=== PATIENT | female | born 1950 | race Caucasian/White ===

== ENCOUNTER 2016-06-09 07:16 | Emergency (ER) | payer MEDICARE, BC ==
[2016-06-09] MEDS ORDERED: Ketorolac 30 MG/ML SDV IM ONE (07:44)
--- NOTE | 2016-06-09 07:50 | EDM.PDOC ---
ED HPI GENERAL MEDICAL PROBLEM - General Chief Complaint: Back Pain or Injury Stated Complaint: HEAD AND SHOULDER PAIN Time Seen by Provider: 06/09/16 07:23 - History of Present Illness INITIAL COMMENTS - FREE TEXT/NARRATIVE: History of present illness: [66 yo female with neck pain that radiates to left shoulder x 4 days. She woke up with neck pain. She did not fall or suffered injury. She denies numbness, tingling, parasthesia, chest pain, sob, palpitation, lower extremity swelling. sorethroat, headache, dizziness or other pertinent symptoms. She tried otc aleve without relief. ] Review of systems: As per history of present illness and below otherwise all systems reviewed and negative. Past medical history: HTN Surgical history: As per history of present illness and as reviewed below otherwise noncontributory. Social history: No reported history of drug or alcohol abuse. Family history: As per history of present illness and as reviewed below otherwise noncontributory. Physical exam: General: Well developed, well nourished in NAD HEENT: Atraumatic, normocephalic, pupils reactive, negative for conjunctival pallor or scleral icterus, mucous membranes moist, throat clear, neck supple, nontender, trachea midline. Lungs: Clear to auscultation, breath sounds equal bilaterally, chest nontender. Heart: S1S2, regular, negative for clicks, rubs, or JVD. Abdomen: Soft, nondistended, nontender. Negative for masses or hepatosplenomegaly. Negative for costovertebral tenderness. Pelvis: Stable nontender. Genitourinary: Deferred. Rectal: Deferred. Extremities: Atraumatic, negative for cords or calf pain. Neurovascular unremarkable. NECK: cervical midline tenderness. Brachiaradialis and triceps reflex intact. Neuro: Awake, alert, oriented. Cranial nerves II through XII unremarkable. Cerebellum unremarkable. Motor and sensory unremarkable throughout. Exam nonfocal. Diagnostics: [cervical spine xray: DJD changes. NO fracture or dislocations] Therapeutics: [toradol 30 IM] Impression: [cervical neck strain] Plan: [diclofenac 50 mg po bid x 10 days, flexeril 5 mg po tid prn. f/u with PCP this week. ] Definitive disposition and diagnosis as appropriate pending reevaluation and review of above. Bilateral Upper Back Pain Score (Numeric/FACES): 9 - Related Data Allergies Allergy/AdvReac Type Severity Reaction Status Date / Time Penicillins Allergy Rash Verified 06/27/15 14:11 Home Meds: Home Meds Aspirin [Halfprin] 81 mg PO DAILY 02/03/15 [History] Losartan/Hydrochlorothiazide [Losartan-HCTZ 100-25 MG] 1 each PO DAILY 03/02/15 [History] Multivitamin [Multivitamins] 1 each PO DAILY 03/02/15 [History] Past Medical History HEENT History: Reports: None, Impaired vision Cardiovascular History: Reports: Hypertension Respiratory History: Reports: None Gastrointestinal History: Reports: None Genitourinary History: Reports: None 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 History: Reports: Fracture Neurological History: Reports: None Psychiatric History: Reports: None Endocrine/Metabolic History: Reports: Obesity/BMI 30+ Hematologic History: Reports: None Immunologic History: Reports: None Oncologic (Cancer) History: Reports: None Dermatologic History: Reports: None - Infectious Disease History Infectious Disease History: Reports: Measles - Past Surgical History 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 Surgical History: Reports: Other (see below) Other 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 Surgeries/Procedures:: Right Wrist Social & Family History - Family History Family Medical History: Noncontributory Cardiac: Reports: None Respiratory: Reports: None GI: Reports: None : Reports: None OBGYN: Reports: None 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: Reports: None Neurological: Reports: None Psychiatric: Reports: None Endocrine/Metabolic: Reports: None Hematologic: Reports: None Immunologic: Reports: None Dermatologic: Reports: None Oncologic: Reports: None - Tobacco Use Smoking Status *Q: Never Smoker Second Hand Smoke Exposure: No - Caffeine Use Caffeine Use: Reports: None - Recreational Drug Use Recreational Drug Use: No ED ROS GENERAL - Review of Systems Review Of Systems: See Below (History of present illness) ED EXAM, GENERAL - Physical Exam Exam: See Below Course - Vital Signs Last Recorded V/S: Last Vital Signs Temp 97.6 F 06/09/16 07:24 Pulse 95 06/09/16 07:24 Resp 16 06/09/16 07:24 BP 167/131 H 06/09/16 07:24 Pulse Ox 96 06/09/16 07:24 - Orders/Labs/Meds Meds: Medications Discontinued Medications Generic Name Dose Route Start Last Admin Trade Name Freq PRN Reason Stop Dose Admin Ketorolac Tromethamine 30 mg 06/09/16 07:44 06/09/16 07:52 Toradol IM 06/09/16 07:45 30 mg ONETIME ONE Administration Departure - Departure Time of Disposition: 08:58 Disposition: Home, Self-Care 01 Condition: good Clinical Impression: Neck muscle strain Instructions: Muscle Strain, [id number] Referrals: PCP,None [Primary Care Provider] - Forms: ED Department Discharge Additional Instructions: The following information is given to patients seen in the emergency department who are being discharged to home. This information is to outline your options for follow-up care. We provide all patients seen in our emergency department with a follow-up referral. The need for follow-up, as well as the timing and circumstances, are variable depending upon the specifics of your emergency department visit. If you don't have a primary care physician on staff, we will provide you with a referral. We always advise you to contact your personal physician following an emergency department visit to inform them of the circumstance of the visit and for follow-up with them and/or the need for any referrals to a consulting specialist. The emergency department will also refer you to a specialist when appropriate. This referral assures that you have the opportunity for follow-up care with a specialist. All of these measure are taken in an effort to provide you with optimal care, which includes your follow-up. Under all circumstances we always encourage you to contact your private physician who remains a resource for coordinating your care. When calling for follow-up care, please make the office aware that this follow-up is from your recent emergency room visit. If for any reason you are refused follow-up, please contact the [facility] Emergency Department at and asked to speak to the emergency department charge nurse.
--- NOTE | 2016-06-09 08:51 | CR ---
EXAMINATION: Cervical spine HISTORY: Pain COMPARISON: CT dated 03/02/2015 TECHNIQUE: AP and lateral views of the cervical spine FINDINGS: There is straightening of the normal cervical lordosis. The vertebral body heights are chiquita ssly maintained. Disc space narrowing and osteophytes are noted at C5-C6 and C6-C7. The prevertebral soft tissues appear normal. Facet alignment is preserved. No acute osseous abnormalities demonstrat ed. IMPRESSION: Degenerative changes without acute findings.
[2016-06-09 09:10] VITALS: BP 124/77
--- NOTE | 2016-06-09 09:13 | EDM.PDOC ---
ED UPPER BACK/NECK PAIN/INJURY - General Chief Complaint: Back Pain or Injury Stated Complaint: HEAD AND SHOULDER PAIN Time Seen by Provider: 06/09/16 07:23 Source of Information: Reports: Patient History Limitations: Reports: No limitations - History of Present Illness INITIAL COMMENTS - FREE TEXT/NARRATIVE: HISTORY AND PHYSICAL: History of present illness: [66-year-old female complaining of posterior neck and upper back soreness since awakening 2 days ago patient did not suffer any injuries. He has no headache or stiff neck. Normal use of bilateral upper and lower extremities no numbness weakness or difficulty with gait. Patient has no spinal pain and clearly denies chest pain or shortness of breath] Review of systems: As per history of present illness and below otherwise all systems reviewed and negative. Past medical history: As per history of present illness and as reviewed below otherwise noncontributory. Surgical history: As per history of present illness and as reviewed below otherwise noncontributory. Social history: No reported history of drug or alcohol abuse. Family history: As per history of present illness and as reviewed below otherwise noncontributory. Physical exam: Bilateral posterior neck mild soft tissue tenderness but no skin changes also bilateral upper back soft tissue tenderness no scapular or spinal bony tenderness or skin changes. No midline bony T. step off or deformity HEENT: Atraumatic, normocephalic, pupils reactive, negative for conjunctival pallor or scleral icterus, mucous membranes moist, throat clear, neck supple, nontender, trachea midline. Lungs: Clear to auscultation, breath sounds equal bilaterally, chest nontender. Heart: S1S2, regular, negative for clicks, rubs, or JVD. Abdomen: Soft, nondistended, nontender. Negative for masses or hepatosplenomegaly. Negative for costovertebral tenderness. Pelvis: Stable nontender. Genitourinary: Deferred. Rectal: Deferred. Extremities: Atraumatic, negative for cords or calf pain. Neurovascular unremarkable. Neuro: Awake, alert, oriented. Cranial nerves II through XII unremarkable. Cerebellum unremarkable. Motor and sensory unremarkable throughout. Exam nonfocal. Diagnostics: [X-ray C-spine unremarkable interpreted by me a report reviewed] Therapeutics: [] Impression: [] Plan: [Patient with signs and symptoms consistent with cervical and dorsal strain. Well-appearing patient nonfocal neurologic exam no clinical evidence of radiculopathy. No further workup or treatment indicated. Patient agrees with outpatient followup. She will take NSAIDs and muscle relaxants as needed. Strict return precautions given.] Definitive disposition and diagnosis as appropriate pending reevaluation and review of above. - Related Data Allergies/ADRs: Allergies Allergy/AdvReac Type Severity Reaction Status Date / Time Penicillins Allergy Rash Verified 06/27/15 14:11 Home Meds: Home Meds Aspirin [Halfprin] 81 mg PO DAILY 02/03/15 [History] Losartan/Hydrochlorothiazide [Losartan-HCTZ 100-25 MG] 1 each PO DAILY 03/02/15 [History] Multivitamin [Multivitamins] 1 each PO DAILY 03/02/15 [History] Past Medical History HEENT History: Reports: None, Impaired vision Cardiovascular History: Reports: Hypertension Respiratory History: Reports: None Gastrointestinal History: Reports: None Genitourinary History: Reports: None 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 History: Reports: Fracture Neurological History: Reports: None Psychiatric History: Reports: None Endocrine/Metabolic History: Reports: Obesity/BMI 30+ Hematologic History: Reports: None Immunologic History: Reports: None Oncologic (Cancer) History: Reports: None Dermatologic History: Reports: None - Infectious Disease History Infectious Disease History: Reports: Measles - Past Surgical History 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 Surgical History: Reports: Other (see below) Other 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 Surgeries/Procedures:: Right Wrist Social & Family History - Family History Family Medical History: Noncontributory Cardiac: Reports: None Respiratory: Reports: None GI: Reports: None : Reports: None OBGYN: Reports: None 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: Reports: None Neurological: Reports: None Psychiatric: Reports: None Endocrine/Metabolic: Reports: None Hematologic: Reports: None Immunologic: Reports: None Dermatologic: Reports: None Oncologic: Reports: None - Tobacco Use Smoking Status *Q: Never Smoker Second Hand Smoke Exposure: No - Caffeine Use Caffeine Use: Reports: None - Recreational Drug Use Recreational Drug Use: No ED ROS GENERAL - Review of Systems Review Of Systems: See Below (Per history of present illness) ED EXAM, UPPER BACK/NECK PAIN - Physical Exam Exam: See Below (Per history of present illness) Course - Vital Signs Last Recorded V/S: Last Vital Signs Temp 36.9 C 06/09/16 09:09 Pulse 74 06/09/16 09:09 Resp 18 04/03/17 09:09 BP 124/77 06/09/16 09:09 Pulse Ox 95 06/09/16 09:09 - Orders/Labs/Meds Meds: Medications Discontinued Medications Generic Name Dose Route Start Last Admin Trade Name Lul PRN Reason Stop Dose Admin Ketorolac Tromethamine 30 mg 06/09/16 07:44 06/09/16 07:52 Toradol IM 06/09/16 07:45 30 mg ONETIME ONE Administration Departure - Departure Time of Disposition: 09:10 Disposition: Home, Self-Care 01 Condition: good Clinical Impression: Neck muscle strain Instructions: Muscle Strain, [id number] Referrals: PCP,None [Primary Care Provider] - Forms: ED Department Discharge Additional Instructions: The following information is given to patients seen in the emergency department who are being discharged to home. This information is to outline your options for follow-up care. We provide all patients seen in our emergency department with a follow-up referral. The need for follow-up, as well as the timing and circumstances, are variable depending upon the specifics of your emergency department visit. If you don't have a primary care physician on staff, we will provide you with a referral. We always advise you to contact your personal physician following an emergency department visit to inform them of the circumstance of the visit and for follow-up with them and/or the need for any referrals to a consulting specialist. The emergency department will also refer you to a specialist when appropriate. This referral assures that you have the opportunity for follow-up care with a specialist. All of these measure are taken in an effort to provide you with optimal care, which includes your follow-up. Under all circumstances we always encourage you to contact your private physician who remains a resource for coordinating your care. When calling for follow-up care, please make the office aware that this follow-up is from your recent emergency room visit. If for any reason you are refused follow-up, please contact the [facility] Emergency Department at and asked to speak to the emergency department charge nurse.
== END 2016-06-09 09:08 | disposition home or self-care (01) ==
LOC: MW.ED 07:16
DX: S16.1XXA Strain of muscle, fascia and tendon at neck level, initial encounter (principal); X58.XXXA Exposure to other specified factors, initial encounter; I10 Essential (primary) hypertension; E66.9 Obesity, unspecified; Z68.30 Body mass index [BMI] 30.0-30.9, adult; Z98.890 Other specified postprocedural states; Z79.82 Long term (current) use of aspirin; Z79.899 Other long term (current) drug therapy; Z88.0 Allergy status to penicillin
CPT/HCPCS: 72040; 96372; 99283; J1885

== ENCOUNTER 2016-11-04 09:38 | Emergency (ER) | payer MEDICARE, BC ==
[2016-11-04] MEDS ORDERED: Ketorolac 30 MG/ML SDV IM ONE (09:57)
--- NOTE | 2016-11-04 10:24 | EDM.PDOC ---
ED HPI GENERAL MEDICAL PROBLEM - General Chief Complaint: Back Pain or Injury Stated Complaint: BACK PAIN Time Seen by Provider: 11/04/16 09:40 - History of Present Illness INITIAL COMMENTS - FREE TEXT/NARRATIVE: HISTORY AND PHYSICAL: History of present illness: Patient's age 66-year-old white female was at a prior history of left-sided sciatica has not been frequent but did prompt a prior doctor visit she presents today with left lower back discomfort is primarily in her left buttock radiating down her left leg similar to her prior episodes but no numbness no weakness or incontinence or retention bowel or bladder no trauma or other concern Review of systems: As per history of present illness and below otherwise all systems reviewed and negative. Past medical history: As per history of present illness and as reviewed below otherwise noncontributory. Surgical history: As per history of present illness and as reviewed below otherwise noncontributory. Social history: No reported history of drug or alcohol abuse. Family history: As per history of present illness and as reviewed below otherwise noncontributory. Physical exam: HEENT: Atraumatic, normocephalic, pupils reactive, negative for conjunctival pallor or scleral icterus, mucous membranes moist, throat clear, neck supple, nontender, trachea midline. Lungs: Clear to auscultation, breath sounds equal bilaterally, chest nontender. Heart: S1S2, regular, negative for clicks, rubs, or JVD. Abdomen: Soft, nondistended, nontender. Negative for masses or hepatosplenomegaly. Negative for costovertebral tenderness. Pelvis: Stable nontender. Genitourinary: Deferred. Rectal: Deferred. Extremities: Atraumatic, negative for cords or calf pain. Neurovascular unremarkable. Neuro: Awake, alert, oriented. Cranial nerves II through XII unremarkable. Cerebellum unremarkable. Motor and sensory unremarkable throughout. Exam nonfocal. Back: Patient has tenderness over her left sciatic notch she is able stand on her toes back on her heels deep tendon reflexes motor and sensory are normal Diagnostics: None Therapeutics: Toradol 30 mg IM Impression: #1 left-sided sciatica Definitive disposition and diagnosis as appropriate pending reevaluation and review of above. Bilateral Lower Back Pain Score (Numeric/FACES): 10 - Related Data Allergies Allergy/AdvReac Type Severity Reaction Status Date / Time Penicillins Allergy Rash Verified 11/04/16 09:50 Home Meds: Home Meds Aspirin [Halfprin] 81 mg PO DAILY 02/03/15 [History] Multivitamin [Multivitamins] 1 each PO DAILY 03/02/15 [History] Metoprolol Succinate [Toprol XL] 1 tab PO DAILY 11/04/16 [History] atorvaSTATin [Lipitor] 1 tab PO DAILY 11/04/16 [History] Past Medical History HEENT History: Reports: None, Impaired Vision Cardiovascular History: Reports: Hypertension Respiratory History: Reports: None Gastrointestinal History: Reports: None Genitourinary History: Reports: None 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: 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 History: Reports: Fracture Neurological History: Reports: None Psychiatric History: Reports: None Endocrine/Metabolic History: Reports: Obesity/BMI 30+ Hematologic History: Reports: None Immunologic History: Reports: None Oncologic (Cancer) History: Reports: None Dermatologic History: Reports: None - Infectious Disease History Infectious Disease History: Reports: Measles - Past Surgical History 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 Surgical History: Reports: Other (See Below) Social & Family History - Family History Family Medical History: Noncontributory Cardiac: Reports: None Respiratory: Reports: None GI: Reports: None : Reports: None OBGYN: Reports: None 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: Reports: None Neurological: Reports: None Psychiatric: Reports: None Endocrine/Metabolic: Reports: None Hematologic: Reports: None Immunologic: Reports: None Dermatologic: Reports: None Oncologic: Reports: None - Tobacco Use Smoking Status *Q: Never Smoker Second Hand Smoke Exposure: No - Caffeine Use Caffeine Use: Reports: Soda - Recreational Drug Use Recreational Drug Use: No ED ROS GENERAL - Review of Systems Review Of Systems: ROS reveals no pertinent complaints other than HPI. ED EXAM, GENERAL - Physical Exam Exam: See Below (See dictation) Course - Vital Signs Last Recorded V/S: Last Vital Signs Temp 36.2 C 11/04/16 09:46 Pulse 66 11/04/16 09:46 Resp 20 11/04/16 09:46 BP 142/77 H 11/04/16 09:46 Pulse Ox 96 11/04/16 09:46 - Orders/Labs/Meds Meds: Medications Discontinued Medications Generic Name Dose Route Start Last Admin Trade Name Freq PRN Reason Stop Dose Admin Ketorolac Tromethamine 30 mg 11/04/16 09:57 11/04/16 10:15 Toradol IM 11/04/16 09:58 30 mg ONETIME ONE Administration Departure - Departure Time of Disposition: 10:23 Disposition: Home, Self-Care 01 Condition: Good Clinical Impression: Sciatica - Discharge Information Referrals: Gus Nassar MD [Primary Care Provider] - Additional Instructions: The following information is given to patients seen in the emergency department who are being discharged to home. This information is to outline your options for follow-up care. We provide all patients seen in our emergency department with a follow-up referral. The need for follow-up, as well as the timing and circumstances, are variable depending upon the specifics of your emergency department visit. If you don't have a primary care physician on staff, we will provide you with a referral. We always advise you to contact your personal physician following an emergency department visit to inform them of the circumstance of the visit and for follow-up with them and/or the need for any referrals to a consulting specialist. The emergency department will also refer you to a specialist when appropriate. This referral assures that you have the opportunity for followup care with a specialist. All of these measure are taken in an effort to provide you with optimal care, which includes your followup. Under all circumstances we always encourage you to contact your private physician who remains a resource for coordinating your care. When calling for followup care, please make the office aware that this follow-up is from your recent emergency room visit. If for any reason you are refused follow-up, please contact the [facility] emergency department at and asked to speak to the emergency department charge nurse. Follow-up private medical doctor as discussed Tylenol No. 3 Medrol Dosepak as prescribed return as needed as discussed
[2016-11-04 11:55] VITALS: BP 118/62
== END 2016-11-04 10:50 | disposition home or self-care (01) ==
LOC: MW.ED 09:38
DX: M54.42 Lumbago with sciatica, left side (principal); E66.9 Obesity, unspecified; I10 Essential (primary) hypertension; Z79.82 Long term (current) use of aspirin; Z79.899 Other long term (current) drug therapy; Z88.0 Allergy status to penicillin; Z68.33 Body mass index [BMI] 33.0-33.9, adult
CPT/HCPCS: 96372; 99283; J1885

== ENCOUNTER 2017-04-02 07:05 | Emergency (ER) | payer MEDICARE, BC ==
--- NOTE | 2017-04-02 07:28 | EDM.PDOC ---
ED HPI GENERAL MEDICAL PROBLEM - General Chief Complaint: Lower Extremity Injury/Pain Stated Complaint: PAIN IN RIGHT LEG Time Seen by Provider: 04/02/17 07:26 - History of Present Illness INITIAL COMMENTS - FREE TEXT/NARRATIVE: HISTORY AND PHYSICAL: History of present illness: Patient 66-year-old female presents with concern of right leg pain she denies trauma she's concerned about possible thromboembolism should denies any other concern is no chest pain shortness breath nausea vomiting fever chills Review of systems: As per history of present illness and below otherwise all systems reviewed and negative. Past medical history: As per history of present illness and as reviewed below otherwise noncontributory. Surgical history: As per history of present illness and as reviewed below otherwise noncontributory. Social history: No reported history of drug or alcohol abuse. Family history: As per history of present illness and as reviewed below otherwise noncontributory. Physical exam: HEENT: Atraumatic, normocephalic, pupils reactive, negative for conjunctival pallor or scleral icterus, mucous membranes moist, throat clear, neck supple, nontender, trachea midline. Lungs: Clear to auscultation, breath sounds equal bilaterally, chest nontender. Heart: S1S2, regular, negative for clicks, rubs, or JVD. Abdomen: Soft, nondistended, nontender. Negative for masses or hepatosplenomegaly. Negative for costovertebral tenderness. Pelvis: Stable nontender. Genitourinary: Deferred. Rectal: Deferred. Extremities: Atraumatic, negative for cords or calf pain. Neurovascular unremarkable. Neuro: Awake, alert, oriented. Cranial nerves II through XII unremarkable. Cerebellum unremarkable. Motor and sensory unremarkable throughout. Exam nonfocal. Diagnostics: Venous Doppler right lower extremity Therapeutics: None Impression: #1 right lower extremity pain Definitive disposition and diagnosis as appropriate pending reevaluation and review of above. Right Lower Leg Pain Score (Numeric/FACES): 10 - Related Data Allergies Allergy/AdvReac Type Severity Reaction Status Date / Time Penicillins Allergy Rash Verified 04/02/17 07:20 Home Meds: Home Meds Aspirin [Halfprin] 81 mg PO DAILY 02/03/15 [History] Multivitamin [Multivitamins] 1 each PO DAILY 03/02/15 [History] Metoprolol Succinate [Toprol XL] 50 mg PO DAILY 11/04/16 [History] atorvaSTATin [Lipitor] 10 mg PO DAILY 11/04/16 [History] Losartan/Hydrochlorothiazide [Losartan-HCTZ 100-25 MG] 1 tab PO DAILY 04/02/17 [ History] Past Medical History HEENT History: Reports: None, Impaired Vision Cardiovascular History: Reports: Hypertension Respiratory History: Reports: None Gastrointestinal History: Reports: None Genitourinary History: Reports: None [employer]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: 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 History: Reports: Fracture Neurological History: Reports: None Psychiatric History: Reports: None Endocrine/Metabolic History: Reports: Obesity/BMI 30+ Hematologic History: Reports: None Immunologic History: Reports: None Oncologic (Cancer) History: Reports: None Dermatologic History: Reports: None - Infectious Disease History Infectious Disease History: Reports: Chicken Pox, Measles, Mumps - Past Surgical History GI Surgical History: Reports: Appendectomy Female Surgical History: Reports: Hysterectomy Social & Family History - Family History Family Medical History: Noncontributory Cardiac: Reports: None Respiratory: Reports: None GI: Reports: None : Reports: None OBGYN: Reports: None 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: Reports: None Neurological: Reports: None Psychiatric: Reports: None Endocrine/Metabolic: Reports: None Hematologic: Reports: None Immunologic: Reports: None Dermatologic: Reports: None Oncologic: Reports: None - Tobacco Use Smoking Status *Q: Never Smoker Second Hand Smoke Exposure: No - Caffeine Use Caffeine Use: Reports: Soda - Recreational Drug Use Recreational Drug Use: No Review of Systems - Review of Systems Review Of Systems: ROS reveals no pertinent complaints other than HPI. ED EXAM, GENERAL - Physical Exam Exam: See Below (dictation) Course - Vital Signs Last Recorded V/S: Last Vital Signs Temp 36.7 C 04/02/17 07:17 Pulse 75 04/02/17 07:17 Resp 18 04/02/17 07:17 BP 117/72 04/02/17 07:17 Pulse Ox 95 04/02/17 07:17 Departure - Departure Time of Disposition: 07:27 Disposition: Home, Self-Care 01 Condition: Good Clinical Impression: Leg pain - Discharge Information Referrals: Gus Nassar MD [Primary Care Provider] - Additional Instructions: The following information is given to patients seen in the emergency department who are being discharged to home. This information is to outline your options for follow-up care. We provide all patients seen in our emergency department with a follow-up referral. The need for follow-up, as well as the timing and circumstances, are variable depending upon the specifics of your emergency department visit. If you don't have a primary care physician on staff, we will provide you with a referral. We always advise you to contact your personal physician following an emergency department visit to inform them of the circumstance of the visit and for follow-up with them and/or the need for any referrals to a consulting specialist. The emergency department will also refer you to a specialist when appropriate. This referral assures that you have the opportunity for followup care with a specialist. All of these measure are taken in an effort to provide you with optimal care, which includes your followup. Under all circumstances we always encourage you to contact your private physician who remains a resource for coordinating your care. When calling for followup care, please make the office aware that this follow-up is from your recent emergency room visit. If for any reason you are refused follow-up, please contact the [facility] emergency department at and asked to speak to the emergency department charge nurse. Follow-up primary medical doctor once a days Tylenol as directed return as needed as discussed
[2017-04-02 09:50] VITALS: BP 127/68
--- NOTE | 2017-04-02 16:24 | US ---
EXAM DATE: 04/02/17 PATIENT'S AGE: 66 Patient: JACIEL CONWAY Facility: [place], [place] Site . Site : 1950 Study: US Extremity Venous -04/02/2017 8:12:06 AM Ordering Physician: Francisco J Kowalski Final Report: INDICATION: Right leg pain COMPARISON: None. TECHNIQUE: A compression venous ultrasound exam was performed of the right lower extremity using crowder-scale imaging, color Doppler and spectral Doppler analysis. FINDINGS: Sonographic imaging of the right lower extremity demonstrates normal compressibility and color Doppler venous blood flow within the common femoral vein, deep femoral vein, and the proximal greater saphenous vein. Within the thigh, the femoral vein is patent and compressible. At a lower level, the popliteal and visualized posterior tibial veins show normal compressibility and color Doppler venous blood flow. Impression : No evidence of deep vein thrombosis within the right lower extremity. Dictated by Dex Reid MD @ Apr 02 2017 8:27AM (Electronic Signature) Report Signed by Proxy. ELLIS
== END 2017-04-02 08:59 | disposition home or self-care (01) ==
LOC: MW.ED 07:05
DX: M79.604 Pain in right leg (principal); I10 Essential (primary) hypertension; Z88.0 Allergy status to penicillin; Z79.82 Long term (current) use of aspirin; Z79.899 Other long term (current) drug therapy
CPT/HCPCS: 93971-26-RT; 93971-RT; 99283-25

== ENCOUNTER 2017-04-24 03:54 | Observation (INO) | payer MEDICARE, BC ==
[2017-04-24] MEDS ORDERED: Sodium Chloride 0.9% 2.5 ML Syringe FLUSH PRN (04:04)
[2017-04-24] MEDS ORDERED: Sodium Chloride 0.9% 10 ML Syringe FLUSH PRN (04:04)
[2017-04-24] MEDS ORDERED: Sodium Chloride 0.9% 1,000 ML IV ONE (04:04)
[2017-04-24] MEDS ORDERED: Aspirin 81 MG Tab.Chew PO ONE (04:04)
[2017-04-24] MEDS: Nitroglycerin 0.4 MG Tab.SL SL ONE ×2 (04:12→04:19)
--- NOTE | 2017-04-24 04:15 | EDM.PDOC ---
ED HPI GENERAL MEDICAL PROBLEM - General Stated Complaint: WEAKNESS ON LEFT SIDE, SOME CHEST PAIN Time Seen by Provider: 04/24/17 03:57 Source of Information: Reports: Patient - History of Present Illness INITIAL COMMENTS - FREE TEXT/NARRATIVE: HISTORY AND PHYSICAL: History of present illness: [66-year-old female presenting department with chief complaint of left-sided chest pain rating down her left arm with past medical history of hypertension and hyperlipidemia. Patient states that she has had intermittent chest pain for the past week. She states that it often wakes her up at night. This morning it woke her up 30-40 minutes ago and she proceeded to come the emergency department. It currently is 10 out of 10. Patient appears relaxed however. She describes the pain as left sided dull achy with tingling into the left arm. Patient has never had a myocardial infarction before. She denies any associated nausea, vomiting, or shortness of breath. The pain does not radiate into the jaw. Up until this past week she has been feeling her normal self. She denies any fever, chills, diarrhea, abdominal pain, sore throat, or leg pain. Dr. Nassar is her PCP. She has not reported this week of chest pain to him. On examination patient has no focal neurologic deficits however when asked she feels that she is weaker on her left arm. There is no pronator drift and cranial nerves II through XII are intact. 0415: EKG reveals normal sinus rhythm with no acute ischemic changes. Systolic 170's 0424: ASA given as well as nitroglycerin. Pain down to 7/10 Systolic 130's patient states that her pressure is normally in the 120s. 0432: CBC unremarkable. CXR unremarkable 0441: Normal troponin 0450: CMP unremarkable Patient feeling better 0505: Discussed case with Dr. Nicole, hospitalist who will accept patient observation atypical chest pain. Discussing with the patient she recently was switched from lisinopril to metoprolol. She states she took her last dose of lisinopril this last Thursday. She is currently on 50 mg of metoprolol XL. Patient did report that she was having chest pain for approximately one week which would somewhat correlate with the change of medication. In addition her blood pressure was in the 170s systolic when she presented to the emergency department and after nitroglycerin blood pressure was in the 120s which is what she reports her normal blood pressure is and her pain had improved. Suspect that her chest pain in more related to her increased blood pressure than ACS. Review of systems: As per history of present illness and below otherwise all systems reviewed and negative. Past medical history: As per history of present illness and as reviewed below otherwise noncontributory. Surgical history: As per history of present illness and as reviewed below otherwise noncontributory. Social history: No reported history of drug or alcohol abuse. Family history: As per history of present illness and as reviewed below otherwise noncontributory. Physical exam: HEENT: Atraumatic, normocephalic, pupils reactive, negative for conjunctival pallor or scleral icterus, mucous membranes moist, throat clear, neck supple, nontender, trachea midline. Lungs: Clear to auscultation, breath sounds equal bilaterally, chest nontender. Heart: S1S2, regular, negative for clicks, rubs, or JVD. Abdomen: Soft, nondistended, nontender. Negative for masses or hepatosplenomegaly. Negative for costovertebral tenderness. Pelvis: Stable nontender. Genitourinary: Deferred. Rectal: Deferred. Extremities: Atraumatic, negative for cords or calf pain. Neurovascular unremarkable. Neuro: Awake, alert, oriented. Cranial nerves II through XII unremarkable. Cerebellum unremarkable. Motor and sensory unremarkable throughout. Exam nonfocal. Diagnostics: [CBC, CMP, troponin, EKG, chest x-ray, UA] Therapeutics: [0.4 mg sublingual nitroglycerin, 324 mg ASA] Impression: [Atypical chest pain] Plan: [See above history of present illness] chest pain Pain Score (Numeric/FACES): 7 - Related Data Allergies Allergy/AdvReac Type Severity Reaction Status Date / Time Penicillins Allergy Rash Verified 04/24/17 04:01 Home Meds: Home Meds Aspirin [Halfprin] 81 mg PO DAILY 02/03/15 [History] Multivitamin [Multivitamins] 1 each PO DAILY 03/02/15 [History] Metoprolol Succinate [Toprol XL] 50 mg PO DAILY 11/04/16 [History] atorvaSTATin [Lipitor] 10 mg PO DAILY 11/04/16 [History] Valsartan/Hydrochlorothiazide [Valsartan-Hctz 320-12.5 mg Tab] 1 each PO DAILY 04/24/17 [History] Past Medical History HEENT History: Reports: None, Impaired Vision Cardiovascular History: Reports: Hypertension Respiratory History: Reports: None Gastrointestinal History: Reports: None Genitourinary History: Reports: 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 History: Reports: 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 Neurological History: Reports: None Psychiatric History: Reports: None Endocrine/Metabolic History: Reports: Obesity/BMI 30+ Hematologic History: Reports: None Immunologic History: Reports: None Oncologic (Cancer) History: Reports: None Dermatologic History: Reports: None - Infectious Disease History Infectious Disease History: Reports: Chicken Pox, Measles, Mumps - Past Surgical History GI Surgical History: Reports: Appendectomy Female Surgical History: Reports: Hysterectomy Social & Family History - Family History Family Medical History: Noncontributory Cardiac: Reports: None Respiratory: Reports: None GI: Reports: None : Reports: None OBGYN: Reports: None 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: Reports: None Neurological: Reports: None Psychiatric: Reports: None Endocrine/Metabolic: Reports: None Hematologic: Reports: None Immunologic: Reports: None Dermatologic: Reports: None Oncologic: Reports: None - Tobacco Use Smoking Status *Q: Never Smoker Second Hand Smoke Exposure: No - Caffeine Use Caffeine Use: Reports: Soda - Recreational Drug Use Recreational Drug Use: No ED ROS GENERAL - Review of Systems Review Of Systems: See Below ED EXAM, GENERAL - Physical Exam Exam: See Below Course - Vital Signs Last Recorded V/S: Last Vital Signs Temp 98.4 F 04/24/17 04:01 Pulse 77 04/24/17 04:29 Resp 18 04/24/17 04:29 BP 119/77 04/24/17 04:29 Pulse Ox 96 04/24/17 04:29 - Orders/Labs/Meds Orders: Active Orders 24 hr Category Date Time Status Cardiac Monitoring [RC] . DIRECTED Care 04/24/17 04:04 Active EKG Documentation Completion [RC] STAT Care 04/24/17 04:04 Active Oxygen Therapy [RC] ASDIRECTED Care 04/24/17 04:04 Active Pulse Oximetry [RC] ASDIRECTED Care 04/24/17 04:04 Active Chest 1V Frontal [CR] Stat Exams 04/24/17 04:04 Taken UA W/MICROSCOPIC [URIN] Stat Lab 04/24/17 04:05 Ordered Sodium Chloride 0.9% [Normal Saline] 1,000 ml Med 04/24/17 04:04 Active IV .Bolus Sodium Chloride 0.9% [Saline Flush] Med 04/24/17 04:04 Active 10 ml FLUSH ASDIRECTED PRN Sodium Chloride 0.9% [Saline Flush] Med 04/24/17 04:04 Active 2.5 ml FLUSH ASDIRECTED PRN Saline Lock Insert [OM.PC] Stat Oth 04/24/17 04:04 Ordered Medication Orders Sodium Chloride (Normal Saline) 1,000 mls @ 999 mls/hr IV .Bolus ONE Stop: 04/24/17 05:04 Last Admin: 04/24/17 04:14 Dose: 999 mls/hr Sodium Chloride (Saline Flush) 10 ml FLUSH ASDIRECTED PRN PRN Reason: Keep Vein Open Sodium Chloride (Saline Flush) 2.5 ml FLUSH ASDIRECTED PRN PRN Reason: Keep Vein Open Labs: Laboratory Tests 04/24/17 04/24/17 04/24/17 Range/Units 04:02 04:02 04:02 WBC 9.39 (4.0-11.0) K/uL RBC 4.32 (4.30-5.90) M/uL Hgb 13.3 (12.0-16.0) g/dL Hct 39.7 (36.0-46.0) % MCV 91.9 (80.0-98.0) fL MCH 30.8 (27.0-32.0) pg MCHC 33.5 (31.0-37.0) g/dL RDW Std Deviation 47.3 (28.0-62.0) fl RDW Coeff of Frank 14 (11.0-15.0) % Plt Count 292 (150-400) K/uL MPV 10.10 (7.40-12.00) fL Neut % (Auto) 50.8 (48.0-80.0) % Lymph % (Auto) 39.1 (16.0-40.0) % [place] % (Auto) 7.9 (0.0-15.0) % Eos % (Auto) 1.9 (0.0-7.0) % Baso % (Auto) 0.3 (0.0-1.5) % Neut # (Auto) 4.8 (1.4-5.7) K/uL Lymph # (Auto) 3.7 H (0.6-2.4) K/uL [place] # (Auto) 0.7 (0.0-0.8) K/uL Eos # (Auto) 0.2 (0.0-0.7) K/uL Baso # (Auto) 0.0 (0.0-0.1) K/uL Nucleated RBC % 0.0 /100WBC Nucleated RBCs # 0 K/uL INR 0.99 Sodium 142 (136-146) mmol/L Potassium 3.7 (3.5-5.1) mmol/L Chloride 107 (98-110) mmol/L Carbon Dioxide 25 (21-31) mmol/L BUN 13 (6.0-23.0) mg/dL Creatinine 0.7 (0.6-1.5) mg/dL Est Cr Clr Drug Dosing 73.01 mL/min Estimated GFR (MDRD) > 60.0 ml/min Glucose 133 H (60-110) mg/dL Calcium 9.5 (8.8-10.8) mg/dL Total Bilirubin 0.6 (0.1-1.5) mg/dL AST 15 (5-40) IU/L ALT 18 (8-54) IU/L Alkaline Phosphatase 95 (40-150) Troponin I < 0.10 (0.0-0.29) NG/ML Total Protein 7.5 (6.0-8.0) g/dL Albumin 4.0 (3.4-4.8) g/dL Globulin 3.5 (2.0-3.5) g/dL Albumin/Globulin Ratio 1.1 L (1.3-2.8) Meds: Medications Generic Name Dose Route Start Last Admin Trade Name Freq PRN Reason Stop Dose Admin Sodium Chloride 1,000 mls @ 999 mls/hr 04/24/17 04:04 04/24/17 04:14 Normal Saline IV 04/24/17 05:04 999 mls/hr .Bolus ONE Administration Sodium Chloride 10 ml 04/24/17 04:04 Saline Flush FLUSH ASDIRECTED PRN Keep Vein Open Sodium Chloride 2.5 ml 04/24/17 04:04 Saline Flush FLUSH ASDIRECTED PRN Keep Vein Open Discontinued Medications Generic Name Dose Route Start Last Admin Trade Name Freq PRN Reason Stop Dose Admin Aspirin 324 mg 04/24/17 04:04 04/24/17 04:12 Aspirin PO 04/24/17 04:05 324 mg ONETIME ONE Administration Nitroglycerin 0.4 mg 04/24/17 04:08 04/24/17 04:19 Nitrostat SL 04/24/17 04:09 0.4 mg ONETIME ONE Administration Departure - Departure Time of Disposition: 05:08 Disposition: Admitted As Inpatient 65 Condition: Good Clinical Impression: Atypical chest pain - Discharge Information Referrals: Gus Nassar MD [Primary Care Provider] - - My Orders Last 24 Hours: My Active Orders 04/24/17 04:04 Cardiac Monitoring [RC] . DIRECTED EKG Documentation Completion [RC] STAT Oxygen Therapy [RC] ASDIRECTED Pulse Oximetry [RC] ASDIRECTED Chest 1V Frontal [CR] Stat Sodium Chloride 0.9% [Normal Saline] 1,000 ml IV .Bolus Sodium Chloride 0.9% [Saline Flush] 10 ml FLUSH ASDIRECTED PRN Sodium Chloride 0.9% [Saline Flush] 2.5 ml FLUSH ASDIRECTED PRN Saline Lock Insert [OM.PC] Stat 04/24/17 04:05 UA W/MICROSCOPIC [URIN] Stat - Assessment/Plan Last 24 Hours: My Active Orders 04/24/17 04:04 Cardiac Monitoring [RC] . DIRECTED EKG Documentation Completion [RC] STAT Oxygen Therapy [RC] ASDIRECTED Pulse Oximetry [RC] ASDIRECTED Chest 1V Frontal [CR] Stat Sodium Chloride 0.9% [Normal Saline] 1,000 ml IV .Bolus Sodium Chloride 0.9% [Saline Flush] 10 ml FLUSH ASDIRECTED PRN Sodium Chloride 0.9% [Saline Flush] 2.5 ml FLUSH ASDIRECTED PRN Saline Lock Insert [OM.PC] Stat 04/24/17 04:05 UA W/MICROSCOPIC [URIN] Stat
[2017-04-24 04:33] LABS: CHLORIDE,CL 107 mmol/L (98-110); SODIUM,NA 142 mmol/L (136-146)
[2017-04-24] MEDS ORDERED: Ondansetron 4 MG/2 ML SDV IVPUSH PRN (05:09)
[2017-04-24] MEDS ORDERED: Morphine 10 MG/ML Syringe IVPUSH PRN (05:09)
[2017-04-24] MEDS ORDERED: Ondansetron 4 MG Tab.DIS PO PRN (05:09)
[2017-04-24] MEDS ORDERED: Heparin Sodium 5,000 Units/ML Vial SUBCUT SCH ×2 (05:15→17:00)
[2017-04-24] MEDS: Acetaminophen 325 MG Tab PO PRN ×2 (06:04→09:55)
--- NOTE | 2017-04-24 08:04 | PCM.HP ---
H&P History of Present Illness - General Date of Service: 04/24/17 Admit Problem/Dx: Admission Diagnosis/Problem Admission Diagnosis/Problem Atypical chest pain Source of Information: Patient History Limitations: Reports: No Limitations - History of Present Illness Initial Comments - Free Text/Narative: This 66 year old female with pmh of HTN, dyslipidemia and obesity presented tto the ED complaints of left-sided chest pain radiating down her left arm. She reports this pain started around Thursday evening, usually waking her up from sleep. Most times it has been tolerable and it goes away and she is able to rest. Nothing worsens it or necessarily makes it better. She reports associated tingling to bilateral finger tips and some lightheadedness. She reports he Losartan/HCTZ was stopped, Dr Nassar told her to finished her medication and then they were changing it due to insurance not paying. She then received Metoprolol 50 mg XL in the mail and started taking that on Thursday morning. She has not check BP since changing medications, but while on Losartan/HCTZ her BPs were always 120 SBP. She denies any associated nausea, vomiting, or shortness of breath. Up until this past week she has been feeling her normal self. She denies any fever, chills, diarrhea, abdominal pain, sore throat, or leg pain. In the ED labwork all WNL. Glucose slightly elevated, 133. Troponin negative. EKG SR, with no acute signs of ischemia. Ua negative. BP on arrival to ED was 170/100s, with HR in the 70s. She was given Nitro which lowered BP to 110/80s and helped chest pain. She will be admitted for atypical chest pain R/O ASC. PCP, Dr Nassar. 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 Denies: Afib, Blood Clots/VTE/DVT, CAD, [place] Respiratory History: Reports: None. Denies: COPD Gastrointestinal History: Reports: None. Denies: GERD, GI Bleed Genitourinary History: Reports: None. 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 Denies: CVA, TIA Psychiatric History: Reports: None Endocrine/Metabolic History: Reports: Obesity/BMI 30+ Hematologic History: Reports: None Immunologic History: Reports: None Oncologic (Cancer) History: Reports: None Dermatologic History: Reports: None - Infectious Disease History Infectious Disease History: Reports: Chicken Pox, Measles, Mumps - Past Surgical History HEENT Surgical History: Reports: Other (See Below) (mass removed from R ear 5-7 years ago.) GI Surgical History: Reports: Appendectomy Female Surgical History: Reports: Hysterectomy Social & Family History - Family History Family Medical History: Noncontributory Cardiac: Reports: None Respiratory: Reports: None GI: Reports: None : Reports: None OBGYN: Reports: None 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: Reports: None Neurological: Reports: None Psychiatric: Reports: None Endocrine/Metabolic: Reports: None Hematologic: Reports: None Immunologic: Reports: None Dermatologic: Reports: None Oncologic: Reports: None - Tobacco Use Smoking Status *Q: Never Smoker Second Hand Smoke Exposure: No - Caffeine Use Caffeine Use: Reports: Soda - Recreational Drug Use Recreational Drug Use: No - Living Situation & Occupation Living situation: Reports: , with Family Occupation: Retired H&P Review of Systems - Review of Systems: Review Of Systems: See Below General: Reports: No Symptoms. Denies: Fever, Chills, Malaise, Fatigue HEENT: Reports: Headaches (since receiving Nitro in ED.). Denies: Sinus Congestion, Sore Throat Pulmonary: Reports: No Symptoms. Denies: Shortness of Breath, Wheezing, Cough, Sputum Cardiovascular: Reports: No Symptoms, Chest Pain (dull achey, 03/18 currently.). Denies: Palpitations, Dyspnea on Exertion, Edema Gastrointestinal: Reports: No Symptoms. Denies: Abdominal Pain, Black Stool, Bloody Stool, Diarrhea, Nausea, Vomiting Genitourinary: Reports: No Symptoms. Denies: Dysuria, Frequency, Burning, Pain 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: Reports: No Symptoms Neurological: Reports: No Symptoms Immunologic: Reports: No Symptoms Exam - Exam Exam: See Below - Vital Signs Vital Signs: Last Vital Signs Temp 98.2 F 04/24/17 05:30 Pulse 68 04/24/17 05:30 Resp 18 04/24/17 05:30 BP 158/71 H 04/24/17 05:30 Pulse Ox 98 04/24/17 05:30 Weight: 105.052 kg - Exam General: Alert, Oriented, Cooperative HEENT: Conjunctiva Clear, Mucosa Moist & [place], Posterior Pharynx Clear, TMs Clear Neck: Supple, Trachea Midline, 2 Lungs: Clear to Auscultation, Normal Respiratory Effort, Other (no chest wall tenderness on palpation.) Cardiovascular: Regular Rate, Regular Rhythm, Normal S1, Normal S2 GI/Abdominal Exam: Normal Bowel Sounds, Soft, Non-Tender, No Organomegaly, No Distention, No Abnormal Bruit, No Mass, Pelvis Stable Back Exam: Normal Inspection, Full Range of Motion, NT Extremities: Normal Inspection, Normal Range of Motion, Non-Tender, No Pedal Edema, Normal Capillary Refill Neuro Extensive - Mental Status: Alert, Oriented x3, Normal Mood/Affect, Normal Cognition Neuro Extensive - Motor, Sensory, Reflexes: CN II-XII Intact, Normal Gait, Normal Reflexes Psychiatric: Alert, Normal Affect, Normal Mood - Patient Data Lab Results Last 24 hrs: Laboratory Results - last 24 hr 04/24/17 Range/Units 05:20 Urine Color YELLOW Urine Appearance CLEAR Urine pH 5.5 (5.0-8.0) Ur Specific [place] <= 1.005 (1.001-1.035) Urine Protein NEGATIVE (NEGATIVE) mg/dL Urine Glucose (UA) NEGATIVE (NEGATIVE) mg/dL Urine Ketones NEGATIVE (NEGATIVE) mg/dL Urine Occult Blood NEGATIVE (NEGATIVE) Urine Nitrite NEGATIVE (NEGATIVE) Urine Bilirubin NEGATIVE (NEGATIVE) Urine Urobilinogen 0.2 (<2.0) EU/dL Ur Leukocyte Esterase NEGATIVE (NEGATIVE) Urine RBC 0-1 (0-2/HPF) Urine WBC 0-2 (0-5/HPF) Ur Epithelial Cells FEW (NONE-FEW) Urine Bacteria FEW (NEGATIVE) Result Diagrams: 04/24/17 04:02 04/24/17 04:02 EKG INTERPRETATION EKG Date: 04/24/17 Rhythm: NSR P-Wave: Present QRS: Normal ST-T: Normal QT: Normal *Q Meaningful Use (ADM) - VTE *Q VTE Criteria *Q: - Stroke *Q Stroke Criteria *Q: - AMI *Q AMI Criteria *Q: - Problem List (1) Atypical chest pain SNOMED Code(s): 348084856 ICD Code: R07.89 - OTHER CHEST PAIN Status: Acute Current Visit: Yes (2) Borderline diabetes mellitus SNOMED Code(s): 482711183 ICD Code: R73.03 - PREDIABETES Status: Acute Current Visit: Yes (3) HTN (hypertension) SNOMED Code(s): 29316540 ICD Code: I10 - ESSENTIAL (PRIMARY) HYPERTENSION Status: Chronic Current Visit: Yes Qualifiers: Hypertension type: essential hypertension Qualified Code(s): I10 - Essential (primary) hypertension (4) Dyslipidemia SNOMED Code(s): 021093377 ICD Code: E78.5 - HYPERLIPIDEMIA, UNSPECIFIED Status: Chronic Current Visit: Yes (5) Obesity SNOMED Code(s): 678827562 ICD Code: E66.9 - OBESITY, UNSPECIFIED Status: Chronic Current Visit: Yes Qualifiers: Body mass index: BMI 37.0-37.9 Problem List Initiated/Reviewed/Updated: Yes Orders Last 24hrs: Active Orders 24 hr Category Date Time Status Telemetry Monitoring [Cardiac Monitoring] [RC] Q8H Care 04/24/17 05:11 Active GLYCOSYLATED HEMOGLOBIN,HGBA1C [CHEM] Routine Lab 04/24/17 07:59 Ordered LIPID PANEL [CHEM] Routine Lab 04/24/17 07:59 Ordered Heparin Sodium Med 04/24/17 17:00 Ordered 5,000 units SUBCUT Q12H atorvaSTATin [Lipitor] Med 04/24/17 09:00 Ordered 10 mg PO DAILY Medication Orders Acetaminophen (Tylenol) 650 mg PO Q4H PRN PRN Reason: Pain (Mild 1-3)/fever Last Admin: 04/24/17 06:04 Dose: 650 mg Atorvastatin Calcium (Lipitor) 10 mg PO DAILY [facility] Heparin Sodium (Porcine) (Heparin Sodium) 5,000 units SUBCUT Q12H [facility] Morphine Sulfate (Morphine) 2 mg IVPUSH Q2H PRN PRN Reason: Pain (severe 7-10) Stop: 04/25/17 05:11 Ondansetron HCl (Zofran Odt) 4 mg PO Q4H PRN PRN Reason: nausea, able to take PO Ondansetron HCl (Zofran) 4 mg IVPUSH Q4H PRN PRN Reason: Nausea Sodium Chloride (Saline Flush) 10 ml FLUSH ASDIRECTED PRN PRN Reason: Keep Vein Open Sodium Chloride (Saline Flush) 2.5 ml FLUSH ASDIRECTED PRN PRN Reason: Keep Vein Open Assessment/Plan Comment:: This 66 year old female admitted with atypical chest pain, R/O ACS 1. Chest pain: Will monitor on telemetry and trend troponins. Arrange for outpatient stress test. Pain currently 0-1/10. Troponins x 2 negative. Lipid panel obtained, and well controlled on Statin. A1c elevated at 6.3, educated patient on need for dietary and lifestyle changes to reduce A1c and weight. Will arrange consult with [employer] and plan for diet control and rechecking with PCP in 3 months. 2. HTN: Will stop Metoprolol, is not controlling BP well due to elevated BP on arrival to ED. Will restat valsartan and HCTZ but not combination tab and hopefully insurance will pay for. Patient educated about this and is in agreement to stop Metoprolol and restarting previous medications. Continue ASA daily. Discharge Plan: Restart Valsartan and HCTZ for HTN. All troponins negative, ACS ruled out. Will arrange outpatient stress test to evaluate for CAD and chest pain. Start ADA diet at home. She is to return to ED or clinic if concerns should arise.
[2017-04-24] MEDS ORDERED: atorvaSTATin 10 MG Tab PO SCH (09:00)
[2017-04-24] MEDS ORDERED: Hydrochlorothiazide 12.5 MG Cap PO SCH (12:30)
[2017-04-24 15:52] VITALS: BP 129/82
--- NOTE | 2017-04-24 17:04 | CR ---
EXAM DATE: 04/24/17 PATIENT'S AGE: 66 Patient: JACIEL CONWAY Facility: [place], [place] Site . Site : 1950 Study: XRay Chest [id number]/16/2018 4:23:30 AM Ordering Physician: Oumar Martinez Final Report: INDICATION: Chest pain TECHNIQUE: Chest radiograph 1 view COMPARISON: None FINDINGS: Moderate degradation of image quality noted due to body habitus. Mediastinum: The heart silhouette is normal in size and morphology. The mediastinum is normal in appearance. Lungs: Both lungs are unremarkable in appearance. A 3 mm granuloma is present in the right lung base. No sign of pleural effusion seen. No pneumothorax is identified. Bones and soft tissue: Unremarkable for age. IMPRESSION: 1. No acute cardiopulmonary disease is seen. Dictated by: Efrain Chaudhry MD @ 04/24/2017 04:28:05 (Electronic Signature) Report Signed by Proxy. ELLIS
== END 2017-04-24 17:44 | disposition home or self-care (01) ==
LOC: MW.ED 03:54 → MW.MS 05:09
PROVIDERS: ADMIT Internal Medicine; ATTEND Internal Medicine
DX: R07.89 Other chest pain (principal); I10 Essential (primary) hypertension; E78.5 Hyperlipidemia, unspecified; R73.03 Prediabetes; E66.9 Obesity, unspecified; Z88.0 Allergy status to penicillin; Z79.82 Long term (current) use of aspirin; Z79.899 Other long term (current) drug therapy; Z90.49 Acquired absence of other specified parts of digestive tract; Z90.710 Acquired absence of both cervix and uterus; Z68.37 Body mass index [BMI] 37.0-37.9, adult
CPT/HCPCS: 71045; 80053; 80061; 81001; 83036; 84484; 85025; 85610; 93005; 96360; 99285; A9270; J1644; J7040; 96372; 99284; G0378

== ENCOUNTER 2018-06-11 09:37 | Emergency (ER) | payer MEDICARE, BC ==
--- NOTE | 2018-06-11 09:39 | EDM.PDOC ---
ED HPI GENERAL MEDICAL PROBLEM - General Chief Complaint: Back Pain or Injury Stated Complaint: PAIN IN BACK AND HIPS Time Seen by Provider: 06/11/18 09:39 Source of Information: Reports: Patient History Limitations: Reports: No Limitations - History of Present Illness INITIAL COMMENTS - FREE TEXT/NARRATIVE: History of present illness: []Patient has a history of back pain with sciatica that occasionally flares up and she is having some pain in the past few days. She's been using a heating pad and taking Tylenol without relief. Patient denies any incontinence, numbness or tingling or difficulty with ambulation. She is requesting a shot of Toradol which she has had in the past and works well for her. Review of systems: As per history of present illness and below otherwise all systems reviewed and negative. Past medical history: As per history of present illness and as reviewed below otherwise noncontributory. Surgical history: As per history of present illness and as reviewed below otherwise noncontributory. Social history: No reported history of drug or alcohol abuse. Family history: As per history of present illness and as reviewed below otherwise noncontributory. Physical exam: General: Well developed, well nourished in NAD HEENT: Atraumatic, normocephalic, pupils reactive, negative for conjunctival pallor or scleral icterus, mucous membranes moist, throat clear, neck supple, nontender, trachea midline. Lungs: Clear to auscultation, breath sounds equal bilaterally, chest nontender. Heart: S1S2, regular, negative for clicks, rubs, or JVD. Abdomen: NABS, Soft, nondistended, nontender. Negative for masses or hepatosplenomegaly. Negative for costovertebral tenderness. Pelvis: Stable nontender. Genitourinary: Deferred. Rectal: Deferred. Extremities: Atraumatic, negative for cords or calf pain. Neurovascular unremarkable. Neuro: Awake, alert, oriented. Cranial nerves II through XII unremarkable. Cerebellum unremarkable. Motor and sensory unremarkable throughout. Exam nonfocal. Straight leg raise is negative Skin:warm and dry Diagnostics: None Therapeutics: Toradol IM ED Course: Stable Impression: Low back pain with right-sided sciatica Prescriptions: Flexeril, diclofenac Plan: Take meds as directed, follow up with your primary care physician, return to ER if symptoms worsen or change. Definitive disposition and diagnosis as appropriate pending reevaluation and review of above. right back/hip Pain Score (Numeric/FACES): 10 - Related Data Allergies Allergy/AdvReac Type Severity Reaction Status Date / Time Penicillins Allergy Rash Verified 01/24/18 20:45 Home Meds: Home Meds Aspirin [Halfprin] 81 mg PO DAILY 02/03/15 [History] Multivitamin [Multivitamins] 1 each PO DAILY 03/02/15 [History] atorvaSTATin [Lipitor] 10 mg PO DAILY 11/04/16 [History] Valsartan [Diovan] 320 mg PO DAILY #30 tablet 04/24/17 [Rx] hydroCHLOROthiazide [Hydrochlorothiazide] 12.5 mg PO DAILY #30 cap 04/24/17 [Rx] Losartan [Cozaar] 100 mg PO DAILY 01/24/18 [History] Potassium Chloride 10 meq PO DAILY #10 capsule.er 01/24/18 [Rx] Cyclobenzaprine [Flexeril] 10 mg PO BID PRN #12 tab 06/11/18 [Rx] Diclofenac Sodium [Voltaren] 75 mg PO BIDMEALS PRN #20 tab.cr 06/11/18 [Rx] Past Medical History HEENT History: Reports: None, Impaired Vision 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 Cardiovascular History: Reports: High Cholesterol, Hypertension Respiratory History: Reports: None Gastrointestinal History: Reports: None Genitourinary History: Reports: None 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: 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 History: Reports: Fracture Neurological History: Reports: None Psychiatric History: Reports: None Endocrine/Metabolic History: Reports: Obesity/BMI 30+ Hematologic History: Reports: None Immunologic History: Reports: None Oncologic (Cancer) History: Reports: None Dermatologic History: Reports: None - Infectious Disease History Infectious Disease History: Reports: Chicken Pox - Past Surgical History HEENT Surgical History: Reports: Other (See Below) GI Surgical History: Reports: Appendectomy Female Surgical History: Reports: Hysterectomy Social & Family History - Family History Family Medical History: Noncontributory Cardiac: Reports: None Respiratory: Reports: None GI: Reports: None : Reports: None OBGYN: Reports: None 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: Reports: None Neurological: Reports: None Psychiatric: Reports: None Endocrine/Metabolic: Reports: None Hematologic: Reports: None Immunologic: Reports: None Dermatologic: Reports: None Oncologic: Reports: None - Caffeine Use Caffeine Use: Reports: None - Living Situation & Occupation Living situation: Reports: , with Family Occupation: Retired ED ROS GENERAL - Review of Systems Review Of Systems: ROS reveals no pertinent complaints other than HPI. ED EXAM,LOWER BACK PAIN/INJURY - Physical Exam Exam: See Below (See history of present illness) Course - Vital Signs Last Recorded V/S: Last Vital Signs Temp 97.8 F 06/11/18 09:47 Pulse 78 06/11/18 09:47 Resp 18 06/11/18 09:47 BP 152/70 H 06/11/18 09:47 Pulse Ox 96 06/11/18 09:47 - Orders/Labs/Meds Meds: Medications Discontinued Medications Generic Name Dose Route Start Last Admin Trade Name Freagata PRN Reason Stop Dose Admin Ketorolac Tromethamine 30 mg 06/11/18 09:56 06/11/18 10:04 Toradol IM 06/11/18 09:57 30 mg ONETIME ONE Administration Ketorolac Tromethamine Confirm 06/11/18 10:02 Toradol Administered 06/11/18 10:03 Dose 30 mg .ROUTE .STK-MED ONE Departure - Departure Time of Disposition: 10:17 Disposition: Home, Self-Care 01 Condition: Good Clinical Impression: Low back pain with right-sided sciatica Qualifiers: Chronicity: acute Back pain laterality: right Qualified Code(s): M54.41 - Lumbago with sciatica, right side - Discharge Information *PRESCRIPTION DRUG MONITORING PROGRAM REVIEWED*: No *COPY OF PRESCRIPTION DRUG MONITORING REPORT IN PATIENT TRISTAN: No Prescriptions: Cyclobenzaprine [Flexeril] 10 mg PO BID PRN #12 tab PRN Reason: Pain Diclofenac Sodium [Voltaren] 75 mg PO BIDMEALS PRN #20 tab.cr PRN Reason: Pain Referrals: Gus Nassar MD [Primary Care Provider] - Forms: ED Department Discharge Additional Instructions: The following information is given to patients seen in the emergency department who are being discharged to home. This information is to outline your options for follow-up care. We provide all patients seen in our emergency department with a follow-up referral. The need for follow-up, as well as the timing and circumstances, are variable depending upon the specifics of your emergency department visit. If you don't have a primary care physician on staff, we will provide you with a referral. We always advise you to contact your personal physician following an emergency department visit to inform them of the circumstance of the visit and for follow-up with them and/or the need for any referrals to a consulting specialist. The emergency department will also refer you to a specialist when appropriate. This referral assures that you have the opportunity for follow-up care with a specialist. All of these measure are taken in an effort to provide you with optimal care, which includes your follow-up. Under all circumstances we always encourage you to contact your private physician who remains a resource for coordinating your care. When calling for follow-up care, please make the office aware that this follow-up is from your recent emergency room visit. If for any reason you are refused follow-up, please contact the [facility] Emergency Department at and asked to speak to the emergency department charge nurse. Take meds as directed, follow up with your primary care physician, return to ER if symptoms worsen or change. [facility] [address] [place] [id number]
[2018-06-11] MEDS ORDERED: Ketorolac 30 MG/ML SDV IM ONE (09:56)
[2018-06-11] MEDS ORDERED: Ketorolac 30 MG/ML SDV ONE (10:02)
[2018-06-11 10:35] VITALS: BP 148/69
== END 2018-06-11 10:30 | disposition home or self-care (01) ==
LOC: MW.ED 09:37
DX: M54.41 Lumbago with sciatica, right side (principal); I10 Essential (primary) hypertension; E66.9 Obesity, unspecified; Z88.0 Allergy status to penicillin; Z79.82 Long term (current) use of aspirin; Z79.899 Other long term (current) drug therapy; Z90.49 Acquired absence of other specified parts of digestive tract; Z90.710 Acquired absence of both cervix and uterus
CPT/HCPCS: 96372; 99283; J1885

== ENCOUNTER 2018-07-16 22:14 | Emergency (ER) | payer MEDICARE, BC ==
[2018-07-16] MEDS ORDERED: Ketorolac 60 MG/2 ML SDV IM ONE (22:56)
--- NOTE | 2018-07-16 23:00 | EDM.PDOC ---
ED HPI GENERAL MEDICAL PROBLEM - General Chief Complaint: Lower Extremity Injury/Pain Stated Complaint: LEFT LEG PAIN Time Seen by Provider: 07/16/18 22:52 - History of Present Illness INITIAL COMMENTS - FREE TEXT/NARRATIVE: HISTORY AND PHYSICAL: History of present illness: The patient is a 68-year-old female with multiple medical histories including being overweight who also has sciatica and presents with complaints of pain to the medial aspect of her left lower leg is been ongoing for a week. She says it is swollen and painful more with movement and she did not notice any redness or skin changes. She denies any trauma to the area and denies any distal ankle or foot pain and no proximal knee thigh or hip pain. She tells me that this pain is very different than her sciatica and she is concerned about a blood clot. She has no other systemic complaints and is not short of breath Review of systems: As per history of present illness and below otherwise all systems reviewed and negative. Past medical history: As per history of present illness and as reviewed below otherwise noncontributory. Surgical history: As per history of present illness and as reviewed below otherwise noncontributory. Social history: No reported history of drug or alcohol abuse. Family history: As per history of present illness and as reviewed below otherwise noncontributory. Physical exam: HEENT: Atraumatic, normocephalic, negative for conjunctival pallor or scleral icterus, mucous membranes moist, throat clear, neck supple, nontender, trachea midline. Lungs: Clear to auscultation, breath sounds equal bilaterally, chest nontender. Heart: S1S2, regular rate and rhythm no overt murmurs Abdomen: Soft, nondistended, nontender. NABS Pelvis: Stable nontender. Genitourinary: Deferred. Rectal: Deferred. Extremities: Atraumatic, there is full range of motion of all extremities including the left lower extremity and there are no palpable bony deformities noted in the hip femur knee tib-fib ankle or foot on the left. There is no deep calf tenderness or tenderness in the popliteal fossa but there is tenderness and some minimal soft tissue swelling at the medial aspect of the calf area without warmth or erythema. The patient can dorsi and plantar flex without discomfort. The legs are negative for cords or calf pain. Neurovascular unremarkable. Neuro: Awake, alert, oriented. Cranial nerves II through XII unremarkable. Cerebellum unremarkable. Motor and sensory unremarkable throughout. Exam nonfocal. Diagnostics: Venous Doppler of left lower extremity Therapeutics: toradol Impression: Left leg soft tissue pain stable Definitive disposition and diagnosis as appropriate pending reevaluation and review of above. Left Leg Pain Score (Numeric/FACES): 10 - Related Data Allergies Allergy/AdvReac Type Severity Reaction Status Date / Time Penicillins Allergy Rash Verified 07/16/18 22:27 Home Meds: Home Meds Aspirin [Halfprin] 81 mg PO DAILY 02/03/15 [History] Multivitamin [Multivitamins] 1 each PO DAILY 03/02/15 [History] atorvaSTATin [Lipitor] 10 mg PO DAILY 11/04/16 [History] Valsartan [Diovan] 320 mg PO DAILY #30 tablet 04/24/17 [Rx] hydroCHLOROthiazide [Hydrochlorothiazide] 12.5 mg PO DAILY #30 cap 04/24/17 [Rx] Losartan [Cozaar] 100 mg PO DAILY 01/24/18 [History] Potassium Chloride 10 meq PO DAILY #10 capsule.er 01/24/18 [Rx] Cyclobenzaprine [Flexeril] 10 mg PO BID PRN #12 tab 06/11/18 [Rx] Diclofenac Sodium [Voltaren] 75 mg PO BIDMEALS PRN #20 tab.cr 06/11/18 [Rx] Past Medical History HEENT History: Reports: None, Impaired Vision 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 Cardiovascular History: Reports: High Cholesterol, Hypertension Respiratory History: Reports: None Gastrointestinal History: Reports: None Genitourinary History: Reports: None 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: Reports: Fracture Neurological History: Reports: None Psychiatric History: Reports: None Endocrine/Metabolic History: Reports: Obesity/BMI 30+ Hematologic History: Reports: None Immunologic History: Reports: None Oncologic (Cancer) History: Reports: None Dermatologic History: Reports: None - Infectious Disease History Infectious Disease History: Reports: Chicken Pox, Measles, Mumps - Past Surgical History HEENT Surgical History: Reports: Other (See Below) GI Surgical History: Reports: Appendectomy Female Surgical History: Reports: Hysterectomy Social & Family History - Family History Family Medical History: Noncontributory Cardiac: Reports: None Respiratory: Reports: None GI: Reports: None : Reports: None OBGYN: Reports: None 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: Reports: None Neurological: Reports: None Psychiatric: Reports: None Endocrine/Metabolic: Reports: None Hematologic: Reports: None Immunologic: Reports: None Dermatologic: Reports: None Oncologic: Reports: None - Tobacco Use Smoking Status *Q: Never Smoker - Caffeine Use Caffeine Use: Reports: Soda - Recreational Drug Use Recreational Drug Use: No - Living Situation & Occupation Living situation: Reports: , with Family Occupation: Retired Review of Systems - Review of Systems Review Of Systems: ROS reveals no pertinent complaints other than HPI. ED EXAM, GENERAL - Physical Exam Exam: See Below (See dictation) Course - Vital Signs Last Recorded V/S: Last Vital Signs Temp 36.6 C 07/16/18 22:28 Pulse 86 07/16/18 22:28 Resp 18 07/16/18 22:28 BP 155/72 H 07/16/18 22:28 Pulse Ox 95 07/16/18 22:28 - Orders/Labs/Meds Meds: Medications Discontinued Medications Generic Name Dose Route Start Last Admin Trade Name Freq PRN Reason Stop Dose Admin Ketorolac Tromethamine 60 mg 07/16/18 22:56 07/16/18 23:12 Toradol IM 07/16/18 22:57 60 mg ONETIME ONE Administration Departure - Departure Time of Disposition: 00:08 Disposition: Home, Self-Care 01 Condition: Good Clinical Impression: Leg pain, left - Discharge Information Referrals: Gus Nassar MD [Primary Care Provider] - Forms: ED Department Discharge Additional Instructions: The following information is given to patients seen in the emergency department who are being discharged to home. This information is to outline your options for follow-up care. We provide all patients seen in our emergency department with a follow-up referral. The need for follow-up, as well as the timing and circumstances, are variable depending upon the specifics of your emergency department visit. If you don't have a primary care physician on staff, we will provide you with a referral. We always advise you to contact your personal physician following an emergency department visit to inform them of the circumstance of the visit and for follow-up with them and/or the need for any referrals to a consulting specialist. The emergency department will also refer you to a specialist when appropriate. This referral assures that you have the opportunity for followup care with a specialist. All of these measure are taken in an effort to provide you with optimal care, which includes your followup. Under all circumstances we always encourage you to contact your private physician who remains a resource for coordinating your care. When calling for followup care, please make the office aware that this follow-up is from your recent emergency room visit. If for any reason you are refused follow-up, please contact the [facility] emergency department at and ask to speak to the emergency department charge nurse. [facility] Primary care- Internal Medicine and Family [address] [address] Ice and elevate the area for swelling and use [id number] medications for discomfort. Please call and schedule a follow-up appointment with your provider in the clinic for reevaluation and further care next week and return to ER as needed and as discussed
--- NOTE | 2018-07-17 00:02 | US ---
INDICATION: Left leg pain and possible swelling x 1 week TECHNIQUE: Ultrasound venous duplex left lower extremity. COMPARISON: None. FINDINGS: The left common femoral, superficial femoral, deep femoral, popliteal, posterior tibial, and greater saphenous veins are fully compressible normal waveforms. IMPRESSION: Normal ultrasound of the left lower extremity veins. Dictated by: Simone Carcamo MD @ 07/17/2018 00:00:55 (Electronically Signed)
[2018-07-17 00:30] VITALS: BP 142/78
== END 2018-07-17 00:29 | disposition home or self-care (01) ==
LOC: MW.ED 22:14
DX: M79.605 Pain in left leg (principal); E78.00 Pure hypercholesterolemia, unspecified; I10 Essential (primary) hypertension; Z79.82 Long term (current) use of aspirin; Z79.899 Other long term (current) drug therapy; Z88.0 Allergy status to penicillin
CPT/HCPCS: 93971; 96372; 99283; J1885

== ENCOUNTER 2018-11-17 12:03 | Emergency (ER) | payer MEDICARE, BC ==
[2018-11-17] MEDS ORDERED: Ketorolac 30 MG/ML SDV IM ONE (12:27)
--- NOTE | 2018-11-17 12:33 | EDM.PDOC ---
ED HPI GENERAL MEDICAL PROBLEM - General Chief Complaint: Lower Extremity Injury/Pain Stated Complaint: HIP PAIN TO KNEE Time Seen by Provider: 11/17/18 12:05 Source of Information: Reports: Patient History Limitations: Reports: No Limitations - History of Present Illness INITIAL COMMENTS - FREE TEXT/NARRATIVE: HISTORY AND PHYSICAL: History of present illness: Patient is a 68-year-old female presents to the ED today with concern of right hip/low back pain that has a shooting sensation down to her right knee. Patient states she's had this symptom in the past down her left side but has been many years since this has happened. Patient denies any trauma or injury. Patient states that the pain does feel like it starts at the top of her buttock cheek and then when she moves shoots down to her right knee on the outside of her leg. Patient states she has not taken anything for her symptoms patient states she has a history of hypertension and hypercholesteremia. Patient denies any loss or retention of bowel and bladder function or saddle anesthesia. Patient denies any other symptoms or concerns at this time. Patient denies fever, chills, chest pain, shortness of breath, or cough. Denies headache, neck stiff ness, change in vision, syncope, or near syncope. Denies nausea, vomiting, abdominal pain, diarrhea, constipation, or dysuria. Has not noted any blood in urine or stool. Patient has been eating and drinking appropriately. Review of systems: As per history of present illness and below otherwise all systems reviewed and negative. Past medical history: As per history of present illness and as reviewed below otherwise noncontributory. Surgical history: As per history of present illness and as reviewed below otherwise noncontributory. Social history: See social history for further information Family history: As per history of present illness and as reviewed below otherwise noncontributory. Physical exam: General: Patient is alert, oriented, and in no acute distress. Patient sitting comfortably on exam table. HEENT: Atraumatic, normocephalic, pupils equal and reactive bilaterally, negative for conjunctival pallor or scleral icterus, mucous membranes moist, TMs normal bilaterally, throat clear, neck supple, nontender, trachea midline. No drooling or trismus noted. No meningeal signs. No hot potato voice noted. Lungs: Clear to auscultation, breath sounds equal bilaterally, chest nontender. Heart: S1S2, regular rate and rhythm without overt murmur Abdomen: Soft, nondistended, nontender. Negative for masses or hepatosplenomegaly. Negative for costovertebral tenderness. Pelvis: Stable nontender. Genitourinary: Deferred. Rectal: Deferred. Skin: Intact, warm, dry. No lesions or rashes noted. Extremities: Atraumatic, negative for cords or calf pain. Neurovascular unremarkable. No obvious deformities of the complete spine. No step-offs, or crepitus to palpation. Patient does have pain with palpation of the right-sided paraspinous muscle of the lumbar spine and radiation of pain with palpation over the right gluteal muscle. Patient does have full range of motion of the complete spine but does have pain with range of motion of the lumbar spine. Patient has full range of motion of the right and left lower extremity is without pain or difficulty. Tip toe gait intact. Heel-to-toe gait intact. Straight leg raise intact bilaterally. Patellar reflexes intact bilaterally. Neuro: Awake, alert, oriented. Cranial nerves II through XII unremarkable. Cerebellum unremarkable. Motor and sensory unremarkable throughout. Exam nonfocal. Notes: Discussed the importance for follow-up with a primary care provider. Voices understanding and is agreeable to plan of care. Denies any further questions or concerns at this time. 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 Rest, ice and or heat the affected area. You can apply ice and or heat 15 minutes on, 15 minutes off. 2. Tylenol and/or Ibuprofen as directed for pain management or discomfort. Take medication as prescribed. 3. Follow up with the primary care provider as discussed. Return to the ED as needed and as discussed. Definitive disposition and diagnosis as appropriate pending reevaluation and review of above. Right Hip Pain Score (Numeric/FACES): 10 - Related Data Allergies Allergy/AdvReac Type Severity Reaction Status Date / Time Penicillins Allergy Rash Verified 11/17/18 12:10 Home Meds: Home Meds Aspirin [Halfprin] 81 mg PO DAILY 02/03/15 [History] Multivitamin [Multivitamins] 1 each PO DAILY 03/02/15 [History] atorvaSTATin [Lipitor] 10 mg PO DAILY 11/04/16 [History] Valsartan [Diovan] 320 mg PO DAILY #30 tablet 04/24/17 [Rx] hydroCHLOROthiazide [Hydrochlorothiazide] 12.5 mg PO DAILY #30 cap 04/24/17 [Rx] Losartan [Cozaar] 100 mg PO DAILY 01/24/18 [History] Potassium Chloride 10 meq PO DAILY #10 capsule.er 01/24/18 [Rx] Cyclobenzaprine [Flexeril] 10 mg PO BID PRN #12 tab 06/11/18 [Rx] Diclofenac Sodium [Voltaren] 75 mg PO BIDMEALS PRN #20 tab.cr 06/11/18 [Rx] Cyclobenzaprine [Flexeril] 10 mg PO TID PRN #8 tab 11/17/18 [Rx] Diclofenac Sodium [Voltaren] 75 mg PO BIDMEALS PRN #15 tab.cr 11/17/18 [Rx] methylPREDNISolone [Medrol] 4 mg PO ASDIRECTED #1 dosepk 11/17/18 [Rx] Past Medical History HEENT History: Reports: None, Impaired Vision 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 Cardiovascular History: Reports: High Cholesterol, Hypertension Respiratory History: Reports: None Gastrointestinal History: Reports: None 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: Reports: Fracture Neurological History: Reports: None Psychiatric History: Reports: None Endocrine/Metabolic History: Reports: Obesity/BMI 30+ Hematologic History: Reports: None Immunologic History: Reports: None Oncologic (Cancer) History: Reports: None Dermatologic History: Reports: None - Infectious Disease History Infectious Disease History: Reports: Chicken Pox, Measles, Mumps - Past Surgical History HEENT Surgical History: Reports: Other (See Below) GI Surgical History: Reports: Appendectomy Female Surgical History: Reports: Hysterectomy Social & Family History - Family History Family Medical History: Noncontributory Cardiac: Reports: None Respiratory: Reports: None GI: Reports: None : Reports: None OBGYN: Reports: None 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: Reports: None Neurological: Reports: None Psychiatric: Reports: None Endocrine/Metabolic: Reports: None Hematologic: Reports: None Immunologic: Reports: None Dermatologic: Reports: None Oncologic: Reports: None - Tobacco Use Smoking Status *Q: Never Smoker Second Hand Smoke Exposure: No - Caffeine Use Caffeine Use: Reports: Coffee - Recreational Drug Use Recreational Drug Use: No - Living Situation & Occupation Living situation: Reports: , with Family Occupation: Retired Review of Systems - Review of Systems Review Of Systems: ROS reveals no pertinent complaints other than HPI. ED EXAM, GENERAL - Physical Exam Exam: See Below (See dictation) Course - Vital Signs Last Recorded V/S: Last Vital Signs Temp 36.3 C 11/17/18 12:11 Pulse 136 H 11/17/18 12:11 Resp 18 11/17/18 12:11 BP 136/81 11/17/18 12:11 Pulse Ox 95 11/17/18 12:11 - Orders/Labs/Meds Meds: Medications Discontinued Medications Generic Name Dose Route Start Last Admin Trade Name Freq PRN Reason Stop Dose Admin Ketorolac Tromethamine 30 mg 11/17/18 12:27 11/17/18 12:31 Toradol IM 11/17/18 12:28 30 mg ONETIME ONE Administration Orphenadrine Citrate 60 mg 11/17/18 12:27 11/17/18 12:32 Norflex IM 11/17/18 12:28 60 mg NOW STA Administration Departure - Departure Time of Disposition: 13:57 Disposition: Home, Self-Care 01 Clinical Impression: Arthritis of sacroiliac joint of both sides Low back pain Qualifiers: Chronicity: acute Back pain laterality: right Sciatica presence: with sciatica Sciatica laterality: sciatica of right side Qualified Code(s): M54.41 - Lumbago with sciatica, right side - Discharge Information Prescriptions: Cyclobenzaprine [Flexeril] 10 mg PO TID PRN #8 tab PRN Reason: Spasms Diclofenac Sodium [Voltaren] 75 mg PO BIDMEALS PRN #15 tab.cr PRN Reason: Pain methylPREDNISolone [Medrol] 4 mg PO ASDIRECTED #1 dosepk Referrals: PCP,None [Primary Care Provider] - Forms: ED Department Discharge Additional Instructions: The following information is given to patients seen in the emergency department who are being discharged to home. This information is to outline your options for follow-up care. We provide all patients seen in our emergency department with a follow-up referral. The need for follow-up, as well as the timing and circumstances, are variable depending upon the specifics of your emergency department visit. If you don't have a primary care physician on staff, we will provide you with a referral. We always advise you to contact your personal physician following an emergency department visit to inform them of the circumstance of the visit and for follow-up with them and/or the need for any referrals to a consulting specialist. The emergency department will also refer you to a specialist when appropriate. This referral assures that you have the opportunity for follow-up care with a specialist. All of these measure are taken in an effort to provide you with optimal care, which includes your follow-up. Under all circumstances we always encourage you to contact your private physician who remains a resource for coordinating your care. When calling for follow-up care, please make the office aware that this follow-up is from your recent emergency room visit. If for any reason you are refused follow-up, please contact the [facility] Emergency Department at and asked to speak to the emergency department charge nurse. [facility] [address] [place] [address] [place] [address] 1. Rest, ice and or heat the affected area. You can apply ice and or heat 15 minutes on, 15 minutes off. 2. Tylenol and/or Ibuprofen as directed for pain management or discomfort. Take medication as prescribed. 3. Follow up with the primary care provider as discussed. Return to the ED as needed and as discussed.
--- NOTE | 2018-11-17 13:55 | CR ---
INDICATION: Pain. TECHNIQUE: Weightbearing AP image of the pelvis as well as weightbearing AP image of right hip and lateral projection of the right hip. COMPARISON: None. FINDINGS: No fracture. Right hip joint space normal. No erosive change or chondrocalcinosis. Left hip negative. Advanced symphysis pubis osteoarthritis. At least mild osteoarthritis at the sacroiliac joints. IMPRESSION: 1. Negative right hip. 2. Advanced symphysis pubis osteoarthritis and a least mild osteoarthritis at the sacroiliac joints. Dictated by Rony Hathaway MD @ Nov 17 2018 1:50PM Signed by Dr. Rony Hathaway @ Nov 17 2018 1:52PM
--- NOTE | 2018-11-17 13:57 | CR ---
INDICATION: Pain. TECHNIQUE: Three upright views of the lumbar spine. COMPARISON: 05/30/2015. FINDINGS: Advanced degenerative changes from L2-L5, progressed since the previous examination. Degenerative grade 1 L4 anterolisthesis, increased from the previous study. Unchanged moderate degenerative changes at L1-2 and L5-S1. No fracture or bone destruction. IMPRESSION: Multilevel degenerative changes with some progression, as above. Dictated by Rony Hathaway MD @ Nov 17 2018 1:52PM Signed by Dr. Rony Hathaway @ Nov 17 2018 1:54PM
[2018-11-17 14:06] VITALS: BP 112/43; PULSE 85
== END 2018-11-17 14:18 | disposition home or self-care (01) ==
LOC: MW.ED 12:03
DX: M46.1 Sacroiliitis, not elsewhere classified (principal); M54.41 Lumbago with sciatica, right side; M16.11 Unilateral primary osteoarthritis, right hip; I10 Essential (primary) hypertension; E78.00 Pure hypercholesterolemia, unspecified; Z90.49 Acquired absence of other specified parts of digestive tract; Z90.710 Acquired absence of both cervix and uterus; Z88.0 Allergy status to penicillin; Z79.82 Long term (current) use of aspirin; Z79.899 Other long term (current) drug therapy
CPT/HCPCS: 72100; 73502; 96372; 99283; J1885; J2360

== ENCOUNTER 2018-11-23 15:25 | Emergency (ER) | payer MEDICARE, BC ==
[2018-11-23] MEDS ORDERED: Diclofenac Sodium 50 MG Tab.EC PO ONE ×2 (16:04→16:25)
--- NOTE | 2018-11-23 16:08 | EDM.PDOC ---
ED HPI GENERAL MEDICAL PROBLEM - General Chief Complaint: Back Pain or Injury Stated Complaint: PAIN IN LEG Time Seen by Provider: 11/23/18 15:41 Source of Information: Reports: Patient History Limitations: Reports: No Limitations - History of Present Illness INITIAL COMMENTS - FREE TEXT/NARRATIVE: History of present illness: []Patient was seen here last week and diagnosed with right-sided sciatica, she was treated with diclofenac and Flexeril which gave her relief but ran out. She has appointment with Dr. Gus Nassar in 3 days and is requesting a med refill. She has no new symptoms and denies any urinary or fecal incontinence. Review of systems: As per history of present illness and below otherwise all systems reviewed and negative. Past medical history: As per history of present illness and as reviewed below otherwise noncontributory. Surgical history: As per history of present illness and as reviewed below otherwise noncontributory. Social history: No reported history of drug or alcohol abuse. Family history: As per history of present illness and as reviewed below otherwise noncontributory. Physical exam: General: Well developed, well nourished in NAD HEENT: Atraumatic, normocephalic, pupils reactive, negative for conjunctival pallor or scleral icterus, mucous membranes moist, throat clear, neck supple, nontender, trachea midline. Lungs: Clear to auscultation, breath sounds equal bilaterally, chest nontender. Heart: S1S2, regular, negative for clicks, rubs, or JVD. Abdomen: NABS, Soft, nondistended, nontender. Negative for masses or hepatosplenomegaly. Negative for costovertebral tenderness. Pelvis: Stable nontender. Genitourinary: Deferred. Rectal: Deferred. Extremities: Atraumatic, negative for cords or calf pain. Neurovascular unremarkable. Neuro: Awake, alert, oriented. Cranial nerves II through XII unremarkable. Cerebellum unremarkable. Motor and sensory unremarkable throughout. Exam nonfocal. Straight leg raise negative, raises great toes, patellar and Achilles reflexes 1- bilaterally Skin:warm and dry Diagnostics: none Therapeutics: Diclofenac ED Course: Stable Impression: Med refill Prescriptions: Diclofenac, Flexeril Plan: Take meds as directed, follow up with your primary care physician, return to ER if symptoms worsen or change. Definitive disposition and diagnosis as appropriate pending reevaluation and review of above. lower back Pain Score (Numeric/FACES): 10 - Related Data Allergies Allergy/AdvReac Type Severity Reaction Status Date / Time Penicillins Allergy Rash Verified 11/23/18 15:52 Home Meds: Home Meds Aspirin [Halfprin] 81 mg PO DAILY 02/03/15 [History] Multivitamin [Multivitamins] 1 each PO DAILY 03/02/15 [History] atorvaSTATin [Lipitor] 10 mg PO DAILY 11/04/16 [History] Valsartan [Diovan] 320 mg PO DAILY #30 tablet 04/24/17 [Rx] hydroCHLOROthiazide [Hydrochlorothiazide] 12.5 mg PO DAILY #30 cap 04/24/17 [Rx] Losartan [Cozaar] 100 mg PO DAILY 01/24/18 [History] Potassium Chloride 10 meq PO DAILY #10 capsule.er 01/24/18 [Rx] Cyclobenzaprine [Flexeril] 10 mg PO BID PRN #12 tab 06/11/18 [Rx] Diclofenac Sodium [Voltaren] 75 mg PO BIDMEALS PRN #20 tab.cr 06/11/18 [Rx] Cyclobenzaprine [Flexeril] 10 mg PO TID PRN #8 tab 11/17/18 [Rx] Diclofenac Sodium [Voltaren] 75 mg PO BIDMEALS PRN #15 tab.cr 11/17/18 [Rx] methylPREDNISolone [Medrol] 4 mg PO ASDIRECTED #1 dosepk 11/17/18 [Rx] Cyclobenzaprine [Flexeril] 10 mg PO BID PRN #12 tab 11/23/18 [Rx] Diclofenac Sodium [Voltaren] 75 mg PO BIDMEALS PRN #20 tab.cr 11/23/18 [Rx] Past Medical History HEENT History: Reports: None, Impaired Vision 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 Cardiovascular History: Reports: High Cholesterol, Hypertension Respiratory History: Reports: None Gastrointestinal History: Reports: None Genitourinary History: Reports: None 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: 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 History: Reports: Fracture Neurological History: Reports: None Psychiatric History: Reports: None Endocrine/Metabolic History: Reports: Obesity/BMI 30+ Hematologic History: Reports: None Immunologic History: Reports: None Oncologic (Cancer) History: Reports: None Dermatologic History: Reports: None - Infectious Disease History Infectious Disease History: Reports: Chicken Pox, Measles, Mumps - Past Surgical History Head Surgeries/Procedures: Reports: None HEENT Surgical History: Reports: Other (See Below) GI Surgical History: Reports: Appendectomy Female Surgical History: Reports: Hysterectomy Social & Family History - Family History Family Medical History: Noncontributory Cardiac: Reports: None Respiratory: Reports: None GI: Reports: None : Reports: None OBGYN: Reports: None 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: Reports: None Neurological: Reports: None Psychiatric: Reports: None Endocrine/Metabolic: Reports: None Hematologic: Reports: None Immunologic: Reports: None Dermatologic: Reports: None Oncologic: Reports: None - Tobacco Use Smoking Status *Q: Never Smoker Second Hand Smoke Exposure: No - Caffeine Use Caffeine Use: Reports: Soda - Recreational Drug Use Recreational Drug Use: No - Living Situation & Occupation Living situation: Reports: , with Family Occupation: Retired ED ROS GENERAL - Review of Systems Review Of Systems: See Below ED EXAM,LOWER BACK PAIN/INJURY - Physical Exam Exam: See Below Course - Vital Signs Last Recorded V/S: Last Vital Signs Temp 98.1 F 11/23/18 15:52 Pulse 93 11/23/18 15:52 Resp 18 11/23/18 15:52 BP 135/89 11/23/18 15:52 Pulse Ox 94 L 11/23/18 15:52 - Orders/Labs/Meds Orders: Active Orders 24 hr Category Date Time Status Diclofenac Sodium [Voltaren] Med 11/23/18 16:04 Once 50 mg PO ONETIME ONE Medication Orders Diclofenac Sodium (Voltaren) 50 mg PO ONETIME ONE Stop: 11/23/18 16:05 Meds: Medications Generic Name Dose Route Start Last Admin Trade Name Freq PRN Reason Stop Dose Admin Diclofenac Sodium 50 mg 11/23/18 16:04 Voltaren PO 11/23/18 16:05 ONETIME ONE Departure - Departure Time of Disposition: 16:08 Disposition: Home, Self-Care 01 Condition: Good Clinical Impression: Right sided sciatica - Discharge Information *PRESCRIPTION DRUG MONITORING PROGRAM REVIEWED*: Not Applicable *COPY OF PRESCRIPTION DRUG MONITORING REPORT IN PATIENT TRISTAN: Not Applicable Prescriptions: Cyclobenzaprine [Flexeril] 10 mg PO BID PRN #12 tab PRN Reason: Pain Diclofenac Sodium [Voltaren] 75 mg PO BIDMEALS PRN #20 tab.cr PRN Reason: Pain Referrals: PCP,Unknown [Primary Care Provider] - Additional Instructions: The following information is given to patients seen in the emergency department who are being discharged to home. This information is to outline your options for follow-up care. We provide all patients seen in our emergency department with a follow-up referral. The need for follow-up, as well as the timing and circumstances, are variable depending upon the specifics of your emergency department visit. If you don't have a primary care physician on staff, we will provide you with a referral. We always advise you to contact your personal physician following an emergency department visit to inform them of the circumstance of the visit and for follow-up with them and/or the need for any referrals to a consulting specialist. The emergency department will also refer you to a specialist when appropriate. This referral assures that you have the opportunity for follow-up care with a specialist. All of these measure are taken in an effort to provide you with optimal care, which includes your follow-up. Under all circumstances we always encourage you to contact your private physician who remains a resource for coordinating your care. When calling for follow-up care, please make the office aware that this follow-up is from your recent emergency room visit. If for any reason you are refused follow-up, please contact the [facility] Emergency Department at and asked to speak to the emergency department charge nurse. Take meds as directed, follow up with your primary care physician, return to ER if symptoms worsen or change. [facility] [address] [place] [id number] - My Orders Last 24 Hours: My Active Orders 11/23/18 16:04 Diclofenac Sodium [Voltaren] 50 mg PO ONETIME ONE - Assessment/Plan Last 24 Hours: My Active Orders 11/23/18 16:04 Diclofenac Sodium [Voltaren] 50 mg PO ONETIME ONE
[2018-11-23 17:53] VITALS: BP 135/73; PULSE 91
== END 2018-11-23 16:26 | disposition home or self-care (01) ==
LOC: MW.ED 15:25
DX: M54.31 Sciatica, right side (principal); Z76.0 Encounter for issue of repeat prescription; I10 Essential (primary) hypertension; E78.00 Pure hypercholesterolemia, unspecified; E66.9 Obesity, unspecified; Z68.37 Body mass index [BMI] 37.0-37.9, adult; Z90.49 Acquired absence of other specified parts of digestive tract; Z90.710 Acquired absence of both cervix and uterus; Z88.0 Allergy status to penicillin; Z79.82 Long term (current) use of aspirin; Z79.899 Other long term (current) drug therapy
CPT/HCPCS: 99283; A9270; 99282

== ENCOUNTER 2019-01-21 10:33 | Observation (INO) | payer MEDICARE, BC ==
[2019-01-21] MEDS ORDERED: Ondansetron 4 MG/2 ML SDV IVPUSH ONE ×2 (10:39→11:45)
[2019-01-21] MEDS ORDERED: Morphine 2 MG/ML Syringe IVPUSH ONE (10:39)
[2019-01-21] MEDS ORDERED: Sodium Chloride 0.9% 1,000 ML IV ONE (10:39)
--- NOTE | 2019-01-21 10:49 | EDM.PDOC ---
ED HPI GENERAL MEDICAL PROBLEM - General Chief Complaint: Upper Extremity Injury/Pain Stated Complaint: EMS ARRIVAL Time Seen by Provider: 01/21/19 10:34 Source of Information: Reports: Patient History Limitations: Reports: No Limitations - History of Present Illness INITIAL COMMENTS - FREE TEXT/NARRATIVE: HISTORY AND PHYSICAL: Trauma Alert was called upon patient arrival due to fall and taking Aspirin. Dr Marx was directly involved in patient care. History of present illness: Patient is a 68-year-old female who presents to the emergency room with complaints of left shoulder pain after falling on the ice. Patient states she was walking outside and had slipped on the ice falling backwards onto her left shoulder. She states she did strike the back of her head although did not have any loss of consciousness. She was able to get up off the ground and called EMS as she felt she needed to be evaluated. Upon my evaluation she is complaining of left shoulder, elbow, and knee pain. Patient denies any fever, chills, headache, change in vision, syncope or near syncope. Denies any chest pain, back pain, shortness of breath or cough. Denies any GI or symptoms. Patient has been eating and drinking appropriately. She denies any numbness, tingling or saddle paresthesias. Review of systems: As per history of present illness and below otherwise all systems reviewed and negative. Past medical history: As per history of present illness and as reviewed below otherwise noncontributory. Surgical history: As per history of present illness and as reviewed below otherwise noncontributory. Social history: See social history for further information Family history: As per history of present illness and as reviewed below otherwise noncontributory. Physical exam: General: Well-developed and well-nourished 68-year-old female. Alert and oriented. Nontoxic appearing and in mild distress due to pain from fall. HEENT: Nontender with palpation. No obvious deformity or injury of scalp, normocephalic, pupils equal and reactive bilaterally, negative for conjunctival pallor or scleral icterus, mucous membranes moist, TMs normal bilaterally, throat clear, neck supple, nontender, trachea midline. No drooling or trismus noted. No meningeal signs. No hot potato voice noted. Lungs: Clear to auscultation, breath sounds equal bilaterally, chest nontender. Heart: S1S2, regular rate and rhythm without overt murmur Abdomen: Soft, nondistended, nontender. Negative for masses or hepatosplenomegaly. Negative for costovertebral tenderness. Pelvis: Stable nontender. Skin: Intact, warm, dry. No lesions or rashes noted. C-spine/Back: No pinpoint vertebral tenderness upon palpation. No crepitus, step -offs or obvious deformities. Pain with palpation of the left cervical spine. Able to pull her toes up towards her nose and pushed down with equal force bilaterally. Denies any urinary or fecal incontinence. Denies any numbness, tingling or saddle paresthesia. Extremities: Pain with palpation of the left shoulder/elbow. Limited ROM due to pain of the LUE. Pain with palpation of the left anterior knee, no knee instability, negative drawer test. Strong distal pulses bilaterally. Otherwise moves all extremities per self without difficulty or deficits, negative for cords or calf pain. Neurovascular unremarkable. Neuro: Awake, alert, oriented. Cranial nerves II through XII unremarkable. Cerebellum unremarkable. Motor and sensory unremarkable throughout. Exam nonfocal. Notes: Negative head and cervical spine CT. Negative left knee and left elbow x-ray with the exception of degenerative changes and osteopenia. The left shoulder fracture shows a proximal humerus involving the surgical neck as well as the humeral head fracture. Dislocation is seen which appears to be anterior and inferior. Again osteopenia is noted. Lab work is unremarkable. Patient did not previously get relief with the morphine that was given, she is currently comfortable with the Dilaudid. Dr Paul was consulted by Dr Marx. Dr Paul has been down here to see the patient. Patient last ate at 0830. Will take her to the OR this afternoon for reduction. Dr. Paul would like this patient admitted to the hospitalists as he is not able to do the closed reduction until after 3 PM. was consulted and agreeable. Diagnostics: CBC, CMP, Head CT, cervical spine x-ray, left shoulder/elbow/knee xray, pelvis Therapeutics: IV fluids, Morphine, Zofran Impression: Fall Left shoulder fracture Left knee injury Plan: To OR for procedure per Dr Paul Definitive disposition and diagnosis as appropriate pending reevaluation and review of above. Onset: Today left shoulder Pain Score (Numeric/FACES): 10 - Related Data Allergies Allergy/AdvReac Type Severity Reaction Status Date / Time Penicillins Allergy Rash Verified 11/23/18 15:52 Home Meds: Home Meds Aspirin [Halfprin] 81 mg PO DAILY 02/03/15 [History] Multivitamin [Multivitamins] 1 each PO DAILY 03/02/15 [History] atorvaSTATin [Lipitor] 10 mg PO DAILY 11/04/16 [History] Valsartan [Diovan] 320 mg PO DAILY #30 tablet 04/24/17 [Rx] hydroCHLOROthiazide [Hydrochlorothiazide] 12.5 mg PO DAILY #30 cap 04/24/17 [Rx] Losartan [Cozaar] 100 mg PO DAILY 01/24/18 [History] Potassium Chloride 10 meq PO DAILY #10 capsule.er 01/24/18 [Rx] Cyclobenzaprine [Flexeril] 10 mg PO BID PRN #12 tab 06/11/18 [Rx] Diclofenac Sodium [Voltaren] 75 mg PO BIDMEALS PRN #20 tab.cr 06/11/18 [Rx] Cyclobenzaprine [Flexeril] 10 mg PO TID PRN #8 tab 11/17/18 [Rx] Diclofenac Sodium [Voltaren] 75 mg PO BIDMEALS PRN #15 tab.cr 11/17/18 [Rx] methylPREDNISolone [Medrol] 4 mg PO ASDIRECTED #1 dosepk 11/17/18 [Rx] Cyclobenzaprine [Flexeril] 10 mg PO BID PRN #12 tab 11/23/18 [Rx] Diclofenac Sodium [Voltaren] 75 mg PO BIDMEALS PRN #20 tab.cr 11/23/18 [Rx] Past Medical History HEENT History: Reports: None, Impaired Vision 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 Cardiovascular History: Reports: High Cholesterol, Hypertension Respiratory History: Reports: None Gastrointestinal History: Reports: None Genitourinary History: Reports: None PROCEDURE 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 History: Reports: 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 History: Reports: Fracture Neurological History: Reports: None Psychiatric History: Reports: None Endocrine/Metabolic History: Reports: Obesity/BMI 30+ Hematologic History: Reports: None Immunologic History: Reports: None Oncologic (Cancer) History: Reports: None Dermatologic History: Reports: None - Infectious Disease History Infectious Disease History: Reports: Chicken Pox, Measles, Mumps - Past Surgical History Head Surgeries/Procedures: Reports: None HEENT Surgical History: Reports: Other (See Below) GI Surgical History: Reports: Appendectomy Female Surgical History: Reports: Hysterectomy Social & Family History - Family History Family Medical History: Noncontributory Cardiac: Reports: None Respiratory: Reports: None GI: Reports: None : Reports: None OBGYN: Reports: None 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: Reports: None Neurological: Reports: None Psychiatric: Reports: None Endocrine/Metabolic: Reports: None Hematologic: Reports: None Immunologic: Reports: None Dermatologic: Reports: None Oncologic: Reports: None - Caffeine Use Caffeine Use: Reports: Soda - Living Situation & Occupation Living situation: Reports: , with Family Occupation: Retired Review of Systems - Review of Systems Review Of Systems: Comprehensive ROS is negative, except as noted in HPI. ED EXAM, GENERAL - Physical Exam Exam: See Below (See dictation) Course - Vital Signs Last Recorded V/S: Last Vital Signs Temp 97.6 F 01/21/19 10:38 Pulse 74 01/21/19 10:38 Resp 20 01/21/19 10:38 BP 129/73 01/21/19 10:38 Pulse Ox 93 L 01/21/19 10:38 - Orders/Labs/Meds Orders: Active Orders 24 hr Category Date Time Status Admission Status [Patient Status] [ADT] Stat ADT 01/21/19 12:29 Ordered Notify Provider Consults [RC] ASDIRECTED Care 01/21/19 12:02 Active Consult to Physician [CONS] Stat Cons 01/21/19 12:02 Active Sodium Chloride 0.9% [Normal Saline] 1,000 ml Med 01/21/19 10:39 Active IV STAT Medication Orders Sodium Chloride (Normal Saline) 1,000 mls @ 100 mls/hr IV STAT ONE Stop: 01/21/19 20:38 Last Admin: 01/21/19 10:51 Dose: 100 mls/hr Labs: Laboratory Tests 01/21/19 01/21/19 Range/Units 10:40 10:40 WBC 8.92 (4.0-11.0) K/uL RBC 4.49 (4.30-5.90) M/uL Hgb 13.7 (12.0-16.0) g/dL Hct 41.0 (36.0-46.0) % MCV 91.3 (80.0-98.0) fL MCH 30.5 (27.0-32.0) pg MCHC 33.4 (31.0-37.0) g/dL RDW Std Deviation 46.9 (28.0-62.0) fl RDW Coeff of Frank 14 (11.0-15.0) % Plt Count 337 (150-400) K/uL MPV 10.80 (7.40-12.00) fL Neut % (Auto) 60.8 (48.0-80.0) % Lymph % (Auto) 29.7 (16.0-40.0) % [place] % (Auto) 7.6 (0.0-15.0) % Eos % (Auto) 1.7 (0.0-7.0) % Baso % (Auto) 0.2 (0.0-1.5) % Neut # (Auto) 5.4 (1.4-5.7) K/uL Lymph # (Auto) 2.7 H (0.6-2.4) K/uL [place] # (Auto) 0.7 (0.0-0.8) K/uL Eos # (Auto) 0.2 (0.0-0.7) K/uL Baso # (Auto) 0.0 (0.0-0.1) K/uL Nucleated RBC % 0.0 /100WBC Nucleated RBCs # 0 K/uL Sodium 140 (136-145) mmol/L Potassium 3.4 L (3.5-5.1) mmol/L Chloride 102 (98-107) mmol/L Carbon Dioxide 24.9 (21.0-32.0) mmol/L BUN 14 (7.0-18.0) mg/dL Creatinine 0.9 (0.6-1.0) mg/dL Est Cr Clr Drug Dosing 55.23 mL/min Estimated GFR (MDRD) > 60.0 ml/min Glucose 206 H (74-106) mg/dL Calcium 8.8 (8.5-10.1) mg/dL Total Bilirubin 0.5 (0.2-1.0) mg/dL AST 21 (15-37) IU/L ALT 24 (14-63) IU/L Alkaline Phosphatase 105 (46-116) U/L Total Protein 7.6 (6.4-8.2) g/dL Albumin 3.5 (3.4-5.0) g/dL Globulin 4.1 H (2.6-4.0) g/dL Albumin/Globulin Ratio 0.9 (0.9-1.6) Meds: Medications Generic Name Dose Route Start Last Admin Trade Name Freq PRN Reason Stop Dose Admin Sodium Chloride 1,000 mls @ 100 mls/hr 01/21/19 10:39 01/21/19 10:51 Normal Saline IV 01/21/19 20:38 100 mls/hr STAT ONE Administration Discontinued Medications Generic Name Dose Route Start Last Admin Trade Name Freq PRN Reason Stop Dose Admin Hydromorphone HCl 1 mg 01/21/19 11:31 01/21/19 11:40 Dilaudid IVPUSH 01/21/19 11:32 1 mg ONETIME ONE Administration Morphine Sulfate 2 mg 01/21/19 10:39 01/21/19 10:51 Morphine IVPUSH 01/21/19 10:40 2 mg ONETIME ONE Administration Morphine Sulfate 4 mg 01/21/19 10:52 01/21/19 11:29 Morphine IVPUSH 01/21/19 10:53 4 mg ONETIME ONE Administration Ondansetron HCl 4 mg 01/21/19 10:39 01/21/19 10:51 Zofran IVPUSH 01/21/19 10:40 4 mg ONETIME ONE Administration Ondansetron HCl 4 mg 01/21/19 11:45 01/21/19 11:47 Zofran IVPUSH 01/21/19 11:46 4 mg ONETIME ONE Administration Ondansetron HCl Confirm 01/21/19 11:45 Zofran Administered 01/21/19 11:46 Dose 4 mg .ROUTE .STK-MED ONE Departure - Departure Time of Disposition: 12:31 Disposition: Refer to Observation Clinical Impression: Shoulder fracture, left Qualifiers: Encounter type: initial encounter Fracture type: closed Qualified Code(s): S42.92XA - Fracture of left shoulder girdle, part unspecified, initial encounter for closed fracture Left knee injury Qualifiers: Encounter type: initial encounter Qualified Code(s): S89.92XA - Unspecified injury of left lower leg, initial encounter Fall Qualifiers: Encounter type: initial encounter Qualified Code(s): W19.XXXA - Unspecified fall, initial encounter - Discharge Information Referrals: Gus Nassar MD [Primary Care Provider] - Forms: ED Department Discharge - My Orders Last 24 Hours: My Active Orders 01/21/19 10:39 Sodium Chloride 0.9% [Normal Saline] 1,000 ml IV STAT 01/21/19 12:02 Notify Provider Consults [RC] ASDIRECTED Consult to Physician [CONS] Stat 01/21/19 12:29 Admission Status [Patient Status] [ADT] Stat - Assessment/Plan Last 24 Hours: My Active Orders 01/21/19 10:39 Sodium Chloride 0.9% [Normal Saline] 1,000 ml IV STAT 01/21/19 12:02 Notify Provider Consults [RC] ASDIRECTED Consult to Physician [CONS] Stat 01/21/19 12:29 Admission Status [Patient Status] [ADT] Stat
[2019-01-21] MEDS ORDERED: Morphine 4 MG/ML Syringe IVPUSH ONE (10:52)
[2019-01-21 11:26] LABS: BLOOD UREA NITROGEN,BUN 14 mg/dL (7.0-18.0); CARBON DIOXIDE,CO2 24.9 mmol/L (21.0-32.0); CHLORIDE,CL 102 mmol/L (98-107); GLUCOSE RANDOM 206 mg/dL (74-106); POTASSIUM,K 3.4 mmol/L (3.5-5.1); SODIUM,NA 140 mmol/L (136-145)
[2019-01-21] MEDS ORDERED: HYDROmorphone 1 MG/ML Syringe IVPUSH ONE ×2 (11:31→13:42)
--- NOTE | 2019-01-21 11:43 | CT ---
Head CT Technique: Multiple axial sections through the brain were obtained. Intravenous contrast was not utilized. Comparison: No prior intracranial imaging is available. Findings: Ventricles along with basal cisterns and sulci over convexities are mildly prominent. Calcification is noted within the anterior aspect of the interhemispheric falx which is felt to be incidental. No abnormal parenchymal densities are seen. No evidence of intracranial hemorrhage. No midline shift or mass effect is seen. Previous right mastoidectomy surgery is noted. Left mastoid sinus appears clear. Visualized paranasal sinuses shows nothing acute. No acute calvarial abnormality is appreciated. Impression: 1. Previous right mastoid surgery. 2. Mild generalized atrophy. 3. Nothing acute is appreciated on noncontrast head CT exam. Diagnostic code #2 MTDD
[2019-01-21] MEDS ORDERED: Ondansetron 4 MG/2 ML SDV ONE (11:45)
--- NOTE | 2019-01-21 12:18 | CT ---
CT cervical spine Note: I have received the entire exam at 11:08 AM [place] time Technique: Multiple axial sections were obtained from above C1 inferiorly to the bottom of T1. Reconstructed sagittal and coronal images were reviewed. Findings: Severe disc space narrowing C4-5, C5-6 and C6-7. Anterior osteophytes are seen at these same levels as well as posterior osteophytes at C5 -6 and C6-7. Slight spondylolisthesis by several millimeters is noted at C3-4 due to degenerative apophyseal change. Degenerative apophyseal change is also noted throughout the other levels of the cervical spine. Mild kyphosis is seen compatible with degenerative change. Degenerative change is also noted between the dens and anterior arch of C1. Moderate to severe left-sided neural foraminal stenosis noted at C5-C6. Mild right-sided neural foraminal stenosis noted at C56. Moderate left-sided neural foraminal stenosis noted at C6-7. Other neural foramina are patent. There is mild central canal stenosis at C6-7 due to posterior spurring. Moderate to severe central canal stenosis noted at C5-C6 due to posterior spurring. Osteopenia is noted. No fracture is identified. Posterior skull base is intact. Impression: 1. Diffuse degenerative change as described above. 2. No acute fracture is seen on CT study of the cervical spine. Diagnostic code #3 MTDD
--- NOTE | 2019-01-21 12:19 | CR ---
Left shoulder: Two views of left shoulder were obtained. Fracture is noted within the proximal humerus involving surgical neck as well as humeral head. Dislocation is seen which appears to be anterior and inferior. Osteopenia is noted. No additional abnormality is seen. Impression: Fracture and dislocation as noted above. Diagnostic code #5 MTDD
--- NOTE | 2019-01-21 12:20 | CR ---
Left knee: AP and lateral views left knee were obtained. Comparison: No prior knee exam. Medial joint space is mildly narrowed. Osteophytes are noted off the lateral joint. Detach bony density which appears old is seen off the superior patella. Patellar spurring is seen. Osteopenia is noted. No acute fracture is seen. Impression: 1. Degenerative change and osteopenia. 2. Nothing acute is appreciated on two-view left knee exam. Diagnostic code #2 MTDD
--- NOTE | 2019-01-21 12:22 | CR ---
Left elbow: Two views of the left elbow were obtained. Study is suboptimal in positioning due to the shoulder trauma. No discrete fracture or dislocation seen on this limited study. Impression: 1. Limited exam. 2. Nothing acute is definitely appreciated. Note: If patient remains symptomatic, recommend follow-up four-view left elbow study. Diagnostic code #2 MTDD
--- NOTE | 2019-01-21 12:22 | CR ---
Cervical spine: AP, lateral and crosstable lateral views of the cervical spine were obtained. Crosstable view shows significant artifact due to overlapping of the shoulders. Upper levels of the cervical spine appear maintained. No gross fracture is seen. Osteopenia is noted. Diffuse degenerative change is noted within the uncovertebral joints. Impression: 1. Suboptimal crosstable lateral view. Degenerative change is noted. 2. No gross fracture is seen. Note: Please see subsequent cervical spine CT study for further details. Diagnostic code #2 MTDD
--- NOTE | 2019-01-21 12:23 | CR ---
Pelvis: AP view of the pelvis was obtained. Comparison: No previous pelvis study. Disc space narrowing is seen within the visualized lumbar spine with endplate osteophytes. Osteopenia is seen. No discrete fracture or other abnormality is seen on AP pelvis study. Impression: 1. Degenerative change and osteopenia. 2. Nothing acute is seen on AP pelvis study. Diagnostic code #2 MTDD
[2019-01-21] MEDS ORDERED: Ondansetron 4 MG/2 ML SDV IVPUSH PRN (13:41)
[2019-01-21] MEDS ORDERED: Ondansetron 4 MG Tab.DIS PO PRN (13:41)
--- NOTE | 2019-01-21 13:47 | PCM.HP.2 ---
<Jj Culver - Last Filed: 01/21/19 16:15> H&P History of Present Illness - General Date of Service: 01/21/19 Admit Problem/Dx: Admission Diagnosis/Problem Admission Diagnosis/Problem Fracture dislocation of left shoulder joint - History of Present Illness Initial Comments - Free Text/Narative: 68 y/o female with history of hypertension, dyslipidemia who presented to the ER after she fell on ice today. Imaging showed fracture of humeral head and dislocation of shoulder. Patient will undergo surgical reduction by Dr. Paul. denies any chest pain, dyspnea, abdominal pain, dysuria, diarrhea. Pain tolerable with pain meds. left shoulder Pain Score (Numeric/FACES): 10 - Related Data Allergies/Adverse Reactions: Allergies Allergy/AdvReac Type Severity Reaction Status Date / Time Penicillins Allergy Rash Verified 01/22/19 06:02 Home Medications: Home Meds Cyclobenzaprine [Flexeril] 10 mg PO TID PRN #8 tab 11/17/18 [Rx] methylPREDNISolone [Medrol] 4 mg PO ASDIRECTED #1 dosepk 11/17/18 [Rx] Diclofenac Sodium [Voltaren] 75 mg PO BIDMEALS PRN #20 tab.cr 11/23/18 [Rx] Acetaminophen with Codeine [Acetaminophen-Cod #3] 1 each PO ASDIRECTED PRN 01/21 [History] Fluticasone Propionate [Flonase] 1 spray NASBOTH BID 01/21/19 [History] Past Medical History HEENT History: Reports: None, Impaired Vision 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 Cardiovascular History: Reports: High Cholesterol, Hypertension Respiratory History: Reports: None Gastrointestinal History: Reports: None Genitourinary History: Reports: None [employer] History: Reports: 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 History: Reports: Fracture Neurological History: Reports: None Psychiatric History: Reports: None Endocrine/Metabolic History: Reports: Obesity/BMI 30+ Hematologic History: Reports: None Immunologic History: Reports: None Oncologic (Cancer) History: Reports: None Dermatologic History: Reports: None - Infectious Disease History Infectious Disease History: Reports: Chicken Pox, Measles, Mumps - Past Surgical History Head Surgeries/Procedures: Reports: None HEENT Surgical History: Reports: Other (See Below) GI Surgical History: Reports: Appendectomy Female Surgical History: Reports: Hysterectomy Social & Family History - Family History Family Medical History: Noncontributory Cardiac: Reports: None Respiratory: Reports: None GI: Reports: None : Reports: None OBGYN: Reports: None 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: Reports: None Neurological: Reports: None Psychiatric: Reports: None Endocrine/Metabolic: Reports: None Hematologic: Reports: None Immunologic: Reports: None Dermatologic: Reports: None Oncologic: Reports: None - Tobacco Use Smoking Status *Q: Never Smoker - Caffeine Use Caffeine Use: Reports: Soda - Recreational Drug Use Recreational Drug Use: No - Living Situation & Occupation Living situation: Reports: , with Family Occupation: Retired H&P Review of Systems - Review of Systems: Review Of Systems: Comprehensive ROS is negative, except as noted in HPI. Exam - Exam Exam: See Below - Vital Signs Vital Signs: Last Vital Signs Temp 36.4 C 01/21/19 10:38 Pulse 74 01/21/19 10:38 Resp 20 01/21/19 10:38 BP 129/73 01/21/19 10:38 Pulse Ox 93 L 01/21/19 10:38 Weight: 104.326 kg - Exam General: Alert, Oriented, Cooperative Lungs: Clear to Auscultation, Normal Respiratory Effort Cardiovascular: Regular Rate, Tachycardia GI/Abdominal Exam: Normal Bowel Sounds, Soft, Non-Tender Extremities: No Pedal Edema Skin: Warm, Dry Neuro Extensive - Mental Status: Alert, Oriented x3 - Patient Data Lab Results Last 24 hrs: Laboratory Results - last 24 hr 01/21/19 01/21/19 Range/Units 10:40 10:40 WBC 8.92 (4.0-11.0) K/uL RBC 4.49 (4.30-5.90) M/uL Hgb 13.7 (12.0-16.0) g/dL Hct 41.0 (36.0-46.0) % MCV 91.3 (80.0-98.0) fL MCH 30.5 (27.0-32.0) pg MCHC 33.4 (31.0-37.0) g/dL RDW Std Deviation 46.9 (28.0-62.0) fl RDW Coeff of Frank 14 (11.0-15.0) % Plt Count 337 (150-400) K/uL MPV 10.80 (7.40-12.00) fL Neut % (Auto) 60.8 (48.0-80.0) % Lymph % (Auto) 29.7 (16.0-40.0) % Orange % (Auto) 7.6 (0.0-15.0) % Eos % (Auto) 1.7 (0.0-7.0) % Baso % (Auto) 0.2 (0.0-1.5) % Neut # (Auto) 5.4 (1.4-5.7) K/uL Lymph # (Auto) 2.7 H (0.6-2.4) K/uL Orange # (Auto) 0.7 (0.0-0.8) K/uL Eos # (Auto) 0.2 (0.0-0.7) K/uL Baso # (Auto) 0.0 (0.0-0.1) K/uL Nucleated RBC % 0.0 /100WBC Nucleated RBCs # 0 K/uL Sodium 140 (136-145) mmol/L Potassium 3.4 L (3.5-5.1) mmol/L Chloride 102 (98-107) mmol/L Carbon Dioxide 24.9 (21.0-32.0) mmol/L BUN 14 (7.0-18.0) mg/dL Creatinine 0.9 (0.6-1.0) mg/dL Est Cr Clr Drug Dosing 55.23 mL/min Estimated GFR (MDRD) > 60.0 ml/min Glucose 206 H (74-106) mg/dL Calcium 8.8 (8.5-10.1) mg/dL Total Bilirubin 0.5 (0.2-1.0) mg/dL AST 21 (15-37) IU/L ALT 24 (14-63) IU/L Alkaline Phosphatase 105 (46-116) U/L Total Protein 7.6 (6.4-8.2) g/dL Albumin 3.5 (3.4-5.0) g/dL Globulin 4.1 H (2.6-4.0) g/dL Albumin/Globulin Ratio 0.9 (0.9-1.6) Result Diagrams: 01/21/19 10:40 01/21/19 10:40 Problem List Initiated/Reviewed/Updated: Yes Orders Last 24hrs: Active Orders 24 hr Category Date Time Status Admission Status [Patient Status] [ADT] Stat ADT 01/21/19 12:29 Active Antiembolic Devices [RC] PER UNIT ROUTINE Care 01/21/19 13:43 Active Intake and Output [RC] QSHIFT Care 01/21/19 13:42 Active Notify Provider Consults [RC] ASDIRECTED Care 01/21/19 12:02 Active Oxygen Therapy [RC] PRN Care 01/21/19 13:41 Active Telemetry Monitoring [Cardiac Monitoring] [RC] . Care 01/21/19 13:09 Active DIRECTED Up ad Grace [RC] ASDIRECTED Care 01/21/19 13:41 Active VTE/DVT Education [RC] PER UNIT ROUTINE Care 01/21/19 13:41 Active Vital Signs [RC] Q4H Care 01/21/19 13:41 Active Consult to Physician [CONS] Stat Cons 01/21/19 12:02 Active Nothing per Oral Now Diet [DIET] Diet 01/21/19 Lunch Active Morphine Med 01/21/19 13:41 Active 2 mg IVPUSH Q2H PRN Ondansetron [Zofran ODT] Med 01/21/19 13:41 Active 4 mg PO Q4H PRN Ondansetron [Zofran] Med 01/21/19 13:41 Active 4 mg IVPUSH Q4H PRN Sodium Chloride 0.9% [Normal Saline] 1,000 ml Med 01/21/19 10:39 Active IV STAT Sequential Compression Device [OM.PC] Per Unit Routine Oth 01/21/19 13:42 Ordered Resuscitation Status Routine Resus Stat 01/21/19 13:41 Ordered Medication Orders Sodium Chloride (Normal Saline) 1,000 mls @ 100 mls/hr IV STAT ONE Stop: 01/21/19 20:38 Last Admin: 01/21/19 10:51 Dose: 100 mls/hr Morphine Sulfate (Morphine) 2 mg IVPUSH Q2H PRN PRN Reason: Pain (severe 7-10) Stop: 01/22/19 13:43 Ondansetron HCl (Zofran Odt) 4 mg PO Q4H PRN PRN Reason: nausea, able to take PO Ondansetron HCl (Zofran) 4 mg IVPUSH Q4H PRN PRN Reason: Nausea Assessment/Plan Comment:: A: 1. Fracture of left humeral head with dislocation 2. Paroxysmal runs of SVT s/p surgical reduction 3. Hypokalemia 4. PMH hypertension, dyslipidemia P: 1. Will monitor with telemetry for any arrhythmias. will replace electrolytes and hydrate. Will continue home medication for hypertension and dyslipidemia. Dispo: 1-2 days. <MohamudHamida - Last Filed: 01/22/19 21:30> H&P History of Present Illness - General Admit Problem/Dx: Admission Diagnosis/Problem Admission Diagnosis/Problem Fracture dislocation of left shoulder joint Exam - Vital Signs Vital Signs: Last Vital Signs Temp 36.5 C 01/22/19 19:24 Pulse 87 01/22/19 19:24 Resp 16 01/22/19 19:24 BP 108/57 L 01/22/19 19:24 Pulse Ox 92 L 01/22/19 19:24 - Patient Data Lab Results Last 24 hrs: Laboratory Results - last 24 hr 01/22/19 01/22/19 Range/Units 06:05 06:05 WBC 11.23 H (4.0-11.0) K/uL RBC 3.83 L (4.30-5.90) M/uL Hgb 11.6 L (12.0-16.0) g/dL Hct 35.6 L (36.0-46.0) % MCV 93.0 (80.0-98.0) fL MCH 30.3 (27.0-32.0) pg MCHC 32.6 (31.0-37.0) g/dL RDW Std Deviation 49.1 (28.0-62.0) fl RDW Coeff of Frank 14 (11.0-15.0) % Plt Count 271 (150-400) K/uL MPV 10.70 (7.40-12.00) fL Neut % (Auto) 75.1 (48.0-80.0) % Lymph % (Auto) 15.4 L (16.0-40.0) % Orange % (Auto) 9.0 (0.0-15.0) % Eos % (Auto) 0.4 (0.0-7.0) % Baso % (Auto) 0.1 (0.0-1.5) % Neut # (Auto) 8.4 H (1.4-5.7) K/uL Lymph # (Auto) 1.7 (0.6-2.4) K/uL Orange # (Auto) 1.0 H (0.0-0.8) K/uL Eos # (Auto) 0.0 (0.0-0.7) K/uL Baso # (Auto) 0.0 (0.0-0.1) K/uL Nucleated RBC % 0.0 /100WBC Nucleated RBCs # 0 K/uL Sodium 139 (136-145) mmol/L Potassium 3.5 (3.5-5.1) mmol/L Chloride 105 (98-107) mmol/L Carbon Dioxide 25.7 (21.0-32.0) mmol/L BUN 14 (7.0-18.0) mg/dL Creatinine 0.7 (0.6-1.0) mg/dL Est Cr Clr Drug Dosing 71.01 mL/min Estimated GFR (MDRD) > 60.0 ml/min Glucose 158 H (74-106) mg/dL Calcium 7.9 L (8.5-10.1) mg/dL Magnesium 2.1 (1.8-2.4) mg/dL Total Bilirubin 0.6 (0.2-1.0) mg/dL AST 21 (15-37) IU/L ALT 22 (14-63) IU/L Alkaline Phosphatase 75 (46-116) U/L Total Protein 6.3 L (6.4-8.2) g/dL Albumin 2.8 L (3.4-5.0) g/dL Globulin 3.5 (2.6-4.0) g/dL Albumin/Globulin Ratio 0.8 L (0.9-1.6) Result Diagrams: 01/22/19 06:05 01/22/19 06:05 Orders Last 24hrs: Active Orders 24 hr Category Date Time Status CBC WITH AUTO DIFF [HEME] AM Lab 01/23/19 05:11 Ordered COMPREHENSIVE METABOLIC PN,CMP [CHEM] AM Lab 01/23/19 05:11 Ordered Fluticasone Propionate [Flonase] Med 01/21/19 21:00 Active 0 gm NASBOTH BID Ibuprofen [Motrin] Med 01/22/19 12:00 Active 800 mg PO Q6H Medication Orders Hydrocodone Bitart/Acetaminophen ([place] 325-5 Mg) 1 - 2 tab PO Q4H PRN PRN Reason: Pain Last Admin: 01/22/19 19:26 Dose: 2 tab Admin: 01/22/19 10:26 Dose: 2 tab Admin: 01/22/19 06:08 Dose: 1 tab Admin: 01/21/19 18:43 Dose: 2 tab Enoxaparin Sodium (Lovenox) 40 mg SUBCUT Q24H [facility] Last Admin: 01/22/19 17:29 Dose: 40 mg Admin: 01/21/19 17:36 Dose: 40 mg Fentanyl (Sublimaze) 50 mcg IVPUSH Q5M PRN PRN Reason: Pain Last Admin: 01/21/19 15:30 Dose: 50 mcg Fluticasone Propionate (Flonase) 0 gm NASBOTH BID [facility] Last Admin: 01/22/19 20:56 Dose: 1 spray Admin: 01/22/19 08:37 Dose: 1 spray Admin: 01/21/19 22:28 Dose: 1 spray Sodium Chloride (Normal Saline) 1,000 mls @ 100 mls/hr IV ASDIRECTED [facility] Last Admin: 01/22/19 13:13 Dose: 100 mls/hr Infusion: 01/22/19 13:13 Dose: 100 mls/hr Admin: 01/22/19 04:30 Dose: 100 mls/hr Infusion: 01/22/19 02:49 Dose: 100 mls/hr Admin: 01/21/19 16:49 Dose: 100 mls/hr Ibuprofen (Motrin) 800 mg PO Q6H [facility] Last Admin: 01/22/19 17:31 Dose: 800 mg Admin: 01/22/19 13:00 Dose: 800 mg Ondansetron HCl (Zofran Odt) 4 mg PO Q4H PRN PRN Reason: nausea, able to take PO Ondansetron HCl (Zofran) 4 mg IVPUSH Q4H PRN PRN Reason: Nausea Assessment/Plan Comment:: I have performed history and physical and have discussed the patient management with the resident and agree with note above unless stated otherwise in my note.
--- NOTE | 2019-01-21 13:58 | PCM.PREANE ---
Preanesthetic Assessment - Anesthesia/Transfusion/Family Hx Anesthesia History: Prior Anesthesia Without Reaction Family History of Anesthesia Reaction: No Transfusion History: No Prior Transfusion(s) - Review of Systems General: No Symptoms Pulmonary: No Symptoms Cardiovascular: No Symptoms Gastrointestinal: No Symptoms Neurological: No Symptoms Other: Reports: None - Physical Assessment NPO Status Date: 01/21/19 NPO Status Time: 08:45 Vital Signs: Last Vital Signs Temp 97.6 F 01/21/19 10:38 Pulse 74 01/21/19 10:38 Resp 20 01/21/19 10:38 BP 129/73 01/21/19 10:38 Pulse Ox 93 L 01/21/19 10:38 Height: 5 ft 6 in Weight: 104.326 kg ASA Class: 2E Mental Status: Alert & Oriented x3 Airway Class: Mallampati = 2 Dentition: Reports: Dentures, Partial ROM/Head Extension: Full Lungs: Clear to Auscultation, Normal Respiratory Effort Cardiovascular: Regular Rate, Regular Rhythm - Lab Values: Laboratory Last Values WBC 8.92 K/uL (4.0-11.0) 01/21/19 10:40 RBC 4.49 M/uL (4.30-5.90) 01/21/19 10:40 Hgb 13.7 g/dL (12.0-16.0) 01/21/19 10:40 Hct 41.0 % (36.0-46.0) 01/21/19 10:40 MCV 91.3 fL (80.0-98.0) 01/21/19 10:40 MCH 30.5 pg (27.0-32.0) 01/21/19 10:40 MCHC 33.4 g/dL (31.0-37.0) 01/21/19 10:40 RDW Std Deviation 46.9 fl (28.0-62.0) 01/21/19 10:40 RDW Coeff of Frank 14 % (11.0-15.0) 01/21/19 10:40 Plt Count 337 K/uL (150-400) 01/21/19 10:40 MPV 10.80 fL (7.40-12.00) 01/21/19 10:40 Neut % (Auto) 60.8 % (48.0-80.0) 01/21/19 10:40 Lymph % (Auto) 29.7 % (16.0-40.0) 01/21/19 10:40 [place] % (Auto) 7.6 % (0.0-15.0) 01/21/19 10:40 Eos % (Auto) 1.7 % (0.0-7.0) 01/21/19 10:40 Baso % (Auto) 0.2 % (0.0-1.5) 01/21/19 10:40 Neut # (Auto) 5.4 K/uL (1.4-5.7) 01/21/19 10:40 Lymph # (Auto) 2.7 K/uL (0.6-2.4) H 01/21/19 10:40 [place] # (Auto) 0.7 K/uL (0.0-0.8) 01/21/19 10:40 Eos # (Auto) 0.2 K/uL (0.0-0.7) 01/21/19 10:40 Baso # (Auto) 0.0 K/uL (0.0-0.1) 01/21/19 10:40 Nucleated RBC % 0.0 /100WBC 01/21/19 10:40 Nucleated RBCs # 0 K/uL 01/21/19 10:40 Sodium 140 mmol/L (136-145) 01/21/19 10:40 Potassium 3.4 mmol/L (3.5-5.1) L 01/21/19 10:40 Chloride 102 mmol/L (98-107) 01/21/19 10:40 Carbon Dioxide 24.9 mmol/L (21.0-32.0) 01/21/19 10:40 BUN 14 mg/dL (7.0-18.0) 01/21/19 10:40 Creatinine 0.9 mg/dL (0.6-1.0) 01/21/19 10:40 Est Cr Clr Drug Dosing 55.23 mL/min 01/21/19 10:40 Estimated GFR (MDRD) > 60.0 ml/min 01/21/19 10:40 Glucose 206 mg/dL (74-106) H 01/21/19 10:40 Calcium 8.8 mg/dL (8.5-10.1) 01/21/19 10:40 Total Bilirubin 0.5 mg/dL (0.2-1.0) 01/21/19 10:40 AST 21 IU/L (15-37) 01/21/19 10:40 ALT 24 IU/L (14-63) 01/21/19 10:40 Alkaline Phosphatase 105 U/L (46-116) 01/21/19 10:40 Total Protein 7.6 g/dL (6.4-8.2) 01/21/19 10:40 Albumin 3.5 g/dL (3.4-5.0) 01/21/19 10:40 Globulin 4.1 g/dL (2.6-4.0) H 01/21/19 10:40 Albumin/Globulin Ratio 0.9 (0.9-1.6) 01/21/19 10:40 - Allergies Allergies/Adverse Reactions: Allergies Allergy/AdvReac Type Severity Reaction Status Date / Time Penicillins Allergy Rash Verified 11/23/18 15:52 - Blood Blood Available: No - Acknowledgements Anesthesia Type Planned: General Anesthesia Pt an Appropriate Candidate for the Planned Anesthesia: Yes Alternatives and Risks of Anesthesia Discussed w Pt/Guardian: Yes Pt/Guardian Understands and Agrees with Anesthesia Plan: Yes Additional Comments: PMH: htn, hld, npo 0845, but has dislocation, not just fx of humeral neck. 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 Cardiovascular History: Reports: High Cholesterol, Hypertension Respiratory History: Reports: None Gastrointestinal History: Reports: None Genitourinary History: Reports: None [employer] History: Reports: 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 History: Reports: Fracture Neurological History: Reports: None Psychiatric History: Reports: None Endocrine/Metabolic History: Reports: Obesity/BMI 30+ Hematologic History: Reports: None Immunologic History: Reports: None Oncologic (Cancer) History: Reports: None Dermatologic History: Reports: None - Infectious Disease History Infectious Disease History: Reports: Chicken Pox, Measles, Mumps - Past Surgical History Head Surgeries/Procedures: Reports: None HEENT Surgical History: Reports: Other (See Below) GI Surgical History: Reports: Appendectomy Female Surgical History: Reports: Hysterectomy - SUBSTANCE USE Smoking Status *Q: Never Smoker Recreational Drug Use History: No - HOME MEDS Home Medications: Home Meds Aspirin [Halfprin] 81 mg PO DAILY 02/03/15 [History] Multivitamin [Multivitamins] 1 each PO DAILY 03/02/15 [History] atorvaSTATin [Lipitor] 10 mg PO DAILY 11/04/16 [History] Valsartan [Diovan] 320 mg PO DAILY #30 tablet 04/24/17 [Rx] hydroCHLOROthiazide [Hydrochlorothiazide] 12.5 mg PO DAILY #30 cap 04/24/17 [Rx] Losartan [Cozaar] 100 mg PO DAILY 01/24/18 [History] Potassium Chloride 10 meq PO DAILY #10 capsule.er 01/24/18 [Rx] Cyclobenzaprine [Flexeril] 10 mg PO BID PRN #12 tab 06/11/18 [Rx] Diclofenac Sodium [Voltaren] 75 mg PO BIDMEALS PRN #20 tab.cr 06/11/18 [Rx] Cyclobenzaprine [Flexeril] 10 mg PO TID PRN #8 tab 11/17/18 [Rx] Diclofenac Sodium [Voltaren] 75 mg PO BIDMEALS PRN #15 tab.cr 11/17/18 [Rx] methylPREDNISolone [Medrol] 4 mg PO ASDIRECTED #1 dosepk 11/17/18 [Rx] Cyclobenzaprine [Flexeril] 10 mg PO BID PRN #12 tab 11/23/18 [Rx] Diclofenac Sodium [Voltaren] 75 mg PO BIDMEALS PRN #20 tab.cr 11/23/18 [Rx] - CURRENT (IN HOUSE) MEDS Current Meds: Current Medications Sodium Chloride (Normal Saline) 1,000 mls @ 100 mls/hr IV STAT ONE Stop: 01/21/19 20:38 Last Admin: 01/21/19 10:51 Dose: 100 mls/hr Morphine Sulfate (Morphine) 2 mg IVPUSH Q2H PRN PRN Reason: Pain (severe 7-10) Stop: 01/22/19 13:43 Ondansetron HCl (Zofran Odt) 4 mg PO Q4H PRN PRN Reason: nausea, able to take PO Ondansetron HCl (Zofran) 4 mg IVPUSH Q4H PRN PRN Reason: Nausea Discontinued Medications Hydromorphone HCl (Dilaudid) 1 mg IVPUSH ONETIME ONE Stop: 01/21/19 11:32 Last Admin: 01/21/19 11:40 Dose: 1 mg Hydromorphone HCl (Dilaudid) 0.5 mg IVPUSH ONETIME ONE Stop: 01/21/19 13:43 Last Admin: 01/21/19 13:50 Dose: 0.5 mg Morphine Sulfate (Morphine) 2 mg IVPUSH ONETIME ONE Stop: 01/21/19 10:40 Last Admin: 01/21/19 10:51 Dose: 2 mg Morphine Sulfate (Morphine) 4 mg IVPUSH ONETIME ONE Stop: 01/21/19 10:53 Last Admin: 01/21/19 11:29 Dose: 4 mg Ondansetron HCl (Zofran) 4 mg IVPUSH ONETIME ONE Stop: 01/21/19 10:40 Last Admin: 01/21/19 10:51 Dose: 4 mg Ondansetron HCl (Zofran) 4 mg IVPUSH ONETIME ONE Stop: 01/21/19 11:46 Last Admin: 01/21/19 11:47 Dose: 4 mg Ondansetron HCl (Zofran) Confirm Administered Dose 4 mg .ROUTE .STK-MED ONE Stop: 01/21/19 11:46 Last Admin: 01/21/19 13:04 Dose: Not Given
[2019-01-21] MEDS ORDERED: Lidocaine 2% 5 ML SDV ONE (14:02)
[2019-01-21] MEDS ORDERED: Propofol 200 MG/20 ML SDV ONE (14:03)
--- NOTE | 2019-01-21 14:26 | PCM.CONS ---
H&P History of Present Illness - General Date of Service: 01/21/19 Admit Problem/Dx: Admission Diagnosis/Problem Admission Diagnosis/Problem Fracture dislocation of left shoulder joint Source of Information: Other (x-ray review) History Limitations: Reports: No Limitations - History of Present Illness Initial Comments - Free Text/Narative: 68 year old right hand dominant female who slipped on the ice earlier today. She injured her left shoulder. X-rays in the ER demonstrate a left shoulder fracture dislocation with 3 part fracture including greater tuberosity. Acute pain managed with IV morphine. No prior shoulder problems. No other injuries. No left ahnd numbness. Onset of Symptoms: Reports: Sudden Symptom Onset Date: 01/21/19 Location: Reports: Upper Extremity, Left Severity: Severe Improves with: Reports: Medication Worsens with: Reports: Movement Context: Reports: Trauma left shoulder Pain Score (Numeric/FACES): 10 - Related Data Allergies/Adverse Reactions: Allergies Allergy/AdvReac Type Severity Reaction Status Date / Time Penicillins Allergy Rash Verified 11/23/18 15:52 Home Medications: Home Meds Cyclobenzaprine [Flexeril] 10 mg PO TID PRN #8 tab 11/17/18 [Rx] methylPREDNISolone [Medrol] 4 mg PO ASDIRECTED #1 dosepk 11/17/18 [Rx] Diclofenac Sodium [Voltaren] 75 mg PO BIDMEALS PRN #20 tab.cr 11/23/18 [Rx] Acetaminophen with Codeine [Acetaminophen-Cod #3] 1 each PO ASDIRECTED PRN 01/21 [History] Fluticasone Propionate [Flonase] 1 spray NASBOTH BID 01/21/19 [History] Past Medical History HEENT History: Reports: None, Impaired Vision 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 Cardiovascular History: Reports: High Cholesterol, Hypertension Respiratory History: Reports: None Gastrointestinal History: Reports: None Genitourinary History: Reports: None 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: Reports: 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 History: Reports: Fracture Neurological History: Reports: None Psychiatric History: Reports: None Endocrine/Metabolic History: Reports: Obesity/BMI 30+ Hematologic History: Reports: None Immunologic History: Reports: None Oncologic (Cancer) History: Reports: None Dermatologic History: Reports: None - Infectious Disease History Infectious Disease History: Reports: Chicken Pox, Measles, Mumps - Past Surgical History Head Surgeries/Procedures: Reports: None HEENT Surgical History: Reports: Other (See Below) GI Surgical History: Reports: Appendectomy Female Surgical History: Reports: Hysterectomy Social & Family History - Family History Family Medical History: Noncontributory Cardiac: Reports: None Respiratory: Reports: None GI: Reports: None : Reports: None OBGYN: Reports: None 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: Reports: None Neurological: Reports: None Psychiatric: Reports: None Endocrine/Metabolic: Reports: None Hematologic: Reports: None Immunologic: Reports: None Dermatologic: Reports: None Oncologic: Reports: None - Tobacco Use Smoking Status *Q: Never Smoker - Caffeine Use Caffeine Use: Reports: Soda - Recreational Drug Use Recreational Drug Use: No - Living Situation & Occupation Living situation: Reports: , with Family Occupation: Retired H&P Review of Systems - Review of Systems: Review Of Systems: See Below 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: Reports: Shoulder Pain Exam - Exam Exam: See Below - Vital Signs Vital Signs: Last Vital Signs Temp 97.6 F 01/21/19 10:38 Pulse 74 01/21/19 10:38 Resp 20 01/21/19 10:38 BP 129/73 01/21/19 10:38 Pulse Ox 93 L 01/21/19 10:38 Weight: 230 lb - Exam General: Alert, Oriented Extremities: Other (Shoulder stability, range of motion, strength, and palpation deferred due to farcture dislocation) Peripheral Pulses: 2+: Radial (L) Skin: Intact Neurological: Sensation Intact - Patient Data Lab Results Last 24 hrs: Laboratory Results - last 24 hr 01/21/19 01/21/19 Range/Units 10:40 10:40 WBC 8.92 (4.0-11.0) K/uL RBC 4.49 (4.30-5.90) M/uL Hgb 13.7 (12.0-16.0) g/dL Hct 41.0 (36.0-46.0) % MCV 91.3 (80.0-98.0) fL MCH 30.5 (27.0-32.0) pg MCHC 33.4 (31.0-37.0) g/dL RDW Std Deviation 46.9 (28.0-62.0) fl RDW Coeff of Frank 14 (11.0-15.0) % Plt Count 337 (150-400) K/uL MPV 10.80 (7.40-12.00) fL Neut % (Auto) 60.8 (48.0-80.0) % Lymph % (Auto) 29.7 (16.0-40.0) % [place] % (Auto) 7.6 (0.0-15.0) % Eos % (Auto) 1.7 (0.0-7.0) % Baso % (Auto) 0.2 (0.0-1.5) % Neut # (Auto) 5.4 (1.4-5.7) K/uL Lymph # (Auto) 2.7 H (0.6-2.4) K/uL [place] # (Auto) 0.7 (0.0-0.8) K/uL Eos # (Auto) 0.2 (0.0-0.7) K/uL Baso # (Auto) 0.0 (0.0-0.1) K/uL Nucleated RBC % 0.0 /100WBC Nucleated RBCs # 0 K/uL Sodium 140 (136-145) mmol/L Potassium 3.4 L (3.5-5.1) mmol/L Chloride 102 (98-107) mmol/L Carbon Dioxide 24.9 (21.0-32.0) mmol/L BUN 14 (7.0-18.0) mg/dL Creatinine 0.9 (0.6-1.0) mg/dL Est Cr Clr Drug Dosing 55.23 mL/min Estimated GFR (MDRD) > 60.0 ml/min Glucose 206 H (74-106) mg/dL Calcium 8.8 (8.5-10.1) mg/dL Total Bilirubin 0.5 (0.2-1.0) mg/dL AST 21 (15-37) IU/L ALT 24 (14-63) IU/L Alkaline Phosphatase 105 (46-116) U/L Total Protein 7.6 (6.4-8.2) g/dL Albumin 3.5 (3.4-5.0) g/dL Globulin 4.1 H (2.6-4.0) g/dL Albumin/Globulin Ratio 0.9 (0.9-1.6) Result Diagrams: 01/21/19 10:40 01/21/19 10:40 Consult PN Assessment/Plan Procedures: Procedures ASSAY OF AMYLASE (01/24/18) ASSAY OF LIPASE (01/24/18) ASSAY OF TROPONIN QUANT (01/24/18) COMPLETE CBC W/AUTO DIFF WBC (01/24/18) COMPREHEN METABOLIC PANEL (01/24/18) CT NECK SPINE W/O DYE (03/02/15) ELECTROCARDIOGRAM TRACING (01/24/18) EMERGENCY DEPT VISIT (11/23/18) EMERGENCY DEPT VISIT (01/24/18) EMERGENCY DEPT VISIT (04/02/17) EMERGENCY DEPT VISIT (06/27/15) EMERGENCY DEPT VISIT (05/30/15) EXTREMITY STUDY (07/16/18) GLYCOSYLATED HEMOGLOBIN TEST (04/24/17) HYDRATE IV INFUSION ADD-ON (01/24/18) HYDRATION IV INFUSION INIT (04/24/17) IMMUNIZATION ADMIN (02/03/15) LIPID PANEL (04/24/17) PROTHROMBIN TIME (01/24/18) PT EVALUATION (07/26/15) ROUTINE VENIPUNCTURE (01/24/18) TDAP VACCINE 7 YRS/> IM (02/03/15) THER/PROPH/DIAG INJ IV PUSH (01/24/18) THER/PROPH/DIAG INJ SC/IM (11/17/18) THERAPEUTIC EXERCISES (07/26/15) URINALYSIS AUTO W/SCOPE (01/24/18) X-RAY EXAM CHEST 1 VIEW (01/24/18) X-RAY EXAM HIP UNI 2-3 VIEWS (11/17/18) X-RAY EXAM L-S SPINE 2/3 VWS (11/17/18) X-RAY EXAM NECK SPINE 2-3 VW (06/09/16) (1) Closed fracture dislocation of left shoulder SNOMED Code(s): 987086129 Code(s): S42.92XA - FRACTURE OF LEFT SHOULDER GIRDLE, PART UNSP, INIT Priority: High Current Visit: Yes Problem List Initiated/Reviewed/Updated: Yes Plan: Take to OR for closed reduction. If able to reduce shoulder, plan managing fracture non-operatively. If unable to reduce dislocation, will need to transfer for reverse shoulder replacement. Requesting Provider: Dr Marx, ER Date Consult Requested: 01/21/19 Reason for Consult: Left shoulder fracture dislocation Patient History Reviewed: Yes Admission H&P Reviewed: Yes Notified Requestor: Yes
[2019-01-21] MEDS ORDERED: fentaNYL 100 MCG/2 ML SDV ONE ×2 (14:46→15:11)
--- NOTE | 2019-01-21 15:11 | PCM.OPNOTE ---
- General Post-Op/Procedure Note Date of Surgery/Procedure: 01/21/19 Operative Procedure(s): Closed reduction of left shoulder fracture dislocation Findings: Left shoulder anterior shoulder dislocation with 3 part proximal humerus fracture Pre Op Diagnosis: Left shoulder fracture dislocation Post-Op Diagnosis: Left shoulder fracture dislocation Anesthesia Technique: General ET Tube Primary Surgeon: Willy Paul Complications: None Free Text/Narrative:: Patient consented for closed reduction of left shoulder fracture dislocation. Patient received general anesthetic and was transferred to the OR table. Under C -arm visualization, longitudinal traction was applied and the shoulder reduced. There may have been an axillary nerve injury as the shoulder subluxed inferiorly without traction. The humeral head was impacted and the greater tuberosity fragment was superior to the humeral head. A shoulder immobilizer was applied and repeat C-arm views showed the shoulder remained reduced. Patient was accompanied to the PACU in stable condition. The 3 part proximal humerus fracture will be treated non-operatively. Oral pain medications 23 hour observation VTE prophylaxis not indicated for upper extremity fracture Shoulder immobilizer for 6 weeks Follow-up in 4 weeks in my clinic
[2019-01-21] MEDS ORDERED: HYDROmorphone 2 MG/ML Syringe IVPUSH ONE (15:14)
[2019-01-21] MEDS ORDERED: Labetalol 100 MG/20 ML MDV IVPUSH ONE (15:16)
[2019-01-21] MEDS ORDERED: fentaNYL 100 MCG/2 ML SDV IVPUSH PRN (15:39)
--- NOTE | 2019-01-21 15:45 | CR ---
Left shoulder: Two fluoroscopic spot views of the left shoulder were obtained. Humeral fracture again seen. Dislocation has been reduced. Fracture fragment within the humeral head shows displacement. Fluoroscopy time given as 11.95 seconds. Impression: Dislocation has been reduced. Displaced humeral fragment is noted. Diagnostic code #3 MTDD
[2019-01-21] MEDS ORDERED: Ketorolac 15 MG/ML SDV IVPUSH PRN (16:05)
[2019-01-21] MEDS: Morphine 10 MG/ML Syringe IVPUSH PRN ×2 (16:44→20:52)
[2019-01-21] MEDS: Sodium Chloride 0.9% 1,000 ML IV SCH (16:49)
[2019-01-21] MEDS ORDERED: Potassium Chloride 20 MEQ Tab.ER PO ONE (17:13)
[2019-01-21] MEDS ORDERED: Magnesium Sulfate/Water 2 GM in Premix Bag 1 BAG IV ONE (17:14)
[2019-01-21] MEDS: Enoxaparin 40 MG/0.4 ML Syringe SUBCUT SCH (17:36)
[2019-01-21] MEDS: Metoprolol Tartrate 25 MG Tab PO SCH (18:38)
[2019-01-21] MEDS: Acetaminophen/HYDROcodone 325-5 MG Tab PO PRN (18:43)
[2019-01-21] MEDS: Fluticasone Propionate Nasal Spray 16 GM Bottle NASBOTH SCH (22:28)
[2019-01-22] MEDS: Sodium Chloride 0.9% 1,000 ML IV SCH ×3 (04:30→23:13)
[2019-01-22] MEDS: Metoprolol Tartrate 25 MG Tab PO SCH (06:07)
[2019-01-22] MEDS: Acetaminophen/HYDROcodone 325-5 MG Tab PO PRN ×3 (06:08→19:26)
[2019-01-22 06:44] LABS: BLOOD UREA NITROGEN,BUN 14 mg/dL (7.0-18.0); CARBON DIOXIDE,CO2 25.7 mmol/L (21.0-32.0); CHLORIDE,CL 105 mmol/L (98-107); GLUCOSE RANDOM 158 mg/dL (74-106); POTASSIUM,K 3.5 mmol/L (3.5-5.1); SODIUM,NA 139 mmol/L (136-145)
[2019-01-22] MEDS ORDERED: Potassium Chloride 20 MEQ Tab.ER PO ONE (08:17)
[2019-01-22] MEDS: Fluticasone Propionate Nasal Spray 16 GM Bottle NASBOTH SCH ×2 (08:37→20:56)
[2019-01-22] MEDS ORDERED: Metoprolol Tartrate 25 MG Tab PO SCH (10:20)
--- NOTE | 2019-01-22 10:25 | PCM48HPAN ---
Post Anesthesia Note - EVALUATION WITHIN 48HRS OF ANESTHETIC Vital Signs in Normal Range: Yes Patient Participated in Evaluation: Yes Respiratory Function Stable: Yes Airway Patent: Yes Cardiovascular Function Stable: Yes Hydration Status Stable: Yes Pain Control Satisfactory: Yes Nausea and Vomiting Control Satisfactory: Yes Mental Status Recovered: Yes Vital Signs: Last Vital Signs Temp 36.2 C 01/22/19 07:41 Pulse 95 01/22/19 07:41 Resp 17 01/22/19 07:41 BP 100/50 L 01/22/19 07:41 Pulse Ox 95 01/22/19 07:41 - COMMENTS/OBSERVATIONS Free Text/Narrative:: Patient sitting up in chair. States pain about 7/10. Patient states she has not felt any palpitations or racing heart since yesterday after surgery. I asked if she has ever had anything like this feeling before and she goes on to tell me that this does happen to her once in a while. Generally, she notices it when it wakes her up in the middle of the night. She denies ever feeling dizzy or lightheaded. Encouraged patient to see her primary ocular care aide as they may suggest she see a counter caser should they deem necessary. As of now, she seems to be doing quite well otherwise and I see no anesthesia complications noted.
--- NOTE | 2019-01-22 11:15 | PCM.DCSUM1 ---
Discharge Summary - Discharge Data Discharge Disposition: Home, Self-Care 01 Condition: Good - Referral to Home Health Primary Care Physician: Gus Nassar MD - Patient Summary/Data Operative Procedure(s) Performed: Closed reduction of left shoulder fracture dislocation Consults: Consultations 01/21/19 12:02 Consult to Physician [CONS] Stat - Discharge Plan Home Medications: Home Meds Cyclobenzaprine [Flexeril] 10 mg PO TID PRN #8 tab 11/17/18 [Rx] methylPREDNISolone [Medrol] 4 mg PO ASDIRECTED #1 dosepk 11/17/18 [Rx] Diclofenac Sodium [Voltaren] 75 mg PO BIDMEALS PRN #20 tab.cr 11/23/18 [Rx] Acetaminophen with Codeine [Acetaminophen-Cod #3] 1 each PO ASDIRECTED PRN 01/21 [History] Fluticasone Propionate [Flonase] 1 spray NASBOTH BID 01/21/19 [History] Forms: ED Department Discharge Referrals: Gus Nassar MD [Primary Care Provider] - - Patient Data Vitals - Most Recent: Last Vital Signs Temp 36.2 C 01/22/19 07:41 Pulse 86 01/22/19 10:30 Resp 17 01/22/19 07:41 BP 100/50 L 01/22/19 07:41 Pulse Ox 90 L 01/22/19 10:30 Weight - Most Recent: 104.326 kg I&O - Last 24 hours: Intake & Output 01/21/19 01/22/19 01/22/19 22:59 06:59 14:59 Intake Total 1050 1400 Output Total 850 Balance 1050 550 Lab Results - Last 24 hrs: Laboratory Results - last 24 hr 01/21/19 01/21/19 01/22/19 Range/Units 10:40 10:40 06:05 WBC 11.23 H (4.0-11.0) K/uL RBC 3.83 L (4.30-5.90) M/uL Hgb 11.6 L (12.0-16.0) g/dL Hct 35.6 L (36.0-46.0) % MCV 93.0 (80.0-98.0) fL MCH 30.3 (27.0-32.0) pg MCHC 32.6 (31.0-37.0) g/dL RDW Std Deviation 49.1 (28.0-62.0) fl RDW Coeff of Frank 14 (11.0-15.0) % Plt Count 271 (150-400) K/uL MPV 10.70 (7.40-12.00) fL Neut % (Auto) 75.1 (48.0-80.0) % Lymph % (Auto) 15.4 L (16.0-40.0) % [place] % (Auto) 9.0 (0.0-15.0) % Eos % (Auto) 0.4 (0.0-7.0) % Baso % (Auto) 0.1 (0.0-1.5) % Neut # (Auto) 8.4 H (1.4-5.7) K/uL Lymph # (Auto) 1.7 (0.6-2.4) K/uL [place] # (Auto) 1.0 H (0.0-0.8) K/uL Eos # (Auto) 0.0 (0.0-0.7) K/uL Baso # (Auto) 0.0 (0.0-0.1) K/uL Nucleated RBC % 0.0 /100WBC Nucleated RBCs # 0 K/uL Sodium 140 (136-145) mmol/L Potassium 3.4 L (3.5-5.1) mmol/L Chloride 102 (98-107) mmol/L Carbon Dioxide 24.9 (21.0-32.0) mmol/L BUN 14 (7.0-18.0) mg/dL Creatinine 0.9 (0.6-1.0) mg/dL Est Cr Clr Drug Dosing 55.23 mL/min Estimated GFR (MDRD) > 60.0 ml/min Glucose 206 H (74-106) mg/dL Calcium 8.8 (8.5-10.1) mg/dL Magnesium 1.7 L (1.8-2.4) mg/dL Total Bilirubin 0.5 (0.2-1.0) mg/dL AST 21 (15-37) IU/L ALT 24 (14-63) IU/L Alkaline Phosphatase 105 (46-116) U/L Total Protein 7.6 (6.4-8.2) g/dL Albumin 3.5 (3.4-5.0) g/dL Globulin 4.1 H (2.6-4.0) g/dL Albumin/Globulin Ratio 0.9 (0.9-1.6) TSH 3rd Generation 2.92 (0.36-3.74) uIU/mL 01/22/19 Range/Units 06:05 WBC (4.0-11.0) K/uL RBC (4.30-5.90) M/uL Hgb (12.0-16.0) g/dL Hct (36.0-46.0) % MCV (80.0-98.0) fL MCH (27.0-32.0) pg MCHC (31.0-37.0) g/dL RDW Std Deviation (28.0-62.0) fl RDW Coeff of Frank (11.0-15.0) % Plt Count (150-400) K/uL MPV (7.40-12.00) fL Neut % (Auto) (48.0-80.0) % Lymph % (Auto) (16.0-40.0) % [place] % (Auto) (0.0-15.0) % Eos % (Auto) (0.0-7.0) % Baso % (Auto) (0.0-1.5) % Neut # (Auto) (1.4-5.7) K/uL Lymph # (Auto) (0.6-2.4) K/uL [place] # (Auto) (0.0-0.8) K/uL Eos # (Auto) (0.0-0.7) K/uL Baso # (Auto) (0.0-0.1) K/uL Nucleated RBC % /100WBC Nucleated RBCs # K/uL Sodium 139 (136-145) mmol/L Potassium 3.5 (3.5-5.1) mmol/L Chloride 105 (98-107) mmol/L Carbon Dioxide 25.7 (21.0-32.0) mmol/L BUN 14 (7.0-18.0) mg/dL Creatinine 0.7 (0.6-1.0) mg/dL Est Cr Clr Drug Dosing 71.01 mL/min Estimated GFR (MDRD) > 60.0 ml/min Glucose 158 H (74-106) mg/dL Calcium 7.9 L (8.5-10.1) mg/dL Magnesium 2.1 (1.8-2.4) mg/dL Total Bilirubin 0.6 (0.2-1.0) mg/dL AST 21 (15-37) IU/L ALT 22 (14-63) IU/L Alkaline Phosphatase 75 (46-116) U/L Total Protein 6.3 L (6.4-8.2) g/dL Albumin 2.8 L (3.4-5.0) g/dL Globulin 3.5 (2.6-4.0) g/dL Albumin/Globulin Ratio 0.8 L (0.9-1.6) TSH 3rd Generation (0.36-3.74) uIU/mL Med Orders - Current: Current Medications Hydrocodone Bitart/Acetaminophen ([place] 325-5 Mg) 1 - 2 tab PO Q4H PRN PRN Reason: Pain Last Admin: 01/22/19 10:26 Dose: 2 tab Enoxaparin Sodium (Lovenox) 40 mg SUBCUT Q24H [facility] Last Admin: 01/21/19 17:36 Dose: 40 mg Fentanyl (Sublimaze) 50 mcg IVPUSH Q5M PRN PRN Reason: Pain Last Admin: 01/21/19 15:30 Dose: 50 mcg Fluticasone Propionate (Flonase) 0 gm NASBOTH BID [facility] Last Admin: 01/22/19 08:37 Dose: 1 spray Sodium Chloride (Normal Saline) 1,000 mls @ 100 mls/hr IV ASDIRECTED [facility] Last Admin: 01/22/19 04:30 Dose: 100 mls/hr Ketorolac Tromethamine (Toradol) 15 mg IVPUSH Q6H PRN PRN Reason: Pain Stop: 01/26/19 16:05 Last Admin: 01/22/19 04:24 Dose: 15 mg Morphine Sulfate (Morphine) 2 mg IVPUSH Q2H PRN PRN Reason: Pain (severe 7-10) Stop: 01/22/19 13:43 Last Admin: 01/21/19 20:52 Dose: 2 mg Ondansetron HCl (Zofran Odt) 4 mg PO Q4H PRN PRN Reason: nausea, able to take PO Ondansetron HCl (Zofran) 4 mg IVPUSH Q4H PRN PRN Reason: Nausea Discontinued Medications Fentanyl (Sublimaze) Confirm Administered Dose 100 mcg .ROUTE .STK-MED ONE Stop: 01/21/19 14:47 Fentanyl (Sublimaze) Confirm Administered Dose 100 mcg .ROUTE .STK-MED ONE Stop: 01/21/19 15:12 Last Admin: 01/21/19 16:27 Dose: Not Given Hydromorphone HCl (Dilaudid) 1 mg IVPUSH ONETIME ONE Stop: 01/21/19 11:32 Last Admin: 01/21/19 11:40 Dose: 1 mg Hydromorphone HCl (Dilaudid) 0.5 mg IVPUSH ONETIME ONE Stop: 01/21/19 13:43 Last Admin: 01/21/19 13:50 Dose: 0.5 mg Hydromorphone HCl (Dilaudid) 2 mg IVPUSH ONETIME ONE Stop: 01/21/19 15:15 Last Admin: 01/21/19 16:27 Dose: Not Given Sodium Chloride (Normal Saline) 1,000 mls @ 100 mls/hr IV STAT ONE Stop: 01/21/19 20:38 Last Admin: 01/21/19 10:51 Dose: 100 mls/hr Magnesium Sulfate 2 gm/ Premix 50 mls @ 25 mls/hr IV ONETIME ONE Stop: 01/21/19 19:13 Last Admin: 01/21/19 17:28 Dose: 25 mls/hr Labetalol HCl (Normodyne) 20 mg IVPUSH ONETIME ONE; Protocol Stop: 01/21/19 15:17 Last Admin: 01/21/19 16:27 Dose: Not Given Lidocaine (Xylocaine-Mpf 2%) Confirm Administered Dose 5 ml .ROUTE .STK-MED ONE Stop: 01/21/19 14:03 Metoprolol Tartrate (Lopressor) 25 mg PO Q12H [facility] Last Admin: 01/22/19 06:07 Dose: 25 mg Metoprolol Tartrate (Lopressor) 12.5 mg PO Q12H [facility] Morphine Sulfate (Morphine) 2 mg IVPUSH ONETIME ONE Stop: 01/21/19 10:40 Last Admin: 01/21/19 10:51 Dose: 2 mg Morphine Sulfate (Morphine) 4 mg IVPUSH ONETIME ONE Stop: 01/21/19 10:53 Last Admin: 01/21/19 11:29 Dose: 4 mg Ondansetron HCl (Zofran) 4 mg IVPUSH ONETIME ONE Stop: 01/21/19 10:40 Last Admin: 01/21/19 10:51 Dose: 4 mg Ondansetron HCl (Zofran) 4 mg IVPUSH ONETIME ONE Stop: 01/21/19 11:46 Last Admin: 01/21/19 11:47 Dose: 4 mg Ondansetron HCl (Zofran) Confirm Administered Dose 4 mg .ROUTE .STK-MED ONE Stop: 01/21/19 11:46 Last Admin: 01/21/19 13:04 Dose: Not Given Potassium Chloride (Klor-Con M20) 40 meq PO ONETIME ONE Stop: 01/21/19 17:14 Last Admin: 01/21/19 17:26 Dose: 40 meq Potassium Chloride (Klor-Con M20) 40 meq PO ONETIME ONE Stop: 01/22/19 08:18 Last Admin: 01/22/19 08:36 Dose: 40 meq Propofol (Diprivan 20 Ml) Confirm Administered Dose 200 mg .ROUTE .STK-MED ONE Stop: 01/21/19 14:04 Succinylcholine Chloride (Succinylcholine Chloride) Confirm Administered Dose 200 mg .ROUTE .STK-MED ONE Stop: 01/21/19 14:03
[2019-01-22] MEDS: Ibuprofen 800 MG Tab PO SCH ×3 (13:00→23:14)
--- NOTE | 2019-01-22 14:19 | PCM.SN ---
- Free Text/Narrative Note: Ortho Note POD#1 from closed reduction of left shoulder fracture dislocation Pain managed PE: Axillary, median, ulnar, and ulnar nerves intact to light touch Moves fingers Assessment: Left shoulder anterior dislocation with 3 part proximal humerus fracture Plan: Switched to oral ibuprofen and Vicodin today Discharge tomorrow if pain managed Plan non-operative fracture care and patient agrees with plan Continue shoulder immobilizer for 2-4 weeks and switch to sling when patient more comfortable Follow-up with me in clinic in 4 weeks
--- NOTE | 2019-01-22 15:33 | PCM.PN ---
<Jj Culver - Last Filed: 01/22/19 15:56> - General Info Date of Service: 01/22/19 Subjective Update: Doing well this morning, however, still complaining of pain. No nausea or vomiting. No chest pain, dyspnea, abdominal pain, dysuria, diarrhea. - Patient Data Vitals - Most Recent: Last Vital Signs Temp 36.4 C 01/22/19 14:00 Pulse 76 01/22/19 14:00 Resp 16 01/22/19 14:00 BP 98/53 L 01/22/19 14:00 Pulse Ox 92 L 01/22/19 14:00 Weight - Most Recent: 104.326 kg I&O - Last 24 Hours: Intake & Output 01/22/19 01/22/19 01/22/19 06:59 14:59 22:59 Intake Total 1400 Output Total 850 Balance 550 Lab Results Last 24 Hours: Laboratory Results - last 24 hr 01/21/19 01/22/19 01/22/19 Range/Units 10:40 06:05 06:05 WBC 11.23 H (4.0-11.0) K/uL RBC 3.83 L (4.30-5.90) M/uL Hgb 11.6 L (12.0-16.0) g/dL Hct 35.6 L (36.0-46.0) % MCV 93.0 (80.0-98.0) fL MCH 30.3 (27.0-32.0) pg MCHC 32.6 (31.0-37.0) g/dL RDW Std Deviation 49.1 (28.0-62.0) fl RDW Coeff of Frank 14 (11.0-15.0) % Plt Count 271 (150-400) K/uL MPV 10.70 (7.40-12.00) fL Neut % (Auto) 75.1 (48.0-80.0) % Lymph % (Auto) 15.4 L (16.0-40.0) % [place] % (Auto) 9.0 (0.0-15.0) % Eos % (Auto) 0.4 (0.0-7.0) % Baso % (Auto) 0.1 (0.0-1.5) % Neut # (Auto) 8.4 H (1.4-5.7) K/uL Lymph # (Auto) 1.7 (0.6-2.4) K/uL [place] # (Auto) 1.0 H (0.0-0.8) K/uL Eos # (Auto) 0.0 (0.0-0.7) K/uL Baso # (Auto) 0.0 (0.0-0.1) K/uL Nucleated RBC % 0.0 /100WBC Nucleated RBCs # 0 K/uL Sodium 139 (136-145) mmol/L Potassium 3.5 (3.5-5.1) mmol/L Chloride 105 (98-107) mmol/L Carbon Dioxide 25.7 (21.0-32.0) mmol/L BUN 14 (7.0-18.0) mg/dL Creatinine 0.7 (0.6-1.0) mg/dL Est Cr Clr Drug Dosing 71.01 mL/min Estimated GFR (MDRD) > 60.0 ml/min Glucose 158 H (74-106) mg/dL Calcium 7.9 L (8.5-10.1) mg/dL Magnesium 1.7 L 2.1 (1.8-2.4) mg/dL Total Bilirubin 0.6 (0.2-1.0) mg/dL AST 21 (15-37) IU/L ALT 22 (14-63) IU/L Alkaline Phosphatase 75 (46-116) U/L Total Protein 6.3 L (6.4-8.2) g/dL Albumin 2.8 L (3.4-5.0) g/dL Globulin 3.5 (2.6-4.0) g/dL Albumin/Globulin Ratio 0.8 L (0.9-1.6) TSH 3rd Generation 2.92 (0.36-3.74) uIU/mL Med Orders - Current: Current Medications Hydrocodone Bitart/Acetaminophen ([place] 325-5 Mg) 1 - 2 tab PO Q4H PRN PRN Reason: Pain Last Admin: 01/22/19 10:26 Dose: 2 tab Enoxaparin Sodium (Lovenox) 40 mg SUBCUT Q24H [facility] Last Admin: 01/21/19 17:36 Dose: 40 mg Fentanyl (Sublimaze) 50 mcg IVPUSH Q5M PRN PRN Reason: Pain Last Admin: 01/21/19 15:30 Dose: 50 mcg Fluticasone Propionate (Flonase) 0 gm NASBOTH BID [facility] Last Admin: 01/22/19 08:37 Dose: 1 spray Sodium Chloride (Normal Saline) 1,000 mls @ 100 mls/hr IV ASDIRECTED [facility] Last Admin: 01/22/19 13:13 Dose: 100 mls/hr Ibuprofen (Motrin) 800 mg PO Q6H [facility] Last Admin: 01/22/19 13:00 Dose: 800 mg Ondansetron HCl (Zofran Odt) 4 mg PO Q4H PRN PRN Reason: nausea, able to take PO Ondansetron HCl (Zofran) 4 mg IVPUSH Q4H PRN PRN Reason: Nausea Discontinued Medications Fentanyl (Sublimaze) Confirm Administered Dose 100 mcg .ROUTE .STK-MED ONE Stop: 01/21/19 14:47 Fentanyl (Sublimaze) Confirm Administered Dose 100 mcg .ROUTE .STK-MED ONE Stop: 01/21/19 15:12 Last Admin: 01/21/19 16:27 Dose: Not Given Hydromorphone HCl (Dilaudid) 1 mg IVPUSH ONETIME ONE Stop: 01/21/19 11:32 Last Admin: 01/21/19 11:40 Dose: 1 mg Hydromorphone HCl (Dilaudid) 0.5 mg IVPUSH ONETIME ONE Stop: 01/21/19 13:43 Last Admin: 01/21/19 13:50 Dose: 0.5 mg Hydromorphone HCl (Dilaudid) 2 mg IVPUSH ONETIME ONE Stop: 01/21/19 15:15 Last Admin: 01/21/19 16:27 Dose: Not Given Sodium Chloride (Normal Saline) 1,000 mls @ 100 mls/hr IV STAT ONE Stop: 01/21/19 20:38 Last Admin: 01/21/19 10:51 Dose: 100 mls/hr Magnesium Sulfate 2 gm/ Premix 50 mls @ 25 mls/hr IV ONETIME ONE Stop: 01/21/19 19:13 Last Admin: 01/21/19 17:28 Dose: 25 mls/hr Ketorolac Tromethamine (Toradol) 15 mg IVPUSH Q6H PRN PRN Reason: Pain Stop: 01/26/19 16:05 Last Admin: 01/22/19 04:24 Dose: 15 mg Labetalol HCl (Normodyne) 20 mg IVPUSH ONETIME ONE; Protocol Stop: 01/21/19 15:17 Last Admin: 01/21/19 16:27 Dose: Not Given Lidocaine (Xylocaine-Mpf 2%) Confirm Administered Dose 5 ml .ROUTE .STK-MED ONE Stop: 01/21/19 14:03 Metoprolol Tartrate (Lopressor) 25 mg PO Q12H [facility] Last Admin: 01/22/19 06:07 Dose: 25 mg Metoprolol Tartrate (Lopressor) 12.5 mg PO Q12H [facility] Morphine Sulfate (Morphine) 2 mg IVPUSH ONETIME ONE Stop: 01/21/19 10:40 Last Admin: 01/21/19 10:51 Dose: 2 mg Morphine Sulfate (Morphine) 4 mg IVPUSH ONETIME ONE Stop: 01/21/19 10:53 Last Admin: 01/21/19 11:29 Dose: 4 mg Morphine Sulfate (Morphine) 2 mg IVPUSH Q2H PRN PRN Reason: Pain (severe 7-10) Stop: 01/22/19 13:43 Last Admin: 01/21/19 20:52 Dose: 2 mg Ondansetron HCl (Zofran) 4 mg IVPUSH ONETIME ONE Stop: 01/21/19 10:40 Last Admin: 01/21/19 10:51 Dose: 4 mg Ondansetron HCl (Zofran) 4 mg IVPUSH ONETIME ONE Stop: 01/21/19 11:46 Last Admin: 01/21/19 11:47 Dose: 4 mg Ondansetron HCl (Zofran) Confirm Administered Dose 4 mg .ROUTE .STK-MED ONE Stop: 01/21/19 11:46 Last Admin: 01/21/19 13:04 Dose: Not Given Potassium Chloride (Klor-Con M20) 40 meq PO ONETIME ONE Stop: 01/21/19 17:14 Last Admin: 01/21/19 17:26 Dose: 40 meq Potassium Chloride (Klor-Con M20) 40 meq PO ONETIME ONE Stop: 01/22/19 08:18 Last Admin: 01/22/19 08:36 Dose: 40 meq Propofol (Diprivan 20 Ml) Confirm Administered Dose 200 mg .ROUTE .STK-MED ONE Stop: 01/21/19 14:04 Succinylcholine Chloride (Succinylcholine Chloride) Confirm Administered Dose 200 mg .ROUTE .STK-MED ONE Stop: 01/21/19 14:03 - Exam General: Alert, Oriented, Cooperative, No Acute Distress HEENT: Pupils Equal, Pupils Reactive Lungs: Clear to Auscultation, Normal Respiratory Effort. No: Crackles, Wheezing Cardiovascular: Regular Rate, Regular Rhythm GI/Abdominal Exam: Normal Bowel Sounds, Soft, Non-Tender, No Distention Extremities: Other (left arm in sling,warm and able to move fingers) Skin: Warm, Dry - Problem List Review Problem List Initiated/Reviewed/Updated: Yes - My Orders Last 24 Hours: My Active Orders 01/21/19 17:30 Enoxaparin [Lovenox] 40 mg SUBCUT Q24H 01/21/19 21:00 Fluticasone Propionate [Flonase] 0 gm NASBOTH BID 01/21/19 Dinner Regular Diet [DIET] 01/23/19 05:11 CBC WITH AUTO DIFF [HEME] AM COMPREHENSIVE METABOLIC PN,CMP [CHEM] AM - Plan Plan:: A: 1. Fracture of left humeral head s/p closed reduction POD #1 2. PMH hypertension, dyslipidemia P: 1. No runs of SVT overnight. Will go down on metoprolol to 12.5 mg PO q12H due to low BP overnight. Will stay today for pain management and transition to PO pain meds. Will plan to discharge home tomorrow. Per Ortho: Continue shoulder immobilizer for 2-4 weeks and switch to sling when patient more comfortable Follow-up with Dr. Paul in 4 weeks. <Hamida Mallory - Last Filed: 01/24/19 19:41> - Patient Data Vitals - Most Recent: Last Vital Signs Temp 36.3 C 01/23/19 12:00 Pulse 77 01/23/19 12:00 Resp 18 01/23/19 12:00 BP 140/66 01/23/19 12:00 Pulse Ox 96 01/23/19 13:00 Med Orders - Current: Current Medications Discontinued Medications Hydrocodone Bitart/Acetaminophen ([place] 325-5 Mg) 1 - 2 tab PO Q4H PRN PRN Reason: Pain Last Admin: 01/23/19 11:50 Dose: 1 tab Enoxaparin Sodium (Lovenox) 40 mg SUBCUT Q24H [facility] Last Admin: 01/22/19 17:29 Dose: 40 mg Fentanyl (Sublimaze) Confirm Administered Dose 100 mcg .ROUTE .STK-MED ONE Stop: 01/21/19 14:47 Fentanyl (Sublimaze) Confirm Administered Dose 100 mcg .ROUTE .STK-MED ONE Stop: 01/21/19 15:12 Last Admin: 01/21/19 16:27 Dose: Not Given Fentanyl (Sublimaze) 50 mcg IVPUSH Q5M PRN PRN Reason: Pain Last Admin: 01/21/19 15:30 Dose: 50 mcg Fluticasone Propionate (Flonase) 0 gm NASBOTH BID [facility] Last Admin: 01/23/19 08:22 Dose: 1 spray Hydromorphone HCl (Dilaudid) 1 mg IVPUSH ONETIME ONE Stop: 01/21/19 11:32 Last Admin: 01/21/19 11:40 Dose: 1 mg Hydromorphone HCl (Dilaudid) 0.5 mg IVPUSH ONETIME ONE Stop: 01/21/19 13:43 Last Admin: 01/21/19 13:50 Dose: 0.5 mg Hydromorphone HCl (Dilaudid) 2 mg IVPUSH ONETIME ONE Stop: 01/21/19 15:15 Last Admin: 01/21/19 16:27 Dose: Not Given Sodium Chloride (Normal Saline) 1,000 mls @ 100 mls/hr IV STAT ONE Stop: 01/21/19 20:38 Last Admin: 01/21/19 10:51 Dose: 100 mls/hr Sodium Chloride (Normal Saline) 1,000 mls @ 100 mls/hr IV ASDIRECTED [facility] Last Admin: 01/23/19 08:32 Dose: 100 mls/hr Magnesium Sulfate 2 gm/ Premix 50 mls @ 25 mls/hr IV ONETIME ONE Stop: 01/21/19 19:13 Last Admin: 01/21/19 17:28 Dose: 25 mls/hr Ibuprofen (Motrin) 800 mg PO Q6H [facility] Last Admin: 01/23/19 11:51 Dose: 800 mg Ketorolac Tromethamine (Toradol) 15 mg IVPUSH Q6H PRN PRN Reason: Pain Stop: 01/26/19 16:05 Last Admin: 01/22/19 04:24 Dose: 15 mg Labetalol HCl (Normodyne) 20 mg IVPUSH ONETIME ONE; Protocol Stop: 01/21/19 15:17 Last Admin: 01/21/19 16:27 Dose: Not Given Lidocaine (Xylocaine-Mpf 2%) Confirm Administered Dose 5 ml .ROUTE .STK-MED ONE Stop: 01/21/19 14:03 Metoprolol Tartrate (Lopressor) 25 mg PO Q12H [facility] Last Admin: 01/22/19 06:07 Dose: 25 mg Metoprolol Tartrate (Lopressor) 12.5 mg PO Q12H [facility] Last Admin: 01/22/19 16:13 Dose: Not Given Morphine Sulfate (Morphine) 2 mg IVPUSH ONETIME ONE Stop: 01/21/19 10:40 Last Admin: 01/21/19 10:51 Dose: 2 mg Morphine Sulfate (Morphine) 4 mg IVPUSH ONETIME ONE Stop: 01/21/19 10:53 Last Admin: 01/21/19 11:29 Dose: 4 mg Morphine Sulfate (Morphine) 2 mg IVPUSH Q2H PRN PRN Reason: Pain (severe 7-10) Stop: 01/22/19 13:43 Last Admin: 01/21/19 20:52 Dose: 2 mg Ondansetron HCl (Zofran) 4 mg IVPUSH ONETIME ONE Stop: 01/21/19 10:40 Last Admin: 01/21/19 10:51 Dose: 4 mg Ondansetron HCl (Zofran) 4 mg IVPUSH ONETIME ONE Stop: 01/21/19 11:46 Last Admin: 01/21/19 11:47 Dose: 4 mg Ondansetron HCl (Zofran) Confirm Administered Dose 4 mg .ROUTE .STK-MED ONE Stop: 01/21/19 11:46 Last Admin: 01/21/19 13:04 Dose: Not Given Ondansetron HCl (Zofran Odt) 4 mg PO Q4H PRN PRN Reason: nausea, able to take PO Ondansetron HCl (Zofran) 4 mg IVPUSH Q4H PRN PRN Reason: Nausea Potassium Chloride (Klor-Con M20) 40 meq PO ONETIME ONE Stop: 01/21/19 17:14 Last Admin: 01/21/19 17:26 Dose: 40 meq Potassium Chloride (Klor-Con M20) 40 meq PO ONETIME ONE Stop: 01/22/19 08:18 Last Admin: 01/22/19 08:36 Dose: 40 meq Propofol (Diprivan 20 Ml) Confirm Administered Dose 200 mg .ROUTE .STK-MED ONE Stop: 01/21/19 14:04 Succinylcholine Chloride (Succinylcholine Chloride) Confirm Administered Dose 200 mg .ROUTE .STK-MED ONE Stop: 01/21/19 14:03 Tramadol HCl (Ultram) 50 mg PO ONETIME ONE Stop: 01/23/19 12:48 Last Admin: 01/23/19 13:22 Dose: 50 mg - Problem List & Annotations (1) Closed fracture dislocation of left shoulder SNOMED Code(s): 203409410 Code(s): S42.92XA - FRACTURE OF LEFT SHOULDER GIRDLE, PART UNSP, INIT Status: Acute Priority: High - Plan Plan:: I have seen and evaluated the patient and agree with the residents note unless specified in my note
[2019-01-22] MEDS: Enoxaparin 40 MG/0.4 ML Syringe SUBCUT SCH (17:29)
[2019-01-23] MEDS: Acetaminophen/HYDROcodone 325-5 MG Tab PO PRN ×3 (00:38→11:50)
[2019-01-23] MEDS: Ibuprofen 800 MG Tab PO SCH ×2 (06:06→11:51)
[2019-01-23 06:23] LABS: BLOOD UREA NITROGEN,BUN 12 mg/dL (7.0-18.0); CARBON DIOXIDE,CO2 25.6 mmol/L (21.0-32.0); CHLORIDE,CL 108 mmol/L (98-107); GLUCOSE RANDOM 137 mg/dL (74-106); POTASSIUM,K 3.7 mmol/L (3.5-5.1); SODIUM,NA 141 mmol/L (136-145)
[2019-01-23] MEDS: Fluticasone Propionate Nasal Spray 16 GM Bottle NASBOTH SCH (08:22)
[2019-01-23] MEDS: Sodium Chloride 0.9% 1,000 ML IV SCH (08:32)
[2019-01-23 12:28] VITALS: BP 140/66; PULSE 77
[2019-01-23] MEDS ORDERED: traMADol 50 MG Tab PO ONE (12:47)
--- NOTE | 2019-01-23 13:42 | PCM.DCSUM1 ---
Discharge Summary - Hospital Course HPI Initial Comments: 68 year old right hand dominant female who slipped on the ice earlier today. She injured her left shoulder. X-rays in the ER demonstrate a left shoulder fracture dislocation with 3 part fracture including greater tuberosity. Acute pain managed with IV morphine. No other injuries, no hand numbness. Orthopedic surgeon performed closed reduction of left shoulder fracture dislocation. Patient was started on Narco and NSAIDs for pain. Today patient is tolerating pain well. Ambulating and eating. Ready for d/c and has f/u appt with Dr Paul in few weeks Diagnosis: Stroke: No - Discharge Data Discharge Date: 01/23/19 Discharge Disposition: Home, Self-Care 01 Condition: Good - Referral to Home Health Primary Care Physician: Gus Nassar MD - Discharge Diagnosis/Problem(s) (1) Closed fracture dislocation of left shoulder SNOMED Code(s): 379708313 ICD Code: S42.92XA - FRACTURE OF LEFT SHOULDER GIRDLE, PART UNSP, INIT Status: Acute Priority: High Current Visit: Yes - Patient Summary/Data Operative Procedure(s) Performed: Closed reduction of left shoulder fracture dislocation Consults: Consultations 01/21/19 12:02 Consult to Physician [CONS] Stat - Patient Instructions Diet: Regular Diet as Tolerated Activity: As Tolerated Driving: Do Not Drive Showering/Bathing: Shower in AM Notify Provider of: Fever, Increased Pain, Swelling and Redness, Drainage - Discharge Plan *PRESCRIPTION DRUG MONITORING PROGRAM REVIEWED*: No *COPY OF PRESCRIPTION DRUG MONITORING REPORT IN PATIENT TRISTAN: No Prescriptions/Med Rec: Acetaminophen/HYDROcodone [[place] 325-5 MG] 1 - 2 tab PO Q6H PRN #20 tablet PRN Reason: Pain (Severe 7-10) Ibuprofen [Motrin] 800 mg PO Q6H #20 tablet Pantoprazole [ProTONIX] 40 mg PO DAILY #20 tab.cr Home Medications: Home Meds Cyclobenzaprine [Flexeril] 10 mg PO TID PRN #8 tab 11/17/18 [Rx] Fluticasone Propionate [Flonase] 1 spray NASBOTH BID 01/21/19 [History] Acetaminophen/HYDROcodone [[place] 325-5 MG] 1 - 2 tab PO Q6H PRN #20 tablet 01/23 [Rx] Ibuprofen [Motrin] 800 mg PO Q6H #20 tablet 01/23/19 [Rx] Pantoprazole [ProTONIX] 40 mg PO DAILY #20 tab.cr 01/23/19 [Rx] Oxygen Therapy Mode: Room Air Patient Handouts: Acetaminophen; Hydrocodone tablets or capsules, Shoulder Dislocation, Ibuprofen tablets and capsules, Pantoprazole tablets Referrals: Willy Paul MD [Physician] - (Call the clinic on Thursday to make an appointment in 4 weeks. This was not able to be done for you, due to it being the weekend.) Gus Nassar MD [Primary Care Provider] - (Call the clinic on Thursday to make a hospital follow-up. This was not done for you due to it being the weekend) - Discharge Summary/Plan Comment DC Time >30 min.: No - Patient Data Vitals - Most Recent: Last Vital Signs Temp 36.3 C 01/23/19 12:00 Pulse 77 01/23/19 12:00 Resp 18 01/23/19 12:00 BP 140/66 01/23/19 12:00 Pulse Ox 96 01/23/19 13:00 Weight - Most Recent: 104.326 kg I&O - Last 24 hours: Intake & Output 01/22/19 01/23/19 01/23/19 22:59 06:59 14:59 Intake Total 2636 1937 Output Total 300 750 Balance 2336 1187 Lab Results - Last 24 hrs: Laboratory Results - last 24 hr 01/23/19 01/23/19 Range/Units 05:55 05:55 WBC 8.47 (4.0-11.0) K/uL RBC 3.64 L (4.30-5.90) M/uL Hgb 11.0 L (12.0-16.0) g/dL Hct 34.3 L (36.0-46.0) % MCV 94.2 (80.0-98.0) fL MCH 30.2 (27.0-32.0) pg MCHC 32.1 (31.0-37.0) g/dL RDW Std Deviation 49.8 (28.0-62.0) fl RDW Coeff of Frank 15 (11.0-15.0) % Plt Count 249 (150-400) K/uL MPV 10.50 (7.40-12.00) fL Neut % (Auto) 60.2 (48.0-80.0) % Lymph % (Auto) 28.0 (16.0-40.0) % [place] % (Auto) 9.0 (0.0-15.0) % Eos % (Auto) 2.4 (0.0-7.0) % Baso % (Auto) 0.4 (0.0-1.5) % Neut # (Auto) 5.1 (1.4-5.7) K/uL Lymph # (Auto) 2.4 (0.6-2.4) K/uL [place] # (Auto) 0.8 (0.0-0.8) K/uL Eos # (Auto) 0.2 (0.0-0.7) K/uL Baso # (Auto) 0.0 (0.0-0.1) K/uL Nucleated RBC % 0.0 /100WBC Nucleated RBCs # 0 K/uL Sodium 141 (136-145) mmol/L Potassium 3.7 (3.5-5.1) mmol/L Chloride 108 H (98-107) mmol/L Carbon Dioxide 25.6 (21.0-32.0) mmol/L BUN 12 (7.0-18.0) mg/dL Creatinine 0.7 (0.6-1.0) mg/dL Est Cr Clr Drug Dosing 71.01 mL/min Estimated GFR (MDRD) > 60.0 ml/min Glucose 137 H (74-106) mg/dL Calcium 7.9 L (8.5-10.1) mg/dL Total Bilirubin 0.4 (0.2-1.0) mg/dL AST 34 (15-37) IU/L ALT 23 (14-63) IU/L Alkaline Phosphatase 69 (46-116) U/L Total Protein 6.1 L (6.4-8.2) g/dL Albumin 2.6 L (3.4-5.0) g/dL Globulin 3.5 (2.6-4.0) g/dL Albumin/Globulin Ratio 0.7 L (0.9-1.6) Med Orders - Current: Current Medications Hydrocodone Bitart/Acetaminophen ([place] 325-5 Mg) 1 - 2 tab PO Q4H PRN PRN Reason: Pain Last Admin: 01/23/19 11:50 Dose: 1 tab Fluticasone Propionate (Flonase) 0 gm NASBOTH BID [facility] Last Admin: 01/23/19 08:22 Dose: 1 spray Ibuprofen (Motrin) 800 mg PO Q6H [facility] Last Admin: 01/23/19 11:51 Dose: 800 mg Ondansetron HCl (Zofran Odt) 4 mg PO Q4H PRN PRN Reason: nausea, able to take PO Ondansetron HCl (Zofran) 4 mg IVPUSH Q4H PRN PRN Reason: Nausea Discontinued Medications Enoxaparin Sodium (Lovenox) 40 mg SUBCUT Q24H [facility] Last Admin: 01/22/19 17:29 Dose: 40 mg Fentanyl (Sublimaze) Confirm Administered Dose 100 mcg .ROUTE .STK-MED ONE Stop: 01/21/19 14:47 Fentanyl (Sublimaze) Confirm Administered Dose 100 mcg .ROUTE .STK-MED ONE Stop: 01/21/19 15:12 Last Admin: 01/21/19 16:27 Dose: Not Given Fentanyl (Sublimaze) 50 mcg IVPUSH Q5M PRN PRN Reason: Pain Last Admin: 01/21/19 15:30 Dose: 50 mcg Hydromorphone HCl (Dilaudid) 1 mg IVPUSH ONETIME ONE Stop: 01/21/19 11:32 Last Admin: 01/21/19 11:40 Dose: 1 mg Hydromorphone HCl (Dilaudid) 0.5 mg IVPUSH ONETIME ONE Stop: 01/21/19 13:43 Last Admin: 01/21/19 13:50 Dose: 0.5 mg Hydromorphone HCl (Dilaudid) 2 mg IVPUSH ONETIME ONE Stop: 01/21/19 15:15 Last Admin: 01/21/19 16:27 Dose: Not Given Sodium Chloride (Normal Saline) 1,000 mls @ 100 mls/hr IV STAT ONE Stop: 01/21/19 20:38 Last Admin: 01/21/19 10:51 Dose: 100 mls/hr Sodium Chloride (Normal Saline) 1,000 mls @ 100 mls/hr IV ASDIRECTED [facility] Last Admin: 01/23/19 08:32 Dose: 100 mls/hr Magnesium Sulfate 2 gm/ Premix 50 mls @ 25 mls/hr IV ONETIME ONE Stop: 01/21/19 19:13 Last Admin: 01/21/19 17:28 Dose: 25 mls/hr Ketorolac Tromethamine (Toradol) 15 mg IVPUSH Q6H PRN PRN Reason: Pain Stop: 01/26/19 16:05 Last Admin: 01/22/19 04:24 Dose: 15 mg Labetalol HCl (Normodyne) 20 mg IVPUSH ONETIME ONE; Protocol Stop: 01/21/19 15:17 Last Admin: 01/21/19 16:27 Dose: Not Given Lidocaine (Xylocaine-Mpf 2%) Confirm Administered Dose 5 ml .ROUTE .STK-MED ONE Stop: 01/21/19 14:03 Metoprolol Tartrate (Lopressor) 25 mg PO Q12H [facility] Last Admin: 01/22/19 06:07 Dose: 25 mg Metoprolol Tartrate (Lopressor) 12.5 mg PO Q12H [facility] Last Admin: 01/22/19 16:13 Dose: Not Given Morphine Sulfate (Morphine) 2 mg IVPUSH ONETIME ONE Stop: 01/21/19 10:40 Last Admin: 01/21/19 10:51 Dose: 2 mg Morphine Sulfate (Morphine) 4 mg IVPUSH ONETIME ONE Stop: 01/21/19 10:53 Last Admin: 01/21/19 11:29 Dose: 4 mg Morphine Sulfate (Morphine) 2 mg IVPUSH Q2H PRN PRN Reason: Pain (severe 7-10) Stop: 01/22/19 13:43 Last Admin: 01/21/19 20:52 Dose: 2 mg Ondansetron HCl (Zofran) 4 mg IVPUSH ONETIME ONE Stop: 01/21/19 10:40 Last Admin: 01/21/19 10:51 Dose: 4 mg Ondansetron HCl (Zofran) 4 mg IVPUSH ONETIME ONE Stop: 01/21/19 11:46 Last Admin: 01/21/19 11:47 Dose: 4 mg Ondansetron HCl (Zofran) Confirm Administered Dose 4 mg .ROUTE .STK-MED ONE Stop: 01/21/19 11:46 Last Admin: 01/21/19 13:04 Dose: Not Given Potassium Chloride (Klor-Con M20) 40 meq PO ONETIME ONE Stop: 01/21/19 17:14 Last Admin: 01/21/19 17:26 Dose: 40 meq Potassium Chloride (Klor-Con M20) 40 meq PO ONETIME ONE Stop: 01/22/19 08:18 Last Admin: 01/22/19 08:36 Dose: 40 meq Propofol (Diprivan 20 Ml) Confirm Administered Dose 200 mg .ROUTE .STK-MED ONE Stop: 01/21/19 14:04 Succinylcholine Chloride (Succinylcholine Chloride) Confirm Administered Dose 200 mg .ROUTE .STK-MED ONE Stop: 01/21/19 14:03 Tramadol HCl (Ultram) 50 mg PO ONETIME ONE Stop: 01/23/19 12:48 Last Admin: 01/23/19 13:22 Dose: 50 mg
== END 2019-01-23 14:20 | disposition home or self-care (01) ==
LOC: MW.ED 10:33 → MW.MS 13:01
PROVIDERS: ADMIT Student in an Organized Health Care Education/Training Program; ATTEND Student in an Organized Health Care Education/Training Program
DX: S42.252A Displaced fracture of greater tuberosity of left humerus, initial encounter for closed fracture (principal); I47.1 Supraventricular tachycardia; E87.6 Hypokalemia; E78.5 Hyperlipidemia, unspecified; I10 Essential (primary) hypertension; E66.9 Obesity, unspecified; W00.0XXA Fall on same level due to ice and snow, initial encounter; Z88.0 Allergy status to penicillin; Z91.81 History of falling
CPT/HCPCS: 24505; 36415; 70450; 72040; 72125; 72170; 73030; 73070; 73560; 76000; 80053; 83735; 84443; 85025; 93005; 96361; 96374; 96375; 96376; 99285; A9270; G0378; J0330; J1170; J1650; J1885; J2001; J2270; J2405; J2704; J3010; J3475; J7040; 01620; 99283; J7030

== ENCOUNTER 2019-02-01 02:46 | Inpatient (IN) | payer MEDICARE, BC ==
[2019-02-01] MEDS ORDERED: Ketorolac 30 MG/ML SDV IM ONE (03:00)
[2019-02-01] MEDS ORDERED: Ketorolac 30 MG/ML SDV ONE (03:06)
[2019-02-01] MEDS ORDERED: Fluticasone Propionate Nasal Spray 16 GM Bottle NASBOTH PRN (05:38)
[2019-02-01] MEDS ORDERED: Sodium Chloride 0.9% 10 ML SDV IV PRN (05:50)
[2019-02-01] MEDS ORDERED: Sodium Chloride 0.9% 10 ML Syringe FLUSH PRN (05:50)
[2019-02-01] MEDS ORDERED: Sodium Chloride 0.9% 2.5 ML Syringe FLUSH PRN (05:50)
[2019-02-01] MEDS ORDERED: Clindamycin Phosphate in D5W 900 MG in Premix Bag 1 BAG IV PRN ×2 (05:57)
[2019-02-01] MEDS ORDERED: Pantoprazole 40 MG Tab.CR PO ONE (06:00)
[2019-02-01] MEDS: Acetaminophen/HYDROcodone 325-5 MG Tab PO PRN ×4 (06:24→20:04)
--- NOTE | 2019-02-01 06:42 | CR ---
INDICATION: Preoperative chest x-ray COMPARISON: Portable chest dated 01/24/2018. TECHNIQUE: Two view chest. FINDINGS: The lungs are clear. The heart, mediastinum and pulmonary vessels are of normal size. There is no evidence of pleural fluid. IMPRESSION: Negative chest. Dictated by Dex Reid MD @ Feb 01 2019 6:41AM Signed by Dr. Dex Reid @ Feb 01 2019 6:41AM
[2019-02-01] MEDS: Cyclobenzaprine 10 MG Tab PO PRN ×2 (09:23→19:25)
--- NOTE | 2019-02-01 09:25 | PCM.HP.2 ---
<Akhil Franco M - Last Filed: 02/01/19 16:04> H&P History of Present Illness - General Date of Service: 02/01/19 Admit Problem/Dx: Admission Diagnosis/Problem Admission Diagnosis/Problem Closed fracture of head of humerus Source of Information: Patient History Limitations: Reports: No Limitations - History of Present Illness Initial Comments - Free Text/Narative: 68-year-old female admitted to orthopedic service for left shoulder fracture and dislocation. Patient will be going for left shoulder arthroplasty by orthopedic surgery tomorrow. Patient reports falling on her left shoulder approximately 1 week ago. She was admitted to the hospital last week where joint reduction was done by orthopedic surgery and patient was discharged. Patient reports that for the past week she has been having persistent pain and decided to come back to the ER for further evaluation. X-ray showed left humeral fracture. Medicine was consulted for surgical clearance as patient has PMH of hypertension and hyperlipidemia. On review of systems, patient denies any fevers, chills, shortness of breath, chest pain, nausea, vomiting, diarrhea , blood in stool or blood in urine. left shoulder Pain Score (Numeric/FACES): 8 - Related Data Allergies/Adverse Reactions: Allergies Allergy/AdvReac Type Severity Reaction Status Date / Time Penicillins Allergy Rash Verified 02/01/19 07:42 Home Medications: Home Meds Cyclobenzaprine [Flexeril] 10 mg PO TID PRN #8 tab 11/17/18 [Rx] Acetaminophen/HYDROcodone [Seneca 325-5 MG] 1 - 2 tab PO Q6H PRN #20 tablet 01/23 [Rx] Ibuprofen [Motrin] 800 mg PO Q6H PRN 02/01/19 [History] Losartan/Hydrochlorothiazide [Losartan-HCTZ 100-25 MG] 1 tab PO DAILY 02/01/19 [ History] Potassium Chloride 20 meq PO DAILY 02/01/19 [History] atorvaSTATin [Lipitor] 10 mg PO DAILY 02/01/19 [History] Past Medical History HEENT History: Reports: None, Impaired Vision 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 Cardiovascular History: Reports: High Cholesterol, Hypertension Respiratory History: Reports: None Gastrointestinal History: Reports: None Genitourinary History: Reports: None HOUSING INSPECTOR History: Reports: 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 History: Reports: Fracture Neurological History: Reports: None Psychiatric History: Reports: None Endocrine/Metabolic History: Reports: Obesity/BMI 30+ 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 Personal Security Specialist: None Hematologic History: Reports: None Immunologic History: Reports: None Oncologic (Cancer) History: Reports: None Dermatologic History: Reports: None - Infectious Disease History Infectious Disease History: Reports: None - Past Surgical History Head Surgeries/Procedures: Reports: None HEENT Surgical History: Reports: Other (See Below) GI Surgical History: Reports: Appendectomy Female Surgical History: Reports: Hysterectomy Social & Family History - Family History Family Medical History: Noncontributory Cardiac: Reports: None Respiratory: Reports: None GI: Reports: None : Reports: None OBGYN: Reports: None 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: Reports: None Neurological: Reports: None Psychiatric: Reports: None Endocrine/Metabolic: Reports: None Hematologic: Reports: None Immunologic: Reports: None Dermatologic: Reports: None Oncologic: Reports: None - Tobacco Use Smoking Status *Q: Never Smoker - Caffeine Use Caffeine Use: Reports: Soda - Recreational Drug Use Recreational Drug Use: No - Living Situation & Occupation Living situation: Reports: , with Family Occupation: Retired H&P Review of Systems - Review of Systems: Review Of Systems: Comprehensive ROS is negative, except as noted in HPI. Exam - Exam Exam: See Below - Vital Signs Vital Signs: Last Vital Signs Temp 98.1 F 02/01/19 07:40 Pulse 84 02/01/19 07:40 Resp 16 02/01/19 07:40 BP 134/63 02/01/19 07:40 Pulse Ox 94 L 02/01/19 07:40 Weight: 104.326 kg - Exam General: Alert, Oriented, Cooperative HEENT: Conjunctiva Clear, EOMI, Hearing Intact, Mucosa Moist & [place], Posterior Pharynx Clear Neck: Supple, Trachea Midline, Full Range of Motion Lungs: Clear to Auscultation, Normal Respiratory Effort Cardiovascular: Regular Rate, Regular Rhythm GI/Abdominal Exam: Normal Bowel Sounds, Soft, Non-Tender, No Distention Extremities: Normal Inspection, No Pedal Edema, Other (Left shoulder in sling) Peripheral Pulses: 2+: Posterior Tibial (L), Posterior Tibial (R) Skin: Warm, Dry, Intact Neurological: Cranial Nerves Intact, Normal Speech, Normal Tone Neuro Extensive - Mental Status: Alert, Oriented x3, Normal Mood/Affect - Patient Data Lab Results Last 24 hrs: Laboratory Results - last 24 hr 11/26/19 Range/Units 06:00 WBC 10.79 (4.0-11.0) K/uL RBC 4.02 L (4.30-5.90) M/uL Hgb 12.2 (12.0-16.0) g/dL Hct 37.0 (36.0-46.0) % MCV 92.0 (80.0-98.0) fL MCH 30.3 (27.0-32.0) pg MCHC 33.0 (31.0-37.0) g/dL RDW Std Deviation 47.7 (28.0-62.0) fl RDW Coeff of Frank 14 (11.0-15.0) % Plt Count 331 (150-400) K/uL MPV 10.50 (7.40-12.00) fL Neut % (Auto) 76.2 (48.0-80.0) % Lymph % (Auto) 14.0 L (16.0-40.0) % [place] % (Auto) 8.2 (0.0-15.0) % Eos % (Auto) 1.3 (0.0-7.0) % Baso % (Auto) 0.3 (0.0-1.5) % Neut # (Auto) 8.2 H (1.4-5.7) K/uL Lymph # (Auto) 1.5 (0.6-2.4) K/uL [place] # (Auto) 0.9 H (0.0-0.8) K/uL Eos # (Auto) 0.1 (0.0-0.7) K/uL Baso # (Auto) 0.0 (0.0-0.1) K/uL Nucleated RBC % 0.0 /100WBC Nucleated RBCs # 0 K/uL Result Diagrams: 02/01/19 06:00 02/01/19 06:47 Problem List Initiated/Reviewed/Updated: Yes Orders Last 24hrs: Active Orders 24 hr Category Date Time Status Patient Status [ADT] Routine ADT 02/01/19 05:32 Active Antiembolic Devices [RC] PER UNIT ROUTINE Care 02/01/19 05:37 Active Notify Provider Consults [RC] ASDIRECTED Care 02/01/19 05:48 Active Peripheral IV Care [RC] Q4H Care 02/01/19 05:50 Active Consult to Physician [CONS] Stat Cons 02/01/19 05:47 Active NPO After Midnight [Nothing per Oral After Midnight Diet 02/01/19 Dinner Active Diet] [DIET] Regular Diet [DIET] Diet 02/01/19 Breakfast Active Shoulder wo Cont Lt [CT] Stat Exams 02/01/19 03:00 Taken TYPE AND SCREEN [BBK] Routine Lab 02/01/19 06:47 Received Acetaminophen/HYDROcodone [Seneca 325-5 MG] Med 02/01/19 05:32 Active 1 tab PO Q4H PRN Clindamycin Phosphate in D5W [Cleocin in D5W] 900 mg Med 02/01/19 05:57 Active Premix Bag 1 bag IV ONCALL Cyclobenzaprine [Flexeril] Med 02/01/19 05:38 Active 10 mg PO TID PRN Fluticasone Propionate [Flonase] Med 02/01/19 05:38 Active 0 gm NASBOTH BID PRN Lactated Ringers [Ringers, Lactated] 1,000 ml Med 02/02/19 00:00 Active IV ASDIRECTED Pantoprazole [ProTONIX] Med 02/02/19 07:30 Active 40 mg PO ACBREAKFAST Sodium Chloride 0.9% [Normal Saline] Med 02/01/19 05:50 Active 10 ml IV ASDIRECTED PRN Sodium Chloride 0.9% [Saline Flush] Med 02/01/19 05:50 Active 10 ml FLUSH ASDIRECTED PRN Sodium Chloride 0.9% [Saline Flush] Med 02/01/19 05:50 Active 2.5 ml FLUSH ASDIRECTED PRN Peripheral IV Insertion Adult [OM.PC] Stat Oth 02/01/19 05:50 Ordered Sequential Compression Device [OM.PC] Routine Oth 02/01/19 05:36 Ordered Code Status [Resuscitation Status] Routine Resus Stat 02/01/19 05:32 Ordered Medication Orders Hydrocodone Bitart/Acetaminophen (Seneca 325-5 Mg) 1 tab PO Q4H PRN PRN Reason: Pain Last Admin: 02/01/19 06:24 Dose: 1 tab Cyclobenzaprine HCl (Flexeril) 10 mg PO TID PRN PRN Reason: Spasms Fluticasone Propionate (Flonase) 0 gm NASBOTH BID PRN PRN Reason: Allergies Clindamycin Phosphate 900 mg/ (Premix) 50 mls @ 50 mls/hr IV ONCALL PRN PRN Reason: identity management consultant to [place] Stop: 02/02/19 05:58 Lactated Ringer's (Ringers, Lactated) 1,000 mls @ 75 mls/hr IV ASDIRECTED QUIRINO Pantoprazole Sodium (Protonix) 40 mg PO ACBREAKFAST QUIRINO Sodium Chloride (Saline Flush) 10 ml FLUSH ASDIRECTED PRN PRN Reason: Keep Vein Open Sodium Chloride (Saline Flush) 2.5 ml FLUSH ASDIRECTED PRN PRN Reason: Keep Vein Open Sodium Chloride (Normal Saline) 10 ml IV ASDIRECTED PRN PRN Reason: IV Use Assessment/Plan Comment:: Assessment: 1. Left shoulder fracture, pre-operative evaluation. 2. Hypertension. 3. Hyperlipidemia. Plan: 1. Patient is undergoing a low risk surgery. Her ASA classification is class II due to her history of hypertension. She is a non-smoker. Patient's CBC, BMP, lipid panel and TSH were unremarkable. Mallampati score class I. Normal ROM of neck. She has no history of CAD, bleeding disorders or kidney disease. No recent history of corticosteroid use or diabetes mellitus. No further recommendations at this time. 2. For hypertension and hyperlipidemia, continue home medications. <Hamida Mallory - Last Filed: 02/02/19 20:25> H&P History of Present Illness - General Admit Problem/Dx: Admission Diagnosis/Problem Admission Diagnosis/Problem Closed fracture of head of humerus Exam - Vital Signs Vital Signs: Last Vital Signs Temp 35.8 C 02/02/19 19:00 Pulse 94 02/02/19 19:00 Resp 20 02/02/19 18:00 BP 107/59 L 02/02/19 19:00 Pulse Ox 94 L 02/02/19 19:00 - Patient Data Result Diagrams: 02/01/19 06:00 02/01/19 06:47 Orders Last 24hrs: Active Orders 24 hr Category Date Time Status Activity as Tolerated [RC] .Routine Care 02/02/19 15:10 Active Communication Order [RC] PRN Care 02/02/19 15:02 Active Insert Zimmerman Catheter [Insert Urinary Catheter] [OM.PC] Care 02/02/19 15:34 Ordered Stat Neurovascular Check [RC] Q2HR Care 02/02/19 15:02 Active Notify Provider Vital Signs [RC] ASDIRECTED Care 02/02/19 15:02 Active RT Incentive Spirometry [RC] Q1HWA Care 02/02/19 15:02 Active Remove Zimmerman Catheter [Urinary Catheter Removal] [RC] Care 02/02/19 19:39 Active Per Unit Routine Urinary Catheter Assessment [RC] ASDIRECTED Care 02/02/19 15:34 Active Vital Signs [RC] PER UNIT ROUTINE Care 02/02/19 15:02 Active Wound Care [RC] DAILY Care 02/02/19 15:02 Active PT Evaluation and Treatment [CONS] Routine Cons 02/02/19 15:02 Active Regular Diet [DIET] Diet 02/02/19 Dinner Active BMP [BASIC METABOLIC PANEL,BMP] [CHEM] AM Lab 02/03/19 05:11 Ordered HEMOGLOBIN/HEMATOCRIT,HH [HEME] DAILY Lab 02/03/19 06:00 Ordered HEMOGLOBIN/HEMATOCRIT,HH [HEME] DAILY Lab 02/04/19 06:00 Ordered UA W/MICROSCOPIC [URIN] Routine Lab 02/02/19 16:30 Ordered Acetaminophen/oxyCODONE [Percocet 325-5 MG] Med 02/02/19 15:08 Active 1 tab PO QID PRN Alum Hydrox/Mag Hydrox/Simeth [Mag-Al Plus] Med 02/02/19 15:02 Active 30 ml PO Q4H PRN Aspirin Med 02/03/19 09:00 Active 325 mg PO DAILY Bisacodyl [Dulcolax] Med 02/02/19 12:27 Active 10 mg RECTAL DAILY PRN Bisacodyl [Dulcolax] Med 02/02/19 15:02 Active 10 mg RECTAL DAILY PRN Clindamycin Phosphate in D5W [Cleocin in D5W] 600 mg Med 02/02/19 12:00 Active Premix Bag 1 bag IV ONCALL Clindamycin Phosphate in D5W [Cleocin in D5W] 600 mg Med 02/02/19 21:00 Active Premix Bag 1 bag IV Q8H Docusate Sodium [Colace] Med 02/02/19 21:00 Active 100 mg PO BID Docusate Sodium [Colace] Med 02/02/19 15:02 Active 100 mg PO BID PRN Famotidine [Pepcid] Med 02/03/19 09:00 Active 40 mg PO DAILY Lactated Ringers [Ringers, Lactated] 1,000 ml Med 02/02/19 00:00 Active IV ASDIRECTED Morphine Med 02/02/19 15:08 Active 1 - 2 mg IVPUSH Q3H PRN Ondansetron [Zofran] Med 02/02/19 13:33 Active 4 mg IVPUSH Q4H PRN Ondansetron [Zofran] Med 02/02/19 15:02 Active 4 mg IVPUSH Q6H PRN Pantoprazole [ProTONIX] Med 02/02/19 07:30 Active 40 mg PO ACBREAKFAST Polyethylene Glycol 3350 [MiraLAX] Med 02/03/19 09:00 Active 17 gm PO DAILY Polyethylene Glycol 3350 [MiraLAX] Med 02/02/19 12:27 Active 17 gm PO DAILY PRN Sodium Chloride 0.9% [Saline Flush] Med 02/02/19 15:02 Active 10 ml FLUSH ASDIRECTED PRN Sodium Chloride 0.9% [Saline Flush] Med 02/02/19 15:02 Active 2.5 ml FLUSH ASDIRECTED PRN diphenhydrAMINE [Benadryl] Med 02/02/19 15:02 Active 25 - 50 mg PO Q6H PRN fentaNYL [Sublimaze] Med 02/02/19 13:32 Active 50 mcg IVPUSH Q5M PRN Convert IV to Saline Lock [OM.PC] PRN Oth 02/02/19 15:15 Ordered Convert IV to Saline Lock [OM.PC] PRN Oth 02/03/19 15:15 Ordered Ice Therapy [OM.PC] Routine Oth 02/02/19 15:02 Ordered Medication Orders Hydrocodone Bitart/Acetaminophen ([place] 325-5 Mg) 1 tab PO Q4H PRN PRN Reason: Pain Last Admin: 02/02/19 09:23 Dose: 1 tab Admin: 02/02/19 04:39 Dose: 1 tab Admin: 02/02/19 00:04 Dose: 1 tab Admin: 02/01/19 20:04 Dose: 1 tab Admin: 02/01/19 15:56 Dose: 1 tab Admin: 02/01/19 11:08 Dose: 1 tab Admin: 02/01/19 06:24 Dose: 1 tab Al Hydroxide/Mg Hydroxide (Mag-Al Plus) 30 ml PO Q4H PRN PRN Reason: Indigestion Aspirin (Aspirin) 325 mg PO DAILY COUNT INCLUDES THE [facility] Atorvastatin Calcium (Lipitor) 10 mg PO DAILY COUNT INCLUDES THE [facility] Last Admin: 02/02/19 09:23 Dose: 10 mg Admin: 02/01/19 11:49 Dose: 10 mg Bisacodyl (Dulcolax) 10 mg RECTAL DAILY PRN PRN Reason: Constipation Bisacodyl (Dulcolax) 10 mg RECTAL DAILY PRN PRN Reason: Constipation Cyclobenzaprine HCl (Flexeril) 10 mg PO TID PRN PRN Reason: Spasms Last Admin: 02/01/19 19:25 Dose: 10 mg Admin: 02/01/19 09:23 Dose: 10 mg Diphenhydramine HCl (Benadryl) 25 - 50 mg PO Q6H PRN PRN Reason: Itching Docusate Sodium (Colace) 100 mg PO BID QUIRINO Docusate Sodium (Colace) 100 mg PO BID PRN PRN Reason: Constipation Famotidine (Pepcid) 40 mg PO DAILY COUNT INCLUDES THE [facility] Fentanyl (Sublimaze) 50 mcg IVPUSH Q5M PRN PRN Reason: Pain Last Admin: 02/02/19 15:11 Dose: 50 mcg Fluticasone Propionate (Flonase) 0 gm NASBOTH BID PRN PRN Reason: Allergies HCTZ/Losartan Potassium (Hyzaar 50-12.5 Mg) 2 tab PO DAILY COUNT INCLUDES THE [facility] Last Admin: 02/02/19 09:23 Dose: 2 tab Admin: 02/01/19 11:48 Dose: 2 tab Lactated Ringer's (Ringers, Lactated) 1,000 mls @ 75 mls/hr IV ASDIRECTED QUIRINO Last Admin: 02/02/19 16:12 Dose: 75 mls/hr Infusion: 02/02/19 13:21 Dose: 75 mls/hr Admin: 02/02/19 00:01 Dose: 75 mls/hr Clindamycin Phosphate 600 mg/ (Premix) 50 mls @ 150 mls/hr IV ONCALL QUIRINO Clindamycin Phosphate 600 mg/ (Premix) 50 mls @ 100 mls/hr IV Q8H QUIRINO Stop: 02/03/19 05:29 Morphine Sulfate (Morphine) 1 - 2 mg IVPUSH Q3H PRN PRN Reason: Pain Ondansetron HCl (Zofran) 4 mg IVPUSH Q4H PRN PRN Reason: Nausea Ondansetron HCl (Zofran) 4 mg IVPUSH Q6H PRN PRN Reason: Nausea/Vomiting Oxycodone/Acetaminophen (Percocet 325-5 Mg) 1 tab PO QID PRN PRN Reason: Pain Pantoprazole Sodium (Protonix) 40 mg PO ACBREAKFAST COUNT INCLUDES THE [facility] Last Admin: 02/02/19 06:53 Dose: 40 mg Polyethylene Glycol (Miralax) 17 gm PO DAILY PRN PRN Reason: Constipation Polyethylene Glycol (Miralax) 17 gm PO DAILY COUNT INCLUDES THE [facility] Sodium Chloride (Saline Flush) 10 ml FLUSH ASDIRECTED PRN PRN Reason: Keep Vein Open Sodium Chloride (Saline Flush) 2.5 ml FLUSH ASDIRECTED PRN PRN Reason: Keep Vein Open Sodium Chloride (Normal Saline) 10 ml IV ASDIRECTED PRN PRN Reason: IV Use Sodium Chloride (Saline Flush) 10 ml FLUSH ASDIRECTED PRN PRN Reason: Keep Vein Open Sodium Chloride (Saline Flush) 2.5 ml FLUSH ASDIRECTED PRN PRN Reason: Keep Vein Open Assessment/Plan Comment:: I have seen and evaluated the patient and agree with the residents note unless specified in my note
--- NOTE | 2019-02-01 10:17 | CT ---
EXAM DATE: 02/01/19 PATIENT'S AGE: 68 Patient: JACIEL CONWAY Facility: [facility] Site : 1950 Study: CT-Shoulder Left -02/01/2019 3:24:35 AM Ordering Physician: Dr Dex Marx Final Report: Indication: Left shoulder pain, recent dislocation. Technique: Noncontrast axial images were obtained through the left shoulder with coronal and sagittal reformatted images performed in the scanner. Comparison: None Findings: There is a comminuted fracture of the left proximal humerus. Fracture plane extends through the surgical neck with comminution of the greater trochanter. Fracture plane also extends through the posterior margin of the articular surface with a significant component of the articular surface rotated more horizontally relative to the glenoid. There is associated inferior subluxation of the humeral head with a large left shoulder effusion. Edema and a small amount of hematoma also surround the left shoulder. Waviness of the supraspinatus musculature consistent with the patient`s fracture extension to the greater tuberosity. No pneumothorax. No scapular fracture seen. Prominent osteophytes at the acromioclavicular joint with some inferior spurring from the acromial arch. Impression: Comminuted proximal left humeral fracture with inferior subluxation and large shoulder effusion as above. Please note that all CT scans at this facility use dose modulation, iterative reconstruction, and/or weight-based dosing when appropriate to reduce radiation dose to as low as reasonably achievable. Dictated by Bhavesh Cordon MD @ Feb 01 2019 3:32AM Signed by: Bhavesh Cordon MD @02/01/2019 3:40:06 AM (Electronic Signature) Report Signed by Proxy. ELLIS
[2019-02-01] MEDS: Hydrochlorothiazide/Losartan 12.5-50 mg Tab PO SCH (11:48)
[2019-02-01] MEDS: atorvaSTATin 10 MG Tab PO SCH (11:49)
[2019-02-01 12:20] LABS: BLOOD UREA NITROGEN,BUN 17 mg/dL (7.0-18.0); CARBON DIOXIDE,CO2 26.9 mmol/L (21.0-32.0); CHLORIDE,CL 103 mmol/L (98-107); GLUCOSE RANDOM 163 mg/dL (74-106); POTASSIUM,K 3.8 mmol/L (3.5-5.1); SODIUM,NA 139 mmol/L (136-145)
--- NOTE | 2019-02-01 13:07 | PCM.CONS ---
H&P History of Present Illness - General Date of Service: 02/01/19 Admit Problem/Dx: Admission Diagnosis/Problem Admission Diagnosis/Problem Closed fracture of head of humerus Source of Information: Patient, Old Records, Provider, RN History Limitations: Reports: No Limitations - History of Present Illness Onset of Symptoms: Reports: Today, Sudden Symptom Onset Date: 02/01/19 Symptom Onset Time: 03:00 Duration of Symptoms: Reports: Hour(s): Location: Reports: Upper Extremity, Left Quality: Reports: Ache, Burning, Pressure, Throbbing Severity: Moderate Improves with: Reports: Immobilization Worsens with: Reports: Movement Associated Symptoms: Reports: No Other Symptoms left shoulder Pain Score (Numeric/FACES): 8 - Related Data Allergies/Adverse Reactions: Allergies Allergy/AdvReac Type Severity Reaction Status Date / Time Penicillins Allergy Rash Verified 02/01/19 07:42 Home Medications: Home Meds Cyclobenzaprine [Flexeril] 10 mg PO TID PRN #8 tab 11/17/18 [Rx] Acetaminophen/HYDROcodone [[place] 325-5 MG] 1 - 2 tab PO Q6H PRN #20 tablet 01/23 [Rx] Ibuprofen [Motrin] 800 mg PO Q6H PRN 02/01/19 [History] Losartan/Hydrochlorothiazide [Losartan-HCTZ 100-25 MG] 1 tab PO DAILY 02/01/19 [ History] Potassium Chloride 20 meq PO DAILY 02/01/19 [History] atorvaSTATin [Lipitor] 10 mg PO DAILY 02/01/19 [History] Past Medical History HEENT History: Reports: None, Impaired Vision Other HEENT History: corrected with glasses Cardiovascular History: Reports: High Cholesterol, Hypertension Respiratory History: Reports: None Gastrointestinal History: Reports: None Genitourinary History: Reports: None 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 OB/BYN History: fatty tissue removed right breast 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 History: Reports: Fracture Other 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 History: right wrist fx Neurological History: Reports: None Psychiatric History: Reports: None Endocrine/Metabolic History: Reports: Obesity/BMI 30+ 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 Hematologic History: Reports: None Immunologic History: Reports: None Oncologic (Cancer) History: Reports: None Dermatologic History: Reports: None - Infectious Disease History Infectious Disease History: Reports: Chicken Pox, Mumps - Past Surgical History Head Surgeries/Procedures: Reports: None HEENT Surgical History: Reports: Other (See Below) Other HEENT Surgeries/Procedures: tumor removed right ear Cardiovascular Surgical History: Reports: None GI Surgical History: Reports: Appendectomy Female Surgical History: Reports: Hysterectomy Neurological Surgical History: Reports: None 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 Surgical History: Reports: Other (See Below) Other 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 Surgeries/Procedures:: surgery right wrist fx Social & Family History - Family History Family Medical History: Noncontributory Cardiac: Reports: None Respiratory: Reports: None GI: Reports: None : Reports: None OBGYN: Reports: None 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: Reports: None Neurological: Reports: None Psychiatric: Reports: None Endocrine/Metabolic: Reports: None Hematologic: Reports: None Immunologic: Reports: None Dermatologic: Reports: None Oncologic: Reports: None - Tobacco Use Smoking Status *Q: Never Smoker Second Hand Smoke Exposure: No - Caffeine Use Caffeine Use: Reports: Soda - Recreational Drug Use Recreational Drug Use: No - Living Situation & Occupation Living situation: Reports: , with Family Occupation: Retired H&P Review of Systems - Review of Systems: Review Of Systems: See Below General: Reports: No Symptoms HEENT: Reports: No Symptoms Pulmonary: Reports: No Symptoms Cardiovascular: Reports: No Symptoms Gastrointestinal: Reports: No Symptoms Genitourinary: Reports: No Symptoms 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: Reports: Shoulder Pain, Joint Pain, Joint Swelling, Muscle Pain , Muscle Stiffness Skin: Reports: No Symptoms Psychiatric: Reports: No Symptoms Neurological: Reports: No Symptoms Hematologic/Lymphatic: Reports: No Symptoms Immunologic: Reports: No Symptoms Exam - Exam Exam: See Below - Vital Signs Vital Signs: Last Vital Signs Temp 36.3 C 02/01/19 11:50 Pulse 73 02/01/19 11:50 Resp 16 02/01/19 11:50 BP 123/63 02/01/19 11:50 Pulse Ox 95 02/01/19 11:50 Weight: 105.6 kg - Exam General: Alert, Oriented, Cooperative HEENT: Conjunctiva Clear, EOMI, Hearing Intact, Mucosa Moist & [place] Neck: Supple, Trachea Midline Lungs: Normal Respiratory Effort Extremities: Joint Swelling, Limited Range of Motion Peripheral Pulses: 2+: Radial (L) Skin: Warm, Dry, Intact Neurological: Cranial Nerves Intact Neuro Extensive - Mental Status: Alert, Oriented x3, Normal Mood/Affect, Normal Cognition, Memory Intact Psychiatric: Alert, Normal Affect, Normal Mood - Patient Data Lab Results Last 24 hrs: Laboratory Results - last 24 hr 02/01/19 02/01/19 02/01/19 Range/Units 06:00 06:47 11:14 WBC 10.79 (4.0-11.0) K/uL RBC 4.02 L (4.30-5.90) M/uL Hgb 12.2 (12.0-16.0) g/dL Hct 37.0 (36.0-46.0) % MCV 92.0 (80.0-98.0) fL MCH 30.3 (27.0-32.0) pg MCHC 33.0 (31.0-37.0) g/dL RDW Std Deviation 47.7 (28.0-62.0) fl RDW Coeff of Frank 14 (11.0-15.0) % Plt Count 331 (150-400) K/uL MPV 10.50 (7.40-12.00) fL Neut % (Auto) 76.2 (48.0-80.0) % Lymph % (Auto) 14.0 L (16.0-40.0) % [place] % (Auto) 8.2 (0.0-15.0) % Eos % (Auto) 1.3 (0.0-7.0) % Baso % (Auto) 0.3 (0.0-1.5) % Neut # (Auto) 8.2 H (1.4-5.7) K/uL Lymph # (Auto) 1.5 (0.6-2.4) K/uL [place] # (Auto) 0.9 H (0.0-0.8) K/uL Eos # (Auto) 0.1 (0.0-0.7) K/uL Baso # (Auto) 0.0 (0.0-0.1) K/uL Nucleated RBC % 0.0 /100WBC Nucleated RBCs # 0 K/uL Sodium 139 (136-145) mmol/L Potassium 3.8 (3.5-5.1) mmol/L Chloride 103 (98-107) mmol/L Carbon Dioxide 26.9 (21.0-32.0) mmol/L BUN 17 (7.0-18.0) mg/dL Creatinine 0.8 (0.6-1.0) mg/dL Est Cr Clr Drug Dosing 62.13 mL/min Estimated GFR (MDRD) > 60.0 ml/min Glucose 163 H (74-106) mg/dL Calcium 9.1 (8.5-10.1) mg/dL Triglycerides 71 (0-200) mg/dL Cholesterol 137 (50-200) mg/dL LDL Cholesterol, Calc 70 (60-180) mg/dL VLDL Cholesterol 14 (5-55) mg/dL HDL Cholesterol 53 (40-60) mg/dL Cholesterol/HDL Ratio 2.6 L (3.3-6.0) TSH 3rd Generation 1.99 (0.36-3.74) uIU/mL Urine Color YELLOW Urine Appearance CLOUDY Urine pH 6.0 (5.0-8.0) Ur Specific [place] 1.020 (1.001-1.035) Urine Protein NEGATIVE (NEGATIVE) mg/dL Urine Glucose (UA) NEGATIVE (NEGATIVE) mg/dL Urine Ketones NEGATIVE (NEGATIVE) mg/dL Urine Occult Blood NEGATIVE (NEGATIVE) Urine Nitrite NEGATIVE (NEGATIVE) Urine Bilirubin NEGATIVE (NEGATIVE) Urine Urobilinogen 0.2 (<2.0) EU/dL Ur Leukocyte Esterase TRACE H (NEGATIVE) Urine RBC NONE SEEN (0-2/HPF) Urine WBC 4-8 (0-5/HPF) Ur Epithelial Cells MANY (NONE-FEW) Amorphous Sediment LIGHT (NEGATIVE) Urine Bacteria 2+ H (NEGATIVE) Urine Mucus MODERATE (NONE-MOD) Result Diagrams: 02/01/19 06:00 02/01/19 06:47 Consult PN Assessment/Plan POD#: 0 Procedures: Procedures ASSAY OF AMYLASE (01/24/18) ASSAY OF LIPASE (01/24/18) ASSAY OF MAGNESIUM (01/21/19) ASSAY OF TROPONIN QUANT (01/24/18) ASSAY THYROID STIM HORMONE (01/21/19) COMPLETE CBC W/AUTO DIFF WBC (01/21/19) COMPREHEN METABOLIC PANEL (01/21/19) CT HEAD/BRAIN W/O DYE (01/21/19) CT NECK SPINE W/O DYE (01/21/19) ELECTROCARDIOGRAM TRACING (01/21/19) EMERGENCY DEPT VISIT (01/21/19) EMERGENCY DEPT VISIT (11/23/18) EMERGENCY DEPT VISIT (01/24/18) EMERGENCY DEPT VISIT (04/02/17) EMERGENCY DEPT VISIT (06/27/15) EMERGENCY DEPT VISIT (05/30/15) EXTREMITY STUDY (07/16/18) FLUOROSCOPY <1 HR PHYS/QHP (01/21/19) GLYCOSYLATED HEMOGLOBIN TEST (04/24/17) HYDRATE IV INFUSION ADD-ON (01/21/19) HYDRATION IV INFUSION INIT (04/24/17) IMMUNIZATION ADMIN (02/03/15) LIPID PANEL (04/24/17) PROTHROMBIN TIME (01/24/18) PT EVALUATION (07/26/15) ROUTINE VENIPUNCTURE (01/21/19) TDAP VACCINE 7 YRS/> IM (02/03/15) THER/PROPH/DIAG INJ IV PUSH (01/21/19) THER/PROPH/DIAG INJ SC/IM (11/17/18) THERAPEUTIC EXERCISES (07/26/15) TREAT HUMERUS FRACTURE (01/21/19) TX/PRO/DX INJ NEW DRUG ADDON (01/21/19) TX/PRO/DX INJ SAME DRUG ROUTE RELIEF DRIVER (01/21/19) URINALYSIS AUTO W/SCOPE (01/24/18) X-RAY EXAM CHEST 1 VIEW (01/24/18) X-RAY EXAM HIP UNI 2-3 VIEWS (11/17/18) X-RAY EXAM L-S SPINE 2/3 VWS (11/17/18) X-RAY EXAM NECK SPINE 2-3 VW (01/21/19) X-RAY EXAM OF ELBOW (01/21/19) X-RAY EXAM OF KNEE 1 OR 2 (01/21/19) X-RAY EXAM OF PELVIS (01/21/19) X-RAY EXAM OF SHOULDER (01/21/19) (1) Closed fracture dislocation of left shoulder SNOMED Code(s): 757409973 Code(s): S42.92XA - FRACTURE OF LEFT SHOULDER GIRDLE, PART UNSP, INIT Priority: High Current Visit: No Qualifiers: Encounter type: initial encounter Qualified Code(s): S42.92XA - Fracture of left shoulder girdle, part unspecified, initial encounter for closed fracture Problem List Initiated/Reviewed/Updated: Yes My Orders Last 24 Hours: My Active Orders 02/01/19 05:32 Patient Status [ADT] Routine Acetaminophen/HYDROcodone [[place] 325-5 MG] 1 tab PO Q4H PRN Code Status [Resuscitation Status] Routine 02/01/19 05:36 Sequential Compression Device [OM.PC] Routine 02/01/19 05:37 Antiembolic Devices [RC] PER UNIT ROUTINE 02/01/19 05:38 Cyclobenzaprine [Flexeril] 10 mg PO TID PRN Fluticasone Propionate [Flonase] 0 gm NASBOTH BID PRN 02/01/19 05:47 Consult to Physician [CONS] Stat 02/01/19 05:48 Notify Provider Consults [RC] ASDIRECTED 02/01/19 05:50 Peripheral IV Care [RC] Q4H Sodium Chloride 0.9% [Normal Saline] 10 ml IV ASDIRECTED PRN Sodium Chloride 0.9% [Saline Flush] 10 ml FLUSH ASDIRECTED PRN Sodium Chloride 0.9% [Saline Flush] 2.5 ml FLUSH ASDIRECTED PRN Peripheral IV Insertion Adult [OM.PC] Stat 02/01/19 06:47 TYPE AND SCREEN [BBK] Routine 02/01/19 Breakfast Regular Diet [DIET] 02/01/19 Dinner NPO After Midnight [Nothing per Oral After Midnight Diet] [DIET] 02/02/19 00:00 Lactated Ringers [Ringers, Lactated] 1,000 ml IV ASDIRECTED 02/02/19 07:30 Pantoprazole [ProTONIX] 40 mg PO ACBREAKFAST assessment: 68-year-old female recurrent dislocation with humeral head fracture left shoulder, closed Plan: CT showed multiple fracture fragments of the humeral head extending into the neck. I explained to the patient and her that we could relocate this again but it would most likely sublux. It is now subluxed with the posterior head on the anterior glenoid. I did recommend a reverse total shoulder arthroplasty. They agreed to go ahead with the procedure. Risks and goals of the procedure explained to the patient and her and informed consent was obtained. We'll plan on doing surgery tomorrow following my other cases. She'll be nothing by mouth at midnight. I have asked the hospitalist service to clear and provide management of hypertension.
[2019-02-02] MEDS: Lactated Ringers 1,000 ML IV SCH ×2 (00:01→16:12)
[2019-02-02] MEDS: Acetaminophen/HYDROcodone 325-5 MG Tab PO PRN ×4 (00:04→21:24)
[2019-02-02] MEDS: Pantoprazole 40 MG Tab.CR PO SCH (06:53)
[2019-02-02] MEDS ORDERED: Propofol 200 MG/20 ML SDV ONE (08:26)
[2019-02-02] MEDS ORDERED: Midazolam 1 MG/ML 2 ML SDV ONE ×2 (08:27)
[2019-02-02] MEDS ORDERED: fentaNYL 100 MCG/2 ML SDV ONE ×2 (08:27→13:37)
[2019-02-02] MEDS ORDERED: Rocuronium 100 MG/10 ML Syringe ONE (08:28)
[2019-02-02] MEDS ORDERED: Glycopyrrolate 0.2 MG/ML SDV ONE (08:28)
[2019-02-02] MEDS ORDERED: Dexamethasone 4 MG/ML 5 ML MDV ONE (08:28)
[2019-02-02] MEDS ORDERED: Lidocaine 2% 5 ML SDV ONE (08:28)
[2019-02-02] MEDS ORDERED: Ondansetron 4 MG/2 ML SDV ONE (08:28)
[2019-02-02] MEDS ORDERED: Ketorolac 30 MG/ML SDV ONE (08:28)
[2019-02-02] MEDS ORDERED: Sugammadex Sodium 200 MG/2 ML VIAL ONE (08:31)
[2019-02-02] MEDS ORDERED: Ropivacaine 0.5% 5 MG/ML 30 ML SDV ONE ×2 (08:31→08:35)
--- NOTE | 2019-02-02 08:37 | PCM.PN ---
- General Info Date of Service: 02/02/19 Admission Dx/Problem (Free Text): Admission Diagnosis/Problem Admission Diagnosis/Problem Closed fracture of head of humerus Subjective Update: Doing ok this morning, having some pain to L arm. No chest pain or SOB. No other concerns. Functional Status: Reports: Pain Controlled, Tolerating Diet, Ambulating, Urinating - Review of Systems HEENT: Reports: No Symptoms Pulmonary: Reports: No Symptoms. Denies: Shortness of Breath Cardiovascular: Reports: No Symptoms. Denies: Chest Pain Gastrointestinal: Reports: No Symptoms. Denies: Abdominal Pain, Nausea, Vomiting Genitourinary: Reports: No Symptoms. Denies: Dysuria, Frequency 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: Reports: No Symptoms Skin: Reports: No Symptoms Neurological: Reports: No Symptoms Psychiatric: Reports: No Symptoms - Patient Data Vitals - Most Recent: Last Vital Signs Temp 97.1 F 02/02/19 08:00 Pulse 71 02/02/19 04:00 Resp 16 02/02/19 08:00 BP 115/55 L 02/02/19 08:00 Pulse Ox 92 L 02/02/19 08:00 Weight - Most Recent: 104.326 kg I&O - Last 24 Hours: Intake & Output 02/01/19 02/02/19 02/02/19 22:59 06:59 14:59 Intake Total 400 647 Output Total 400 500 Balance 0 147 Lab Results Last 24 Hours: Laboratory Results - last 24 hr 02/01/19 02/01/19 02/01/19 Range/Units 06:47 06:47 11:14 Sodium 139 (136-145) mmol/L Potassium 3.8 (3.5-5.1) mmol/L Chloride 103 (98-107) mmol/L Carbon Dioxide 26.9 (21.0-32.0) mmol/L BUN 17 (7.0-18.0) mg/dL Creatinine 0.8 (0.6-1.0) mg/dL Est Cr Clr Drug Dosing 62.13 mL/min Estimated GFR (MDRD) > 60.0 ml/min Glucose 163 H (74-106) mg/dL Calcium 9.1 (8.5-10.1) mg/dL Triglycerides 71 (0-200) mg/dL Cholesterol 137 (50-200) mg/dL LDL Cholesterol, Calc 70 (60-180) mg/dL VLDL Cholesterol 14 (5-55) mg/dL HDL Cholesterol 53 (40-60) mg/dL Cholesterol/HDL Ratio 2.6 L (3.3-6.0) TSH 3rd Generation 1.99 (0.36-3.74) uIU/mL Urine Color YELLOW Urine Appearance CLOUDY Urine pH 6.0 (5.0-8.0) Ur Specific [place] 1.020 (1.001-1.035) Urine Protein NEGATIVE (NEGATIVE) mg/dL Urine Glucose (UA) NEGATIVE (NEGATIVE) mg/dL Urine Ketones NEGATIVE (NEGATIVE) mg/dL Urine Occult Blood NEGATIVE (NEGATIVE) Urine Nitrite NEGATIVE (NEGATIVE) Urine Bilirubin NEGATIVE (NEGATIVE) Urine Urobilinogen 0.2 (<2.0) EU/dL Ur Leukocyte Esterase TRACE H (NEGATIVE) Urine RBC NONE SEEN (0-2/HPF) Urine WBC 4-8 (0-5/HPF) Ur Epithelial Cells MANY (NONE-FEW) Amorphous Sediment LIGHT (NEGATIVE) Urine Bacteria 2+ H (NEGATIVE) Urine Mucus MODERATE (NONE-MOD) Blood Type A POSITIVE Antibody Screen POSITIVE Antibody Identification Anti-M Crossmatch See Detail Med Orders - Current: Current Medications Hydrocodone Bitart/Acetaminophen ([place] 325-5 Mg) 1 tab PO Q4H PRN PRN Reason: Pain Last Admin: 02/02/19 04:39 Dose: 1 tab Atorvastatin Calcium (Lipitor) 10 mg PO DAILY [facility] Last Admin: 02/01/19 11:49 Dose: 10 mg Cyclobenzaprine HCl (Flexeril) 10 mg PO TID PRN PRN Reason: Spasms Last Admin: 02/01/19 19:25 Dose: 10 mg Fluticasone Propionate (Flonase) 0 gm NASBOTH BID PRN PRN Reason: Allergies HCTZ/Losartan Potassium (Hyzaar 50-12.5 Mg) 2 tab PO DAILY [facility] Last Admin: 02/01/19 11:48 Dose: 2 tab Lactated Ringer's (Ringers, Lactated) 1,000 mls @ 75 mls/hr IV ASDIRECTED [facility]IRINO Last Admin: 02/02/19 00:01 Dose: 75 mls/hr Pantoprazole Sodium (Protonix) 40 mg PO ACBREAKFAST [facility] Last Admin: 02/02/19 06:53 Dose: 40 mg Sodium Chloride (Saline Flush) 10 ml FLUSH ASDIRECTED PRN PRN Reason: Keep Vein Open Sodium Chloride (Saline Flush) 2.5 ml FLUSH ASDIRECTED PRN PRN Reason: Keep Vein Open Sodium Chloride (Normal Saline) 10 ml IV ASDIRECTED PRN PRN Reason: IV Use Discontinued Medications Dexamethasone (Dexamethasone) Confirm Administered Dose 20 mg .ROUTE .STK-MED ONE Stop: 02/02/19 08:29 Fentanyl (Sublimaze) Confirm Administered Dose 100 mcg .ROUTE .STK-MED ONE Stop: 02/02/19 08:28 Glycopyrrolate (Robinul) Confirm Administered Dose 0.2 mg .ROUTE .STK-MED ONE Stop: 02/02/19 08:29 Clindamycin Phosphate 900 mg/ (Sodium Chloride) 56 mls @ 100 mls/hr IV ONCALL QUIRINO Clindamycin Phosphate 900 mg/ (Premix) 50 mls @ 50 mls/hr IV ONCALL PRN PRN Reason: rn chronic to OR Stop: 02/02/19 05:58 Ketorolac Tromethamine (Toradol) 30 mg IM ONETIME ONE Stop: 02/01/19 03:01 Last Admin: 02/01/19 03:25 Dose: 30 mg Ketorolac Tromethamine (Toradol) Confirm Administered Dose 30 mg .ROUTE .STK- MED ONE Stop: 02/01/19 03:07 Last Admin: 02/01/19 09:54 Dose: Not Given Ketorolac Tromethamine (Toradol) Confirm Administered Dose 30 mg .ROUTE .STK- MED ONE Stop: 02/02/19 08:29 Lidocaine (Xylocaine-Mpf 2%) Confirm Administered Dose 5 ml .ROUTE .STK-MED ONE Stop: 02/02/19 08:29 Midazolam HCl (Versed 1 Mg/Ml) Confirm Administered Dose 2 mg .ROUTE .STK-MED ONE Stop: 02/02/19 08:28 Midazolam HCl (Versed 1 Mg/Ml) Confirm Administered Dose 2 mg .ROUTE .STK-MED ONE Stop: 02/02/19 08:28 Ondansetron HCl (Zofran) Confirm Administered Dose 4 mg .ROUTE .STK-MED ONE Stop: 02/02/19 08:29 Pantoprazole Sodium (Protonix) 40 mg PO ONETIME ONE Stop: 02/01/19 06:01 Last Admin: 02/01/19 06:23 Dose: 40 mg Propofol (Diprivan 20 Ml) Confirm Administered Dose 200 mg .ROUTE .STK-MED ONE Stop: 02/02/19 08:27 Rocuronium [place] (Zemuron) Confirm Administered Dose 100 mg .ROUTE .STK-MED ONE Stop: 02/02/19 08:29 Ropivacaine (Naropin 0.5%) Confirm Administered Dose 30 ml .ROUTE .STK-MED ONE Stop: 02/02/19 08:32 Ropivacaine (Naropin 0.5%) Confirm Administered Dose 30 ml .ROUTE .STK-MED ONE Stop: 02/02/19 08:36 Sugammadex Sodium ([place]) Confirm Administered Dose 200 mg .ROUTE .STK-MED ONE Stop: 02/02/19 08:32 - Exam General: Alert, Oriented, Cooperative, No Acute Distress Lungs: Clear to Auscultation, Normal Respiratory Effort Cardiovascular: Regular Rate, Regular Rhythm GI/Abdominal Exam: Normal Bowel Sounds, Soft, Non-Tender Extremities: Normal Inspection, Normal Range of Motion, Non-Tender, No Pedal Edema Neurological: No New Focal Deficit Psy/Mental Status: Alert, Normal Affect, Normal Mood - Problem List & Annotations (1) Fall SNOMED Code(s): 6305765, 225694400 Code(s): W19.XXXA - UNSPECIFIED FALL, INITIAL ENCOUNTER Status: Acute Current Visit: No Qualifiers: Encounter type: initial encounter Qualified Code(s): W19.XXXA - Unspecified fall, initial encounter (2) Shoulder fracture, left SNOMED Code(s): 27247771153118570, [id number] Code(s): S42.92XA - FRACTURE OF LEFT SHOULDER GIRDLE, PART UNSP, INIT Status: Acute Current Visit: No Qualifiers: Encounter type: initial encounter Fracture type: closed Qualified Code(s) : S42.92XA - Fracture of left shoulder girdle, part unspecified, initial encounter for closed fracture (3) Dyslipidemia SNOMED Code(s): 970103183 Code(s): E78.5 - HYPERLIPIDEMIA, UNSPECIFIED Status: Chronic Current Visit: No (4) HTN (hypertension) SNOMED Code(s): 35154754 Code(s): I10 - ESSENTIAL (PRIMARY) HYPERTENSION Status: Chronic Current Visit: No Qualifiers: Hypertension type: essential hypertension Qualified Code(s): I10 - Essential (primary) hypertension (5) Obesity SNOMED Code(s): 413723536, 235385373 Code(s): E66.9 - OBESITY, UNSPECIFIED Status: Chronic Current Visit: No Qualifiers: Body mass index: BMI 37.0-37.9 - Problem List Review Problem List Initiated/Reviewed/Updated: Yes - Plan Plan:: Assessment:This 68 year old female admitted with L shoulder fracture, Orthopedics consulted. 1. Left shoulder fracture: To OR today with Dr Gill. Add bowel regimen due to narcotic use. UA looked like a dirty sample, will repeat. Patient denies symptoms of UTI. 2. Hypertension: Stable, continue home medications. No chest pain. 3. Hyperlipidemia: Stable, continue Atorvastatin. VTE prophylaxis: recommend when Orthopedics deems appropriate.
[2019-02-02] MEDS: atorvaSTATin 10 MG Tab PO SCH (09:23)
[2019-02-02] MEDS: Hydrochlorothiazide/Losartan 12.5-50 mg Tab PO SCH (09:23)
--- NOTE | 2019-02-02 10:00 | PCM.PREANE ---
Preanesthetic Assessment - Anesthesia/Transfusion/Family Hx Anesthesia History: Prior Anesthesia Without Reaction Family History of Anesthesia Reaction: No Transfusion History: No Prior Transfusion(s) - Physical Assessment NPO Status Date: 02/02/19 NPO Status Time: 00:05 Vital Signs: Last Vital Signs Temp 36.2 C 02/02/19 08:00 Pulse 71 02/02/19 04:00 Resp 16 02/02/19 08:00 BP 115/55 L 02/02/19 08:00 Pulse Ox 92 L 02/02/19 08:00 Height: 1.68 m Weight: 104.326 kg ASA Class: 2 - Lab Values: Laboratory Last Values WBC 10.79 K/uL (4.0-11.0) 02/01/19 06:00 RBC 4.02 M/uL (4.30-5.90) L 02/01/19 06:00 Hgb 12.2 g/dL (12.0-16.0) 02/01/19 06:00 Hct 37.0 % (36.0-46.0) 02/01/19 06:00 MCV 92.0 fL (80.0-98.0) 02/01/19 06:00 MCH 30.3 pg (27.0-32.0) 02/01/19 06:00 MCHC 33.0 g/dL (31.0-37.0) 02/01/19 06:00 RDW Std Deviation 47.7 fl (28.0-62.0) 02/01/19 06:00 RDW Coeff of Frank 14 % (11.0-15.0) 02/01/19 06:00 Plt Count 331 K/uL (150-400) 02/01/19 06:00 MPV 10.50 fL (7.40-12.00) 02/01/19 06:00 Neut % (Auto) 76.2 % (48.0-80.0) 02/01/19 06:00 Lymph % (Auto) 14.0 % (16.0-40.0) L 02/01/19 06:00 [place] % (Auto) 8.2 % (0.0-15.0) 02/01/19 06:00 Eos % (Auto) 1.3 % (0.0-7.0) 02/01/19 06:00 Baso % (Auto) 0.3 % (0.0-1.5) 02/01/19 06:00 Neut # (Auto) 8.2 K/uL (1.4-5.7) H 02/01/19 06:00 Lymph # (Auto) 1.5 K/uL (0.6-2.4) 02/01/19 06:00 [place] # (Auto) 0.9 K/uL (0.0-0.8) H 02/01/19 06:00 Eos # (Auto) 0.1 K/uL (0.0-0.7) 02/01/19 06:00 Baso # (Auto) 0.0 K/uL (0.0-0.1) 02/01/19 06:00 Nucleated RBC % 0.0 /100WBC 02/01/19 06:00 Nucleated RBCs # 0 K/uL 02/01/19 06:00 Sodium 139 mmol/L (136-145) 02/01/19 06:47 Potassium 3.8 mmol/L (3.5-5.1) 02/01/19 06:47 Chloride 103 mmol/L (98-107) 02/01/19 06:47 Carbon Dioxide 26.9 mmol/L (21.0-32.0) 02/01/19 06:47 BUN 17 mg/dL (7.0-18.0) 02/01/19 06:47 Creatinine 0.8 mg/dL (0.6-1.0) 02/01/19 06:47 Est Cr Clr Drug Dosing 62.13 mL/min 02/01/19 06:47 Estimated GFR (MDRD) > 60.0 ml/min 02/01/19 06:47 Glucose 163 mg/dL (74-106) H 02/01/19 06:47 Calcium 9.1 mg/dL (8.5-10.1) 02/01/19 06:47 Triglycerides 71 mg/dL (0-200) 02/01/19 06:47 Cholesterol 137 mg/dL (50-200) 02/01/19 06:47 LDL Cholesterol, Calc 70 mg/dL (60-180) 02/01/19 06:47 VLDL Cholesterol 14 mg/dL (5-55) 02/01/19 06:47 HDL Cholesterol 53 mg/dL (40-60) 02/01/19 06:47 Cholesterol/HDL Ratio 2.6 (3.3-6.0) L 02/01/19 06:47 TSH 3rd Generation 1.99 uIU/mL (0.36-3.74) 02/01/19 06:47 Urine Color YELLOW 02/01/19 11:14 Urine Appearance CLOUDY 02/01/19 11:14 Urine pH 6.0 (5.0-8.0) 02/01/19 11:14 Ur Specific [place] 1.020 (1.001-1.035) 02/01/19 11:14 Urine Protein NEGATIVE mg/dL (NEGATIVE) 02/01/19 11:14 Urine Glucose (UA) NEGATIVE mg/dL (NEGATIVE) 02/01/19 11:14 Urine Ketones NEGATIVE mg/dL (NEGATIVE) 02/01/19 11:14 Urine Occult Blood NEGATIVE (NEGATIVE) 02/01/19 11:14 Urine Nitrite NEGATIVE (NEGATIVE) 02/01/19 11:14 Urine Bilirubin NEGATIVE (NEGATIVE) 02/01/19 11:14 Urine Urobilinogen 0.2 EU/dL (<2.0) 02/01/19 11:14 Ur Leukocyte Esterase TRACE (NEGATIVE) H 02/01/19 11:14 Urine RBC NONE SEEN (0-2/HPF) 02/01/19 11:14 Urine WBC 4-8 (0-5/HPF) 02/01/19 11:14 Ur Epithelial Cells MANY (NONE-FEW) 02/01/19 11:14 Amorphous Sediment LIGHT (NEGATIVE) 02/01/19 11:14 Urine Bacteria 2+ (NEGATIVE) H 02/01/19 11:14 Urine Mucus MODERATE (NONE-MOD) 02/01/19 11:14 Blood Type A POSITIVE 02/01/19 06:47 Antibody Screen POSITIVE 02/01/19 06:47 Antibody Identification Anti-M 02/01/19 06:47 Crossmatch See Detail 02/01/19 06:47 - Allergies Allergies/Adverse Reactions: Allergies Allergy/AdvReac Type Severity Reaction Status Date / Time Penicillins Allergy Rash Verified 02/01/19 07:42 - Acknowledgements Anesthesia Type Planned: General Anesthesia, Regional Block Pt an Appropriate Candidate for the Planned Anesthesia: Yes Alternatives and Risks of Anesthesia Discussed w Pt/Guardian: Yes Pt/Guardian Understands and Agrees with Anesthesia Plan: Yes PreAnesthesia Questionnaire HEENT History: Reports: None, Impaired Vision 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 Cardiovascular History: Reports: High Cholesterol, Hypertension Respiratory History: Reports: None Gastrointestinal History: Reports: None Genitourinary History: Reports: None COTTON TIER History: Reports: Other OB/BYN History: fatty tissue removed right breast 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 History: Reports: Fracture Other 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 History: right wrist fx Neurological History: Reports: None Psychiatric History: Reports: None Endocrine/Metabolic History: Reports: Obesity/BMI 30+ Hematologic History: Reports: None Immunologic History: Reports: None Oncologic (Cancer) History: Reports: None Dermatologic History: Reports: None - Infectious Disease History Infectious Disease History: Reports: None - Past Surgical History Head Surgeries/Procedures: Reports: None HEENT Surgical History: Reports: Other (See Below) GI Surgical History: Reports: Appendectomy Female Surgical History: Reports: Hysterectomy - SUBSTANCE USE Smoking Status *Q: Never Smoker Second Hand Smoke Exposure: No Recreational Drug Use History: No - HOME MEDS Home Medications: Home Meds Cyclobenzaprine [Flexeril] 10 mg PO TID PRN #8 tab 11/17/18 [Rx] Acetaminophen/HYDROcodone [[place] 325-5 MG] 1 - 2 tab PO Q6H PRN #20 tablet 01/23 [Rx] Ibuprofen [Motrin] 800 mg PO Q6H PRN 02/01/19 [History] Losartan/Hydrochlorothiazide [Losartan-HCTZ 100-25 MG] 1 tab PO DAILY 02/01/19 [ History] Potassium Chloride 20 meq PO DAILY 02/01/19 [History] atorvaSTATin [Lipitor] 10 mg PO DAILY 02/01/19 [History] - CURRENT (IN HOUSE) MEDS Current Meds: Current Medications Hydrocodone Bitart/Acetaminophen ([place] 325-5 Mg) 1 tab PO Q4H PRN PRN Reason: Pain Last Admin: 02/02/19 09:23 Dose: 1 tab Atorvastatin Calcium (Lipitor) 10 mg PO DAILY QUIRINO Last Admin: 02/02/19 09:23 Dose: 10 mg Cyclobenzaprine HCl (Flexeril) 10 mg PO TID PRN PRN Reason: Spasms Last Admin: 02/01/19 19:25 Dose: 10 mg Fluticasone Propionate (Flonase) 0 gm NASBOTH BID PRN PRN Reason: Allergies HCTZ/Losartan Potassium (Hyzaar 50-12.5 Mg) 2 tab PO DAILY [facility] Last Admin: 02/02/19 09:23 Dose: 2 tab Lactated Ringer's (Ringers, Lactated) 1,000 mls @ 75 mls/hr IV ASDIRECTED QUIRINO Last Admin: 02/02/19 00:01 Dose: 75 mls/hr Pantoprazole Sodium (Protonix) 40 mg PO ACBREAKFAST [facility] Last Admin: 02/02/19 06:53 Dose: 40 mg Sodium Chloride (Saline Flush) 10 ml FLUSH ASDIRECTED PRN PRN Reason: Keep Vein Open Sodium Chloride (Saline Flush) 2.5 ml FLUSH ASDIRECTED PRN PRN Reason: Keep Vein Open Sodium Chloride (Normal Saline) 10 ml IV ASDIRECTED PRN PRN Reason: IV Use Discontinued Medications Dexamethasone (Dexamethasone) Confirm Administered Dose 20 mg .ROUTE .STK-MED ONE Stop: 02/02/19 08:29 Fentanyl (Sublimaze) Confirm Administered Dose 100 mcg .ROUTE .STK-MED ONE Stop: 02/02/19 08:28 Glycopyrrolate (Robinul) Confirm Administered Dose 0.2 mg .ROUTE .STK-MED ONE Stop: 02/02/19 08:29 Clindamycin Phosphate 900 mg/ (Sodium Chloride) 56 mls @ 100 mls/hr IV ONCALL [facility] Clindamycin Phosphate 900 mg/ (Premix) 50 mls @ 50 mls/hr IV ONCALL PRN PRN 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: 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 OR Stop: 02/02/19 05:58 Ketorolac Tromethamine (Toradol) 30 mg IM ONETIME ONE Stop: 02/01/19 03:01 Last Admin: 02/01/19 03:25 Dose: 30 mg Ketorolac Tromethamine (Toradol) Confirm Administered Dose 30 mg .ROUTE .STK- MED ONE Stop: 02/01/19 03:07 Last Admin: 02/01/19 09:54 Dose: Not Given Ketorolac Tromethamine (Toradol) Confirm Administered Dose 30 mg .ROUTE .STK- MED ONE Stop: 02/02/19 08:29 Lidocaine (Xylocaine-Mpf 2%) Confirm Administered Dose 5 ml .ROUTE .STK-MED ONE Stop: 02/02/19 08:29 Midazolam HCl (Versed 1 Mg/Ml) Confirm Administered Dose 2 mg .ROUTE .STK-MED ONE Stop: 02/02/19 08:28 Midazolam HCl (Versed 1 Mg/Ml) Confirm Administered Dose 2 mg .ROUTE .STK-MED ONE Stop: 02/02/19 08:28 Ondansetron HCl (Zofran) Confirm Administered Dose 4 mg .ROUTE .STK-MED ONE Stop: 02/02/19 08:29 Pantoprazole Sodium (Protonix) 40 mg PO ONETIME ONE Stop: 02/01/19 06:01 Last Admin: 02/01/19 06:23 Dose: 40 mg Propofol (Diprivan 20 Ml) Confirm Administered Dose 200 mg .ROUTE .STK-MED ONE Stop: 02/02/19 08:27 Rocuronium [place] (Zemuron) Confirm Administered Dose 100 mg .ROUTE .STK-MED ONE Stop: 02/02/19 08:29 Ropivacaine (Naropin 0.5%) Confirm Administered Dose 30 ml .ROUTE .STK-MED ONE Stop: 02/02/19 08:32 Ropivacaine (Naropin 0.5%) Confirm Administered Dose 30 ml .ROUTE .STK-MED ONE Stop: 02/02/19 08:36 Sugammadex Sodium ([place]) Confirm Administered Dose 200 mg .ROUTE .STK-MED ONE Stop: 02/02/19 08:32
[2019-02-02] MEDS ORDERED: ePHEDrine 50 MG/ML SDV ONE (10:29)
[2019-02-02] MEDS ORDERED: Phenylephrine 1% 10 MG/ML SDV ONE (10:29)
[2019-02-02] MEDS ORDERED: Clindamycin Phosphate in D5W 600 MG in Premix Bag 1 BAG IV SCH ×2 (12:00)
[2019-02-02] MEDS ORDERED: Bisacodyl 10 MG Supp RECTAL PRN ×2 (12:27→15:02)
[2019-02-02] MEDS ORDERED: fentaNYL 100 MCG/2 ML SDV IVPUSH PRN (13:32)
[2019-02-02] MEDS ORDERED: Ondansetron 4 MG/2 ML SDV IVPUSH PRN ×2 (13:33→15:02)
[2019-02-02] MEDS ORDERED: Desflurane 240 ML Bottle ONE (13:39)
[2019-02-02] MEDS ORDERED: diphenhydrAMINE 25 MG Cap PO PRN (15:02)
[2019-02-02] MEDS ORDERED: Docusate Sodium 100 MG Cap PO PRN (15:02)
[2019-02-02] MEDS ORDERED: Sodium Chloride 0.9% 10 ML Syringe FLUSH PRN (15:02)
[2019-02-02] MEDS ORDERED: Aluminum Hydroxide/Magnesium Hydroxide/Simethicone Susp 30 ML Cup PO PRN (15:02)
[2019-02-02] MEDS ORDERED: Sodium Chloride 0.9% 2.5 ML Syringe FLUSH PRN (15:02)
--- NOTE | 2019-02-02 15:12 | PCM.PRNOTE ---
- Free Text/Narrative Note: Anes Note Interscalene Block for Post Op Pain Management per request of Dr Gill. Charleen was Id'd and consent was obtained. Supine position with head turned to right side. Sterile technique. Chloraprep scrube to left neck. Sterile fenestrated drape applied. L IS groove identified. Local 1 cc 1% lido. Using a 22 stimuplex needle the insterscalene nerves were easily identified single attempt, and an excellent forarm twitch was noted at 0.6 mA. 30 cc 0.5% ropivicaine with 8 mg decadron was slowly and cautiously injected No side effects noted. No parasthesia during procedure or during injection. Roopa well. Excellent analgesia of left should was noted within minutes of injection. Time with patient [id number]. Jose Torres HAM STRINGER
--- NOTE | 2019-02-02 15:12 | PCM.OPNOTE ---
- General Post-Op/Procedure Note Date of Surgery/Procedure: 02/02/19 Operative Procedure(s): left shoulder rtsa Pre Op Diagnosis: left proximal humerus fracture, 3 part, closed Post-Op Diagnosis: Same Anesthesia Technique: General ET Tube Primary Surgeon: Kumar Gill Graduate Teaching Associate: Idania Castelan EBL in mLs: 250 Complications: None Condition: Fair Free Text/Narrative:: Intake & Output 02/02/19 02/02/19 02/02/19 06:59 14:59 22:59 Intake Total 647 Output Total 500 Balance 147
--- NOTE | 2019-02-02 15:40 | CR ---
EXAM DATE: 02/01/19 PATIENT'S AGE: 68 Left shoulder: Single AP view of the left shoulder was obtained. Comparison: Prior fluoroscopic study of 01/21/19. Reverse left shoulder prosthesis is seen. Components are aligned. Skin lane are present. Underlying bony structure show nothing acute. Impression: 1. Recently placed left shoulder prosthesis. Diagnostic code #2 This report was dictated in [place] Standard Time Report Signed by Proxy. ELLIS
--- NOTE | 2019-02-02 15:48 | PCM.POSTAN ---
POST ANESTHESIA ASSESSMENT - MENTAL STATUS Mental Status: Alert - VITAL SIGNS Vital Signs: Last Vital Signs Temp 36.5 C 02/02/19 14:45 Pulse 91 02/02/19 15:41 Resp 14 02/02/19 15:41 BP 107/60 02/02/19 15:41 Pulse Ox 92 L 02/02/19 15:41 - RESPIRATORY Respiratory Status: Respiratory Rate WNL - CARDIOVASCULAR CV Status: Pulse Rate WNL - GASTROINTESTINAL GI Status: No Symptoms - POST OP HYDRATION Hydration Status: Adequate & Stable
--- NOTE | 2019-02-02 20:47 | OR ---
SURGEON: Kumar Gill DATE OF PROCEDURE: 02/02/2019 PREOPERATIVE DIAGNOSIS: Left proximal humerus fracture, 3-part, closed. POSTOPERATIVE DIAGNOSIS: Left proximal humerus fracture, 3-part, closed. PROCEDURE: Left reverse total shoulder arthroplasty. PRIMARY SURGEON: Kumar Gill DO DOOR FRAME BUILDER: MYRA Atkins Nurse practitioner, MYRA Atkins, played an essential role in assisting in this case, helping to position the patient, retract structures as needed, as well as suturing and cutting sutures as indicated. Her presence improved patient's safety and decreased operative time. FLUID: Lactated Ringer solution. ESTIMATED BLOOD LOSS: 250 mL. COMPLICATIONS: None. SPECIMEN: None. DISCHARGE DISPOSITION: Stable to PACU. INSTRUMENTATION: Linsey reverse shoulder. HISTORY AND INDICATION FOR THE PROCEDURE: The patient is well known to the clinic. A couple of weeks ago, she was evaluated in the ER and found to have a fracture dislocation, for which Dr. Paul relocated her and was going to treat her nonoperatively. She came to the emergency department 2 nights ago and had not really done anything, but it subluxed her shoulder with the fracture fragments lying on the anterior portion of the glenoid based on CT exam. I explained to the patient and her that most likely this will continue given that she had no mechanism for the dislocation. I explained that I recommended a reverse total shoulder arthroplasty. Risks and benefits of the procedure were explained to the patient, and informed consent was obtained. DETAILS OF PROCEDURE: The patient was seen preoperatively by me and anesthesia staff in the preoperative holding area where the operative site was marked. She was brought to a different preop area for a regional block performed by the anesthesia staff. They then administered general endotracheal intubation. She was positioned in a beachchair position. All extremities were found to be well padded. The left upper extremity was then prepped and draped in a sterile manner. Timeout was called to identify the correct patient, the correct procedure, the correct site, and that antibiotics had been given in an appropriate period of time. An incision was made just proximal to the coracoid, down to the axillary fold. Bleeding at the end of the case was controlled with Bovie electrocautery. Gelpi was used for retraction. Metzenbaum was used to get down to the area of the cephalic vein which was identified and preserved and taken medially. However, later in the case, this was damaged, and we had to cauterize it. The deltopectoral interval was identified, and I went to that bluntly. Bleeding again was controlled by Bovie electrocautery. The conjoint tendon was seen, and the clavipectoral fascia was visualized. I removed the superior 1 cm of pectoralis from the humerus to increase her mobilization. I then went through the clavipectoral fascia at the level of the biceps tendon which was still attached and went to the glenoid. I followed this all the way up and detached it from the glenoid and then tagged it. I then used an elevator and rotated the humerus to remove the fracture fragments from the capsule. There were 3 large fragments of the humerus present. Only 1 had rotator cuff attached to it, which I did tag. I tagged the subscapularis when I went to the clavipectoral fascia and into the capsule. After the fracture fragments were removed, I worked on visualization of the glenoid. I removed part of the labrum and then used retractors at 3, 9, and 12 o'clock for visualization initially and then used 1 at 6 o'clock. After clearing of all the soft tissue, and I used some rongeurs to do that, I then used my guide and placed my central pin. Then I removed my guide and pin and measured this. I think it measured 24. I then had my pin present and then used a reamer until I had bleeding bone circumferentially. I then placed my regular base plate with a 24 screw and tightened this with superior hole in line with the base of the coracoid for better cortical tightening of the screw. I then placed my superior and inferior screws. I did not place anterior and posterior screws. I then placed my glenosphere which was concentric at +4. I then focused on humeral preparation. We used a Rosado for positioning and then used hand reamers up to a 9. I then inserted a fracture stem broach which was an 8, and then expanded it, which provided a good idea of how large the canal was. I then trialed. I found that it provided excellent mobility and stability. I believe this is a +4 as well. I then removed my trial stem. I then irrigated multiple times with Betadine-infused irrigation throughout the case. I then placed a constrictor distally in the canal and then cemented distally, placed my stem, and then let it set up with the cement. This was done in approximately 30 degrees of retroversion. After it set, I actually inserted my stem with the cup attached. I then irrigated again with Betadine- infused irrigation and then relocated the shoulder. It provided excellent stability through our range of motion with no shuck. I then irrigated again and then placed about 0.5 g of vancomycin deep in the joint. I attached my rotator cuff back to the fracture stem, both what I believe were supra and infraspinatus footprints as well as the subscapularis footprint. I also attached my biceps tendon back to the fracture stem. I then closed what I could of the capsule and then closed the deltopectoral layer with an interlocking 0-Stratafix, irrigated again, placed the other 0.5 g of vancomycin, and then subcutaneously had my first coat operator close with 0-Stratafix, then lane, then Betadine-soaked Adaptic, sponges, and Medipore tape. The patient was then allowed to go to the PACU in stable condition. [id number] / MODL /[id number]
[2019-02-02] MEDS: Docusate Sodium 100 MG Cap PO SCH (21:24)
[2019-02-02] MEDS: Clindamycin Phosphate in D5W 600 MG in Premix Bag 1 BAG IV SCH ×2 (21:27)
[2019-02-03] MEDS: Clindamycin Phosphate in D5W 600 MG in Premix Bag 1 BAG IV SCH ×2 (04:00)
[2019-02-03] MEDS: Pantoprazole 40 MG Tab.CR PO SCH (06:35)
[2019-02-03] MEDS: Acetaminophen/HYDROcodone 325-5 MG Tab PO PRN ×4 (06:36→20:05)
[2019-02-03 06:40] LABS: BLOOD UREA NITROGEN,BUN 17 mg/dL (7.0-18.0); CARBON DIOXIDE,CO2 26.8 mmol/L (21.0-32.0); CHLORIDE,CL 102 mmol/L (98-107); GLUCOSE RANDOM 179 mg/dL (74-106); POTASSIUM,K 3.8 mmol/L (3.5-5.1); SODIUM,NA 139 mmol/L (136-145)
--- NOTE | 2019-02-03 06:47 | PCM48HPAN ---
Post Anesthesia Note - EVALUATION WITHIN 48HRS OF ANESTHETIC Vital Signs in Normal Range: Yes Patient Participated in Evaluation: Yes Respiratory Function Stable: Yes Airway Patent: Yes Cardiovascular Function Stable: Yes Hydration Status Stable: Yes Pain Control Satisfactory: Yes Nausea and Vomiting Control Satisfactory: Yes Mental Status Recovered: Yes Vital Signs: Last Vital Signs Temp 36.5 C 02/03/19 04:57 Pulse 76 02/03/19 04:57 Resp 17 02/03/19 04:57 BP 103/57 L 02/03/19 04:57 Pulse Ox 92 L 02/03/19 04:57 - COMMENTS/OBSERVATIONS Free Text/Narrative:: No anesthesia problems
[2019-02-03] MEDS: Morphine 2 MG/ML Syringe IVPUSH PRN ×5 (08:37→21:44)
[2019-02-03] MEDS ORDERED: Polyethylene Glycol 3350 Powder 17 GM Packet PO SCH (09:00)
[2019-02-03] MEDS: atorvaSTATin 10 MG Tab PO SCH (10:24)
[2019-02-03] MEDS: Aspirin 325 MG Tab PO SCH (10:24)
[2019-02-03] MEDS: Famotidine 20 MG Tab PO SCH (10:25)
[2019-02-03] MEDS: Docusate Sodium 100 MG Cap PO SCH ×2 (10:25→20:07)
[2019-02-03] MEDS: Hydrochlorothiazide/Losartan 12.5-50 mg Tab PO SCH (10:31)
--- NOTE | 2019-02-03 11:16 | PCM.PN ---
- General Info Date of Service: 02/03/19 Admission Dx/Problem (Free Text): Admission Diagnosis/Problem Admission Diagnosis/Problem Closed fracture of head of humerus Functional Status: Reports: Pain Controlled, Tolerating Diet, Ambulating, Urinating - Review of Systems General: Reports: No Symptoms HEENT: Reports: No Symptoms Pulmonary: Reports: No Symptoms Cardiovascular: Reports: No Symptoms Gastrointestinal: Reports: No Symptoms Genitourinary: Reports: No Symptoms 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: Reports: Shoulder Pain, Arm Pain Skin: Reports: No Symptoms Neurological: Reports: No Symptoms Psychiatric: Reports: No Symptoms - Patient Data Vitals - Most Recent: Last Vital Signs Temp 36.6 C 02/03/19 07:55 Pulse 79 02/03/19 07:55 Resp 18 02/03/19 07:55 BP 133/66 02/03/19 07:55 Pulse Ox 96 02/03/19 07:55 Weight - Most Recent: 104.326 kg I&O - Last 24 Hours: Intake & Output 02/02/19 02/03/19 02/03/19 22:59 06:59 14:59 Intake Total 2450 987 Output Total 850 550 Balance 1600 437 Lab Results Last 24 Hours: Laboratory Results - last 24 hr 02/03/19 02/03/19 02/03/19 Range/Units 06:02 06:05 06:05 Hgb 10.9 L (12.0-16.0) g/dL Hct 33.0 L (36.0-46.0) % Sodium 139 (136-145) mmol/L Potassium 3.8 (3.5-5.1) mmol/L Chloride 102 (98-107) mmol/L Carbon Dioxide 26.8 (21.0-32.0) mmol/L BUN 17 (7.0-18.0) mg/dL Creatinine 0.8 (0.6-1.0) mg/dL Est Cr Clr Drug Dosing 62.13 mL/min Estimated GFR (MDRD) > 60.0 ml/min Glucose 179 H (74-106) mg/dL Calcium 8.6 (8.5-10.1) mg/dL Urine Color YELLOW Urine Appearance CLEAR Urine pH 5.5 (5.0-8.0) Ur Specific [place] 1.025 (1.001-1.035) Urine Protein NEGATIVE (NEGATIVE) mg/dL Urine Glucose (UA) 500 H (NEGATIVE) mg/dL Urine Ketones NEGATIVE (NEGATIVE) mg/dL Urine Occult Blood TRACE-INTACT H (NEGATIVE) Urine Nitrite NEGATIVE (NEGATIVE) Urine Bilirubin NEGATIVE (NEGATIVE) Urine Urobilinogen 0.2 (<2.0) EU/dL Ur Leukocyte Esterase NEGATIVE (NEGATIVE) Urine RBC 1-3 (0-2/HPF) Urine WBC 0-2 (0-5/HPF) Ur Epithelial Cells FEW (NONE-FEW) Urine Bacteria FEW (NEGATIVE) Urine Mucus LIGHT (NONE-MOD) Med Orders - Current: Current Medications Hydrocodone Bitart/Acetaminophen ([place] 325-5 Mg) 1 tab PO Q4H PRN PRN Reason: Pain Last Admin: 02/03/19 10:51 Dose: 1 tab Al Hydroxide/Mg Hydroxide (Mag-Al Plus) 30 ml PO Q4H PRN PRN Reason: Indigestion Aspirin (Aspirin) 325 mg PO DAILY [facility] Last Admin: 02/03/19 10:24 Dose: 325 mg Atorvastatin Calcium (Lipitor) 10 mg PO DAILY [facility] Last Admin: 02/03/19 10:24 Dose: 10 mg Bisacodyl (Dulcolax) 10 mg RECTAL DAILY PRN PRN Reason: Constipation Bisacodyl (Dulcolax) 10 mg RECTAL DAILY PRN PRN Reason: Constipation Cyclobenzaprine HCl (Flexeril) 10 mg PO TID PRN PRN Reason: Spasms Last Admin: 02/01/19 19:25 Dose: 10 mg Diphenhydramine HCl (Benadryl) 25 - 50 mg PO Q6H PRN PRN Reason: Itching Docusate Sodium (Colace) 100 mg PO BID [facility] Last Admin: 02/03/19 10:25 Dose: 100 mg Docusate Sodium (Colace) 100 mg PO BID PRN PRN Reason: Constipation Famotidine (Pepcid) 40 mg PO DAILY [facility] Last Admin: 02/03/19 10:25 Dose: 40 mg Fentanyl (Sublimaze) 50 mcg IVPUSH Q5M PRN PRN Reason: Pain Last Admin: 02/02/19 15:11 Dose: 50 mcg Fluticasone Propionate (Flonase) 0 gm NASBOTH BID PRN PRN Reason: Allergies HCTZ/Losartan Potassium (Hyzaar 50-12.5 Mg) 2 tab PO DAILY [facility] Last Admin: 02/03/19 10:31 Dose: 2 tab Lactated Ringer's (Ringers, Lactated) 1,000 mls @ 75 mls/hr IV ASDIRECTED [facility] Last Admin: 02/02/19 16:12 Dose: 75 mls/hr Clindamycin Phosphate 600 mg/ (Premix) 50 mls @ 150 mls/hr IV ONCALL [facility] Morphine Sulfate (Morphine) 1 - 2 mg IVPUSH Q3H PRN PRN Reason: Pain Last Admin: 02/03/19 08:37 Dose: 2 mg Ondansetron HCl (Zofran) 4 mg IVPUSH Q4H PRN PRN Reason: Nausea Ondansetron HCl (Zofran) 4 mg IVPUSH Q6H PRN PRN Reason: Nausea/Vomiting Oxycodone/Acetaminophen (Percocet 325-5 Mg) 1 tab PO QID PRN PRN Reason: Pain Pantoprazole Sodium (Protonix) 40 mg PO ACBREAKFAST [facility] Last Admin: 02/03/19 06:35 Dose: 40 mg Polyethylene Glycol (Miralax) 17 gm PO DAILY PRN PRN Reason: Constipation Polyethylene Glycol (Miralax) 17 gm PO DAILY [facility] Last Admin: 02/03/19 10:24 Dose: 17 gm Sodium Chloride (Saline Flush) 10 ml FLUSH ASDIRECTED PRN PRN Reason: Keep Vein Open Sodium Chloride (Saline Flush) 2.5 ml FLUSH ASDIRECTED PRN PRN Reason: Keep Vein Open Sodium Chloride (Normal Saline) 10 ml IV ASDIRECTED PRN PRN Reason: IV Use Sodium Chloride (Saline Flush) 10 ml FLUSH ASDIRECTED PRN PRN Reason: Keep Vein Open Sodium Chloride (Saline Flush) 2.5 ml FLUSH ASDIRECTED PRN PRN Reason: Keep Vein Open Discontinued Medications Desflurane (Suprane) Confirm Administered Dose 480 ml .ROUTE .STK-MED ONE Stop: 02/02/19 13:40 Dexamethasone (Dexamethasone) Confirm Administered Dose 20 mg .ROUTE .STK-MED ONE Stop: 02/02/19 08:29 Ephedrine Sulfate (Ephedrine Sulfate) Confirm Administered Dose 50 mg .ROUTE .STK-MED ONE Stop: 02/02/19 10:30 Fentanyl (Sublimaze) Confirm Administered Dose 100 mcg .ROUTE .STK-MED ONE Stop: 02/02/19 08:28 Fentanyl (Sublimaze) Confirm Administered Dose 100 mcg .ROUTE .STK-MED ONE Stop: 02/02/19 13:38 Glycopyrrolate (Robinul) Confirm Administered Dose 0.2 mg .ROUTE .STK-MED ONE Stop: 02/02/19 08:29 Clindamycin Phosphate 900 mg/ (Sodium Chloride) 56 mls @ 100 mls/hr IV ONCALL [facility] Clindamycin Phosphate 900 mg/ (Premix) 50 mls @ 50 mls/hr IV ONCALL PRN 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[place] Stop: 02/02/19 05:58 Clindamycin Phosphate 600 mg/ (Premix) 50 mls @ 100 mls/hr IV Q8H [facility] Stop: 02/03/19 05:29 Last Admin: 02/03/19 04:00 Dose: 100 mls/hr Ketorolac Tromethamine (Toradol) 30 mg IM ONETIME ONE Stop: 02/01/19 03:01 Last Admin: 02/01/19 03:25 Dose: 30 mg Ketorolac Tromethamine (Toradol) Confirm Administered Dose 30 mg .ROUTE .STK- MED ONE Stop: 02/01/19 03:07 Last Admin: 02/01/19 09:54 Dose: Not Given Ketorolac Tromethamine (Toradol) Confirm Administered Dose 30 mg .ROUTE .STK- MED ONE Stop: 02/02/19 08:29 Lidocaine (Xylocaine-Mpf 2%) Confirm Administered Dose 5 ml .ROUTE .STK-MED ONE Stop: 02/02/19 08:29 Midazolam HCl (Versed 1 Mg/Ml) Confirm Administered Dose 2 mg .ROUTE .STK-MED ONE Stop: 02/02/19 08:28 Midazolam HCl (Versed 1 Mg/Ml) Confirm Administered Dose 2 mg .ROUTE .STK-MED ONE Stop: 02/02/19 08:28 Ondansetron HCl (Zofran) Confirm Administered Dose 4 mg .ROUTE .STK-MED ONE Stop: 02/02/19 08:29 Pantoprazole Sodium (Protonix) 40 mg PO ONETIME ONE Stop: 02/01/19 06:01 Last Admin: 02/01/19 06:23 Dose: 40 mg Phenylephrine HCl (Paulo-Synephrine) Confirm Administered Dose 10 mg .ROUTE .STK- MED ONE Stop: 02/02/19 10:30 Propofol (Diprivan 20 Ml) Confirm Administered Dose 200 mg .ROUTE .STK-MED ONE Stop: 02/02/19 08:27 Rocuronium [place] (Zemuron) Confirm Administered Dose 100 mg .ROUTE .STK-MED ONE Stop: 02/02/19 08:29 Ropivacaine (Naropin 0.5%) Confirm Administered Dose 30 ml .ROUTE .STK-MED ONE Stop: 02/02/19 08:32 Ropivacaine (Naropin 0.5%) Confirm Administered Dose 30 ml .ROUTE .STK-MED ONE Stop: 02/02/19 08:36 Sugammadex Sodium (Bridion) Confirm Administered Dose 200 mg .ROUTE .STK-MED ONE Stop: 02/02/19 08:32 Tranexamic Acid (Cyklokapron) Confirm Administered Dose 2,000 mg .ROUTE .STK- MED ONE Stop: 02/02/19 11:23 - Exam Quality Assessment: DVT Prophylaxis General: Alert, Oriented, Cooperative, No Acute Distress HEENT: Pupils Equal, Pupils Reactive, Mucous Membr. Moist/[place] Neck: Supple, Trachea Midline Lungs: Clear to Auscultation, Normal Respiratory Effort GI/Abdominal Exam: No Distention Peripheral Pulses: 2+: Radial (L) Skin: Warm, Dry, Intact Wound/Incisions: Healing Well, Dressing Dry and Intact, No Drainage, Drainage Neurological: No New Focal Deficit Psy/Mental Status: Alert, Normal Affect, Normal Mood - Problem List & Annotations (1) Closed fracture dislocation of left shoulder SNOMED Code(s): 345592069 Code(s): S42.92XA - FRACTURE OF LEFT SHOULDER GIRDLE, PART UNSP, INIT Status: Acute Priority: High Current Visit: No Qualifiers: Encounter type: initial encounter Qualified Code(s): S42.92XA - Fracture of left shoulder girdle, part unspecified, initial encounter for closed fracture - Problem List Review Problem List Initiated/Reviewed/Updated: Yes - My Orders Last 24 Hours: My Active Orders 02/02/19 12:00 Clindamycin Phosphate in D5W [Cleocin in D5W] 600 mg Premix Bag 1 bag IV ONCALL 02/02/19 15:34 Insert Zimmerman Catheter [Insert Urinary Catheter] [OM.PC] Stat Urinary Catheter Assessment [RC] ASDIRECTED 02/02/19 19:39 Remove Zimmerman Catheter [Urinary Catheter Removal] [RC] Per Unit Routine - Plan Plan:: A: 68 yo female POD 1 left rtsa P: pain control, dvt prophylaxis, iv abx 24 hours, pt/ot
[2019-02-03] MEDS: Insulin Aspart 100 Units/ML 3 ML Pen SUBCUT SCH ×2 (12:51→17:53)
[2019-02-03] MEDS: Acetaminophen/oxyCODONE 325-5 MG Tab PO PRN ×2 (14:10→21:43)
--- NOTE | 2019-02-03 17:16 | PCM.PN ---
- General Info Date of Service: 02/03/19 Subjective Update: Reports pain well-controlled and tolerating PO diet. No shortness of breath. - Patient Data Vitals - Most Recent: Last Vital Signs Temp 98.3 F 02/03/19 12:00 Pulse 125 H 02/03/19 12:00 Resp 16 02/03/19 12:00 BP 133/66 02/03/19 07:55 Pulse Ox 92 L 02/03/19 12:00 Weight - Most Recent: 230 lb I&O - Last 24 Hours: Intake & Output 02/03/19 02/03/19 02/03/19 06:59 14:59 22:59 Intake Total 987 Output Total 550 Balance 437 Lab Results Last 24 Hours: Laboratory Results - last 24 hr 02/03/19 02/03/19 02/03/19 Range/Units 06:02 06:05 06:05 Hgb 10.9 L (12.0-16.0) g/dL Hct 33.0 L (36.0-46.0) % Sodium 139 (136-145) mmol/L Potassium 3.8 (3.5-5.1) mmol/L Chloride 102 (98-107) mmol/L Carbon Dioxide 26.8 (21.0-32.0) mmol/L BUN 17 (7.0-18.0) mg/dL Creatinine 0.8 (0.6-1.0) mg/dL Est Cr Clr Drug Dosing 62.13 mL/min Estimated GFR (MDRD) > 60.0 ml/min Glucose 179 H (74-106) mg/dL POC Glucose (60-110) mg/dL Calcium 8.6 (8.5-10.1) mg/dL Urine Color YELLOW Urine Appearance CLEAR Urine pH 5.5 (5.0-8.0) Ur Specific [place] 1.025 (1.001-1.035) Urine Protein NEGATIVE (NEGATIVE) mg/dL Urine Glucose (UA) 500 H (NEGATIVE) mg/dL Urine Ketones NEGATIVE (NEGATIVE) mg/dL Urine Occult Blood TRACE-INTACT H (NEGATIVE) Urine Nitrite NEGATIVE (NEGATIVE) Urine Bilirubin NEGATIVE (NEGATIVE) Urine Urobilinogen 0.2 (<2.0) EU/dL Ur Leukocyte Esterase NEGATIVE (NEGATIVE) Urine RBC 1-3 (0-2/HPF) Urine WBC 0-2 (0-5/HPF) Ur Epithelial Cells FEW (NONE-FEW) Urine Bacteria FEW (NEGATIVE) Urine Mucus LIGHT (NONE-MOD) 02/03/19 02/03/19 Range/Units 12:20 16:27 Hgb (12.0-16.0) g/dL Hct (36.0-46.0) % Sodium (136-145) mmol/L Potassium (3.5-5.1) mmol/L Chloride (98-107) mmol/L Carbon Dioxide (21.0-32.0) mmol/L BUN (7.0-18.0) mg/dL Creatinine (0.6-1.0) mg/dL Est Cr Clr Drug Dosing mL/min Estimated GFR (MDRD) ml/min Glucose (74-106) mg/dL POC Glucose 160 H 160 H (60-110) mg/dL Calcium (8.5-10.1) mg/dL Urine Color Urine Appearance Urine pH (5.0-8.0) Ur Specific [place] (1.001-1.035) Urine Protein (NEGATIVE) mg/dL Urine Glucose (UA) (NEGATIVE) mg/dL Urine Ketones (NEGATIVE) mg/dL Urine Occult Blood (NEGATIVE) Urine Nitrite (NEGATIVE) Urine Bilirubin (NEGATIVE) Urine Urobilinogen (<2.0) EU/dL Ur Leukocyte Esterase (NEGATIVE) Urine RBC (0-2/HPF) Urine WBC (0-5/HPF) Ur Epithelial Cells (NONE-FEW) Urine Bacteria (NEGATIVE) Urine Mucus (NONE-MOD) Med Orders - Current: Current Medications Hydrocodone Bitart/Acetaminophen ([place] 325-5 Mg) 1 tab PO Q4H PRN PRN Reason: Pain Last Admin: 02/03/19 15:52 Dose: 1 tab Al Hydroxide/Mg Hydroxide (Mag-Al Plus) 30 ml PO Q4H PRN PRN Reason: Indigestion Aspirin (Aspirin) 325 mg PO DAILY [facility] Last Admin: 02/03/19 10:24 Dose: 325 mg Atorvastatin Calcium (Lipitor) 10 mg PO DAILY [facility] Last Admin: 02/03/19 10:24 Dose: 10 mg Bisacodyl (Dulcolax) 10 mg RECTAL DAILY PRN PRN Reason: Constipation Cyclobenzaprine HCl (Flexeril) 10 mg PO TID PRN PRN Reason: Spasms Last Admin: 02/01/19 19:25 Dose: 10 mg Diphenhydramine HCl (Benadryl) 25 - 50 mg PO Q6H PRN PRN Reason: Itching Docusate Sodium (Colace) 100 mg PO BID [facility] Last Admin: 02/03/19 10:25 Dose: 100 mg Famotidine (Pepcid) 40 mg PO DAILY [facility] Last Admin: 02/03/19 10:25 Dose: 40 mg Fentanyl (Sublimaze) 50 mcg IVPUSH Q5M PRN PRN Reason: Pain Last Admin: 02/02/19 15:11 Dose: 50 mcg Fluticasone Propionate (Flonase) 0 gm NASBOTH BID PRN PRN Reason: Allergies HCTZ/Losartan Potassium (Hyzaar 50-12.5 Mg) 2 tab PO DAILY [facility] Last Admin: 02/03/19 10:31 Dose: 2 tab Lactated Ringer's (Ringers, Lactated) 1,000 mls @ 75 mls/hr IV ASDIRECTED [facility] Last Admin: 02/02/19 16:12 Dose: 75 mls/hr Clindamycin Phosphate 600 mg/ (Premix) 50 mls @ 150 mls/hr IV ONCALL [facility] Insulin Aspart (Novolog) 0 unit SUBCUT TIDAC [facility]; Protocol Last Admin: 02/03/19 12:51 Dose: 1 unit Morphine Sulfate (Morphine) 1 - 2 mg IVPUSH Q3H PRN PRN Reason: Pain Last Admin: 02/03/19 15:08 Dose: 2 mg Ondansetron HCl (Zofran) 4 mg IVPUSH Q4H PRN PRN Reason: Nausea Ondansetron HCl (Zofran) 4 mg IVPUSH Q6H PRN PRN Reason: Nausea/Vomiting Oxycodone/Acetaminophen (Percocet 325-5 Mg) 1 tab PO QID PRN PRN Reason: Pain Last Admin: 02/03/19 14:10 Dose: 1 tab Pantoprazole Sodium (Protonix) 40 mg PO ACBREAKFAST [facility] Last Admin: 02/03/19 06:35 Dose: 40 mg Polyethylene Glycol (Miralax) 17 gm PO DAILY PRN PRN Reason: Constipation Sodium Chloride (Saline Flush) 10 ml FLUSH ASDIRECTED PRN PRN Reason: Keep Vein Open Sodium Chloride (Saline Flush) 2.5 ml FLUSH ASDIRECTED PRN PRN Reason: Keep Vein Open Sodium Chloride (Normal Saline) 10 ml IV ASDIRECTED PRN PRN Reason: IV Use Sodium Chloride (Saline Flush) 10 ml FLUSH ASDIRECTED PRN PRN Reason: Keep Vein Open Sodium Chloride (Saline Flush) 2.5 ml FLUSH ASDIRECTED PRN PRN Reason: Keep Vein Open Discontinued Medications Bisacodyl (Dulcolax) 10 mg RECTAL DAILY PRN PRN Reason: Constipation Desflurane (Suprane) Confirm Administered Dose 480 ml .ROUTE .STK-MED ONE Stop: 02/02/19 13:40 Dexamethasone (Dexamethasone) Confirm Administered Dose 20 mg .ROUTE .STK-MED ONE Stop: 02/02/19 08:29 Docusate Sodium (Colace) 100 mg PO BID PRN PRN Reason: Constipation Ephedrine Sulfate (Ephedrine Sulfate) Confirm Administered Dose 50 mg .ROUTE .STK-MED ONE Stop: 02/02/19 10:30 Fentanyl (Sublimaze) Confirm Administered Dose 100 mcg .ROUTE .STK-MED ONE Stop: 02/02/19 08:28 Fentanyl (Sublimaze) Confirm Administered Dose 100 mcg .ROUTE .STK-MED ONE Stop: 02/02/19 13:38 Glycopyrrolate (Robinul) Confirm Administered Dose 0.2 mg .ROUTE .STK-MED ONE Stop: 02/02/19 08:29 Clindamycin Phosphate 900 mg/ (Sodium Chloride) 56 mls @ 100 mls/hr IV ONCALL [facility] Clindamycin Phosphate 900 mg/ (Premix) 50 mls @ 50 mls/hr IV ONCALL PRN 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[place] Stop: 02/02/19 05:58 Clindamycin Phosphate 600 mg/ (Premix) 50 mls @ 100 mls/hr IV Q8H [facility] Stop: 02/03/19 05:29 Last Admin: 02/03/19 04:00 Dose: 100 mls/hr Ketorolac Tromethamine (Toradol) 30 mg IM ONETIME ONE Stop: 02/01/19 03:01 Last Admin: 02/01/19 03:25 Dose: 30 mg Ketorolac Tromethamine (Toradol) Confirm Administered Dose 30 mg .ROUTE .STK- MED ONE Stop: 02/01/19 03:07 Last Admin: 02/01/19 09:54 Dose: Not Given Ketorolac Tromethamine (Toradol) Confirm Administered Dose 30 mg .ROUTE .[facility]- MED ONE Stop: 02/02/19 08:29 Lidocaine (Xylocaine-Mpf 2%) Confirm Administered Dose 5 ml .ROUTE .ST-MED ONE Stop: 02/02/19 08:29 Midazolam HCl (Versed 1 Mg/Ml) Confirm Administered Dose 2 mg .ROUTE .[facility]-MED ONE Stop: 02/02/19 08:28 Midazolam HCl (Versed 1 Mg/Ml) Confirm Administered Dose 2 mg .ROUTE .ST-MED ONE Stop: 02/02/19 08:28 Ondansetron HCl (Zofran) Confirm Administered Dose 4 mg .ROUTE .[facility]-MED ONE Stop: 02/02/19 08:29 Pantoprazole Sodium (Protonix) 40 mg PO ONETIME ONE Stop: 02/01/19 06:01 Last Admin: 02/01/19 06:23 Dose: 40 mg Phenylephrine HCl (Paulo-Synephrine) Confirm Administered Dose 10 mg .ROUTE .[facility]- MED ONE Stop: 02/02/19 10:30 Polyethylene Glycol (Miralax) 17 gm PO DAILY [facility] Last Admin: 02/03/19 10:24 Dose: 17 gm Propofol (Diprivan 20 Ml) Confirm Administered Dose 200 mg .ROUTE .[facility]-MED ONE Stop: 02/02/19 08:27 Rocuronium [place] (Zemuron) Confirm Administered Dose 100 mg .ROUTE .[facility]-MED ONE Stop: 02/02/19 08:29 Ropivacaine (Naropin 0.5%) Confirm Administered Dose 30 ml .ROUTE .ST-MED ONE Stop: 02/02/19 08:32 Ropivacaine (Naropin 0.5%) Confirm Administered Dose 30 ml .ROUTE .[facility]-MED ONE Stop: 02/02/19 08:36 Sugammadex Sodium (Bridion) Confirm Administered Dose 200 mg .ROUTE .ST-MED ONE Stop: 02/02/19 08:32 Tranexamic Acid (Cyklokapron) Confirm Administered Dose 2,000 mg .ROUTE .[facility]- MED ONE Stop: 02/02/19 11:23 - Exam General: Alert, Oriented, Cooperative, No Acute Distress Lungs: Clear to Auscultation, Normal Respiratory Effort Cardiovascular: Regular Rate, Regular Rhythm Skin: Warm, Dry, Intact - Problem List Review Problem List Initiated/Reviewed/Updated: Yes - My Orders Last 24 Hours: My Active Orders 02/03/19 11:29 Accu Check [Blood Glucose Check, Bedside] [RC] TIDAC 02/03/19 11:30 Insulin Aspart [NovoLOG] See Protocol SUBCUT TIDAC - Plan Plan:: Assessment: 1. Left shoulder fracture s/p left shoulder arthroplasty POD #1. 2. Hypertension, stable. 3. Pre-diabetes. 4. Hyperlipidemia. Plan: 1. For hypertension, continue current medication. 2. For pre-diabetes, will start patient on sliding scale insulin for better glucose control. Would recommend starting patient on metformin 500mg BID once patient is discharged. 3. For hyperlipidemia, continue home medications. 4. As patient is medically stable, will sign off for now. We are more than happy to see patient again if the need arises. Thank you for the opportunity to take part in the care of this patient.
[2019-02-03] MEDS: Polyethylene Glycol 3350 Powder 17 GM Packet PO PRN (20:07)
[2019-02-04] MEDS: Acetaminophen/HYDROcodone 325-5 MG Tab PO PRN ×4 (01:04→22:18)
[2019-02-04] MEDS: Morphine 2 MG/ML Syringe IVPUSH PRN ×7 (01:05→22:19)
[2019-02-04] MEDS: Acetaminophen/oxyCODONE 325-5 MG Tab PO PRN ×2 (04:02→11:04)
[2019-02-04] MEDS: Pantoprazole 40 MG Tab.CR PO SCH (06:36)
[2019-02-04] MEDS: Insulin Aspart 100 Units/ML 3 ML Pen SUBCUT SCH ×3 (06:37→18:57)
[2019-02-04] MEDS: Aspirin 325 MG Tab PO SCH (08:59)
[2019-02-04] MEDS: Famotidine 20 MG Tab PO SCH (08:59)
[2019-02-04] MEDS: Docusate Sodium 100 MG Cap PO SCH ×2 (09:00→20:39)
[2019-02-04] MEDS: atorvaSTATin 10 MG Tab PO SCH (09:00)
[2019-02-04] MEDS: Hydrochlorothiazide/Losartan 12.5-50 mg Tab PO SCH (09:02)
--- NOTE | 2019-02-04 15:19 | PCM.DCSUM1 ---
Discharge Summary - Hospital Course HPI Initial Comments: 68 yo female sp fall with left proximal humerus fracture, closed Diagnosis: Stroke: Yes Modified Leonardo Scale: Mod.Disablility Requiring Some Help,Able to Walk Without Assistance Modified Leonardo Scale Score: 3 - Discharge Data Discharge Date: 02/04/19 Discharge Disposition: Home, Self-Care 01 Condition: Fair - Referral to Home Health Primary Care Physician: PCP None - Discharge Diagnosis/Problem(s) (1) Closed fracture dislocation of left shoulder SNOMED Code(s): 761474753 ICD Code: S42.92XA - FRACTURE OF LEFT SHOULDER GIRDLE, PART UNSP, INIT Status: Acute Priority: High Current Visit: No Qualifiers: Encounter type: initial encounter Qualified Code(s): S42.92XA - Fracture of left shoulder girdle, part unspecified, initial encounter for closed fracture - Patient Summary/Data Operative Procedure(s) Performed: left shoulder rtsa Consults: Consultations 02/01/19 05:47 Consult to Physician [CONS] Stat 02/02/19 15:02 PT Evaluation and Treatment [CONS] Routine - Patient Instructions Diet: Usual Diet as Tolerated Activity: Apply Ice, Non Weight Bearing, Rest and Relax Today Driving: Do Not Drive Showering/Bathing: May Shower Wound/Incision Care: Keep Operative Site/Wound Site Clean and Dry Wound/Incision, Other: change dressing every other day with sponge and tape Notify Provider of: Fever, Increased Pain, Swelling and Redness, Drainage, Nausea and/or Vomiting - Discharge Plan *PRESCRIPTION DRUG MONITORING PROGRAM REVIEWED*: Yes *COPY OF PRESCRIPTION DRUG MONITORING REPORT IN PATIENT TRISTAN: No Prescriptions/Med Rec: Acetaminophen/oxyCODONE [Percocet 325-5 MG] 1 tab PO QID PRN #56 tablet PRN Reason: Pain Aspirin 325 mg PO DAILY #21 tablet Dextromethorphan/guaiFENesin [Robitussin DM] 10 ml PO Q4H PRN #2 cup PRN Reason: Pain Home Medications: Home Meds Cyclobenzaprine [Flexeril] 10 mg PO TID PRN #8 tab 11/17/18 [Rx] Acetaminophen/HYDROcodone [[place] 325-5 MG] 1 - 2 tab PO Q6H PRN #20 tablet 01/23 [Rx] Ibuprofen [Motrin] 800 mg PO Q6H PRN 02/01/19 [History] Losartan/Hydrochlorothiazide [Losartan-HCTZ 100-25 MG] 1 tab PO DAILY 02/01/19 [ History] Potassium Chloride 20 meq PO DAILY 02/01/19 [History] atorvaSTATin [Lipitor] 10 mg PO DAILY 02/01/19 [History] Acetaminophen/oxyCODONE [Percocet 325-5 MG] 1 tab PO QID PRN #56 tablet [Rx] Aspirin 325 mg PO DAILY #21 tablet 02/06/19 [Rx] Dextromethorphan/guaiFENesin [Robitussin DM] 10 ml PO Q4H PRN #2 cup 02/06/19 [ Rx] Referrals: Idania Castelan NP [Nurse Practitioner] - (follow-up in 2 weeks ) Gus Nassar MD [Physician] - - Discharge Summary/Plan Comment DC Time >30 min.: No - General Info Date of Service: 02/06/19 Admission Dx/Problem (Free Text: Admission Diagnosis/Problem Admission Diagnosis/Problem Closed fracture of head of humerus Functional Status: Reports: Pain Controlled, Tolerating Diet, Ambulating, Urinating - Review of Systems General: Reports: No Symptoms HEENT: Reports: No Symptoms Pulmonary: Reports: No Symptoms Cardiovascular: Reports: No Symptoms Gastrointestinal: Reports: No Symptoms Genitourinary: Reports: No Symptoms 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: Reports: Shoulder Pain, Joint Pain, Joint Swelling Skin: Reports: No Symptoms Neurological: Reports: No Symptoms Psychiatric: Reports: No Symptoms - Patient Data Vitals - Most Recent: Last Vital Signs Temp 36.2 C 02/04/19 08:00 Pulse 68 02/04/19 08:00 Resp 17 02/04/19 08:00 BP 114/53 L 02/04/19 08:00 Pulse Ox 95 02/04/19 08:00 Weight - Most Recent: 104.326 kg I&O - Last 24 hours: Intake & Output 02/04/19 02/04/19 02/04/19 06:59 14:59 22:59 Intake Total 590 Output Total 550 Balance 40 Lab Results - Last 24 hrs: Laboratory Results - last 24 hr 02/03/19 02/04/19 02/04/19 Range/Units 16:27 06:15 06:16 Hgb 9.9 L (12.0-16.0) g/dL Hct 30.5 L (36.0-46.0) % POC Glucose 160 H 116 H (60-110) mg/dL 02/04/19 Range/Units 11:49 Hgb (12.0-16.0) g/dL Hct (36.0-46.0) % POC Glucose 123 H (60-110) mg/dL Med Orders - Current: Current Medications Hydrocodone Bitart/Acetaminophen ([place] 325-5 Mg) 1 tab PO Q4H PRN PRN Reason: Pain Last Admin: 02/04/19 13:52 Dose: 1 tab Al Hydroxide/Mg Hydroxide (Mag-Al Plus) 30 ml PO Q4H PRN PRN Reason: Indigestion Aspirin (Aspirin) 325 mg PO DAILY [facility] Last Admin: 02/04/19 08:59 Dose: 325 mg Atorvastatin Calcium (Lipitor) 10 mg PO DAILY [facility] Last Admin: 02/04/19 09:00 Dose: 10 mg Bisacodyl (Dulcolax) 10 mg RECTAL DAILY PRN PRN Reason: Constipation Cyclobenzaprine HCl (Flexeril) 10 mg PO TID PRN PRN Reason: Spasms Last Admin: 02/01/19 19:25 Dose: 10 mg Diphenhydramine HCl (Benadryl) 25 - 50 mg PO Q6H PRN PRN Reason: Itching Docusate Sodium (Colace) 100 mg PO BID [facility] Last Admin: 02/04/19 09:00 Dose: 100 mg Famotidine (Pepcid) 40 mg PO DAILY [facility] Last Admin: 02/04/19 08:59 Dose: 40 mg Fentanyl (Sublimaze) 50 mcg IVPUSH Q5M PRN PRN Reason: Pain Last Admin: 02/02/19 15:11 Dose: 50 mcg Fluticasone Propionate (Flonase) 0 gm NASBOTH BID PRN PRN Reason: Allergies HCTZ/Losartan Potassium (Hyzaar 50-12.5 Mg) 2 tab PO DAILY [facility] Last Admin: 02/04/19 09:02 Dose: 2 tab Lactated Ringer's (Ringers, Lactated) 1,000 mls @ 75 mls/hr IV ASDIRECTED [facility] Last Admin: 02/02/19 16:12 Dose: 75 mls/hr Clindamycin Phosphate 600 mg/ (Premix) 50 mls @ 150 mls/hr IV ONCALL [facility] Insulin Aspart (Novolog) 0 unit SUBCUT TIDAC [facility]; Protocol Last Admin: 02/04/19 12:45 Dose: Not Given Morphine Sulfate (Morphine) 1 - 2 mg IVPUSH Q3H PRN PRN Reason: Pain Last Admin: 02/04/19 12:46 Dose: 2 mg Ondansetron HCl (Zofran) 4 mg IVPUSH Q4H PRN PRN Reason: Nausea Ondansetron HCl (Zofran) 4 mg IVPUSH Q6H PRN PRN Reason: Nausea/Vomiting Oxycodone/Acetaminophen (Percocet 325-5 Mg) 1 tab PO QID PRN PRN Reason: Pain Last Admin: 02/04/19 11:04 Dose: 1 tab Pantoprazole Sodium (Protonix) 40 mg PO ACBREAKFAST [facility] Last Admin: 02/04/19 06:36 Dose: 40 mg Polyethylene Glycol (Miralax) 17 gm PO DAILY PRN PRN Reason: Constipation Last Admin: 02/03/19 20:07 Dose: 17 gm Sodium Chloride (Saline Flush) 10 ml FLUSH ASDIRECTED PRN PRN Reason: Keep Vein Open Sodium Chloride (Saline Flush) 2.5 ml FLUSH ASDIRECTED PRN PRN Reason: Keep Vein Open Sodium Chloride (Normal Saline) 10 ml IV ASDIRECTED PRN PRN Reason: IV Use Sodium Chloride (Saline Flush) 10 ml FLUSH ASDIRECTED PRN PRN Reason: Keep Vein Open Sodium Chloride (Saline Flush) 2.5 ml FLUSH ASDIRECTED PRN PRN Reason: Keep Vein Open Discontinued Medications Bisacodyl (Dulcolax) 10 mg RECTAL DAILY PRN PRN Reason: Constipation Desflurane (Suprane) Confirm Administered Dose 480 ml .ROUTE .STK-MED ONE Stop: 02/02/19 13:40 Dexamethasone (Dexamethasone) Confirm Administered Dose 20 mg .ROUTE .STK-MED ONE Stop: 02/02/19 08:29 Docusate Sodium (Colace) 100 mg PO BID PRN PRN Reason: Constipation Ephedrine Sulfate (Ephedrine Sulfate) Confirm Administered Dose 50 mg .ROUTE .STK-MED ONE Stop: 02/02/19 10:30 Fentanyl (Sublimaze) Confirm Administered Dose 100 mcg .ROUTE .STK-MED ONE Stop: 02/02/19 08:28 Fentanyl (Sublimaze) Confirm Administered Dose 100 mcg .ROUTE .STK-MED ONE Stop: 02/02/19 13:38 Glycopyrrolate (Robinul) Confirm Administered Dose 0.2 mg .ROUTE .STK-MED ONE Stop: 02/02/19 08:29 Clindamycin Phosphate 900 mg/ (Sodium Chloride) 56 mls @ 100 mls/hr IV ONCALL [facility] Clindamycin Phosphate 900 mg/ (Premix) 50 mls @ 50 mls/hr IV ONCALL PRN 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 [place] Stop: 02/02/19 05:58 Clindamycin Phosphate 600 mg/ (Premix) 50 mls @ 100 mls/hr IV Q8H [facility] Stop: 02/03/19 05:29 Last Admin: 02/03/19 04:00 Dose: 100 mls/hr Ketorolac Tromethamine (Toradol) 30 mg IM ONETIME ONE Stop: 02/01/19 03:01 Last Admin: 02/01/19 03:25 Dose: 30 mg Ketorolac Tromethamine (Toradol) Confirm Administered Dose 30 mg .ROUTE .STK- MED ONE Stop: 02/01/19 03:07 Last Admin: 02/01/19 09:54 Dose: Not Given Ketorolac Tromethamine (Toradol) Confirm Administered Dose 30 mg .ROUTE .STK- MED ONE Stop: 02/02/19 08:29 Lidocaine (Xylocaine-Mpf 2%) Confirm Administered Dose 5 ml .ROUTE .STK-MED ONE Stop: 02/02/19 08:29 Midazolam HCl (Versed 1 Mg/Ml) Confirm Administered Dose 2 mg .ROUTE .STK-MED ONE Stop: 02/02/19 08:28 Midazolam HCl (Versed 1 Mg/Ml) Confirm Administered Dose 2 mg .ROUTE .STK-MED ONE Stop: 02/02/19 08:28 Ondansetron HCl (Zofran) Confirm Administered Dose 4 mg .ROUTE .STK-MED ONE Stop: 02/02/19 08:29 Pantoprazole Sodium (Protonix) 40 mg PO ONETIME ONE Stop: 02/01/19 06:01 Last Admin: 02/01/19 06:23 Dose: 40 mg Phenylephrine HCl (Paulo-Synephrine) Confirm Administered Dose 10 mg .ROUTE .STK- MED ONE Stop: 02/02/19 10:30 Polyethylene Glycol (Miralax) 17 gm PO DAILY [facility] Last Admin: 02/03/19 10:24 Dose: 17 gm Propofol (Diprivan 20 Ml) Confirm Administered Dose 200 mg .ROUTE .STK-MED ONE Stop: 02/02/19 08:27 Rocuronium [place] (Zemuron) Confirm Administered Dose 100 mg .ROUTE .STK-MED ONE Stop: 02/02/19 08:29 Ropivacaine (Naropin 0.5%) Confirm Administered Dose 30 ml .ROUTE .STK-MED ONE Stop: 02/02/19 08:32 Ropivacaine (Naropin 0.5%) Confirm Administered Dose 30 ml .ROUTE .STK-MED ONE Stop: 02/02/19 08:36 Sugammadex Sodium (Bridion) Confirm Administered Dose 200 mg .ROUTE .STK-MED ONE Stop: 02/02/19 08:32 Tranexamic Acid (Cyklokapron) Confirm Administered Dose 2,000 mg .ROUTE .STK- MED ONE Stop: 02/02/19 11:23 - Exam Quality Assessment: Reports: DVT Prophylaxis General: Reports: Alert, Oriented, Cooperative, No Acute Distress HEENT: Reports: Pupils Equal, Pupils Reactive, EOMI, Mucous Membr. Moist/[place] Neck: Reports: Supple, Trachea Midline Lungs: Reports: Normal Respiratory Effort GI/Abdominal Exam: No Distention Extremities: Joint Swelling, Limited Range of Motion Skin: Reports: Warm, Dry, Intact Wound/Incisions: Reports: Healing Well, Dressing Dry and Intact, No Drainage Neurological: Reports: No New Focal Deficit Psy/Mental Status: Reports: Alert, Normal Affect, Normal Mood Discharge Operative/Procedures - Procedures Performed Operations: left shoulder rtsa LP Indication: CSF analysis Arterial Line Indication: hemodynamic monitoring Chest Tube Indication: pneumothorax Thoracentesis Indication: pleural effusion Paracentesis Indication: ascites
[2019-02-04] MEDS: Gabapentin 300 MG Cap PO SCH ×2 (18:11→22:17)
[2019-02-04] MEDS: Polyethylene Glycol 3350 Powder 17 GM Packet PO PRN (20:39)
[2019-02-05] MEDS: Acetaminophen/HYDROcodone 325-5 MG Tab PO PRN ×3 (03:17→14:11)
[2019-02-05] MEDS: Pantoprazole 40 MG Tab.CR PO SCH (06:34)
[2019-02-05] MEDS: Morphine 2 MG/ML Syringe IVPUSH PRN (06:34)
[2019-02-05] MEDS: Gabapentin 300 MG Cap PO SCH ×3 (06:34→21:54)
[2019-02-05] MEDS: Insulin Aspart 100 Units/ML 3 ML Pen SUBCUT SCH ×3 (07:11→18:41)
[2019-02-05] MEDS: Hydrochlorothiazide/Losartan 12.5-50 mg Tab PO SCH (09:02)
[2019-02-05] MEDS: Docusate Sodium 100 MG Cap PO SCH ×2 (09:03→21:54)
[2019-02-05] MEDS: Famotidine 20 MG Tab PO SCH (09:03)
[2019-02-05] MEDS: atorvaSTATin 10 MG Tab PO SCH (09:03)
[2019-02-05] MEDS: Aspirin 325 MG Tab PO SCH (09:04)
[2019-02-05] MEDS ORDERED: guaiFENesin/Dextromethorphan 100-10 MG/5 ML Soln 10 ML Cup PO PRN (09:38)
--- NOTE | 2019-02-05 09:40 | PCM.PN ---
- General Info Date of Service: 02/05/19 Admission Dx/Problem (Free Text): Admission Diagnosis/Problem Admission Diagnosis/Problem Closed fracture of head of humerus Functional Status: Reports: Tolerating Diet, Ambulating, Urinating - Review of Systems General: Reports: No Symptoms HEENT: Reports: No Symptoms Pulmonary: Reports: No Symptoms Cardiovascular: Reports: No Symptoms Gastrointestinal: Reports: No Symptoms Genitourinary: Reports: No Symptoms 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: Reports: Shoulder Pain, Arm Pain, Joint Pain, Joint Swelling Skin: Reports: No Symptoms Neurological: Reports: No Symptoms Psychiatric: Reports: No Symptoms - Patient Data Vitals - Most Recent: Last Vital Signs Temp 36.6 C 02/05/19 08:00 Pulse 80 02/05/19 08:00 Resp 18 02/05/19 08:00 BP 116/85 02/05/19 08:00 Pulse Ox 95 02/05/19 08:00 Weight - Most Recent: 104.326 kg I&O - Last 24 Hours: Intake & Output 02/04/19 02/05/19 02/05/19 22:59 06:59 14:59 Intake Total 800 800 Output Total 1100 1200 Balance -300 -400 Lab Results Last 24 Hours: Laboratory Results - last 24 hr 02/01/19 02/04/19 02/04/19 Range/Units 06:47 11:49 17:30 POC Glucose 123 H 124 H (60-110) mg/dL Crossmatch See Detail 02/05/19 Range/Units 06:04 POC Glucose 111 H (60-110) mg/dL Crossmatch Med Orders - Current: Current Medications Hydrocodone Bitart/Acetaminophen ([place] 325-5 Mg) 1 tab PO Q4H PRN PRN Reason: Pain Last Admin: 02/05/19 09:04 Dose: 1 tab Al Hydroxide/Mg Hydroxide (Mag-Al Plus) 30 ml PO Q4H PRN PRN Reason: Indigestion Aspirin (Aspirin) 325 mg PO DAILY [facility] Last Admin: 02/05/19 09:04 Dose: 325 mg Atorvastatin Calcium (Lipitor) 10 mg PO DAILY [facility] Last Admin: 02/05/19 09:03 Dose: 10 mg Bisacodyl (Dulcolax) 10 mg RECTAL DAILY PRN PRN Reason: Constipation Cyclobenzaprine HCl (Flexeril) 10 mg PO TID PRN PRN Reason: Spasms Last Admin: 02/01/19 19:25 Dose: 10 mg Diphenhydramine HCl (Benadryl) 25 - 50 mg PO Q6H PRN PRN Reason: Itching Docusate Sodium (Colace) 100 mg PO BID COUNTS [facility]CLUDE 234 BEDS AT [facility] Last Admin: 02/05/19 09:03 Dose: 100 mg Famotidine (Pepcid) 40 mg PO DAILY COUNTS INCLUDE 234 BEDS AT THE [facility] Last Admin: 02/05/19 09:03 Dose: 40 mg Fentanyl (Sublimaze) 50 mcg IVPUSH Q5M PRN PRN Reason: Pain Last Admin: 02/02/19 15:11 Dose: 50 mcg Fluticasone Propionate (Flonase) 0 gm NASBOTH BID PRN PRN Reason: Allergies Gabapentin (Neurontin) 300 mg PO TID COUNTS INCLUDE 234 BEDS AT THE [facility] Last Admin: 02/05/19 06:34 Dose: 300 mg Guaifenesin/Dextromethorphan (Robitussin Dm) 10 ml PO Q4H PRN PRN Reason: Pain HCTZ/Losartan Potassium (Hyzaar 50-12.5 Mg) 2 tab PO DAILY COUNTS INCLUDE 234 BEDS AT THE [facility] Last Admin: 02/05/19 09:02 Dose: 2 tab Lactated Ringer's (Ringers, Lactated) 1,000 mls @ 75 mls/hr IV ASDIRECTED COUNTS INCLUDE 234 BEDS AT THE [facility] Last Admin: 02/02/19 16:12 Dose: 75 mls/hr Clindamycin Phosphate 600 mg/ (Premix) 50 mls @ 150 mls/hr IV ONCALL COUNTS INCLUDE 234 BEDS AT THE [facility] Insulin Aspart (Novolog) 0 unit SUBCUT TIDAC COUNTS INCLUDE 234 BEDS AT THE [facility]; Protocol Last Admin: 02/05/19 07:11 Dose: Not Given Ondansetron HCl (Zofran) 4 mg IVPUSH Q4H PRN PRN Reason: Nausea Ondansetron HCl (Zofran) 4 mg IVPUSH Q6H PRN PRN Reason: Nausea/Vomiting Oxycodone/Acetaminophen (Percocet 325-5 Mg) 1 tab PO QID PRN PRN Reason: Pain Last Admin: 02/04/19 11:04 Dose: 1 tab Pantoprazole Sodium (Protonix) 40 mg PO ACBREAKFAST COUNTS INCLUDE 234 BEDS AT THE [facility] Last Admin: 02/05/19 06:34 Dose: 40 mg Polyethylene Glycol (Miralax) 17 gm PO DAILY PRN PRN Reason: Constipation Last Admin: 02/04/19 20:39 Dose: 17 gm Sodium Chloride (Saline Flush) 10 ml FLUSH ASDIRECTED PRN PRN Reason: Keep Vein Open Sodium Chloride (Saline Flush) 2.5 ml FLUSH ASDIRECTED PRN PRN Reason: Keep Vein Open Sodium Chloride (Normal Saline) 10 ml IV ASDIRECTED PRN PRN Reason: IV Use Sodium Chloride (Saline Flush) 10 ml FLUSH ASDIRECTED PRN PRN Reason: Keep Vein Open Sodium Chloride (Saline Flush) 2.5 ml FLUSH ASDIRECTED PRN PRN Reason: Keep Vein Open Discontinued Medications Bisacodyl (Dulcolax) 10 mg RECTAL DAILY PRN PRN Reason: Constipation Desflurane (Suprane) Confirm Administered Dose 480 ml .ROUTE .STK-MED ONE Stop: 02/02/19 13:40 Dexamethasone (Dexamethasone) Confirm Administered Dose 20 mg .ROUTE .STK-MED ONE Stop: 02/02/19 08:29 Docusate Sodium (Colace) 100 mg PO BID PRN PRN Reason: Constipation Ephedrine Sulfate (Ephedrine Sulfate) Confirm Administered Dose 50 mg .ROUTE .STK-MED ONE Stop: 02/02/19 10:30 Fentanyl (Sublimaze) Confirm Administered Dose 100 mcg .ROUTE .STK-MED ONE Stop: 02/02/19 08:28 Fentanyl (Sublimaze) Confirm Administered Dose 100 mcg .ROUTE .STK-MED ONE Stop: 02/02/19 13:38 Glycopyrrolate (Robinul) Confirm Administered Dose 0.2 mg .ROUTE .STK-MED ONE Stop: 02/02/19 08:29 Clindamycin Phosphate 900 mg/ (Sodium Chloride) 56 mls @ 100 mls/hr IV ONCALL [facility] Clindamycin Phosphate 900 mg/ (Premix) 50 mls @ 50 mls/hr IV ONCALL PRN PRN 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 [place] Stop: 02/02/19 05:58 Clindamycin Phosphate 600 mg/ (Premix) 50 mls @ 100 mls/hr IV Q8H COUNTS INCLUDE 234 BEDS AT THE [facility] Stop: 02/03/19 05:29 Last Admin: 02/03/19 04:00 Dose: 100 mls/hr Ketorolac Tromethamine (Toradol) 30 mg IM ONETIME ONE Stop: 02/01/19 03:01 Last Admin: 02/01/19 03:25 Dose: 30 mg Ketorolac Tromethamine (Toradol) Confirm Administered Dose 30 mg .ROUTE .STK- MED ONE Stop: 02/01/19 03:07 Last Admin: 02/01/19 09:54 Dose: Not Given Ketorolac Tromethamine (Toradol) Confirm Administered Dose 30 mg .ROUTE .STK- MED ONE Stop: 02/02/19 08:29 Lidocaine (Xylocaine-Mpf 2%) Confirm Administered Dose 5 ml .ROUTE .STK-MED ONE Stop: 02/02/19 08:29 Midazolam HCl (Versed 1 Mg/Ml) Confirm Administered Dose 2 mg .ROUTE .STK-MED ONE Stop: 02/02/19 08:28 Midazolam HCl (Versed 1 Mg/Ml) Confirm Administered Dose 2 mg .ROUTE .STK-MED ONE Stop: 02/02/19 08:28 Morphine Sulfate (Morphine) 1 - 2 mg IVPUSH Q3H PRN PRN Reason: Pain Last Admin: 02/05/19 06:34 Dose: 2 mg Ondansetron HCl (Zofran) Confirm Administered Dose 4 mg .ROUTE .STK-MED ONE Stop: 02/02/19 08:29 Pantoprazole Sodium (Protonix) 40 mg PO ONETIME ONE Stop: 02/01/19 06:01 Last Admin: 02/01/19 06:23 Dose: 40 mg Phenylephrine HCl (Paulo-Synephrine) Confirm Administered Dose 10 mg .ROUTE .STK- MED ONE Stop: 02/02/19 10:30 Polyethylene Glycol (Miralax) 17 gm PO DAILY [facility] Last Admin: 02/03/19 10:24 Dose: 17 gm Propofol (Diprivan 20 Ml) Confirm Administered Dose 200 mg .ROUTE .STK-MED ONE Stop: 02/02/19 08:27 Rocuronium [place] (Zemuron) Confirm Administered Dose 100 mg .ROUTE .STK-MED ONE Stop: 02/02/19 08:29 Ropivacaine (Naropin 0.5%) Confirm Administered Dose 30 ml .ROUTE .STK-MED ONE Stop: 02/02/19 08:32 Ropivacaine (Naropin 0.5%) Confirm Administered Dose 30 ml .ROUTE .STK-MED ONE Stop: 02/02/19 08:36 Sugammadex Sodium (Bridion) Confirm Administered Dose 200 mg .ROUTE .STK-MED ONE Stop: 02/02/19 08:32 Tranexamic Acid (Cyklokapron) Confirm Administered Dose 2,000 mg .ROUTE .STK- MED ONE Stop: 02/02/19 11:23 - Exam General: Alert, Oriented, Cooperative, Mild Distress HEENT: Pupils Equal, Pupils Reactive, EOMI, Mucous Membr. Moist/[place] Neck: Supple, Trachea Midline Lungs: Normal Respiratory Effort Extremities: Joint Swelling, Arm Pain, Limited Range of Motion Peripheral Pulses: 2+: Radial (L) Skin: Warm, Dry, Intact Wound/Incisions: Healing Well, Dressing Dry and Intact, No Drainage Neurological: No New Focal Deficit Psy/Mental Status: Alert, Normal Affect, Normal Mood - Problem List & Annotations (1) Closed fracture dislocation of left shoulder SNOMED Code(s): 854116588 Code(s): S42.92XA - FRACTURE OF LEFT SHOULDER GIRDLE, PART UNSP, INIT Status: Acute Priority: High Current Visit: No Qualifiers: Encounter type: initial encounter Qualified Code(s): S42.92XA - Fracture of left shoulder girdle, part unspecified, initial encounter for closed fracture - Problem List Review Problem List Initiated/Reviewed/Updated: Yes - My Orders Last 24 Hours: My Active Orders 02/04/19 17:00 Gabapentin [Neurontin] 300 mg PO TID 02/05/19 09:38 Dextromethorphan/guaiFENesin [Robitussin DM] 10 ml PO Q4H PRN - Plan Plan:: A: POD 3 left rtsa P: dvt prophylaxis, pain control, pt/ot plan to dc tomorrow to home dc morphine iv, start robitussin dm qid
[2019-02-05] MEDS: Acetaminophen/oxyCODONE 325-5 MG Tab PO PRN ×2 (11:37→18:42)
[2019-02-06] MEDS: Acetaminophen/HYDROcodone 325-5 MG Tab PO PRN (00:11)
[2019-02-06] MEDS: Pantoprazole 40 MG Tab.CR PO SCH (06:40)
[2019-02-06] MEDS: Gabapentin 300 MG Cap PO SCH (06:40)
[2019-02-06] MEDS: Insulin Aspart 100 Units/ML 3 ML Pen SUBCUT SCH ×2 (08:17→11:59)
[2019-02-06] MEDS: Acetaminophen/oxyCODONE 325-5 MG Tab PO PRN (08:34)
[2019-02-06] MEDS: Aspirin 325 MG Tab PO SCH (08:35)
[2019-02-06] MEDS: Hydrochlorothiazide/Losartan 12.5-50 mg Tab PO SCH (08:35)
[2019-02-06] MEDS: Famotidine 20 MG Tab PO SCH (08:35)
[2019-02-06] MEDS: Docusate Sodium 100 MG Cap PO SCH (08:35)
[2019-02-06] MEDS: atorvaSTATin 10 MG Tab PO SCH (08:36)
[2019-02-06 11:58] VITALS: BP 129/59; PULSE 80
== END 2019-02-06 12:45 | disposition home or self-care (01) | DRG 483 ==
LOC: MW.ED 02:46 → MW.MS 05:32
PROVIDERS: ADMIT Orthopaedic Surgery; ATTEND Orthopaedic Surgery
PROC: 0RRK00Z Replacement of Left Shoulder Joint with Reverse Ball and Socket Synthetic Substitute, Open Approach (ICD-10-PCS; principal; 2019-02-01)
DX: S42.202A Unspecified fracture of upper end of left humerus, initial encounter for closed fracture (principal); X58.XXXA Exposure to other specified factors, initial encounter; I10 Essential (primary) hypertension; E78.5 Hyperlipidemia, unspecified; H54.7 Unspecified visual loss; E78.00 Pure hypercholesterolemia, unspecified; E66.9 Obesity, unspecified; Z90.49 Acquired absence of other specified parts of digestive tract; Z90.710 Acquired absence of both cervix and uterus; Z79.899 Other long term (current) drug therapy; Z79.82 Long term (current) use of aspirin; Z88.0 Allergy status to penicillin; W19.XXXA Unspecified fall, initial encounter; Z68.37 Body mass index [BMI] 37.0-37.9, adult
CPT/HCPCS: 73200; 96372; 99284; J1885; 36415; 71046; 71046-26; 73020-26-LT; 73020-LT; 80048; 80061; 81001; 82962; 84443; 85014; 85018; 85025; 86850; 86870; 86900; 86901; 86920; 86921; 86922; 93005; 97161-GP; 99283; A9270-GY; J1100; J1815-GY; J2001; J2250; J2270; J2370; J2405; J2704; J2795; J3010; J3490; J7120

== ENCOUNTER 2019-02-19 08:52 | Emergency (ER) | payer MEDICARE, BC ==
--- NOTE | 2019-02-19 08:56 | EDM.PDOC ---
ED HPI GENERAL MEDICAL PROBLEM - General Stated Complaint: WRIST SWOLLEN Time Seen by Provider: 02/19/19 08:56 Source of Information: Reports: Patient - History of Present Illness INITIAL COMMENTS - FREE TEXT/NARRATIVE: HISTORY AND PHYSICAL: History of present illness: [pt w h/o left shoulder surgery in last month post fall, presents with left hand pain no other injury or fall, no trauma per patient Review of systems: As per history of present illness and below otherwise all systems reviewed and negative. Past medical history: As per history of present illness and as reviewed below otherwise noncontributory. Surgical history: As per history of present illness and as reviewed below otherwise noncontributory. Social history: No reported history of drug or alcohol abuse. Family history: As per history of present illness and as reviewed below otherwise noncontributory. Physical exam: HEENT: Atraumatic, normocephalic, pupils reactive, negative for conjunctival pallor or scleral icterus, mucous membranes moist, throat clear, neck supple, nontender, trachea midline. Lungs: Clear to auscultation, breath sounds equal bilaterally, chest nontender. Heart: S1S2, regular, negative for clicks, rubs, or JVD. Abdomen: Soft, nondistended, nontender. Negative for masses or hepatosplenomegaly. Negative for costovertebral tenderness. Pelvis: Stable nontender. Genitourinary: Deferred. Rectal: Deferred. Extremities: Atraumatic, negative for cords or calf pain. Neurovascular unremarkable. left hand: tender along wrist and dorsum, neurovascular in tact, cap refill 3 seconds, no pallor, no parasthesia Neuro: Awake, alert, oriented. Cranial nerves II through XII unremarkable. Cerebellum unremarkable. Motor and sensory unremarkable throughout. Exam nonfocal. Diagnostics: [left hand 3 v ] Therapeutics: [continue ortho recommendations ] Impression: left hand pain [h/o fall left shoulder prosthetic ] Definitive disposition and diagnosis as appropriate pending reevaluation and review of above. - Related Data Allergies Allergy/AdvReac Type Severity Reaction Status Date / Time Penicillins Allergy Rash Verified 02/19/19 09:08 Home Meds: Home Meds Cyclobenzaprine [Flexeril] 10 mg PO TID PRN #8 tab 11/17/18 [Rx] Acetaminophen/HYDROcodone [[place] 325-5 MG] 1 - 2 tab PO Q6H PRN #20 tablet 01/23 [Rx] Ibuprofen [Motrin] 800 mg PO Q6H PRN 02/01/19 [History] Losartan/Hydrochlorothiazide [Losartan-HCTZ 100-25 MG] 1 tab PO DAILY 02/01/19 [ History] Potassium Chloride 20 meq PO DAILY 02/01/19 [History] atorvaSTATin [Lipitor] 10 mg PO DAILY 02/01/19 [History] Acetaminophen/oxyCODONE [Percocet 325-5 MG] 1 tab PO QID PRN #56 tablet [Rx] Aspirin 325 mg PO DAILY #21 tablet 02/06/19 [Rx] Dextromethorphan/guaiFENesin [Robitussin DM] 10 ml PO Q4H PRN #2 cup 02/06/19 [ Rx] Gabapentin [Neurontin] 300 mg PO TID #90 cap 02/06/19 [Rx] traMADol [Ultram] 50 mg PO Q4H PRN #84 tab 02/06/19 [Rx] Past Medical History HEENT History: Reports: None, Impaired Vision 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 Cardiovascular History: Reports: High Cholesterol, Hypertension Respiratory History: Reports: None Gastrointestinal History: Reports: None Genitourinary History: Reports: None 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: fatty tissue 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 right breast 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 History: Reports: Fracture Other 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 History: right wrist fx Neurological History: Reports: None Psychiatric History: Reports: None Endocrine/Metabolic History: Reports: Obesity/BMI 30+ 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 Hematologic History: Reports: None Immunologic History: Reports: None Oncologic (Cancer) History: Reports: None Dermatologic History: Reports: None - Infectious Disease History Infectious Disease History: Reports: None - Past Surgical History Head Surgeries/Procedures: Reports: None HEENT Surgical History: Reports: Other (See Below) GI Surgical History: Reports: Appendectomy Female Surgical History: Reports: Hysterectomy Social & Family History - Family History Family Medical History: Noncontributory Cardiac: Reports: None Respiratory: Reports: None GI: Reports: None : Reports: None OBGYN: Reports: None 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: Reports: None Neurological: Reports: None Psychiatric: Reports: None Endocrine/Metabolic: Reports: None Hematologic: Reports: None Immunologic: Reports: None Dermatologic: Reports: None Oncologic: Reports: None - Caffeine Use Caffeine Use: Reports: Soda - Living Situation & Occupation Living situation: Reports: , with Family Occupation: Retired ED ROS GENERAL - Review of Systems Review Of Systems: See Below ED EXAM, GENERAL - Physical Exam Exam: See Below Course - Vital Signs Last Recorded V/S: Last Vital Signs Temp 97.5 F 02/19/19 09:10 Pulse 91 02/19/19 09:10 Resp 16 02/19/19 09:10 BP 155/60 H 02/19/19 09:10 Pulse Ox 95 02/19/19 09:10 - Orders/Labs/Meds Orders: Active Orders 24 hr Category Date Time Status Hand Comp Min 3V Lt [CR] Stat Exams 02/19/19 09:02 Taken Departure - Departure Time of Disposition: 09:52 Disposition: Home, Self-Care 01 Condition: Good Clinical Impression: Wrist swelling - Discharge Information Referrals: Gus Nassar MD [Primary Care Provider] - Additional Instructions: The following information is given to patients seen in the emergency department who are being discharged to home. This information is to outline your options for follow-up care. We provide all patients seen in our emergency department with a follow-up referral. The need for follow-up, as well as the timing and circumstances, are variable depending upon the specifics of your emergency department visit. If you don't have a primary care physician on staff, we will provide you with a referral. We always advise you to contact your personal physician following an emergency department visit to inform them of the circumstance of the visit and for follow-up with them and/or the need for any referrals to a consulting specialist. The emergency department will also refer you to a specialist when appropriate. This referral assures that you have the opportunity for follow-up care with a specialist. All of these measure are taken in an effort to provide you with optimal care, which includes your follow-up. Under all circumstances we always encourage you to contact your private physician who remains a resource for coordinating your care. When calling for follow-up care, please make the office aware that this follow-up is from your recent emergency room visit. If for any reason you are refused follow-up, please contact the [facility] emergency department at and asked to speak to the emergency department charge nurse. Sepsis Event Note - Focused Exam Vital Signs: Vital Signs Temp Pulse Resp BP Pulse Ox 02/19/19 09:10 97.5 F 91 16 155/60 H 95 Date Exam was Performed: 02/19/19 Time Exam was Performed: 09:52 - My Orders Last 24 Hours: My Active Orders 02/19/19 09:02 Hand Comp Min 3V Lt [CR] Stat - Assessment/Plan Last 24 Hours: My Active Orders 02/19/19 09:02 Hand Comp Min 3V Lt [CR] Stat
[2019-02-19 09:14] VITALS: BP 155/60; PULSE 91
--- NOTE | 2019-02-19 09:55 | CR ---
HISTORY: Left hand pain. Findings: 3-views of the left hand. There is normal alignment.oblique nondisplaced fracture at the base of the 5th meta carpal. Soft tissue swelling. Ulna minus. Dictated by Kristen Crespo MD @ Feb 19 2019 9:53AM Signed by Dr. Kristen Crespo @ Feb 19 2019 9:54AM
== END 2019-02-19 10:00 | disposition home or self-care (01) ==
LOC: MW.ED 08:52
DX: S62.347D Nondisplaced fracture of base of fifth metacarpal bone, left hand, subsequent encounter for fracture with routine healing (principal); M79.89 Other specified soft tissue disorders; Z96.619 Presence of unspecified artificial shoulder joint; I10 Essential (primary) hypertension; E78.00 Pure hypercholesterolemia, unspecified; E66.9 Obesity, unspecified; Z68.37 Body mass index [BMI] 37.0-37.9, adult; Z88.0 Allergy status to penicillin; Z79.899 Other long term (current) drug therapy; Z79.82 Long term (current) use of aspirin; W19.XXXD Unspecified fall, subsequent encounter
CPT/HCPCS: 73130-26-LT; 73130-LT; 99283-25

== ENCOUNTER 2019-02-23 10:14 | Emergency (ER) | payer MEDICARE, BC ==
[2019-02-23] MEDS ORDERED: Acetaminophen 325 MG Tab PO ONE (10:42)
--- NOTE | 2019-02-23 10:53 | EDM.PDOC ---
ED HPI GENERAL MEDICAL PROBLEM - General Chief Complaint: Lower Extremity Injury/Pain Stated Complaint: LFT KNEE PAIN Time Seen by Provider: 02/23/19 10:30 Source of Information: Reports: Patient - History of Present Illness INITIAL COMMENTS - FREE TEXT/NARRATIVE: Patient is a 68-year-old female with a past medical history of morbid obesity, hypertension, recent shoulder surgery presenting with chief complaint of left lower extremity pain. Pain was gradual in onset about 4 days ago. Pain is primarily in the left calf but does complain of some mild pain in the right lower extremity as well. Pain is worse with ambulation. Patient states she was unable to walk today due to the degree of pain. Patient denies associated fevers, shortness of breath, pain, nausea, vomiting. Patient has not noted any lower extremity swelling or redness. Patient not taking any medications and has not had any relief. Patient has history of DVT PE. Patient had recent 4- day admission around Thanksgiving time after the shoulder surgery. left leg Pain Score (Numeric/FACES): 10 - Related Data Allergies Allergy/AdvReac Type Severity Reaction Status Date / Time Penicillins Allergy Rash Verified 02/23/19 10:17 Home Meds: Home Meds Cyclobenzaprine [Flexeril] 10 mg PO TID PRN #8 tab 11/17/18 [Rx] Acetaminophen/HYDROcodone [[place] 325-5 MG] 1 - 2 tab PO Q6H PRN #20 tablet 01/23 [Rx] Ibuprofen [Motrin] 800 mg PO Q6H PRN 02/01/19 [History] Losartan/Hydrochlorothiazide [Losartan-HCTZ 100-25 MG] 1 tab PO DAILY 02/01/19 [ History] Potassium Chloride 20 meq PO DAILY 02/01/19 [History] atorvaSTATin [Lipitor] 10 mg PO DAILY 02/01/19 [History] Acetaminophen/oxyCODONE [Percocet 325-5 MG] 1 tab PO QID PRN #56 tablet [Rx] Aspirin 325 mg PO DAILY #21 tablet 02/06/19 [Rx] Dextromethorphan/guaiFENesin [Robitussin DM] 10 ml PO Q4H PRN #2 cup 02/06/19 [ Rx] Gabapentin [Neurontin] 300 mg PO TID #90 cap 02/06/19 [Rx] traMADol [Ultram] 50 mg PO Q4H PRN #84 tab 02/06/19 [Rx] Past Medical History HEENT History: Reports: None, Impaired Vision 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 Cardiovascular History: Reports: High Cholesterol, Hypertension Respiratory History: Reports: None Gastrointestinal History: Reports: None Genitourinary History: Reports: None 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 removed right breast 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 History: Reports: None Other 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 History: right wrist fx Neurological History: Reports: None Psychiatric History: Reports: None Endocrine/Metabolic History: Reports: Obesity/BMI 30+ 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 Hematologic History: Reports: None Immunologic History: Reports: None Oncologic (Cancer) History: Reports: None Dermatologic History: Reports: None - Infectious Disease History Infectious Disease History: Reports: None - Past Surgical History Head Surgeries/Procedures: Reports: None HEENT Surgical History: Reports: Other (See Below) Cardiovascular Surgical History: Reports: None Respiratory Surgical History: Reports: None GI Surgical History: Reports: Appendectomy Female Surgical History: Reports: Hysterectomy 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 Surgical History: Reports: Shoulder Surgery Social & Family History - Family History Family Medical History: Noncontributory Cardiac: Reports: None Respiratory: Reports: None GI: Reports: None : Reports: None OBGYN: Reports: None 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: Reports: None Neurological: Reports: None Psychiatric: Reports: None Endocrine/Metabolic: Reports: None Hematologic: Reports: None Immunologic: Reports: None Dermatologic: Reports: None Oncologic: Reports: None - Tobacco Use Smoking Status *Q: Never Smoker Second Hand Smoke Exposure: No - Caffeine Use Caffeine Use: Reports: None - Recreational Drug Use Recreational Drug Use: No - Living Situation & Occupation Living situation: Reports: , with Family Occupation: Retired Review of Systems - Review of Systems Review Of Systems: Comprehensive ROS is negative, except as noted in HPI. ED EXAM, GENERAL - Physical Exam Exam: See Below Exam Limited By: No Limitations General Appearance: Alert, No Apparent Distress, Obese Throat/Mouth: Normal Voice, No Airway Compromise Head: Atraumatic, Normocephalic Neck: Normal Inspection Respiratory/Chest: No Respiratory Distress, Lungs Clear, Normal Breath Sounds Cardiovascular: Regular Rate, Rhythm GI/Abdominal: Soft, Non-Tender Extremities: Other (Left calf tenderness palpation with possible mild swelling. Lower extremity 4-5 strength bilaterally due to pain. Left upper extremity is in a sling.) Neurological: Oriented, No Motor/Sensory Deficits Psychiatric: Normal Affect, Anxious Course - Vital Signs Last Recorded V/S: Last Vital Signs Temp 37.4 C 02/23/19 10:17 Pulse 90 02/23/19 10:17 Resp 18 02/23/19 10:17 BP 144/66 H 02/23/19 10:17 Pulse Ox 98 02/23/19 10:17 - Orders/Labs/Meds Labs: Laboratory Tests 02/23/19 02/23/19 02/23/19 Range/Units 11:12 11:12 11:12 WBC 10.26 (4.0-11.0) K/uL RBC 3.81 L (4.30-5.90) M/uL Hgb 11.3 L (12.0-16.0) g/dL Hct 34.7 L (36.0-46.0) % MCV 91.1 (80.0-98.0) fL MCH 29.7 (27.0-32.0) pg MCHC 32.6 (31.0-37.0) g/dL RDW Std Deviation 46.5 (28.0-62.0) fl RDW Coeff of Frank 14 (11.0-15.0) % Plt Count 336 (150-400) K/uL MPV 9.90 (7.40-12.00) fL Neut % (Auto) 82.9 H (48.0-80.0) % Lymph % (Auto) 8.7 L (16.0-40.0) % Mccormick % (Auto) 6.3 (0.0-15.0) % Eos % (Auto) 1.8 (0.0-7.0) % Baso % (Auto) 0.3 (0.0-1.5) % Neut # (Auto) 8.5 H (1.4-5.7) K/uL Lymph # (Auto) 0.9 (0.6-2.4) K/uL Mccormick # (Auto) 0.7 (0.0-0.8) K/uL Eos # (Auto) 0.2 (0.0-0.7) K/uL Baso # (Auto) 0.0 (0.0-0.1) K/uL Nucleated RBC % 0.0 /100WBC Nucleated RBCs # 0 K/uL INR 1.03 Sodium 141 (136-145) mmol/L Potassium 3.4 L (3.5-5.1) mmol/L Chloride 102 (98-107) mmol/L Carbon Dioxide 28.8 (21.0-32.0) mmol/L BUN 11 (7.0-18.0) mg/dL Creatinine 0.7 (0.6-1.0) mg/dL Est Cr Clr Drug Dosing 71.01 mL/min Estimated GFR (MDRD) > 60.0 ml/min Glucose 133 H (74-106) mg/dL Calcium 9.4 (8.5-10.1) mg/dL Meds: Medications Discontinued Medications Generic Name Dose Route Start Last Admin Trade Name Freq PRN Reason Stop Dose Admin Acetaminophen 650 mg 02/23/19 10:42 02/23/19 11:00 Tylenol PO 02/23/19 10:43 650 mg NOW ONE Administration Hydrocodone Bitart/Acetaminophen 1 tab 02/23/19 12:04 02/23/19 12:18 [place] 325-5 Mg PO 02/23/19 12:05 1 tab ONETIME ONE Administration Potassium Chloride 40 meq 02/23/19 12:29 Potassium Chloride PO 02/23/19 12:30 ONETIME ONE Departure - Departure Time of Disposition: 12:38 Disposition: Home, Self-Care 01 Clinical Impression: Leg pain, left - Discharge Information Instructions: 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 Pain Referrals: Gus Nassar MD [Primary Care Provider] - Forms: ED Department Discharge Sepsis Event Note - Evaluation Sepsis Screening Result: No Definite Risk - Focused Exam Vital Signs: Vital Signs Temp Pulse Resp BP Pulse Ox 02/23/19 10:17 37.4 C 90 18 144/66 H 98 Date Exam was Performed: 02/23/19 Time Exam was Performed: 12:38 - Assessment/Plan Assessment:: Patient is a 68-year-old female history of recent surgery. Ultrasound of lower extremity did not demonstrate DVT. However, there is evidence of popliteal cyst and some edema. This may be the etiology of her pain. In addition, patient may have early infection however given a normal white blood cell count and no other signs of cellulitis such as redness, erythema, warmth patient was given return precautions and instructed to observe. Patient agrees with plan as his pain is now much better controlled after being in the hospital. All questions addressed and answered
[2019-02-23 12:01] LABS: BLOOD UREA NITROGEN,BUN 11 mg/dL (7.0-18.0); CARBON DIOXIDE,CO2 28.8 mmol/L (21.0-32.0); CHLORIDE,CL 102 mmol/L (98-107); GLUCOSE RANDOM 133 mg/dL (74-106); POTASSIUM,K 3.4 mmol/L (3.5-5.1); SODIUM,NA 141 mmol/L (136-145)
[2019-02-23] MEDS ORDERED: Acetaminophen/HYDROcodone 325-5 MG Tab PO ONE (12:04)
--- NOTE | 2019-02-23 12:25 | US ---
Bilateral lower extremity deep venous ultrasound: Duplex and color Doppler imaging was obtained of the right or left common femoral, superficial femoral, popliteal, posterior tibial and anterior tibial veins. Comparison: No prior venous imaging is available Popliteal cyst noted on the left side measuring at least 4.4 cm in dimension. Mild subcutaneous edema is seen within the right calf. Normal compression and Doppler flow is seen within the deep veins. Impression: 1. Popliteal cyst and subcutaneous edema as noted above. 2. No evidence of deep venous thrombosis is seen within either the right or left lower extremities. Diagnostic code #3 This report was dictated in [place] Standard Time
[2019-02-23] MEDS ORDERED: Potassium Chloride 10% 20 MEQ/15 ML Soln 30 ML UD Cup PO ONE (12:29)
[2019-02-23 12:52] VITALS: BP 148/70; PULSE 96
== END 2019-02-23 12:49 | disposition home or self-care (01) ==
LOC: MW.ED 10:14
DX: M79.662 Pain in left lower leg (principal); M79.661 Pain in right lower leg; E66.01 Morbid (severe) obesity due to excess calories; I10 Essential (primary) hypertension; E78.00 Pure hypercholesterolemia, unspecified; Z79.82 Long term (current) use of aspirin; Z79.899 Other long term (current) drug therapy; Z88.0 Allergy status to penicillin; Z68.37 Body mass index [BMI] 37.0-37.9, adult
CPT/HCPCS: 36415; 80048; 85025; 85610; 93970; 99284; A9270

== ENCOUNTER 2019-03-29 15:29 | Emergency (ER) | payer MEDICARE, BC ==
[2019-03-29 16:04] VITALS: BP 141/85; PULSE 106
--- NOTE | 2019-03-29 17:01 | CR ---
Chest: 2 views of the chest were obtained. Comparison: Prior chest x-ray of 02/01/19. Stable nodule within the right lung base is seen compatible with granuloma. Lungs otherwise are clear. Left shoulder prosthesis is noted. Mild scoliosis is noted within the spine with scattered disc space narrowing and endplate spurring. Impression: 1. Nothing acute is seen on 2 view chest x-ray. 2. Other findings as noted above. Diagnostic code #2 This report was dictated in [place] Standard Time
--- NOTE | 2019-03-29 17:01 | CR ---
Right shoulder: 3 views right shoulder obtained. Comparison: No prior right shoulder exam. Prominent inferior hook is noted off the acromion process as well as inferior spurring and bony projection off the acromioclavicular joint involving the distal clavicle. Acromioclavicular joint is also narrowed. Inferior spurring noted off the medial humeral head. No fracture or other bony abnormality is appreciated. Nodule is noted within the right mid chest which has the appearance of a granuloma. Impression: 1. Degenerative change as noted above. 2. No acute osseous finding is seen on right shoulder study. Diagnostic code #2 This report was dictated in [place] Standard Time
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
== END 2019-03-29 17:20 | disposition home or self-care (01) ==
LOC: MW.ED 15:29
DX: M25.511 Pain in right shoulder (principal); R07.89 Other chest pain; I10 Essential (primary) hypertension; E78.00 Pure hypercholesterolemia, unspecified; E66.9 Obesity, unspecified; Z68.35 Body mass index [BMI] 35.0-35.9, adult; Z88.0 Allergy status to penicillin; Z79.899 Other long term (current) drug therapy; Z79.82 Long term (current) use of aspirin; V89.2XXA Person injured in unspecified motor-vehicle accident, traffic, initial encounter; Y92.481 Parking lot as the place of occurrence of the external cause
CPT/HCPCS: 71046; 71046-26; 73030-26-RT; 73030-RT; 99284-25

== ENCOUNTER 2019-08-16 15:55 | Emergency (ER) | payer MEDICARE, BC ==
[2019-08-16] MEDS ORDERED: Ketorolac 60 MG/2 ML SDV IM ONE (16:47)
--- NOTE | 2019-08-16 16:54 | EDM.PDOC ---
ED HPI GENERAL MEDICAL PROBLEM - General Chief Complaint: Back Pain or Injury Stated Complaint: NEED TO SEE A DOCTOR Time Seen by Provider: 08/16/19 16:09 Source of Information: Reports: Patient History Limitations: Reports: No Limitations - History of Present Illness INITIAL COMMENTS - FREE TEXT/NARRATIVE: Presents reporting lumbar back pain. The patient states that today she encountered unprovoked low back pain. She has had the same pain before about 2 years ago. An injection of Toradol "worked wonderfully". She characterizes the pain as a "shooting". It radiates to the right buttock and down the thigh into the lower leg. Denies injury, saddle anesthesia, cancer history, fever, bowel or bladder dysfunction, travel outside the [place]. right back/hip Pain Score (Numeric/FACES): 10 - Related Data Allergies Allergy/AdvReac Type Severity Reaction Status Date / Time ibuprofen [From Motrin] Allergy Facial Verified 08/16/19 16:32 Swelling Penicillins Allergy Rash Verified 08/16/19 16:32 Home Meds: Home Meds Cyclobenzaprine [Flexeril] 10 mg PO TID PRN #8 tab 11/17/18 [Rx] Acetaminophen/HYDROcodone [[place] 325-5 MG] 1 - 2 tab PO Q6H PRN #20 tablet 01/23 [Rx] Ibuprofen [Motrin] 800 mg PO Q6H PRN 02/01/19 [History] Losartan/Hydrochlorothiazide [Losartan-HCTZ 100-25 MG] 1 tab PO DAILY 02/01/19 [ History] Potassium Chloride 20 meq PO DAILY 02/01/19 [History] atorvaSTATin [Lipitor] 10 mg PO DAILY 02/01/19 [History] Acetaminophen/oxyCODONE [Percocet 325-5 MG] 1 tab PO QID PRN #56 tablet [Rx] Aspirin 325 mg PO DAILY #21 tablet 02/06/19 [Rx] Dextromethorphan/guaiFENesin [Robitussin DM] 10 ml PO Q4H PRN #2 cup 02/06/19 [ Rx] Gabapentin [Neurontin] 300 mg PO TID #90 cap 02/06/19 [Rx] traMADol [Ultram] 50 mg PO Q4H PRN #84 tab 02/06/19 [Rx] Cyclobenzaprine [Flexeril] 10 mg PO TID PRN #21 tab 03/29/19 [Rx] Past Medical History HEENT History: Reports: None, Impaired Vision 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 Cardiovascular History: Reports: High Cholesterol, Hypertension Respiratory History: Reports: None Gastrointestinal History: Reports: None Genitourinary History: Reports: None ASSORTER LAUNDRY History: Reports: Other ASSORTER LAUNDRY History: fatty tissue removed right breast 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 History: Reports: None Other 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 History: right wrist fx Neurological History: Reports: None Psychiatric History: Reports: None Endocrine/Metabolic History: Reports: Obesity/BMI 30+ 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 Coining Press Operator: None Hematologic History: Reports: None Immunologic History: Reports: None Oncologic (Cancer) History: Reports: None Dermatologic History: Reports: None - Infectious Disease History Infectious Disease History: Reports: Chicken Pox, Measles - Past Surgical History Head Surgeries/Procedures: Reports: None HEENT Surgical History: Reports: Other (See Below) Cardiovascular Surgical History: Reports: None Respiratory Surgical History: Reports: None GI Surgical History: Reports: Appendectomy Female Surgical History: Reports: Hysterectomy Neurological Surgical History: Reports: None Oncologic Surgical History: Reports: None Dermatological Surgical History: Reports: None Social & Family History - Family History Family Medical History: Noncontributory Cardiac: Reports: None Respiratory: Reports: None GI: Reports: None : Reports: None OBGYN: Reports: None 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: Reports: None Neurological: Reports: None Psychiatric: Reports: None Endocrine/Metabolic: Reports: None Hematologic: Reports: None Immunologic: Reports: None Dermatologic: Reports: None Oncologic: Reports: None - Tobacco Use Smoking Status *Q: Never Smoker Second Hand Smoke Exposure: No - Caffeine Use Caffeine Use: Reports: None - Recreational Drug Use Recreational Drug Use: No - Living Situation & Occupation Living situation: Reports: , with Family Occupation: Retired ED ROS GENERAL - Review of Systems Review Of Systems: Comprehensive ROS is negative, except as noted in HPI. ED EXAM,LOWER BACK PAIN/INJURY - Physical Exam Exam: See Below Exam Limited By: No Limitations General Appearance: Alert, No Apparent Distress Ears: Normal External Exam Nose: Normal Inspection Throat/Mouth: Normal Inspection Head: Atraumatic, Normocephalic Neck: Normal Inspection Respiratory/Chest: No Respiratory Distress, Lungs Clear, Normal Breath Sounds Cardiovascular: Normal Peripheral Pulses, Regular Rate, Rhythm Back Exam: Normal Inspection Extremities: Normal Inspection, Normal Range of Motion Neurological: Alert, Normal Mood/Affect, Normal Dorsiflexion, Normal Plantar Flexion Psychiatric: Normal Affect, Normal Mood Skin Exam: Warm, Dry, Intact, Normal Color, No Rash Lymphatic: No Adenopathy Course - Vital Signs Last Recorded V/S: Last Vital Signs Temp 35.8 C L 08/16/19 16:28 Pulse 91 08/16/19 16:28 Resp 16 08/16/19 16:28 BP 149/76 H 08/16/19 16:28 Pulse Ox 96 08/16/19 16:28 - Orders/Labs/Meds Orders: Active Orders 24 hr Category Date Time Status Ketorolac [Toradol] Med 08/16/19 16:47 Once 60 mg IM ONETIME ONE - Re-Assessments/Exams Free Text/Narrative Re-Assessment/Exam: 08/16/19 16:54 The patient indicates that she has had Toradol previously and despite her stated allergy to ibuprofen, she had no reaction. Departure - Departure Time of Disposition: 16:53 Disposition: Home, Self-Care 01 Condition: Good Clinical Impression: Sciatica Qualifiers: Laterality: right Qualified Code(s): M54.31 - Sciatica, right side - Discharge Information Referrals: Gus Nassar MD [Primary Care Provider] - Additional Instructions: The following information is given to patients seen in the emergency department who are being discharged to home. This information is to outline your options for follow-up care. We provide all patients seen in our emergency department with a follow-up referral. The need for follow-up, as well as the timing and circumstances, are variable depending upon the specifics of your emergency department visit. If you don't have a primary care physician on staff, we will provide you with a referral. We always advise you to contact your personal physician following an emergency department visit to inform them of the circumstance of the visit and for follow-up with them and/or the need for any referrals to a consulting specialist. The emergency department will also refer you to a specialist when appropriate. This referral assures that you have the opportunity for follow-up care with a specialist. All of these measure are taken in an effort to provide you with optimal care, which includes your follow-up. Under all circumstances we always encourage you to contact your private physician who remains a resource for coordinating your care. When calling for follow-up care, please make the office aware that this follow-up is from your recent emergency room visit. If for any reason you are refused follow-up, please contact the [facility] Emergency Department at and asked to speak to the emergency department charge nurse. 1. Follow-up with Dr. Nassar in the clinic. Sepsis Event Note (ED) - Evaluation Sepsis Screening Result: No Definite Risk - Focused Exam Vital Signs: Vital Signs Temp Pulse Resp BP Pulse Ox 08/16/19 16:28 35.8 C L 91 16 149/76 H 96 - My Orders Last 24 Hours: My Active Orders 08/16/19 16:47 Ketorolac [Toradol] 60 mg IM ONETIME ONE - Assessment/Plan Last 24 Hours: My Active Orders 08/16/19 16:47 Ketorolac [Toradol] 60 mg IM ONETIME ONE
[2019-08-16 17:09] VITALS: BP 136/69; PULSE 85
== END 2019-08-16 17:29 | disposition home or self-care (01) ==
LOC: MW.ED 15:55
DX: M54.41 Lumbago with sciatica, right side (principal); E78.00 Pure hypercholesterolemia, unspecified; I10 Essential (primary) hypertension; E66.9 Obesity, unspecified; Z68.35 Body mass index [BMI] 35.0-35.9, adult; Z88.6 Allergy status to analgesic agent; Z88.0 Allergy status to penicillin; Z79.899 Other long term (current) drug therapy
CPT/HCPCS: 96372; 99283; J1885

== ENCOUNTER 2020-01-11 11:18 | Emergency (ER) | payer MEDICARE, BC ==
[2020-01-11] MEDS ORDERED: Sodium Chloride 0.9% 10 ML Syringe FLUSH PRN (11:44)
[2020-01-11] MEDS ORDERED: Acetaminophen 325 MG/10.15 ML ML PO ONE (11:44)
[2020-01-11] MEDS ORDERED: Sodium Chloride 0.9% 2.5 ML Syringe FLUSH PRN (11:44)
[2020-01-11] MEDS ORDERED: traMADol 50 MG Tab PO ONE (11:51)
[2020-01-11] MEDS ORDERED: Acetaminophen 500 MG Tab ONE (12:11)
[2020-01-11 13:11] LABS: BLOOD UREA NITROGEN,BUN 13 mg/dL (7.0-18.0); CARBON DIOXIDE,CO2 27.1 mmol/L (21.0-32.0); CHLORIDE,CL 101 mmol/L (98-107); GLUCOSE RANDOM 187 mg/dL (74-106); POTASSIUM,K 3.5 mmol/L (3.5-5.1); SODIUM,NA 138 mmol/L (136-145)
--- NOTE | 2020-01-11 13:45 | EDM.PDOC ---
ED HPI GENERAL MEDICAL PROBLEM - General Chief Complaint: General Stated Complaint: PAIN LEFT SIDE Time Seen by Provider: 01/11/20 11:30 - History of Present Illness INITIAL COMMENTS - FREE TEXT/NARRATIVE: HISTORY AND PHYSICAL: History of present illness: This is a 69-year-old female who presents ER today complaining of pain to her left chest wall, left hip, left thigh laterally. Patient ports to pains been constant for the last 2 to 3 days. Patient called her primary care physician today for an appointment but was referred here secondary to coronavirus concerns. Patient denies any recent fevers, shakes, chills, nausea, vomiting, diarrhea, dysuria, frequency, urgency, chest pain, shortness of breath, hemoptysis. Patient presented pain in her left lateral chest wall increases with movement and deep inspiration. Patient reports that her pain in her side also increases with flexion rotation of her torso and with ambulation. Patient denies any history of PE/DVT. Patient denies any sedentary lifestyle. Patient denies any cough cold or rhinorrhea. Patient denies any lower extremity swelling. Review of systems: As per history of present illness and below otherwise all systems reviewed and negative. Past medical history: As per history of present illness and as reviewed below otherwise noncontributory. Surgical history: As per history of present illness and as reviewed below otherwise noncontribut ory. Social history: No reported history of drug or alcohol abuse. Family history: As per history of present illness and as reviewed below otherwise noncontributory. Physical exam: Constitutional: Patient is oriented to person, place, and time. Appears well- developed and well-nourished. No distress. HEENT: Moist mucous membranes Head: Normocephalic and atraumatic Eyes: Right eye exhibits no discharge. Left eye exhibits no discharge. No scleral icterus Neck: Normal range of motion. No tracheal deviation present. Cardiovascular: Normal rate and regular rhythm. Pulmonary: Effort normal, no respiratory distress. Abdominal: No distention 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: Normal range of motion Neurologic: Alert and oriented to person, place and time. Skin: [place], warm and dry. Psychiatric: Normal mood and affect. Behavior is normal. Judgment and thought content normal. Nursing note and vital signs have been reviewed Patient is ER physical exam significant for tenderness to palpation to her left lateral chest wall as well as her left hip and lateral upper thigh and knee. Patient has pain with flexion and rotation of her hip and pelvis. Patient has reproducible tenderness with movement of her shoulder. Diagnostics: CBC, CMP within normal limits. Patient's D-dimer 0.52. Chest Xray: Normal cardiac silhouette No infiltrates or effusions identified. No PTX No evidence of acute bony fracture. As interpreted by ER MD: Keke EKG: Normal sinus rhythm heart rate of [address]-T wave abnormalities Normal axis No evidence of ST elevation [place] As interpreted by ER physician: [employer]: Patient received tramadol and Tylenol in the ED with significant improvement in her symptoms. Patient reports her pain is completely resolved after the medication that she was given. Assessment and plan: This is a 69-year-old female who presents ER today with what appears to be mechanical pain to her left lateral chest hips and thigh. Patient's risk is extremely low risk for DVT. Patient's D-dimer 0.52. After consultation with the patient, CTA does not appear to be indicated. Patient be discharged home with acetaminophen and Ultram to assist with her pain. Patient will be instructed to follow-up with her primary care physician in the next 1 to 2 days for reevaluation. Reassessment at the time of disposition demonstrates that the patient is in no acute distress. The patient has remained stable throughout the entire ED visit and is without objective evidence for acute process requiring urgent intervention or hospitalization. The patient is stable for discharge, counseling is provided as documented above, discussed symptomatic treatment and specific conditions for return. I have spoken with the patient/caregiver and discussed todays findings, in addition to providing specific details for the plan of care. Questions are answered and there is agreement with the plan. Definitive disposition and diagnosis as appropriate pending reevaluation and review of above. left side pain Pain Score (Numeric/FACES): 10 - Related Data Allergies Allergy/AdvReac Type Severity Reaction Status Date / Time ibuprofen [From Motrin] Allergy Facial Verified 08/16/19 16:32 Swelling Penicillins Allergy Rash Verified 08/16/19 16:32 Home Meds: Home Meds Cyclobenzaprine [Flexeril] 10 mg PO TID PRN #8 tab 11/17/18 [Rx] Acetaminophen/HYDROcodone [[place] 325-5 MG] 1 - 2 tab PO Q6H PRN #20 tablet 01/23/19 [Rx] Losartan/Hydrochlorothiazide [Losartan-HCTZ 100-25 MG] 1 tab PO DAILY 02/01/19 [History] Potassium Chloride 20 meq PO DAILY 02/01/19 [History] atorvaSTATin [Lipitor] 10 mg PO DAILY 02/01/19 [History] Acetaminophen/oxyCODONE [Percocet 325-5 MG] 1 tab PO QID PRN #56 tablet 02/06/19 [Rx] Aspirin 325 mg PO DAILY #21 tablet 02/06/19 [Rx] Dextromethorphan/guaiFENesin [Robitussin DM] 10 ml PO Q4H PRN #2 cup 02/06/19 [Rx] traMADol [Ultram] 50 mg PO Q4H PRN #84 tab 02/06/19 [Rx] Cyclobenzaprine [Flexeril] 10 mg PO TID PRN #21 tab 03/29/19 [Rx] traMADol [Ultram] 50 mg PO Q6H PRN #12 tab 01/11/20 [Rx] Past Medical History HEENT History: Reports: None, Impaired Vision 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 Cardiovascular History: Reports: High Cholesterol, Hypertension Respiratory History: Reports: None Gastrointestinal History: Reports: None Genitourinary History: Reports: None CELL TENDER History: Reports: Other CELL TENDER History: fatty tissue removed right breast 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 History: Reports: None Other 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 History: right wrist fx Neurological History: Reports: None Psychiatric History: Reports: None Endocrine/Metabolic History: Reports: Obesity/BMI 30+ 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 Fund Raiser: None Hematologic History: Reports: None Immunologic History: Reports: None Oncologic (Cancer) History: Reports: None Dermatologic History: Reports: None - Infectious Disease History Infectious Disease History: Reports: Chicken Pox, Measles - Past Surgical History Head Surgeries/Procedures: Reports: None HEENT Surgical History: Reports: Other (See Below) Cardiovascular Surgical History: Reports: None Respiratory Surgical History: Reports: None GI Surgical History: Reports: Appendectomy Female Surgical History: Reports: Hysterectomy Neurological Surgical History: Reports: None Oncologic Surgical History: Reports: None Dermatological Surgical History: Reports: None Social & Family History - Family History Family Medical History: Noncontributory Cardiac: Reports: None Respiratory: Reports: None GI: Reports: None : Reports: None OBGYN: Reports: None 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: Reports: None Neurological: Reports: None Psychiatric: Reports: None Endocrine/Metabolic: Reports: None Hematologic: Reports: None Immunologic: Reports: None Dermatologic: Reports: None Oncologic: Reports: None - Caffeine Use Caffeine Use: Reports: None - Living Situation & Occupation Living situation: Reports: , with Family Occupation: Retired ED ROS GENERAL - Review of Systems Review Of Systems: See Below ED EXAM, GENERAL - Physical Exam Exam: See Below Course - Vital Signs Last Recorded V/S: Last Vital Signs Temp 97.2 F 01/11/20 11:35 Pulse 83 01/11/20 12:52 Resp 16 01/11/20 12:52 BP 117/63 01/11/20 12:52 Pulse Ox 95 01/11/20 12:52 - Orders/Labs/Meds Orders: Active Orders 24 hr Category Date Time Status EKG Documentation Completion [RC] AM Care 01/11/20 11:44 Active Chest 2V [CR] Stat Exams 01/11/20 12:59 Taken CORONAVIRUS COVID-19 PCR PHL Stat Lab 01/11/20 12:10 Received Sodium Chloride 0.9% [Saline Flush] Med 01/11/20 11:44 Active 10 ml FLUSH ASDIRECTED PRN Sodium Chloride 0.9% [Saline Flush] Med 01/11/20 11:44 Active 2.5 ml FLUSH ASDIRECTED PRN Saline Lock Insert [OM.PC] Stat Oth 01/11/20 11:44 Ordered Medication Orders Sodium Chloride (Saline Flush) 10 ml FLUSH ASDIRECTED PRN PRN Reason: Keep Vein Open Sodium Chloride (Saline Flush) 2.5 ml FLUSH ASDIRECTED PRN PRN Reason: Keep Vein Open Labs: Laboratory Tests 01/11/20 01/11/20 01/11/20 Range/Units 12:10 12:37 12:37 WBC 8.30 (4.0-11.0) K/uL RBC 4.30 (4.30-5.90) M/uL Hgb 12.9 (12.0-16.0) g/dL Hct 39.6 (36.0-46.0) % MCV 92.1 (80.0-98.0) fL MCH 30.0 (27.0-32.0) pg MCHC 32.6 (31.0-37.0) g/dL RDW Std Deviation 46.8 (28.0-62.0) fl RDW Coeff of Frank 14 (11.0-15.0) % Plt Count 287 (150-400) K/uL MPV 10.50 (7.40-12.00) fL Neut % (Auto) 66.7 (48.0-80.0) % Lymph % (Auto) 24.3 (16.0-40.0) % White % (Auto) 7.5 (0.0-15.0) % Eos % (Auto) 1.3 (0.0-7.0) % Baso % (Auto) 0.2 (0.0-1.5) % Neut # (Auto) 5.5 (1.4-5.7) K/uL Lymph # (Auto) 2.0 (0.6-2.4) K/uL White # (Auto) 0.6 (0.0-0.8) K/uL Eos # (Auto) 0.1 (0.0-0.7) K/uL Baso # (Auto) 0.0 (0.0-0.1) K/uL Nucleated RBC % 0.0 /100WBC Nucleated RBCs # 0 K/uL D-Dimer, Quantitative 0.52 H (0.0-0.50) mg/L FEU Sodium (136-145) mmol/L Potassium (3.5-5.1) mmol/L Chloride (98-107) mmol/L Carbon Dioxide (21.0-32.0) mmol/L BUN (7.0-18.0) mg/dL Creatinine (0.6-1.0) mg/dL Est Cr Clr Drug Dosing Estimated GFR (MDRD) ml/min Glucose (74-106) mg/dL Calcium (8.5-10.1) mg/dL SARS CoV-2 RNA Rapid SNEHA NEGATIVE (NEGATIVE) 01/11/20 Range/Units 12:37 WBC (4.0-11.0) K/uL RBC (4.30-5.90) M/uL Hgb (12.0-16.0) g/dL Hct (36.0-46.0) % MCV (80.0-98.0) fL MCH (27.0-32.0) pg MCHC (31.0-37.0) g/dL RDW Std Deviation (28.0-62.0) fl RDW Coeff of Frank (11.0-15.0) % Plt Count (150-400) K/uL MPV (7.40-12.00) fL Neut % (Auto) (48.0-80.0) % Lymph % (Auto) (16.0-40.0) % White % (Auto) (0.0-15.0) % Eos % (Auto) (0.0-7.0) % Baso % (Auto) (0.0-1.5) % Neut # (Auto) (1.4-5.7) K/uL Lymph # (Auto) (0.6-2.4) K/uL White # (Auto) (0.0-0.8) K/uL Eos # (Auto) (0.0-0.7) K/uL Baso # (Auto) (0.0-0.1) K/uL Nucleated RBC % /100WBC Nucleated RBCs # K/uL D-Dimer, Quantitative (0.0-0.50) mg/L FEU Sodium 138 (136-145) mmol/L Potassium 3.5 (3.5-5.1) mmol/L Chloride 101 (98-107) mmol/L Carbon Dioxide 27.1 (21.0-32.0) mmol/L BUN 13 (7.0-18.0) mg/dL Creatinine 0.7 (0.6-1.0) mg/dL Est Cr Clr Drug Dosing TNP Estimated GFR (MDRD) > 60.0 ml/min Glucose 187 H (74-106) mg/dL Calcium 9.1 (8.5-10.1) mg/dL SARS CoV-2 RNA Rapid SNEHA (NEGATIVE) Meds: Medications Generic Name Dose Route Start Last Admin Trade Name Freq PRN Reason Stop Dose Admin Sodium Chloride 10 ml 01/11/20 11:44 Saline Flush FLUSH ASDIRECTED PRN Keep Vein Open Sodium Chloride 2.5 ml 01/11/20 11:44 Saline Flush FLUSH ASDIRECTED PRN Keep Vein Open Discontinued Medications Generic Name Dose Route Start Last Admin Trade Name Freq PRN Reason Stop Dose Admin Acetaminophen 0 mg 01/11/20 11:44 01/11/20 12:15 Tylenol PO 01/11/20 11:45 Not Given ONETIME ONE Acetaminophen Confirm 01/11/20 12:11 01/11/20 12:14 Tylenol Extra Strength Administered 01/11/20 12:12 1,000 mg Dose Administration 1,000 mg .ROUTE .STK-MED ONE Tramadol HCl 50 mg 01/11/20 11:51 01/11/20 12:14 Ultram PO 01/11/20 11:52 50 mg ONETIME ONE Administration Departure - Departure Time of Disposition: 13:43 Disposition: Home, Self-Care 01 Condition: Good Clinical Impression: Nonspecific chest pain, 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 pain - Discharge Information Instructions: Nonspecific Chest Pain, Adult, 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 Pain Referrals: Gus Nassar MD [Primary Care Provider] - Additional Instructions: You were seen and evaluated in the ER today for pain to your lateral chest and left leg. Your labs are all within normal limits. Your chest x-ray was normal. Your EKG was within normal limits. You will be discharged home with a prescription for Ultram for pain. You can take that in addition to acetaminophen every 6 hours for pain. Please make an appointment to see your family doctor within 2 to 3 days for reevaluation. Your coronavirus test is negative The following information is given to patients seen in the emergency department who are being discharged to home. This information is to outline your options for follow-up care. We provide all patients seen in our emergency department with a follow-up referral. The need for follow-up, as well as the timing and circumstances, are variable depending upon the specifics of your emergency department visit. If you don't have a primary care physician on staff, we will provide you with a referral. We always advise you to contact your personal physician following an emergency department visit to inform them of the circumstance of the visit and for follow-up with them and/or the need for any referrals to a consulting specialist. The emergency department will also refer you to a specialist when appropriate. This referral assures that you have the opportunity for follow-up care with a specialist. All of these measure are taken in an effort to provide you with optimal care, which includes your follow-up. [facility] - [facility] [address] [place] [id number] [facility] [address] [place] [address] Under all circumstances we always encourage you to contact your private physician who remains a resource for coordinating your care. When calling for follow-up care, please make the office aware that this follow-up is from your recent emergency room visit. If for any reason you are refused follow-up, please contact the [facility] Emergency Department at and asked to speak to the emergency department charge nurse. Sepsis Event Note (ED) - Evaluation Sepsis Screening Result: No Definite Risk - Focused Exam Vital Signs: Vital Signs Temp Pulse Resp BP Pulse Ox 01/11/20 12:52 83 16 117/63 95 01/11/20 11:35 97.2 F 97 16 175/82 H 94 L - My Orders Last 24 Hours: My Active Orders 01/11/20 11:44 EKG Documentation Completion [RC] AM Sodium Chloride 0.9% [Saline Flush] 10 ml FLUSH ASDIRECTED PRN Sodium Chloride 0.9% [Saline Flush] 2.5 ml FLUSH ASDIRECTED PRN Saline Lock Insert [OM.PC] Stat 01/11/20 12:10 CORONAVIRUS COVID-19 PCR PHL Stat 01/11/20 12:59 Chest 2V [CR] Stat - Assessment/Plan Last 24 Hours: My Active Orders 01/11/20 11:44 EKG Documentation Completion [RC] AM Sodium Chloride 0.9% [Saline Flush] 10 ml FLUSH ASDIRECTED PRN Sodium Chloride 0.9% [Saline Flush] 2.5 ml FLUSH ASDIRECTED PRN Saline Lock Insert [OM.PC] Stat 01/11/20 12:10 CORONAVIRUS COVID-19 PCR PHL Stat 01/11/20 12:59 Chest 2V [CR] Stat
--- NOTE | 2020-01-11 13:45 | CR ---
INDICATION: Left-sided chest pain COMPARISON: March 29, 2019 TECHNIQUE: PA and lateral views of the chest were acquired FINDINGS: TUBES AND LINES: None. HEART AND MEDIASTINUM: The heart size is normal. The mediastinal contour appears normal for patient age. LUNGS AND PLEURAL SPACES: Minimal bibasilar linear opacities likely atelectasis.There pleural spaces are unremarkable. OSSEOUS STRUCTURES: Left shoulder arthroplasty. Degenerative changes. IMPRESSION: Minimal linear bibasilar parenchymal opacities likely atelectasis. No focal consolidation. No pleural effusion or pneumothorax. Dictated by Yoan Torres MD @ Jan 11 2020 1:41PM Signed by Dr. Yoan Torres @ Jan 11 2020 1:43PM
[2020-01-11 13:57] VITALS: BP 130/77; PULSE 84
== END 2020-01-11 13:55 | disposition home or self-care (01) ==
LOC: MW.ED 11:18
DX: R07.89 Other chest pain (principal); M25.551 Pain in right hip; M25.552 Pain in left hip; M79.652 Pain in left thigh; I10 Essential (primary) hypertension; E78.00 Pure hypercholesterolemia, unspecified; E66.9 Obesity, unspecified; Z20.828 Contact with and (suspected) exposure to other viral communicable diseases; Z88.0 Allergy status to penicillin; Z88.6 Allergy status to analgesic agent; Z79.82 Long term (current) use of aspirin; Z79.899 Other long term (current) drug therapy; Z90.49 Acquired absence of other specified parts of digestive tract; Z90.710 Acquired absence of both cervix and uterus
CPT/HCPCS: 36415; 71046; 80048; 85025; 85379; 93005; 99285; A9270; U0002; 93010; 99283

== ENCOUNTER 2020-03-07 02:12 | Emergency (ER) | payer MEDICARE, BC ==
--- NOTE | 2020-03-07 02:47 | CR ---
INDICATION: Chest pain TECHNIQUE: Chest radiograph 1 views COMPARISON: 01/11/2020 FINDINGS: Moderate degradation of image quality noted due to body habitus. Mediastinum: The mediastinum is normal in appearance. The heart silhouette is normal in size and morphology. Lung: Both lungs are unremarkable in appearance. There is a stable 4 mm granuloma in the right lateral lung base. No sign of pleural effusion seen. No pneumothorax is identified. Bone and Soft tissue: A left reverse shoulder arthroplasty is partially visualized. IMPRESSION: 1. No acute cardiopulmonary disease is seen. Dictated by Efrain Chaudhry MD @ 03/07/2020 2:46:02 AM Dictated by: Efrain Chaudhry MD @ 03/07/2020 02:46:08 (Electronically Signed)
[2020-03-07 02:59] LABS: BLOOD UREA NITROGEN,BUN 16 mg/dL (7.0-18.0); CHLORIDE,CL 99 mmol/L (98-107); GLUCOSE RANDOM 176 mg/dL (74-106); POTASSIUM,K 3.3 mmol/L (3.5-5.1); SODIUM,NA 139 mmol/L (136-145)
[2020-03-07] MEDS ORDERED: Magnesium Sulfate/Water 2 GM/50 ML BAG IV ONE (03:12)
[2020-03-07] MEDS ORDERED: Aspirin 325 MG Tab PO ONE (03:12)
[2020-03-07] MEDS: Potassium Chloride 10% 20 MEQ/15 ML Soln 15 ML UD Cup PO ONE ×2 (03:47)
[2020-03-07] MEDS: Potassium Chloride 10% 20 MEQ/15 ML Soln 30 ML UD Cup ONE ×2 (03:47)
[2020-03-07] MEDS ORDERED: Iopamidol 755 MG/ML 500 ML Multipack Bottle IVPUSH STA (05:20)
--- NOTE | 2020-03-07 05:48 | CT ---
INDICATION: Central chest pressure radiating into the arm and back TECHNIQUE: CT chest was performed in the angiographic phase after contrast administration. No noncontrast images were submitted. Coronal and sagittal reformats were performed. CONTRAST: 100 mL Isovue 370 COMPARISON: None FINDINGS: Moderate degradation of image quality is present due to the patient`s inability to maintain a breath hold. Cardiovascular: The heart has an unremarkable appearance and size. The pulmonary arteries are unremarkable in appearance. Ectasia of the ascending aorta is noted measuring 3.7 cm in maximal short axis diameter. Mediastinum: No mass or adenopathy seen. Lung: There is a 6 mm calcified granuloma in the right middle lobe. Pleura and pericardium: No sign of pleural effusion seen. No significant pericardial effusion is present. Chest wall and axilla: No mass or adenopathy seen. Bone: Unremarkable for age. IMPRESSIONS: 1. No CT evidence of aortic dissection seen. 2. The sensitivity in detecting intramural hematoma is limited without noncontrast imaging. Dictated by Efrain Chaudhry MD @ 03/07/2020 5:47:14 AM Please note that all CT scans at this facility use dose modulation, iterative reconstruction, and/or weight-based dosing when appropriate to reduce radiation dose to as low as reasonably achievable. Dictated by: Efrain Chaudhry MD @ 03/07/2020 05:47:17 (Electronically Signed)
--- NOTE | 2020-03-07 05:52 | CT ---
INDICATION: Chest pain radiating to the back. TECHNIQUE: CT Abdomen and pelvis with i.v. contrast. Coronal and sagittal reformats were obtained. CONTRAST: 100 mL Isovue 370 COMPARISON: None FINDINGS: Moderate degradation of image quality is present due to the patient`s inability to maintain a breath hold. Liver: Moderate fatty infiltration of the liver is present. Spleen: Unremarkable. Pancreas: Unremarkable. Gallbladder: Unremarkable. Kidney: Parapelvic cysts are present in the upper pole of the left kidney. Adrenal: Unremarkable. Bowel: Mild diverticulosis of the sigmoid colon is seen. The appendix cannot be identified but there are no inflammatory changes noted in the right lower quadrant. Vascular: There is a recannulated paraumbilical vein present, suggestive of portal hypertension. Lymph: Unremarkable. Peritoneum: Unremarkable. No pneumoperitoneum is seen. No significant ascites is noted. Pelvis: The patient is status post prior hysterectomy. Soft tissue: Unremarkable. Bone: Unremarkable for age. IMPRESSIONS: 1. No CT evidence of aortic dissection seen. 2. There is a recannulated paraumbilical vein present, suggestive of portal hypertension. Dictated by Efrain Chaudhry MD @ 03/07/2020 5:50:09 AM Please note that all CT scans at this facility use dose modulation, iterative reconstruction, and/or weight-based dosing when appropriate to reduce radiation dose to as low as reasonably achievable. Dictated by: Efrain Chaudhry MD @ 03/07/2020 05:50:14 (Electronically Signed)
--- NOTE | 2020-03-07 06:22 | EDM.PDOC ---
ED HPI GENERAL MEDICAL PROBLEM - General Chief Complaint: Chest Pain Stated Complaint: CHEST PAIN Time Seen by Provider: 03/07/20 02:27 - History of Present Illness INITIAL COMMENTS - FREE TEXT/NARRATIVE: CHIEF COMPLAINT(S): Chest pain HISTORY OF PRESENT ILLNESS: This is a 69-year-old woman with a past medical history of hypertension hyperlipidemia who comes to the emergency department with a chief complaint of chest pain. The patient states that this has been going on for 2 to 3 months. She states that she intermittently experiences chest pain which she describes as anterior chest and goes to her back and her bilateral arms. She states it feels like her heart is beating fast and get a jump out of her chest. She describes the chest pain as pressure and tightness and is dull. She denies any sharp pain. She rates it as 10 out of 10. She states that she occasionally has some mild shortness of breath but denies any diaphoresis, nausea or vomiting. She states that the pain resolves on its own and it does not seem to be exacerbated by ambulation. She denies any orthopnea. She has not seen a resident services manager. She denies any prior history of aortic aneurysm or dissection. Denies any numbness, tingling, or weakness. REVIEW OF SYSTEMS: Constitutional: Denies fever, chills. Eyes: Denies eye pain Ears, Nose, Mouth, & Throat: Denies earache Cardiovascular: Positive for chest pain Respiratory: Positive for shortness of breath Gastrointestinal: Denies Nausea, vomiting, diarrhea, hematochezia. Genitourinary: Denies hematuria MSK: Positive for back pain and bilateral arm pain Neurological: Denies blurred vision numbness, tingling, weakness Psychiatric: Denies depression PAST MEDICAL HISTORY: As per history of present illness and as reviewed below otherwise noncontributory. SURGICAL HISTORY: As per history of present illness and as reviewed below otherwise noncontributory. LMP: X SOCIAL HISTORY: As per history of present illness and as reviewed below otherwise noncontributory. FAMILY HISTORY: As per history of present illness and as reviewed below otherwise noncontributory. EXAMINATION OF ORGAN SYSTEMS/BODY AREAS: Constitutional: Blood pressure was 146/87, heart rate 82, respiratory 18 with an oxygen saturation 97% on room air. Temperature 36.2 General: Overall well-appearing woman who does not appear to be in any acute distress. Psychiatric: Appropriate mood and affect. Eyes: No scleral icterus or conjunctival erythema ENMT: Moist mucous membranes. No pharyngeal erythema Cardiovascular: Regular, rate, and rhythm. No gallops, murmurs, or rubs. Bilateral upper extremity pulses symmetric and intact. No peripheral edema. No JVD. Respiratory: Lungs clear to auscultation bilaterally. No wheezes, rales, or rhonchi. Gastrointestinal: Soft, non-tender, non-distended. Normoactive bowel sounds Genitourinary: No suprapubic tenderness 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: Normal range of motion. Skin: No lesions or abrasions. Neurological: Alert, GCS 15 strength and sensation grossly intact in upper and lower extremities bilaterally MEDICAL DECISION MAKING AND COURSE IN THE ED WITH INTERPRETATION/REVIEW OF DIAGNOSTIC STUDIES: This is a 69-year-old woman with a past medical history of hypertension hyperlipidemia who comes to the emergency department with subacute chest pain located in the center of her chest rating to her back and bilateral arms. At this time differential includes ACS, musculoskeletal pain, aortic dissection. We will obtain a cardiac work-up and obtain a D-dimer to rule out dissection. We will provide the patient with 3 and 25 mg of aspirin. EKG was obtained which did not reveal any acute signs of ischemia. Twelve-lead EKG interpreted by myself. Normal sinus rhythm at a rate of 74 beats per minute. Normal axis. HI interval is 170 ms. QRS duration is [address] segments are normal without elevations or depressions. There are Q waves in leads III. Hypertrophy not noted. No changes demonstrated from prior EKG dated 01/11/2020. There are occasional PACs interpretation: Sinus rhythm with occasional PACs. Laboratory: CBC is unremarkable. D-dimer is positive at 0.62. Coags are within normal limits. BMP reveals hypokalemia at 3.3 and hyperglycemia at 176. Hypomagnesemia at 1.7. Troponin is negative. After labs I did replenish the patient's potassium by mouth and IV magnesium. The patient stated that her symptoms had improved. I did discuss her at this time that given the elevated D-dimer and her chest pain I like to obtain CTA of the thorax abdomen and pelvis to evaluate for aortic dissection. She was amenable to this plan. The radiological images were viewed by myself along with reading the report from the radiologist. Chest x-ray does not reveal any acute cardiopulmonary process. CTA thorax abdomen and pelvis does not reveal any aortic dissection. There is ectasia of the aorta and the ascending portion of 3.7 cm. There is no evidence of other abnormalities. There is a 6 mm calcified granuloma in the middle lobe. After labs and imaging I did discuss results with the patient. I discussed that her work-up was negative. I discussed with her that she needs to follow-up with cardiology within 2 to 3 days. She was amenable to discharge at this time and had no further questions. The patient will return for any new or worsening symptoms. DISPOSITION: The patient was discharged home in stable condition. The patient will follow up with cardiology within 2-3 CONDITION: Fair PROCEDURES: None FINAL IMPRESSION(S)/DIAGNOSES: 1. Subacute atypical chest pain Fredy Flores M.D. chest area Pain Score (Numeric/FACES): 5 - Related Data Allergies Allergy/AdvReac Type Severity Reaction Status Date / Time ibuprofen [From Motrin] Allergy Facial Verified 03/07/20 02:39 Swelling Penicillins Allergy Rash Verified 03/07/20 02:39 Home Meds: Home Meds Cyclobenzaprine [Flexeril] 10 mg PO TID PRN #8 tab 11/17/18 [Rx] Acetaminophen/HYDROcodone [Plato 325-5 MG] 1 - 2 tab PO Q6H PRN #20 tablet 01/23/19 [Rx] Losartan/Hydrochlorothiazide [Losartan-HCTZ 100-25 MG] 1 tab PO DAILY 02/01/19 [History] Potassium Chloride 20 meq PO DAILY 02/01/19 [History] atorvaSTATin [Lipitor] 10 mg PO DAILY 02/01/19 [History] Acetaminophen/oxyCODONE [Percocet 325-5 MG] 1 tab PO QID PRN #56 tablet 02/06/19 [Rx] Aspirin 325 mg PO DAILY #21 tablet 02/06/19 [Rx] Dextromethorphan/guaiFENesin [Robitussin DM] 10 ml PO Q4H PRN #2 cup 02/06/19 [Rx] traMADol [Ultram] 50 mg PO Q4H PRN #84 tab 02/06/19 [Rx] Cyclobenzaprine [Flexeril] 10 mg PO TID PRN #21 tab 03/29/19 [Rx] traMADol [Ultram] 50 mg PO Q6H PRN #12 tab 01/11/20 [Rx] Past Medical History HEENT History: Reports: None, Impaired Vision 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 Cardiovascular History: Reports: Afib, High Cholesterol, Hypertension Respiratory History: Reports: None Gastrointestinal History: Reports: None Genitourinary History: Reports: None HOSPICE MUSIC THERAPY History: Reports: Other HOSPICE MUSIC THERAPY History: fatty tissue removed right breast 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 History: Reports: None Other 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 History: right wrist fx Neurological History: Reports: None Psychiatric History: Reports: None Endocrine/Metabolic History: Reports: Obesity/BMI 30+ 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 [employer]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[employer] Consultant: None Hematologic History: Reports: None Immunologic History: Reports: None Oncologic (Cancer) History: Reports: None Dermatologic History: Reports: None - Infectious Disease History Infectious Disease History: Reports: Chicken Pox, Measles - Past Surgical History Head Surgeries/Procedures: Reports: None HEENT Surgical History: Reports: Other (See Below) Other HEENT Surgeries/Procedures: tumor removed right ear Cardiovascular Surgical History: Reports: None Respiratory Surgical History: Reports: None GI Surgical History: Reports: Appendectomy Female Surgical History: Reports: Hysterectomy Neurological Surgical History: Reports: None 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 Surgical History: Reports: Shoulder Surgery Other 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 Surgeries/Procedures:: surgery right wrist fx Oncologic Surgical History: Reports: None Dermatological Surgical History: Reports: None Social & Family History - Family History Family Medical History: No Pertinent Family History Cardiac: Reports: None Respiratory: Reports: None GI: Reports: None : Reports: None OBGYN: Reports: None 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: Reports: None Neurological: Reports: None Psychiatric: Reports: None Endocrine/Metabolic: Reports: None Hematologic: Reports: None Immunologic: Reports: None Dermatologic: Reports: None Oncologic: Reports: None - Tobacco Use Tobacco Use Status *Q: Never Tobacco User - Caffeine Use Caffeine Use: Reports: Soda - Recreational Drug Use Recreational Drug Use: No - Living Situation & Occupation Living situation: Reports: , with Family Occupation: Retired ED ROS GENERAL - Review of Systems Review Of Systems: See Below ED EXAM, GENERAL - Physical Exam Exam: See Below Course - Vital Signs Last Recorded V/S: Last Vital Signs Temp 36.2 C 03/07/20 02:15 Pulse 71 03/07/20 05:15 Resp 18 03/07/20 05:15 BP 124/59 L 03/07/20 05:15 Pulse Ox 97 12/30/20 05:15 - Orders/Labs/Meds Orders: Active Orders 24 hr Category Date Time Status Cardiac Monitoring [RC] . DIRECTED Care 03/07/20 02:19 Active Pulse Oximetry [RC] ASDIRECTED Care 03/07/20 02:19 Active Labs: Laboratory Tests 03/07/20 03/07/20 03/07/20 Range/Units 02:30 02:30 02:30 WBC 9.71 (4.0-11.0) K/uL RBC 4.34 (4.30-5.90) M/uL Hgb 13.1 (12.0-16.0) g/dL Hct 40.2 (36.0-46.0) % MCV 92.6 (80.0-98.0) fL MCH 30.2 (27.0-32.0) pg MCHC 32.6 (31.0-37.0) g/dL RDW Std Deviation 46.9 (28.0-62.0) fl RDW Coeff of Frank 14 (11.0-15.0) % Plt Count 303 (150-400) K/uL MPV 10.60 (7.40-12.00) fL Neut % (Auto) 57.3 (48.0-80.0) % Lymph % (Auto) 31.0 (16.0-40.0) % [place] % (Auto) 8.8 (0.0-15.0) % Eos % (Auto) 2.6 (0.0-7.0) % Baso % (Auto) 0.3 (0.0-1.5) % Neut # (Auto) 5.6 (1.4-5.7) K/uL Lymph # (Auto) 3.0 H (0.6-2.4) K/uL [place] # (Auto) 0.9 H (0.0-0.8) K/uL Eos # (Auto) 0.3 (0.0-0.7) K/uL Baso # (Auto) 0.0 (0.0-0.1) K/uL Nucleated RBC % 0.0 /100WBC Nucleated RBCs # 0 K/uL INR 1.00 D-Dimer, Quantitative (0.0-0.50) mg/L FEU Sodium 139 (136-145) mmol/L Potassium 3.3 L (3.5-5.1) mmol/L Chloride 99 (98-107) mmol/L Carbon Dioxide 28.0 (21.0-32.0) mmol/L BUN 16 (7.0-18.0) mg/dL Creatinine 0.9 (0.6-1.0) mg/dL Est Cr Clr Drug Dosing 54.45 mL/min Estimated GFR (MDRD) > 60.0 ml/min Glucose 176 H (74-106) mg/dL Calcium 9.1 (8.5-10.1) mg/dL Magnesium 1.7 L (1.8-2.4) mg/dL Troponin I < 0.050 (0.000-0.056) ng/mL 03/07/20 Range/Units 02:30 WBC (4.0-11.0) K/uL RBC (4.30-5.90) M/uL Hgb (12.0-16.0) g/dL Hct (36.0-46.0) % MCV (80.0-98.0) fL MCH (27.0-32.0) pg MCHC (31.0-37.0) g/dL RDW Std Deviation (28.0-62.0) fl RDW Coeff of Frank (11.0-15.0) % Plt Count (150-400) K/uL MPV (7.40-12.00) fL Neut % (Auto) (48.0-80.0) % Lymph % (Auto) (16.0-40.0) % [place] % (Auto) (0.0-15.0) % Eos % (Auto) (0.0-7.0) % Baso % (Auto) (0.0-1.5) % Neut # (Auto) (1.4-5.7) K/uL Lymph # (Auto) (0.6-2.4) K/uL [place] # (Auto) (0.0-0.8) K/uL Eos # (Auto) (0.0-0.7) K/uL Baso # (Auto) (0.0-0.1) K/uL Nucleated RBC % /100WBC Nucleated RBCs # K/uL INR D-Dimer, Quantitative 0.62 H (0.0-0.50) mg/L FEU Sodium (136-145) mmol/L Potassium (3.5-5.1) mmol/L Chloride (98-107) mmol/L Carbon Dioxide (21.0-32.0) mmol/L BUN (7.0-18.0) mg/dL Creatinine (0.6-1.0) mg/dL Est Cr Clr Drug Dosing mL/min Estimated GFR (MDRD) ml/min Glucose (74-106) mg/dL Calcium (8.5-10.1) mg/dL Magnesium (1.8-2.4) mg/dL Troponin I (0.000-0.056) ng/mL Meds: Medications Discontinued Medications Generic Name Dose Route Start Last Admin Trade Name Freq PRN Reason Stop Dose Admin Aspirin 325 mg 03/07/20 03:12 03/07/20 03:47 Aspirin PO 03/07/20 03:13 325 mg ONETIME ONE Administration Magnesium Sulfate 2 gm in 50 mls @ 50 mls/hr 03/07/20 03:12 03/07/20 03:46 Magnesium Sulfate In Water Premix IV 03/07/20 04:11 50 mls/hr ONETIME ONE Administration Iopamidol 100 ml 03/07/20 05:20 03/07/20 05:20 Isovue Multipack-370 (76%) IVPUSH 03/07/20 05:21 100 ml ONETIME STA Administration Potassium Chloride 40 meq 03/07/20 03:12 03/07/20 03:47 Potassium Chloride Solution PO 03/07/20 03:13 Not Given ONETIME ONE Potassium Chloride Confirm 03/07/20 03:23 03/07/20 03:47 Potassium Chloride Administered 03/07/20 03:24 40 meq Dose Administration 40 meq .ROUTE .STK-MED ONE Departure - Departure Time of Disposition: 06:21 Disposition: Home, Self-Care 01 Condition: Fair Clinical Impression: Atypical chest pain Instructions: Nonspecific Chest Pain, Adult, [id number] Referrals: Gwen Fountain MD [Physician] - Forms: ED Department Discharge Additional Instructions: Your evaluated today on an emergent basis. At this time it is uncertain as to what is causing your chest pain however it is reassuring that your chest pain resolved. Today your work-up was negative. However I do recommend following up with Dr. Bernard within 2 to 3 days. Please return to the emergency department for any new or worsening symptoms such as worsening chest pain, shortness of breath, or passing out. Cardiology [facility] - [facility] [address] [place] [id number] [id number] The patient is informed of any results of their evaluation and diagnostic workup and all questions are answered. They are given discharge instructions and return precautions. The patient is stable for discharge. The patient states they understand and agree with the plan and that they will return if their symptoms get worse or if they have any new concerns. The following information is given to patients seen in the emergency department who are being discharged to home. This information is to outline your options for follow-up care. We provide all patients seen in our emergency department with a follow-up referral. The need for follow-up, as well as the timing and circumstances, are variable depending upon the specifics of your emergency department visit. If you don't have a primary care physician on staff, we will provide you with a referral. We always advise you to contact your personal physician following an emergency department visit to inform them of the circumstance of the visit and for follow-up with them and/or the need for any referrals to a consulting specialist. The emergency department will also refer you to a specialist when appropriate. This referral assures that you have the opportunity for follow-up care with a specialist. All of these measure are taken in an effort to provide you with optimal care, which includes your follow-up. Under all circumstances we always encourage you to contact your private physician who remains a resource for coordinating your care. When calling for follow-up care, please make the office aware that this follow-up is from your recent emergency room visit. If for any reason you are refused follow-up, please contact the [facility] Emergency Department at and asked to speak to the emergency department charge nurse. Sepsis Event Note (ED) - Evaluation Sepsis Screening Result: No Definite Risk - Focused Exam Vital Signs: Vital Signs Temp Pulse Resp BP Pulse Ox 03/07/20 05:15 71 18 124/59 L 97 03/07/20 03:45 74 18 140/103 H 97 03/07/20 02:15 36.2 C 82 18 146/87 H 97 - My Orders Last 24 Hours: My Active Orders 03/07/20 02:19 Cardiac Monitoring [RC] . DIRECTED Pulse Oximetry [RC] ASDIRECTED - Assessment/Plan Last 24 Hours: My Active Orders 03/07/20 02:19 Cardiac Monitoring [RC] . DIRECTED Pulse Oximetry [RC] ASDIRECTED
[2020-03-07 06:37] VITALS: BP 128/60; PULSE 74
== END 2020-03-07 06:30 | disposition home or self-care (01) ==
LOC: MW.ED 02:12
DX: R07.89 Other chest pain (principal); R06.02 Shortness of breath; M54.9 Dorsalgia, unspecified; M79.601 Pain in right arm; M79.602 Pain in left arm; I48.91 Unspecified atrial fibrillation; E78.00 Pure hypercholesterolemia, unspecified; I10 Essential (primary) hypertension; E66.9 Obesity, unspecified; Z68.36 Body mass index [BMI] 36.0-36.9, adult; Z88.6 Allergy status to analgesic agent; Z88.0 Allergy status to penicillin; Z79.899 Other long term (current) drug therapy; Z79.82 Long term (current) use of aspirin
CPT/HCPCS: 36415; 71045; 71275; 74174; 80048; 83735; 84484; 85025; 85379; 85610; 93005; 96365; 99285; A9270; J3475; Q9967; 93010; 99283

== ENCOUNTER 2020-05-07 14:12 | Emergency (ER) | payer MEDICARE, BC ==
[2020-05-07] MEDS ORDERED: Ketorolac 30 MG/ML SDV IM ONE (14:32)
--- NOTE | 2020-05-07 14:37 | EDM.PDOC ---
ED HPI GENERAL MEDICAL PROBLEM - General Chief Complaint: Back Pain or Injury Stated Complaint: BACK PAIN Time Seen by Provider: 05/07/20 14:13 - History of Present Illness INITIAL COMMENTS - FREE TEXT/NARRATIVE: Patient is a 70-year-old female she has a history of sciatica on and off for the last year or so. She presents today with 1 week of persistent right leg pain starting in the buttock and radiating down the right leg consistent with prior episodes of sciatica. No fall or injury. No pain in the center of her back. No difficulty walking no weakness of the leg no urinary or bowel incontinence. No fevers no chills no IV drug abuse. Patient has an allergy to ibuprofen but tolerates Toradol. She states that in the past shot of Toradol and a prescription for muscle relaxants has helped in similar situations. Patient's chart references Ultram and Tylenol with oxycodone. She states that these medications are in the past and she does not take any of these medications at this time. The pain seems to bother her the most at night when she is trying to sleep. She came in today because the pain was more unbearable than it has been. Right sciatica Pain Score (Numeric/FACES): 10 - Related Data Allergies Allergy/AdvReac Type Severity Reaction Status Date / Time ibuprofen [From Motrin] Allergy Facial Verified 05/07/20 14:27 Swelling Penicillins Allergy Rash Verified 05/07/20 14:27 Home Meds: Home Meds Losartan/Hydrochlorothiazide [Losartan-HCTZ 100-25 MG] 1 tab PO DAILY 02/01/19 [History] atorvaSTATin [Lipitor] 10 mg PO DAILY 02/01/19 [History] Acetaminophen/oxyCODONE [Percocet 325-5 MG] 1 tab PO QID PRN #56 tablet 02/06/19 [Rx] Aspirin 325 mg PO DAILY #21 tablet 02/06/19 [Rx] traMADol [Ultram] 50 mg PO Q4H PRN #84 tab 02/06/19 [Rx] Cyclobenzaprine [Flexeril] 10 mg PO TID PRN #21 tab 03/29/19 [Rx] diazePAM [Valium.] 5 mg PO TID PRN 3 Days #9 tab 05/07/20 [Rx] methylPREDNISolone [Medrol Dose Pack] 4 mg PO DAILY #1 dospk 05/07/20 [Rx] Past Medical History HEENT History: Reports: None, Impaired Vision 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 Cardiovascular History: Reports: Afib, High Cholesterol, Hypertension Respiratory History: Reports: None Gastrointestinal History: Reports: None Genitourinary History: Reports: None 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 RECEPTIONIST History: fatty tissue removed right breast 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 History: Reports: None Other 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 History: right wrist fx Neurological History: Reports: None Psychiatric History: Reports: None Endocrine/Metabolic History: Reports: Obesity/BMI 30+ 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 Electrical System 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: None Hematologic History: Reports: None Immunologic History: Reports: None Oncologic (Cancer) History: Reports: None Dermatologic History: Reports: None - Infectious Disease History Infectious Disease History: Reports: Chicken Pox, Measles - Past Surgical History Head Surgeries/Procedures: Reports: None HEENT Surgical History: Reports: Other (See Below) Other HEENT Surgeries/Procedures: tumor removed right ear Cardiovascular Surgical History: Reports: None Respiratory Surgical History: Reports: None GI Surgical History: Reports: Appendectomy Female Surgical History: Reports: Hysterectomy Neurological Surgical History: Reports: None 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 Surgical History: Reports: Shoulder Surgery Other 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 Surgeries/Procedures:: surgery right wrist fx Oncologic Surgical History: Reports: None Dermatological Surgical History: Reports: None Social & Family History - Family History Family Medical History: No Pertinent Family History Cardiac: Reports: None Respiratory: Reports: None GI: Reports: None : Reports: None OBGYN: Reports: None 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: Reports: None Neurological: Reports: None Psychiatric: Reports: None Endocrine/Metabolic: Reports: None Hematologic: Reports: None Immunologic: Reports: None Dermatologic: Reports: None Oncologic: Reports: None - Caffeine Use Caffeine Use: Reports: Soda - Living Situation & Occupation Living situation: Reports: , with Family Occupation: Retired ED ROS GENERAL - Review of Systems Review Of Systems: See Below Free Text/Narrative/Comment: General: No fever. ENT: No sore throat. Neck: No neck stiffness. Respiratory: No shortness of breath. Cardiac: No chest pain. Gastrointestinal: No nausea, vomiting or abdominal pain. 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: Per HPI Neurologic: No headache. ED EXAM, GENERAL - Physical Exam Exam: See Below Free Text/Narrative:: General Appearance: No acute distress, appears comfortable Skin: No rash HEENT: Normocephalic/atraumatic, sclera anicteric, mucous membranes moist Neck: Normal range of motion 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: 5 out of 5 strength in the bilateral hips and flexion extension abduction and abduction 5 out of 5 strength in bilateral knees and bilateral ankles bilateral lower extremities neurovascularly intact. No pain in the lumbar spine Neurologic: Awake, alert, no obvious deficits, moving all extremities Psychiatric: Appropriate, cooperative Course - Vital Signs Last Recorded V/S: Last Vital Signs Temp 98.4 F 05/07/20 14:30 Pulse 100 05/07/20 14:30 Resp 20 05/07/20 14:30 BP 146/73 H 05/07/20 14:30 Pulse Ox 90 L 05/07/20 14:30 - Orders/Labs/Meds Meds: Medications Discontinued Medications Generic Name Dose Route Start Last Admin Trade Name Freq PRN Reason Stop Dose Admin Ketorolac Tromethamine 30 mg 05/07/20 14:32 Toradol IM 05/07/20 14:33 ONETIME ONE Departure - Departure Time of Disposition: 14:32 Disposition: Home, Self-Care 01 Condition: Good Clinical Impression: Sciatica - Discharge Information *PRESCRIPTION DRUG MONITORING PROGRAM REVIEWED*: Yes *COPY OF PRESCRIPTION DRUG MONITORING REPORT IN PATIENT TRISTAN: No Prescriptions: methylPREDNISolone [Medrol Dose Pack] 4 mg PO DAILY #1 dospk diazePAM [Valium.] 5 mg PO TID PRN 3 Days #9 tab PRN Reason: Muscle Spasm Instructions: Sciatica Referrals: Gus Nassar MD [Primary Care Provider] - 3 Days Forms: ED Department Discharge Additional Instructions: The shot of Toradol that you have been given here will help with the pain and inflammation. Prescription was sent to the pharmacy as a muscle relaxant can sometimes make people sleepy do not take this medication if you are planning to drive primary arms or be very active. It is mostly for at night to help you sleep. The Medrol Dosepaks a steroid that should also help with the pain and inflammation. If you are still having trouble with your symptoms by the end of this week please follow-up with your primary care doctor. The following information is given to patients seen in the emergency department who are being discharged to home. This information is to outline your options for follow-up care. We provide all patients seen in our emergency department with a follow-up referral. The need for follow-up, as well as the timing and circumstances, are variable depending upon the specifics of your emergency department visit. If you don't have a primary care physician on staff, we will provide you with a referral. We always advise you to contact your personal physician following an emergency department visit to inform them of the circumstance of the visit and for follow-up with them and/or the need for any referrals to a consulting specialist. The emergency department will also refer you to a specialist when appropriate. This referral assures that you have the opportunity for follow-up care with a specialist. All of these measure are taken in an effort to provide you with optimal care, which includes your follow-up. Under all circumstances we always encourage you to contact your private physician who remains a resource for coordinating your care. When calling for follow-up care, please make the office aware that this follow-up is from your recent emergency room visit. If for any reason you are refused follow-up, please contact the [facility] Emergency Department at and asked to speak to the emergency department charge nurse. Sepsis Event Note (ED) - Evaluation Sepsis Screening Result: No Definite Risk - Focused Exam Vital Signs: Vital Signs Temp Pulse Resp BP Pulse Ox 05/07/20 14:30 98.4 F 100 20 146/73 H 90 L - Assessment/Plan Assessment:: 70-year-old female presenting with signs and symptoms most consistent with right-sided sciatica. No findings that would suggest cord compression or cauda equina no findings that would suggest epidural abscess or spinal osteomyelitis. Patient neurovascularly intact. Given patient's allergy profile I did clarify with her and she says repeatedly that she has tolerated Toradol well in the past. We will give 30 of IM Toradol here. Prescription for Valium and Medrol Dosepak sent to the pharmacy. Return precautions discussed and understood she will follow-up with her primary care provider. No abdominal pain nothing that suggest acute abdominal gynecologic process.
[2020-05-07 15:03] VITALS: BP 133/75; PULSE 90
== END 2020-05-07 15:03 | disposition home or self-care (01) ==
LOC: MW.ED 14:12
DX: M54.31 Sciatica, right side (principal); M54.32 Sciatica, left side; I10 Essential (primary) hypertension; E66.9 Obesity, unspecified; E78.00 Pure hypercholesterolemia, unspecified; I48.91 Unspecified atrial fibrillation; Z88.0 Allergy status to penicillin; Z88.6 Allergy status to analgesic agent; Z79.82 Long term (current) use of aspirin; Z79.899 Other long term (current) drug therapy; Z68.37 Body mass index [BMI] 37.0-37.9, adult
CPT/HCPCS: 96372; 99283; J1885

== ENCOUNTER 2021-02-25 02:55 | Emergency (ER) | payer MEDICARE, BC ==
[2021-02-25] MEDS ORDERED: methylPREDNISolone Sodium Succinate 125 MG/2 ML SDV IVPUSH ONE (03:24)
[2021-02-25] MEDS ORDERED: Sodium Chloride 0.9% 2.5 ML Syringe FLUSH PRN (03:24)
[2021-02-25] MEDS ORDERED: Sodium Chloride 0.9% 10 ML Syringe FLUSH PRN (03:24)
[2021-02-25] MEDS ORDERED: Cetirizine 10 MG Tab PO ONE (03:25)
[2021-02-25] MEDS ORDERED: Famotidine 20 MG Tab PO ONE (03:27)
--- NOTE | 2021-02-25 03:30 | EDM.PDOC ---
ED HPI GENERAL MEDICAL PROBLEM - General Chief Complaint: ENT Problem Stated Complaint: SWELLING ON FACE Time Seen by Provider: 02/25/21 03:15 - History of Present Illness INITIAL COMMENTS - FREE TEXT/NARRATIVE: History of present illness: [] Review of systems: As per history of present illness and below otherwise all systems reviewed and negative. Past medical history: As per history of present illness and as reviewed below otherwise noncontributory. Surgical history: As per history of present illness and as reviewed below otherwise noncontributory. Social history: No reported history of drug or alcohol abuse. Family history: As per history of present illness and as reviewed below otherwise noncontributory. Physical exam: Constitutional - well developed, well-nourished and in no acute distress HEENT -upper lip swollen. Normocephalic, no evidence of trauma - external nose and mouth otherwise normal - no mass in neck and no JVD - mucosae moist EYES - full EOM, PERRL, no icterus - no evidence of inflammation, injection, or drainage Respiratory - no respiratory distress, equal bilateral expansion, lungs clear to auscultation and no abnormal lung sounds Cardiovascular - Regular Rhythm with S1 and S2 appreciated and no murmur, gallop or rub. GI - abdomen soft without distension or organomegaly - - no guard or rebound 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 no gross deformity of long bones or joints - no tenderness, s welling or edema Neurologic - Alert and oriented times four - CN II-XII grossly intact - motor sensory and coordination symmetrically normal Psychiatric - appropriate mood and affect with normal thought content Hematologic - No petechiae or purpura - mucosa appropriate color and sclera not pale - normal nail bed color and refill Integument - no rash or evidence of trauma - normal turgor Diagnostics: [] Therapeutics: [] Impression: [] Plan: [] Definitive disposition and diagnosis as appropriate pending reevaluation and review of above. Right Upper Oral/Mouth Pain Score (Numeric/FACES): 8 - Related Data Allergies Allergy/AdvReac Type Severity Reaction Status Date / Time ibuprofen [From Motrin] Allergy Facial Verified 05/07/20 14:27 Swelling Penicillins Allergy Rash Verified 05/07/20 14:27 Home Meds: Home Meds Losartan/Hydrochlorothiazide [Losartan-HCTZ 100-25 MG] 1 tab PO DAILY 02/01/19 [History] atorvaSTATin [Lipitor] 10 mg PO DAILY 02/01/19 [History] Aspirin 325 mg PO DAILY #21 tablet 02/06/19 [Rx] Cetirizine [ZyrTEC] 10 mg PO DAILY 5 Days #5 tab 02/25/21 [Rx] Potassium Chloride [Klor-Con M20] 20 meq PO DAILY 02/25/21 [History] metFORMIN HCl [Metformin HCl] 500 mg PO BID 02/25/21 [History] methylPREDNISolone [Medrol Dose Pack] 4 mg PO DAILY #21 tab 02/25/21 [Rx] Past Medical History HEENT History: Reports: None, Impaired Vision 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 Cardiovascular History: Reports: Afib, High Cholesterol, Hypertension Respiratory History: Reports: None Gastrointestinal History: Reports: None Genitourinary History: Reports: None 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: Reports: Other 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: fatty tissue removed right breast 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 History: Reports: None Other 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 History: right wrist fx Neurological History: Reports: None Psychiatric History: Reports: None Endocrine/Metabolic History: Reports: Diabetes, Type I, Obesity/BMI 30+ 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 Wire Coiler Machine Operator: None Hematologic History: Reports: None Immunologic History: Reports: None Oncologic (Cancer) History: Reports: None Dermatologic History: Reports: None - Infectious Disease History Infectious Disease History: Reports: Chicken Pox, Measles - Past Surgical History Head Surgeries/Procedures: Reports: None HEENT Surgical History: Reports: Other (See Below) Other HEENT Surgeries/Procedures: tumor removed right ear Cardiovascular Surgical History: Reports: None Respiratory Surgical History: Reports: None GI Surgical History: Reports: Appendectomy Female Surgical History: Reports: Hysterectomy Neurological Surgical History: Reports: None 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 Surgical History: Reports: Shoulder Surgery Other 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 Surgeries/Procedures:: surgery right wrist fx Oncologic Surgical History: Reports: None Dermatological Surgical History: Reports: None Social & Family History - Family History Family Medical History: No Pertinent Family History Cardiac: Reports: None Respiratory: Reports: None GI: Reports: None : Reports: None OBGYN: Reports: None 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: Reports: None Neurological: Reports: None Psychiatric: Reports: None Endocrine/Metabolic: Reports: None Hematologic: Reports: None Immunologic: Reports: None Dermatologic: Reports: None Oncologic: Reports: None - Tobacco Use Tobacco Use Status *Q: Never Tobacco User Second Hand Smoke Exposure: No - Caffeine Use Caffeine Use: Reports: Coffee - Recreational Drug Use Recreational Drug Use: No - Living Situation & Occupation Living situation: Reports: , with Family Occupation: Retired ED ROS GENERAL - Review of Systems Review Of Systems: Comprehensive ROS is negative, except as noted in HPI. ED EXAM, GENERAL - Physical Exam Exam: See Below Course - Vital Signs Last Recorded V/S: Last Vital Signs Temp 36.6 C 02/25/21 03:00 Pulse 87 02/25/21 03:00 Resp 14 02/25/21 03:00 BP 141/76 H 02/25/21 03:00 Pulse Ox 95 02/25/21 03:00 - Orders/Labs/Meds Orders: Active Orders 24 hr Category Date Time Status Sodium Chloride 0.9% [Saline Flush] Med 02/25/21 03:24 Active 10 ml FLUSH ASDIRECTED PRN Sodium Chloride 0.9% [Saline Flush] Med 02/25/21 03:24 Active 2.5 ml FLUSH ASDIRECTED PRN Saline Lock Insert [OM.PC] Stat Oth 02/25/21 03:24 Ordered Medication Orders Sodium Chloride (Sodium Chloride 0.9% 10 Ml Syringe) 10 ml FLUSH ASDIRECTED PRN PRN Reason: Keep Vein Open Sodium Chloride (Sodium Chloride 0.9% 2.5 Ml Syringe) 2.5 ml FLUSH ASDIRECTED PRN PRN Reason: Keep Vein Open Meds: Medications Generic Name Dose Route Start Last Admin Trade Name Freq PRN Reason Stop Dose Admin Sodium Chloride 10 ml 02/25/21 03:24 Sodium Chloride 0.9% 10 Ml Syringe FLUSH ASDIRECTED PRN Keep Vein Open Sodium Chloride 2.5 ml 02/25/21 03:24 Sodium Chloride 0.9% 2.5 Ml Syringe FLUSH ASDIRECTED PRN Keep Vein Open Discontinued Medications Generic Name Dose Route Start Last Admin Trade Name Freq PRN Reason Stop Dose Admin Cetirizine HCl 10 mg 02/25/21 03:25 02/25/21 03:39 Cetirizine 10 Mg Tab PO 02/25/21 03:26 10 mg ONETIME ONE Administration Famotidine 20 mg 02/25/21 03:27 02/25/21 03:38 Famotidine 20 Mg Tab PO 02/25/21 03:28 20 mg ONETIME ONE Administration Methylprednisolone Sodium Succinate 125 mg 02/25/21 03:24 02/25/21 03:39 Methylprednisolone Sodium Succinate 125 Mg/2 Ml Sdv IVPUSH 02/25/21 03:25 125 mg ONETIME ONE Administration - Re-Assessments/Exams Free Text/Narrative Re-Assessment/Exam: 02/25/21 04:15 Patient is improving slightly. She continues to improve the 1 hour after her steroid dose all feel comfortable letting her go home with careful instructions to return immediately if she starts to have any airway embarrassment or voice change. Departure - Departure Time of Disposition: 04:40 Disposition: Home, Self-Care 01 Condition: Good Clinical Impression: Angioedema - Discharge Information Prescriptions: methylPREDNISolone [Medrol Dose Pack] 4 mg PO DAILY #21 tab Cetirizine [ZyrTEC] 10 mg PO DAILY 5 Days #5 tab Instructions: Angioedema, [id number] Referrals: Gus Nassar MD [Primary Care Provider] - Forms: ED Department Discharge Additional Instructions: You should return immediately if you begin to have any voice change, trouble swallowing, trouble breathing, noisy breathing, or any other thing that might indicate that you are starting to have some swelling about your airway. Your medication [facility] Talk to your doctor about the fact that we had no allergy exposure and that this is a possible side effect of losartan. If losartan is the cause it can come back and be dangerous. [facility] [address] [place] [address] [place] [address] The following information is given to patients seen in the emergency department who are being discharged to home. This information is to outline your options for follow-up care. We provide all patients seen in our emergency department with a follow-up referral. The need for follow-up, as well as the timing and circumstances, are variable depending upon the specifics of your emergency department visit. If you don't have a primary care physician on staff, we will provide you with a referral. We always advise you to contact your personal physician following an emergency department visit to inform them of the circumstance of the visit and for follow-up with them and/or the need for any referrals to a consulting specialist. The emergency department will also refer you to a specialist when appropriate. This referral assures that you have the opportunity for follow-up care with a specialist. All of these measure are taken in an effort to provide you with optimal care, which includes your follow-up. Under all circumstances we always encourage you to contact your private physician who remains a resource for coordinating your care. When calling for follow-up care, please make the office aware that this follow-up is from your recent emergency room visit. If for any reason you are refused follow-up, please contact the [facility] Emergency Department at and asked to speak to the emergency department charge nurse. Sepsis Event Note (ED) - Evaluation Sepsis Screening Result: No Definite Risk - Focused Exam Vital Signs: Vital Signs Temp Pulse Resp BP Pulse Ox 02/25/21 03:00 36.6 C 87 14 141/76 H 95 - My Orders Last 24 Hours: My Active Orders 02/25/21 03:24 Sodium Chloride 0.9% [Saline Flush] 10 ml FLUSH ASDIRECTED PRN Sodium Chloride 0.9% [Saline Flush] 2.5 ml FLUSH ASDIRECTED PRN Saline Lock Insert [OM.PC] Stat - Assessment/Plan Last 24 Hours: My Active Orders 02/25/21 03:24 Sodium Chloride 0.9% [Saline Flush] 10 ml FLUSH ASDIRECTED PRN Sodium Chloride 0.9% [Saline Flush] 2.5 ml FLUSH ASDIRECTED PRN Saline Lock Insert [OM.PC] Stat
[2021-02-25 04:51] VITALS: BP 136/78; PULSE 73
== END 2021-02-25 04:45 | disposition home or self-care (01) ==
LOC: MW.ED 02:55
DX: T78.3XXA Angioneurotic edema, initial encounter (principal); I48.91 Unspecified atrial fibrillation; E78.00 Pure hypercholesterolemia, unspecified; I10 Essential (primary) hypertension; E10.9 Type 1 diabetes mellitus without complications; E66.9 Obesity, unspecified; Z68.34 Body mass index [BMI] 34.0-34.9, adult; Z88.6 Allergy status to analgesic agent; Z88.0 Allergy status to penicillin; Z79.82 Long term (current) use of aspirin; Z79.84 Long term (current) use of oral hypoglycemic drugs; Z79.899 Other long term (current) drug therapy
CPT/HCPCS: 96374; 99283; A9270; J2930

== ENCOUNTER 2021-04-18 02:17 | Emergency (ER) | payer MEDICARE, BC ==
[2021-04-18] MEDS ORDERED: Acetaminophen 500 MG Tab PO ONE (02:45)
[2021-04-18] MEDS ORDERED: Diazepam 5 MG Tab PO ONE (02:45)
[2021-04-18 03:01] VITALS: BP 140/99; PULSE 77
== END 2021-04-18 03:09 | disposition home or self-care (01) ==
LOC: MW.ED 02:17
DX: M62.838 Other muscle spasm (principal); I48.91 Unspecified atrial fibrillation; E78.00 Pure hypercholesterolemia, unspecified; I10 Essential (primary) hypertension; E10.9 Type 1 diabetes mellitus without complications; E66.9 Obesity, unspecified; Z68.33 Body mass index [BMI] 33.0-33.9, adult; Z79.82 Long term (current) use of aspirin; Z79.899 Other long term (current) drug therapy; Z88.0 Allergy status to penicillin; Z88.8 Allergy status to other drugs, medicaments and biological substances
CPT/HCPCS: 99283; A9270-GY

== ENCOUNTER 2022-02-15 08:01 | Emergency (ER) | payer MEDICARE, BC ==
[2022-02-15] MEDS ORDERED: Lactated Ringers 1,000 ML IV ONE (08:17)
[2022-02-15] MEDS ORDERED: Acetaminophen 325 MG Tab PO ONE (08:17)
[2022-02-15] MEDS ORDERED: prednisoLONE Soln 15 MG/5 ML UD Cup PO ONE (08:17)
[2022-02-15] MEDS ORDERED: Metoclopramide 10 MG Tab PO ONE (08:17)
[2022-02-15] MEDS ORDERED: Ibuprofen 400 MG Tab PO ONE (08:17)
[2022-02-15 08:58] LABS: CORONAVIRUS COVID-19 NAA POSITIVE (NEGATIVE); INFLUENZA A NAA NEGATIVE (NEGATIVE); INFLUENZA B NAA NEGATIVE (NEGATIVE); RESPIRATORY SYNCYTIAL VIR NAA NEGATIVE (NEGATIVE)
[2022-02-15] MEDS ORDERED: Nystatin Topical Powder 15 GM Bottle TOP STA (09:01)
[2022-02-15 09:15] LABS: CARBON DIOXIDE,CO2 28.5 mmol/L (21.0-32.0); POTASSIUM,K 3.3 mmol/L (3.5-5.1)
[2022-02-15 10:20] VITALS: BP 132/74; PULSE 90
[2022-02-15] MEDS ORDERED: Nystatin Topical Powder 15 GM Bottle TOP SCH (14:00)
== END 2022-02-15 10:10 | disposition home or self-care (01) ==
LOC: MW.ED 08:01
DX: U07.1 COVID-19 (principal); I48.91 Unspecified atrial fibrillation; I10 Essential (primary) hypertension; E10.9 Type 1 diabetes mellitus without complications; E66.9 Obesity, unspecified; Z68.34 Body mass index [BMI] 34.0-34.9, adult; Z88.0 Allergy status to penicillin; Z88.8 Allergy status to other drugs, medicaments and biological substances; Z79.82 Long term (current) use of aspirin; Z79.899 Other long term (current) drug therapy
CPT/HCPCS: 0241U; 36415; 80053; 85025; 96360; 99283; A9270; J7120

== ENCOUNTER 2022-10-31 08:35 | Emergency (ER) | payer MEDICARE, BC ==
[2022-10-31] MEDS ORDERED: Cyclobenzaprine 10 MG Tab PO ONE (10:28)
[2022-10-31 13:08] VITALS: BP 135/68; PULSE 78
== END 2022-10-31 11:59 | disposition home or self-care (01) ==
LOC: MW.ED 08:35
DX: M54.12 Radiculopathy, cervical region (principal); I10 Essential (primary) hypertension; E10.9 Type 1 diabetes mellitus without complications; E66.9 Obesity, unspecified; I48.91 Unspecified atrial fibrillation; Z88.0 Allergy status to penicillin; Z88.8 Allergy status to other drugs, medicaments and biological substances; Z79.82 Long term (current) use of aspirin; Z79.84 Long term (current) use of oral hypoglycemic drugs
CPT/HCPCS: 72125; 93005; 99284; A9270; 93010; 99282

== ENCOUNTER 2023-03-04 09:20 | Emergency (ER) | payer MEDICARE, BC ==
[2023-03-04] MEDS ORDERED: Lidocaine 4% 1 each Patch TOP PRN (10:13)
[2023-03-04] MEDS ORDERED: Acetaminophen 500 MG Tab PO ONE (10:13)
[2023-03-04] MEDS ORDERED: Cyclobenzaprine 10 MG Tab PO ONE (10:16)
[2023-03-04 11:10] VITALS: BP 140/89; PULSE 85
== END 2023-03-04 11:21 | disposition home or self-care (01) ==
LOC: MW.ED 09:20
DX: M25.512 Pain in left shoulder (principal); I10 Essential (primary) hypertension; E10.9 Type 1 diabetes mellitus without complications; E66.9 Obesity, unspecified; Z79.82 Long term (current) use of aspirin; Z79.84 Long term (current) use of oral hypoglycemic drugs; Z79.2 Long term (current) use of antibiotics; Z79.899 Other long term (current) drug therapy; Z88.0 Allergy status to penicillin; Z88.8 Allergy status to other drugs, medicaments and biological substances; Z68.34 Body mass index [BMI] 34.0-34.9, adult; Z90.49 Acquired absence of other specified parts of digestive tract; Z90.710 Acquired absence of both cervix and uterus
CPT/HCPCS: 99283; A9270

== ENCOUNTER 2024-05-07 02:51 | Emergency (ER) | payer MEDICARE, BC ==
[2024-05-07] MEDS ORDERED: Sodium Chloride 0.9% 2.5 ML Syringe FLUSH PRN (03:04)
[2024-05-07] MEDS ORDERED: Sodium Chloride 0.9% 10 ML Syringe FLUSH PRN (03:04)
[2024-05-07] MEDS ORDERED: Sodium Chloride 0.9% 20 ML SDV IV PRN (03:04)
[2024-05-07 03:13] LABS: BASOPHILS ABSOLUTE AUTO 0.06 K/uL (0.00-0.20); BASOPHILS PERCENT AUTO 0.6 % (0.0-1.0); EOSINOPHILS ABSOLUTE AUTO 0.34 K/uL (0.00-0.45); EOSINOPHILS PERCENT AUTO 3.3 % (0.0-6.0); HEMATOCRIT 40.3 % (37.0-47.0); HEMOGLOBIN 13.5 g/dL (12.0-16.0); IMMATURE GRAN ABSOLUTE AUTO 0.02 K/uL (0.00-0.05); IMMATURE GRAN PERCENT AUTO 0.2 % (0.0-0.4); LYMPHOCYTES ABSOLUTE AUTO 3.06 K/uL (1.00-4.80); LYMPHOCYTES PERCENT AUTO 29.4 % (24.0-44.0); MEAN CORPUSCULAR HEMOGLOBIN 30.1 pg (28.0-32.0); MEAN CORPUSCULAR HGB CONC 33.5 g/dL (32.0-36.0); MEAN CORPUSCULAR VOLUME 89.8 fL (83.0-99.0); MEAN PLATELET VOLUME 10.5 fL (9.4-12.3); MONOCYTES PERCENT AUTO 8.6 % (0.0-8.0); NEUTROPHILS ABSOLUTE AUTO 6.04 K/uL (1.80-7.70); NEUTROPHILS PERCENT AUTO 57.9 % (41.0-71.0); PLATELET COUNT,PLT 281 K/uL (150-400); RED BLOOD CELL COUNT 4.49 M/uL (4.10-5.30); WHITE BLOOD CELL COUNT,WBC 10.42 K/uL (3.9-11.3)
[2024-05-07] MEDS: Aspirin 81 MG Tab.Chew PO ONE (03:19)
[2024-05-07 03:24] LABS: INR 0.99 (0.86-1.11)
[2024-05-07 03:43] LABS: A/G RATIO 0.8 (0.9-1.6); ALBUMIN 3.4 g/dL (3.4-5.0); BILIRUBIN TOTAL 0.4 mg/dL (0.2-1.0); CALCIUM 9.4 mg/dL (8.5-10.1); CARBON DIOXIDE,CO2 27.8 mmol/L (21.0-32.0); CREATININE 0.9 mg/dL (0.6-1.0); EST CRCL DRUG DOSING (CG) 50.56 mL/min; POTASSIUM,K 3.5 mmol/L (3.5-5.1); PROTEIN TOTAL,TP 7.5 g/dL (6.4-8.2)
[2024-05-07] MEDS: ClonazePAM 0.5 MG Tab PO ONE (05:12)
[2024-05-07 05:15] VITALS: PULSE 76
[2024-05-07] MEDS: Morphine 2 MG/ML SYRINGE IVPUSH ONE (05:18)
[2024-05-07 06:35] VITALS: BP 139/71
== END 2024-05-07 06:34 | disposition home or self-care (01) ==
LOC: MW.ED 02:51
DX: R07.89 Other chest pain (principal); F41.9 Anxiety disorder, unspecified; I10 Essential (primary) hypertension; E78.00 Pure hypercholesterolemia, unspecified; E10.9 Type 1 diabetes mellitus without complications; E66.9 Obesity, unspecified; Z90.49 Acquired absence of other specified parts of digestive tract; Z90.710 Acquired absence of both cervix and uterus; Z79.899 Other long term (current) drug therapy; Z79.84 Long term (current) use of oral hypoglycemic drugs; Z75.8 Other problems related to medical facilities and other health care; Z88.0 Allergy status to penicillin; Z88.6 Allergy status to analgesic agent; Z88.8 Allergy status to other drugs, medicaments and biological substances; Z68.34 Body mass index [BMI] 34.0-34.9, adult
CPT/HCPCS: 36415; 71045; 80053; 83880; 84484; 85025; 85610; 87428; 93005; 99285; A9270